=== PATIENT | male | born 1985 | race Caucasian/White ===

== ENCOUNTER 2017-12-19 11:37 | Inpatient (IN) | payer SELFPAY ==
[~2017-12-19] VITALS: Ht 175.3 cm; Wt 86.2 kg
[~2017-12-19 11:37] MED LIST: DEXAMETHASONE SOD PHOS 4 MG/ML VIAL IV ONE; KETOROLAC TROMETHAMINE 30 MG/ML (IVP) VIAL IV PUSH ONE; LACTATED RINGER'S 1000 ML INJ 1,000 ML IV ONE; LIDOCAINE HCL 1% PF 5 ML SYRINGE OTHER ONE; ONDANSETRON HCL 4 MG/2 ML VIAL IV PUSH ONE; PROPOFOL 200 MG/20 ML AMP IV ONE
[2017-12-19 11:42] VITALS: BP 147/80; PULSE 100; RESP 18; TEMP 98.8; O2SAT 96
[2017-12-19 11:54] VITALS: BP 136/85; PULSE 79; RESP 12; O2SAT 95
[2017-12-19] MEDS ORDERED: VANCOMYCIN INJ 1,000 MG in SODIUM CHLOR 0.9% 250 ML INJ 250 ML IV ONE (12:15)
[2017-12-19] MEDS ORDERED: KETOROLAC TROMETHAMINE 30 MG/ML (IVP) VIAL IV PUSH ONE (12:15)
--- NOTE | 2017-12-19 12:21 | PD ---
HPI Chief Complaint: Skin Problem Time Seen by Provider: 11:47 Travel History International Travel<30 days: No Contact w/Intl Traveler<30days: No Traveled to known affect area: No History of Present Illness HPI 32-year-old male that presents to the ED for evaluation of left hand swelling that he has had for 6 days. Per patient he started about 6 days ago. He has significant history of IV drug abuse. He uses every day and he has lost around 1:00 this morning. Injects heroin and Dilaudid. He denies that this is related to his IV drug abuse. He denies injecting in this area. Per patient he believes this is secondary to getting his hand caught by a palm tree. Per patient he was hoping he will get better but it did not. He has not seen anybody for this. He does have a history of abscesses and infections on his hand in the past. He has a history of IV drug abuse per medical records. His pain currently is 10 out of 10. Denies any fevers chills or sweats. Most of the swelling is to most of the left hand between the webspace between the first and second digit and some of it does go to the third digit. Patient is able to move the fingers but has a lot of pain with full flexion. PFSH Past Medical History Asthma: No Blood Disorders: No Anxiety: No Depression: No Heart Rhythm Problems: No Cancer: No Cardiovascular Problems: No High Cholesterol: No Chemotherapy: No Chest Pain: No Congestive Heart Failure: No COPD: No Diabetes: Yes Patient Takes Glucophage: No Diminished Hearing: No Endocrine: No Gastrointestinal Disorders: No Genitourinary: No Hepatitis: Yes (HEP C) Hypertension: No Immune Disorder: No Implanted Vascular Access Dvce: No Musculoskeletal: No Neurologic: No Psychiatric: No Reproductive: No Respiratory: No Radiation Therapy: No Sickle Cell Disease: No Sleep Apnea: No Thyroid Disease: No ?: Not Past Surgical History AICD: No Arteriovenous Shunt: No Ear Surgery: No Endocrine Surgery: No Eye Surgery: No Genitourinary Surgery: No Gynecologic Surgery: No Insulin Pump: No Joint Replacement: No Oral Surgery: No Pacemaker: No Other Surgery: Yes (I and D of left foot, left hand hx surgery) Social History Alcohol Use: Yes (Rarely) Tobacco Use: Yes (PPD) Substance Use: Yes (DILAUDID) Allergies-Medications (Allergen,Severity, Reaction): Coded Allergies: penicillin G (Unverified Allergy, Severe, Hives, 06/29/17) Reported Meds & Prescriptions Reported Meds & Active Scripts Active No Active Prescriptions or Reported Medications Review of Systems Except as stated in HPI: all other systems reviewed are Neg Physical Exam Narrative GENERAL: SKIN: Warm and dry. HEAD: Atraumatic. Normocephalic. EYES: Pupils equal and round. No scleral icterus. No injection or drainage. ENT: No nasal bleeding or discharge. Mucous membranes pink and moist. Tongue is midline. No uvula deviation. NECK: Trachea midline. No JVD. CARDIOVASCULAR: Regular rate and rhythm. No murmurs, S3, S4. RESPIRATORY: No accessory muscle use. Clear to auscultation. Breath sounds equal bilaterally. GASTROINTESTINAL: Abdomen soft, non-tender, nondistended. Hepatic and splenic margins not palpable. MUSCULOSKELETAL: Extremities without clubbing, cyanosis, or edema. No obvious deformities. Full range of motion of the upper and lower extremities bilaterally. 2+ pulses bilaterally. Patient has soft tissue swelling and erythema as well as what appears to be an area of induration of about 5 cm in diameter on the webspace between the first and second digits and some of it appears to be spreading to the third digit. Very tender to touch. Appears to be more dorsal aspect on the palmar. Patient appears to have an old scar in this area. Good capillary refill. Sensations intact bilaterally. NEUROLOGICAL: Awake and alert. No obvious cranial nerve deficits. Motor grossly within normal limits. Five out of 5 muscle strength in the arms and legs. Normal speech. PSYCHIATRIC: Appropriate mood and affect; insight and judgment normal. Data Data Last Documented VS Vital Signs Date Time Temp Pulse Resp B/P (MAP) Pulse Ox O2 Delivery O2 Flow Rate FiO2 12/19/17 11:54 79 12 136/85 (102) 95 Room Air 12/19/17 11:42 98.8 Orders Orders Complete Blood Count With Diff (12/19/17 12:06) Basic Metabolic Panel (Bmp) (12/19/17 12:06) Prothrombin Time / Inr (Pt) (12/19/17 12:06) Act Partial Throm Time (Ptt) (12/19/17 12:06) Blood Culture (12/19/17 12:06) C-Reactive Protein (Crp) (12/19/17 12:06) Wound Culture And Gram Stain (12/19/17 12:06) Iv Access Insert/Monitor (12/19/17 12:06) Vancomycin Inj (Vancomycin Inj) (12/19/17 12:15) Ketorolac Inj (Toradol Inj) (12/19/17 12:15) Hand, Complete ([id number]) (12/19/17 ) Vascular Access Team Consult/P PRN (12/19/17 12:22) Vascular Poc Ultrasound (12/19/17 ) Us Arm Soft Tissue (12/19/17 ) Admit Order (Ed Use Only) (12/19/17 13:54) Labs Laboratory Tests Test 12/19/17 12:27 White Blood Count 9.5 TH/MM3 Red Blood Count 4.51 MIL/MM3 Hemoglobin 13.0 GM/DL Hematocrit 37.6 % Mean Corpuscular Volume 83.3 FL Mean Corpuscular Hemoglobin 28.8 PG Mean Corpuscular Hemoglobin Concent 34.6 % Red Cell Distribution Width 12.6 % Platelet Count 250 TH/MM3 Mean Platelet Volume 7.8 FL Neutrophils (%) (Auto) 80.4 % Lymphocytes (%) (Auto) 10.1 % Monocytes (%) (Auto) 6.0 % Eosinophils (%) (Auto) 2.5 % Basophils (%) (Auto) 1.0 % Neutrophils # (Auto) 7.7 TH/MM3 Lymphocytes # (Auto) 1.0 TH/MM3 Monocytes # (Auto) 0.6 TH/MM3 Eosinophils # (Auto) 0.2 TH/MM3 Basophils # (Auto) 0.1 TH/MM3 CBC Comment DIFF FINAL Differential Comment Prothrombin Time 10.5 SEC Prothromb Time International Ratio 1.0 RATIO Activated Partial Thromboplast Time 26.6 SEC Blood Urea Nitrogen 7 MG/DL Creatinine 0.78 MG/DL Random Glucose 343 MG/DL Calcium Level 8.5 MG/DL Sodium Level 135 MEQ/L Potassium Level 3.6 MEQ/L Chloride Level 100 MEQ/L Carbon Dioxide Level 30.5 MEQ/L Anion Gap 5 MEQ/L Estimat Glomerular Filtration Rate 115 ML/MIN C-Reactive Protein 6.09 MG/DL MDM Medical Decision Making Medical Screen Exam Complete: Yes Emergency Medical Condition: Yes Medical Record Reviewed: Yes Interpretation(s) CBC & BMP Diagram 12/19/17 12:27 Calcium Level 8.5 Last Impressions Hand X-Ray 12/19/17 0000 Signed Impressions: Service Date/Time: Tuesday, December 19, 2017 12:49 - CONCLUSION: Soft tissue swelling otherwise negative Yonatan Rivera MD FACR CRP elevated Differential Diagnosis Abscess versus cellulitis versus IVDA versus MRSA Narrative Course 32-year-old male that presents to the ED for evaluation of left hand possible infection. Patient was properly examined and was found to have signs and symptoms consistent with appears to be cellulitis with possible abscess deep on the left hand. I had my attending Dr. Sims evaluated the patient himself who recommends that we have hand surgeon involved and IV antibiotics and admission. Patient was told this and agrees with admission. Labs and imaging order. he was started on vancomycin. Labs and imaging showed soft tissue infection and elevated CRP as well as sugars. My attending spoke with Dr. Leon over the phone. Please refer to his note. My attending spoke with Dr. Barnard for admission. Please refer to his note. Patient was told of need of admission and agrees with plan. Patient was admitted for IV antibiotics and possible surgical treatment of what appears to be a possible hand abscess from IV drug abuse. Diagnosis Primary Impression: Cellulitis of hand, left Additional Impression: IVDU (intravenous drug user) Admitting Information Admitting Physician Requests: Admit Scripts No Active Prescriptions or Reported Meds Mike Robin December 19, 2017 12:21
[2017-12-19 12:48] LABS: AUTOMATED NEUTROPHIL # 7.7 TH/MM3 (1.8-7.7); BASOPHIL # 0.1 TH/MM3 (0-0.2); EOSINOPHIL # 0.2 TH/MM3 (0-0.4); EOSINOPHIL % 2.5 % (0.0-4.0); HEMATOCRIT 37.6 % (39.0-51.0); LYMPH % 10.1 % (9.0-44.0); MEAN CELL VOLUME 83.3 FL (80.0-100.0); MEAN CORPUSCULAR HEMOGLOBIN 28.8 PG (27.0-34.0); MEAN CORPUSCULAR HGB CONC 34.6 % (32.0-36.0); MEAN PLATELET VOLUME 7.8 FL (7.0-11.0); MONOCYTE # 0.6 TH/MM3 (0-0.9); NEUT % 80.4 % (16.0-70.0); PLATELET COUNT 250 TH/MM3 (150-450); RED BLOOD COUNT 4.51 MIL/MM3 (4.50-5.90); RED CELL DISTRIBUTION WIDTH 12.6 % (11.6-17.2); WHITE BLOOD COUNT 9.5 TH/MM3 (4.0-11.0)
[2017-12-19 12:57] LABS: PROTHROMBIN TIME - PATIENT 10.5 SEC (9.8-11.6)
[2017-12-19 13:06] LABS: BICARBONATE 30.5 MEQ/L (21.0-32.0); C-REACTIVE PROTEIN 6.09 MG/DL (0.00-0.30); CALCIUM 8.5 MG/DL (8.5-10.1); CREATININE 0.78 MG/DL (0.60-1.30)
--- NOTE | 2017-12-19 13:26 | RADRPT ---
EXAM DATE/TIME: 12/19/2017 12:49 [facility] COMPARISON: HAND LEFT COMPLETE ([id number]), July 13, 2014, 17:21. INDICATIONS : Left hand pain and swelling stuck by a palm fron. MEDICAL HISTORY : None. SURGICAL HISTORY : None. ENCOUNTER: Initial ACUITY: 1 day PAIN SCORE: 9/10 LOCATION: Left Hand. FINDINGS: Soft tissue swelling thenar eminence. No foreign body. No fracture. Anatomic alignment. CONCLUSION: Soft tissue swelling otherwise negative Yonatan Rivera MD FACR on December 19, 2017 at 13:19 Board Certified Radiologist. This report was verified electronically.
[2017-12-19] MEDS ORDERED: GLUCAGON 1 MG/ML VIAL OTHER PRN (14:00)
[2017-12-19] MEDS ORDERED: SENNOSIDES 8.6 MG TAB PO PRN (14:00)
[2017-12-19] MEDS ORDERED: MAGNESIUM HYDROXIDE SUSP 30 ML CUP PO PRN (14:00)
[2017-12-19] MEDS ORDERED: NALOXONE HCL 0.4 MG/ML AMP IV PUSH PRN (14:00)
[2017-12-19] MEDS ORDERED: ONDANSETRON HCL 4 MG/2 ML VIAL IVP PRN (14:00)
[2017-12-19] MEDS ORDERED: SODIUM CHLORIDE 0.9% FLUSH 10 ML FLUSH IV FLUSH PRN (14:00)
[2017-12-19] MEDS ORDERED: ACETAMINOPHEN 325 MG TAB PO PRN (14:00)
[2017-12-19] MEDS ORDERED: LACTULOSE SYRUP 20 GM/30 ML CUP PO PRN (14:00)
[2017-12-19] MEDS ORDERED: DEXTROSE 50% IN WATER 50 ML VIAL(D50) IV PUSH PRN (14:00)
[2017-12-19] MEDS ORDERED: BISACODYL 10 MG SUPP RECTAL PRN (14:00)
--- NOTE | 2017-12-19 14:40 | HHI.HP ---
HPI Service [facility] Primary Care Physician No Primary Care Physician Admission Diagnosis Left hand cellulitis. Diagnoses: Chief Complaint: Left hand pain Travel History International Travel<30 Days: No Contact w/Intl Traveler <30 Da: No Traveled to Known Affected Are: No History of Present Illness 32-year-old male ongoing IV drug user and untreated diabetes presented to the hospital with complaint of left hand swelling, redness, and pain. Patient reports that he normally does not inject on his hand. He states he suffered an injury from a palm tree about a week ago, he was poked. Since then he has developed worsening redness, pain, and swelling. Hand surgery was consulted from the emergency room and planning for I&D today. He denies any fevers. Regarding diabetes, patient reports he has not been taking any medications due to lack of insurance. He states he could not tolerate metformin due to GI side effects. He states he was on insulin about 4 years ago when he was incarcerated. Review of Systems Constitutional: DENIES: Fever, Chills Respiratory: DENIES: Cough, Shortness of breath Cardiovascular: DENIES: Chest pain, Palpitations Except as stated in HPI: all other systems reviewed are Neg Past Family Social History Past Medical History IV drug user Untreated type II diabetes Past Surgical History Leg I&D Previous hand I&D Reported Medications Reported Meds & Active Scripts Active No Active Prescriptions or Reported Medications Allergies: Coded Allergies: penicillin G (Unverified Allergy, Severe, Hives, 06/29/17) Family History Reviewed and is noncontributory. 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 Patient admits to smoking 1 pack of cigarettes per day. Admits to daily IV Dilaudid use. Denies alcohol. Physical Exam Vital Signs Vital Signs Date Time Temp Pulse Resp B/P (MAP) Pulse Ox O2 Delivery O2 Flow Rate FiO2 12/19/17 11:54 79 12 136/85 (102) 95 Room Air 12/19/17 11:42 98.8 100 18 147/80 (102) 96 Physical Exam GENERAL: This is a well-nourished, well-developed patient, in no apparent distress. SKIN: Left dorsal hand is erythematous with edema. CARDIOVASCULAR: Normal rate and regular rhythm without murmurs, gallops, or rubs. RESPIRATORY: Good respiratory efforts. Breath sounds equal and clear to auscultation bilaterally. GASTROINTESTINAL: Abdomen soft, non-tender, non-distended. Normal active bowel sounds MUSCULOSKELETAL: Findings as noted under skin exam. He can move the fingers freely with some discomfort. Neurovascularly intact at the fingers. NEURO: Alert & Oriented x4 to person, place, time, situation. Moves all ext x4 PSYCH: Appropriate mood and affect. Laboratory Laboratory Tests Test 12/19/17 12:27 White Blood Count 9.5 Red Blood Count 4.51 Hemoglobin 13.0 Hematocrit 37.6 Mean Corpuscular Volume 83.3 Mean Corpuscular Hemoglobin 28.8 Mean Corpuscular Hemoglobin Concent 34.6 Red Cell Distribution Width 12.6 Platelet Count 250 Mean Platelet Volume 7.8 Neutrophils (%) (Auto) 80.4 Lymphocytes (%) (Auto) 10.1 Monocytes (%) (Auto) 6.0 Eosinophils (%) (Auto) 2.5 Basophils (%) (Auto) 1.0 Neutrophils # (Auto) 7.7 Lymphocytes # (Auto) 1.0 Monocytes # (Auto) 0.6 Eosinophils # (Auto) 0.2 Basophils # (Auto) 0.1 CBC Comment DIFF FINAL Differential Comment Prothrombin Time 10.5 Prothromb Time International Ratio 1.0 Activated Partial Thromboplast Time 26.6 Blood Urea Nitrogen 7 Creatinine 0.78 Random Glucose 343 Calcium Level 8.5 Sodium Level 135 Potassium Level 3.6 Chloride Level 100 Carbon Dioxide Level 30.5 Anion Gap 5 Estimat Glomerular Filtration Rate 115 C-Reactive Protein 6.09 Date/Time Source Procedure Growth Status 12/19/17 12:27 Blood Peripheral Aerobic Blood Culture Pending Received 12/19/17 12:27 Blood Peripheral Anaerobic Blood Culture Pending Received Result Diagram: 12/19/17 1227 12/19/17 1227 Imaging Last Impressions Hand X-Ray 12/19/17 0000 Signed Impressions: Service Date/Time: Tuesday, December 19, 2017 12:49 - CONCLUSION: Soft tissue swelling otherwise negative Yonatan Rivera MD FACR Capallysoni VTE Risk Assessment Caprini VTE Risk Assessment: No/Low Risk (score <= 1) Caprini Risk Assessment Model Point Value = 1 Point Value = 2 Point Value = 3 Point Value = 5 Age 41-60 Minor surgery BMI > 25 kg/m2 Swollen legs Varicose veins or History of unexplained or recurrent spontaneous Oral contraceptives or hormone replacement Sepsis (< 1 month) Serious lung disease, including pneumonia (< 1 month) Abnormal pulmonary function Acute myocardial infarction Congestive heart failure (< 1 month) History of inflammatory bowel disease Medical patient at bed rest Age 61-74 Arthroscopic surgery Major open surgery (> 45 min) Laparoscopic surgery (> 45 min) Malignancy Confined to bed (> 72 hours) Immobilizing plaster cast Central venous access Age >= 75 History of VTE Family history of VTE Factor V Leiden Prothrombin [id number] Lupus anticoagulant Anticardiolipin antibodies Elevated serum homocysteine Heparin-induced thrombocytopenia Other congenital or acquired thrombophilia Stroke (< 1 month) Elective arthroplasty Hip, pelvis, or leg fracture Acute spinal cord injury (< 1 month) Prophylaxis Regimen Total Risk Factor Score Risk Level Prophylaxis Regimen 0-1 Low Early ambulation 2 Moderate Order ONE of the following: *Sequential Compression Device (SCD) *Heparin 5000 units SQ BID 3-4 Higher Order ONE of the following medications: *Heparin 5000 units SQ TID *Enoxaparin/Lovenox 40 mg SQ daily (WT < 150 kg, CrCl > 30 mL/min) *Enoxaparin/Lovenox 30 mg SQ daily (WT < 150 kg, CrCl > 10-29 mL/min) *Enoxaparin/Lovenox 30 mg SQ BID (WT < 150 kg, CrCl > 30 mL/min) AND/OR *Sequential Compression Device (SCD) 5 or more Highest Order ONE of the following medications: *Heparin 5000 units SQ TID (Preferred with Epidurals) *Enoxaparin/Lovenox 40 mg SQ daily (WT < 150 kg, CrCl > 30 mL/min) *Enoxaparin/Lovenox 30 mg SQ daily (WT < 150 kg, CrCl > 10-29 mL/min) *Enoxaparin/Lovenox 30 mg SQ BID (WT < 150 kg, CrCl > 30 mL/min) AND *Sequential Compression Device (SCD) Assessment and Plan Problem List: (1) Cellulitis of hand, left ICD Code: L03.114 - Cellulitis of left upper limb Status: Acute Plan: With probable abscess. US soft tissue pending. Hand surgery aware any splinting for possible I&D later today. Patient is an IV drug user. 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 Continue vancomycin IV. Follow blood cultures. Pain control with Percocet and Toradol IV as needed. (2) Diabetes ICD Code: E11.9 - Type 2 diabetes mellitus without complications Status: Chronic Plan: Untreated. Patient reports this is due to lack of insurance. He used to be on insulin about 4 years ago. Start Levemir 10 units nightly and sliding scale insulin with Accu-Cheks. Check hemoglobin A1c Case management consult to assist patient (3) IVDU (intravenous drug user) ICD Code: F19.90 - Other psychoactive substance use, unspecified, uncomplicated Plan: The patient was extensively counseled. He seems to understand the need to quit but he does not have a plan currently. Patient was made aware that we will avoid IV narcotics during his hospitalization. Discussed Condition With Dr. Sims Physician Certification 2 Midnight Certification Type: Admission for Inpatient Services Order for Inpatient Services The services are ordered in accordance with Medicare regulations or non- Medicare payer requirements, as applicable. In the case of services not specified as inpatient-only, they are appropriately provided as inpatient services in accordance with the 2-midnight benchmark. Estimated LOS (days): 3 days is the estimated time the patient will need to remain in the hospital, assuming treatment plan goals are met and no additional complications. Post-Hospital Plan: Home Problem Qualifiers (1) Diabetes: Jacinto Barnard MD December 19, 2017 14:40
--- NOTE | 2017-12-19 15:19 | RADRPT ---
EXAM DATE/TIME: 12/19/2017 14:19 CORRECTION Corrected on: December 19, 2017; [facility] COMPARISON: HAND LEFT COMPLETE ([id number]), December 19, 2017, 12:49. INDICATIONS : Left arm abscess. MEDICAL HISTORY : Hepatitis C. Diabetes. Panic disorder. Substance use. SURGICAL HISTORY : I&D of left foot. Left hand surgery. ENCOUNTER: Initial ACUITY: 1 week PAIN SCORE: 10/10 LOCATION: Left arm. AREA EVALUATED: Left hand between the FINDINGS: There is a soft tissue abscess left hand that involves both the deep and superficial tissues of the t henar eminence. Complex material is present. No foreign bodies evident. CONCLUSION: Deep and superficial abscess of the thenar eminence. Yonatan Rivera MD FACR on December 19, 2017 at 15:07 Board Certified Radiologist. This report was verified electronically. Yonatan Rivera MD FACR on December 19, 2017 at 16:31 Board Certified Radiologist. This report was verified electronically.
[2017-12-19] MEDS ORDERED: Vancomycin Consult Pharmacy 1 EA OTHER SCH (16:00)
[2017-12-19 16:21] VITALS: BP 123/67; PULSE 76; RESP 19; O2SAT 97
[2017-12-19] MEDS: oxyCODONE/ACETAMINOPHEN 5 MG/325 MG TAB PO PRN ×2 (16:25→23:32)
[2017-12-19] MEDS: INSULIN ASPART SUPPLEMENTAL SCALE SQ SCH ×2 (17:00→23:32)
[2017-12-19 17:55] VITALS: BP 146/69; PULSE 71; RESP 19; TEMP 98.2; O2SAT 97
--- NOTE | 2017-12-19 19:09 | MB ---
cc: Carlton Leon MD, Srikanth MD DATE: 12/19/2017 REASON FOR CONSULTATION: Left hand abscess. HISTORY OF PRESENT ILLNESS: The patient is a 32-year-old right hand dominant male who presented to the ED with complaints of pain and swelling involving the left hand of 3-4 days duration. 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 He complains of pain, swelling and redness involving the left hand. Pain is almost constant in nature. Denies any tingling, numbness. Denies any fever. The patient gives a history of diabetes and he is not on any treatment because of insurance issues. PAST MEDICAL HISTORY: Significant for diabetes and IV drug abuse. PAST SURGICAL HISTORY: Significant for incision and drainage of hand and leg abscess. PHYSICAL EXAMINATION: GENERAL: The patient is alert, oriented x 3. EXTREMITIES: Examination of left hand reveals swelling and redness involving the first webspace. There is tense swelling over the first webspace, which is tender to palpation. Fluctuation could not be elicited. There is a prominent vein with needle pretty over the first webspace corresponding to the swelling and redness. Exquisite tenderness noted over the region. The thenar muscle region appears to be soft and supple. He does have tenderness on the volar aspect of the first webspace. Range of motion of the thumb is limited and painful. Swelling of the surrounding dorsal aspect of the hand noted. He has full flexion at the PIP joint. Flexion of the MP joints are limited and painful. No signs of flexor tenosynovitis noted clinically. Wrist range of motion ____ flexion and extension is painful. LABORATORY DATA: His lab work was reviewed. He has a 9.5 white count with a shift of 80%. The patient had x-rays of the left hand which show soft tissue swelling. IMAGING STUDIES: The patient had an ultrasound of the left hand which shows a complex collection over the first webspace with abscess formation. ASSESSMENT: A 32-year-old male with left hand abscess. PLAN: Will be to admit the patient for IV antibiotics, limb elevation. We will take him emergently for incision and drainage of left hand abscess. The patient has been explained the risks and benefits of the procedure and he is consented for the same. Carlton Leon MD SE/Reena , 04:49 PM , 05:09 PM
[2017-12-19] MEDS ORDERED: NEOMYCIN/POLYMYXIN 1 ML G.U. IRRIGANT ONE (19:31)
[2017-12-19] MEDS ORDERED: BUPIVACAINE HCL PF 0.5% 30 ML VIAL ONE (19:33)
[2017-12-19] MEDS ORDERED: LIDOCAINE HCL 2% PF 10 ML VIAL ONE (19:33)
[2017-12-19] MEDS ORDERED: HYDROmorphone HCL PF 2 MG/ML VIAL ONE (19:34)
[2017-12-19] MEDS ORDERED: KETAMINE HCL 50 MG/5 ML SYRINGE ONE (19:34)
[2017-12-19] MEDS ORDERED: MIDAZOLAM HCL 2 MG/2 ML VIAL ONE (19:35)
[2017-12-19] MEDS ORDERED: KETOROLAC TROMETHAMINE 30 MG/ML (IVP) VIAL IV PUSH PRN (20:00)
--- NOTE | 2017-12-19 20:43 | PD.OP ---
Operative Report Preoperative Diagnosis: (1) Abscess of left hand Postoperative Diagnosis: (1) Abscess of left hand Procedure: incision and drainage of left hand abscess Anesthesia: general Surgeon: Carlton Leon Graphic Artist(s): charly Operation and Findings: deep and superficial abscess over the first web space left hand Carlton Leon MD December 19, 2017 20:43
[2017-12-19] MEDS ORDERED: DO NOT ADM ANY ANTICOAGULANT DRUGS PRN (21:00)
--- NOTE | 2017-12-19 21:44 | MP ---
cc: Carlton Leon MD DATE OF OPERATION: 12/19/2017 DATE OF PROCEDURE: 12/19/2017 PREOPERATIVE DIAGNOSIS: Abscess, left hand. POSTOPERATIVE DIAGNOSIS: Abscess, left hand. PROCEDURE PERFORMED: Incision and drainage of abscess, left hand. SURGEON: Carlton Leon MD ANESTHESIA: General. ESTIMATED BLOOD LOSS: Minimal. TOURNIQUET TIME: 11 minutes at 250 mmHg. SPECIMENS: Sent for culture and sensitivity. DISPOSITION: To PACU stable. INDICATIONS FOR PROCEDURE: The patient is a 32-year-old right hand dominant male with history of diabetes and IV drug abuse, presented with complaints of pain, swelling involving the left hand for the past several days. On examination, he had swelling, redness, induration, fluctuation over the first webspace. He also had ultrasound which showed complex collection in the deep and superficial region, involving the first webspace. The patient was consented for incision and drainage of left hand abscess. The patient was explained the risks and benefits of the procedure. The patient was brought to the operating room. Under general anesthesia, the left upper extremity was sterilely prepped and draped. Incision site was marked with an oblique fashion over the first webspace measuring about 3 cm. After limb elevation, tourniquet is inflated to 250 mmHg. Incision was then made over the proposed incision site. So after dissection was carried out exposing the subcutaneous location, there was a big pocket of collection with purulent material over the region. About 3-4 mL of berenice purulent material was drained from the region. The cavity was extending to the first webspace over the adductor muscle region. Pockets were broken with blunt dissection. Material was sent for culture and sensitivity. No other pockets were noted. After draining all the pockets, tourniquet was deflated. Total tourniquet time was 11 minutes. Good distal circulation after release of the tourniquet. Bleeding points were cauterized with bipolar cautery. Thorough wash was given using normal saline mixed with hydrogen peroxide and normal saline mixed with irrigant. About a liter of solution was used. After ensuring hemostasis, packing of the wound was carried out using 1/4 inch iodoform packing material. The skin was loosely approximated with 5-0 nylon in a horizontal mattress interrupted fashion. Bulky hand dressing was applied, which was held in place by Sof-Rol and bias hand wrap. The patient was recovered and sent to recovery in stable condition. The plan will be to keep the limb elevated. Continue with IV antibiotics and followup cultures. Carlton Leon MD SE/MERE/deborah , 08:47 PM , 09:19 PM
[2017-12-19 21:48] LABS: HEMOGLOBIN A1C 10.9 % (4.3-6.0)
[2017-12-19] MEDS ORDERED: VANCOMYCIN INJ 1,000 MG in SODIUM CHLOR 0.9% 250 ML INJ 250 ML IV SCH (22:00)
[2017-12-19] MEDS ORDERED: VANCOMYCIN INJ 1,500 MG in SODIUM CHLORID 0.9% 500 ML INJ 500 ML IV SCH (22:00)
[2017-12-19] MEDS: SODIUM CHLORIDE 0.9% FLUSH 10 ML FLUSH IV FLUSH SCH (23:32)
[2017-12-20] VITALS: BP 106/52; PULSE 71; RESP 18; TEMP 98.2; O2SAT 95
[2017-12-20 04:00] VITALS: BP 107/67; PULSE 66; RESP 18; TEMP 98; O2SAT 96
[2017-12-20] MEDS: oxyCODONE/ACETAMINOPHEN 5 MG/325 MG TAB PO PRN ×2 (04:45→09:21)
[2017-12-20 08:00] VITALS: BP 129/73; PULSE 62; RESP 17; TEMP 98.1; O2SAT 99
[2017-12-20] MEDS: INSULIN ASPART SUPPLEMENTAL SCALE SQ SCH (09:21)
[2017-12-20] MEDS: SODIUM CHLORIDE 0.9% FLUSH 10 ML FLUSH IV FLUSH SCH (09:22)
[2017-12-21] MEDS ORDERED: PHARMACY ORDERED LAB ONE (09:45)
== END 2017-12-20 09:56 | disposition left against medical advice (07) | DRG 603 ==
LOC: HOR 11:37 → NEDA 13:56 → N07B 16:46
PROVIDERS: ADMIT Internal Medicine; ATTEND Internal Medicine
PROC: 0J9K0ZX Drainage of Left Hand Subcutaneous Tissue and Fascia, Open Approach, Diagnostic (ICD-10-PCS; principal; 2017-12-19 19:50)
DX: L02.512 Cutaneous abscess of left hand (principal); L03.114 Cellulitis of left upper limb; E11.9 Type 2 diabetes mellitus without complications; Z91.120 Patient's intentional underdosing of medication regimen due to financial hardship; F19.90 Other psychoactive substance use, unspecified, uncomplicated; F17.210 Nicotine dependence, cigarettes, uncomplicated; Z86.14 Personal history of Methicillin resistant Staphylococcus aureus infection
CPT/HCPCS: 73130; 76882; 80048; 82948; 83036; 85025; 85610; 85730; 86140; 86403; 87015; 87040; 87070; 87102; 87116; 87205; 87206; J1100; J1170; J1815; J1885; J2250; J2405; J3370; J7040; J7050; J7120

== ENCOUNTER 2018-01-13 17:36 | Inpatient (IN) | payer SELFPAY ==
[~2018-01-13] VITALS: Ht 175.3 cm; Wt 71.6 kg
[2018-01-13 07:41] VITALS: PULSE 82
[2018-01-13 17:39] VITALS: BP 146/85; PULSE 114; RESP 16; TEMP 98.8; O2SAT 95
[2018-01-13] MEDS ORDERED: MORPHINE SULFATE 4 MG/ML INJ IV PUSH ONE (18:45)
[2018-01-13] MEDS ORDERED: VANCOMYCIN INJ 1,250 MG in SODIUM CHLOR 0.9% 250 ML INJ 250 ML IV ONE (18:45)
[2018-01-13 18:46] VITALS: BP 146/81; PULSE 89; RESP 18; O2SAT 98
--- NOTE | 2018-01-13 19:13 | PD ---
HPI Chief Complaint: Skin Problem Time Seen by Provider: 18:32 Travel History International Travel<30 days: No Contact w/Intl Traveler<30days: No Traveled to known affect area: No History of Present Illness HPI Patient is a 32 year old male, with history of IVDA, who comes in complaining of pain to his left arm. He has had multiple episodes of cellulitis and abscesses in the past. He says these have been here for a few weeks and getting worse. He denies fever or chills. He last used earlier in the morning. He says he has not injected in the areas he has abscesses. Severity is mild to moderate. PFSH Past Medical History Arthritis: No Asthma: No Blood Disorders: No Anxiety: No Depression: No Heart Rhythm Problems: No Cancer: No Cardiovascular Problems: No High Cholesterol: No Chemotherapy: No Chest Pain: No Congestive Heart Failure: No COPD: No Cerebrovascular Accident: No Diabetes: Yes Patient Takes Glucophage: Yes (7 months ago) Diminished Hearing: No Endocrine: No Gastrointestinal Disorders: No Genitourinary: No Headaches: Yes Hepatitis: Yes (HEP C) Hypertension: No Immune Disorder: No Implanted Vascular Access Dvce: No Musculoskeletal: No Neurologic: Yes Psychiatric: No Reproductive: No Respiratory: No Migraines: No Radiation Therapy: No Seizures: No Sickle Cell Disease: No Sleep Apnea: No Thyroid Disease: No Past Surgical History Abdominal Surgery: No AICD: No Arteriovenous Shunt: No Cardiac Surgery: No Ear Surgery: No Endocrine Surgery: No Eye Surgery: No Genitourinary Surgery: No Gynecologic Surgery: No Insulin Pump: No Joint Replacement: No Oral Surgery: No Pacemaker: No Thoracic Surgery: No Other Surgery: Yes (I and D of left foot, left hand hx surgery) Social History Alcohol Use: No Tobacco Use: Yes (PPD) Substance Use: Yes (Dilaudid & Heroin & weed) Allergies-Medications (Allergen,Severity, Reaction): Coded Allergies: penicillin G (Verified Allergy, Severe, Hives, 01/13/18) Reported Meds & Prescriptions Reported Meds & Active Scripts Active Review of Systems Except as stated in HPI: all other systems reviewed are Neg General / Constitutional: No: Fever, Chills HENT: No: Headaches, Lightheadedness Cardiovascular: No: Chest Pain or Discomfort Respiratory: No: Shortness of Breath Gastrointestinal: No: Nausea, Vomiting Musculoskeletal: Positive: Pain Skin: Positive Lesions Neurologic: No: Weakness, Dizziness Physical Exam Narrative GENERAL: Awake and alert, in no acute distress. SKIN: Open abscess to the left wrist, draining large amount pus. Erythema to the left arm. HEAD: Atraumatic. Normocephalic. EYES: Pupils equal and round. No scleral icterus. ENT: No nasal bleeding or discharge. Mucous membranes pink and moist. NECK: Trachea midline. No JVD. CARDIOVASCULAR: Regular rate and rhythm. No murmur appreciated. RESPIRATORY: No accessory muscle use. Clear to auscultation. Breath sounds equal bilaterally. GASTROINTESTINAL: Abdomen soft, non-tender, nondistended. MUSCULOSKELETAL: No obvious deformities. No clubbing. No cyanosis. No edema. NEUROLOGICAL: Awake and alert. No obvious cranial nerve deficits. Motor grossly within normal limits. Normal speech. PSYCHIATRIC: Appropriate mood and affect; insight and judgment normal. Data Data Last Documented VS Vital Signs Date Time Temp Pulse Resp B/P (MAP) Pulse Ox O2 Delivery O2 Flow Rate FiO2 01/13/18 18:46 89 18 146/81 (102) 98 Room Air 01/13/18 17:39 98.8 Orders Orders Iv Access Insert/Monitor (01/13/18 18:39) Complete Blood Count With Diff (01/13/18 18:39) Comprehensive Metabolic Panel (01/13/18 18:39) Blood Culture (01/13/18 18:39) Vancomycin Inj (Vancomycin Inj) (01/13/18 18:45) Morphine Inj (Morphine Inj) (01/13/18 18:45) Wound Culture And Gram Stain (01/13/18 18:49) Sodium Chlor 0.9% 1000 Ml Inj (Ns 1000 M (01/13/18 21:00) Insulin Human Regular Inj (Novolin R Inj (01/13/18 21:00) Vancomycin Consult Pharmacy (Vancomycin (01/13/18 21:00) Aztreonam Inj (Azactam Inj) (01/13/18 22:00) Lorazepam Inj (Ativan Inj) (01/13/18 21:00) Admit To Inpatient (01/13/18 ) Vital Signs (Adult) Q4H (01/13/18 20:56) Activity Oob Ad Maddie (01/13/18 20:56) Medical Doctor / Telemetry .CONTINUOUS (01/13/18 20:56) Intake + Output VELMA.QSHIFT (01/13/18 20:56) Diet 1800 Ada Cons Carb (01/14/18 Breakfast) Sodium Chlor 0.9% 1000 Ml Inj (Ns 1000 M (01/13/18 20:56) Sodium Chloride 0.9% Flush (Ns Flush) (01/13/18 21:00) Sodium Chloride 0.9% Flush (Ns Flush) (01/13/18 21:00) Metoclopramide Inj (Reglan Inj) (01/13/18 21:00) Comprehensive Metabolic Panel (01/14/18 06:00) Complete Blood Count With Diff (01/14/18 06:00) Case Management Consult (01/13/18 20:56) Scd Bilateral/Knee High VELMA.BID (01/13/18 20:56) Jose Bilateral/Knee High VELMA.QSHIFT (01/13/18 21:02) Acetaminophen (Tylenol) (01/13/18 21:00) Oxycodone (Roxicodone) (01/13/18 21:00) Oxycodone (Roxicodone) (01/13/18 21:00) Docusate Sodium-Senna (Macrina-Colace) (01/13/18 21:00) Magnesium Hydroxide Liq (Milk Of Magnesi (01/13/18 21:00) Sennosides (Senokot) (01/13/18 21:00) Bisacodyl Supp (Dulcolax Supp) (01/13/18 21:00) Lactulose Liq (Lactulose Liq) (01/13/18 21:00) Inpatient Certification (01/13/18 ) Bedside Glucose VELMA.CSUGAR (01/13/18 20:56) Blood Glucose Goal (Criteria) (01/13/18 20:56) Hypoglycemia 70 Mg/Dl Or < (01/13/18 20:56) Notify Dr: Other (01/13/18 20:56) Dextrose 50% In Yina (Vial) Inj (D50w (Vi (01/13/18 21:00) Glucagon Inj (Glucagon Inj) (01/13/18 21:00) Insulin Aspart Supplemtl Scale (Novolog (01/13/18 21:00) Admit Order (Ed Use Only) (01/13/18 21:04) Labs Laboratory Tests Test 01/13/18 19:00 01/13/18 19:15 White Blood Count 13.0 TH/MM3 Red Blood Count 5.26 MIL/MM3 Hemoglobin 14.4 GM/DL Hematocrit 44.2 % Mean Corpuscular Volume 84.0 FL Mean Corpuscular Hemoglobin 27.4 PG Mean Corpuscular Hemoglobin Concent 32.6 % Red Cell Distribution Width 12.8 % Platelet Count 323 TH/MM3 Mean Platelet Volume 9.1 FL Neutrophils (%) (Auto) 89.6 % Lymphocytes (%) (Auto) 4.9 % Monocytes (%) (Auto) 4.1 % Eosinophils (%) (Auto) 0.5 % Basophils (%) (Auto) 0.9 % Neutrophils # (Auto) 11.7 TH/MM3 Lymphocytes # (Auto) 0.6 TH/MM3 Monocytes # (Auto) 0.5 TH/MM3 Eosinophils # (Auto) 0.1 TH/MM3 Basophils # (Auto) 0.1 TH/MM3 CBC Comment DIFF FINAL Differential Comment Blood Urea Nitrogen 16 MG/DL Creatinine 1.19 MG/DL Random Glucose 601 MG/DL Total Protein 9.4 GM/DL Albumin 3.3 GM/DL Calcium Level 9.7 MG/DL Alkaline Phosphatase 127 U/L Aspartate Amino Transf (AST/SGOT) 51 U/L Alanine Aminotransferase (ALT/SGPT) 47 U/L Total Bilirubin 0.5 MG/DL Sodium Level 122 MEQ/L Potassium Level 4.9 MEQ/L Chloride Level 86 MEQ/L Carbon Dioxide Level 26.1 MEQ/L Anion Gap 10 MEQ/L Estimat Glomerular Filtration Rate 71 ML/MIN [facility] Medical Decision Making Medical Screen Exam Complete: Yes Emergency Medical Condition: Yes Medical Record Reviewed: Yes Differential Diagnosis cellulitis vs abscess vs insect bite Narrative Course Patient is a 32 year old male who comes in complaining of pain to his left arm. Exam shows a draining abscess to the left wrist. Wound swab sent. IV established, labs sent. Given Vancomycin. Given pain medicine. Signed out to Dr. Abarca to follow up testing and disposition the patient. Scripts Insulin Detemir Inj (Levemir Inj) 1,000 unit/ 10 ML Vial 20 UNITS SQ Q12HR for Blood Sugar Management, #1000 INJECTION Do not mix with any other Insulin. Prov: Kilo Farah MD 01/15/18 Clindamycin (Clindamycin) 300 Mg Cap 300 MG PO TID for Infection, #21 CAP 0 Refills Prov: Kilo Farah MD 01/15/18 Sulfamethoxazole-Trimethoprim (Bactrim DS) 800-160 Mg Tab 1 TAB PO BID for Infection, #20 TAB 0 Refills Prov: Kilo Farah MD 01/15/18 Sandra Hummel MD Jan 13, 2018 19:13
[2018-01-13 20:02] LABS: AUTOMATED NEUTROPHIL # 11.7 TH/MM3 (1.8-7.7); BASOPHIL # 0.1 TH/MM3 (0-0.2); BASOPHIL % 0.9 % (0.0-2.0); EOSINOPHIL # 0.1 TH/MM3 (0-0.4); EOSINOPHIL % 0.5 % (0.0-4.0); HEMATOCRIT 44.2 % (39.0-51.0); HEMOGLOBIN 14.4 GM/DL (13.0-17.0); LYMPH % 4.9 % (9.0-44.0); LYMPHOCYTE # 0.6 TH/MM3 (1.0-4.8); MEAN CORPUSCULAR HEMOGLOBIN 27.4 PG (27.0-34.0); MEAN CORPUSCULAR HGB CONC 32.6 % (32.0-36.0); MEAN PLATELET VOLUME 9.1 FL (7.0-11.0); MONO % 4.1 % (0.0-8.0); MONOCYTE # 0.5 TH/MM3 (0-0.9); NEUT % 89.6 % (16.0-70.0); PLATELET COUNT 323 TH/MM3 (150-450); RED BLOOD COUNT 5.26 MIL/MM3 (4.50-5.90); RED CELL DISTRIBUTION WIDTH 12.8 % (11.6-17.2)
[2018-01-13 20:41] LABS: ALBUMIN 3.3 GM/DL (3.4-5.0); ALKALINE PHOSPHATASE 127 U/L (45-117); ALT (GPT) 47 U/L (12-78); AST (GOT) 51 U/L (15-37); BICARBONATE 26.1 MEQ/L (21.0-32.0); BLOOD UREA NITROGEN 16 MG/DL (7-18); CALCIUM 9.7 MG/DL (8.5-10.1); CHLORIDE 86 MEQ/L (98-107); CREATININE 1.19 MG/DL (0.60-1.30); GLOMERULAR FILTRATION RATE 71 ML/MIN (>89); TOTAL BILIRUBIN ADULT 0.5 MG/DL (0.2-1.0); TOTAL PROTEIN 9.4 GM/DL (6.4-8.2)
[2018-01-13 20:46] LABS: GLUCOSE,RANDOM 601 MG/DL (74-106); SODIUM (NA) 122 MEQ/L (136-145)
[2018-01-13] MEDS ORDERED: SENNOSIDES 8.6 MG TAB PO PRN (21:00)
[2018-01-13] MEDS ORDERED: MAGNESIUM HYDROXIDE SUSP 30 ML CUP PO PRN (21:00)
[2018-01-13] MEDS ORDERED: METOCLOPRAMIDE HCL 10 MG/2 ML VIAL IV PUSH PRN (21:00)
[2018-01-13] MEDS ORDERED: Vancomycin Consult Pharmacy 1 EA OTHER SCH (21:00)
[2018-01-13] MEDS ORDERED: BISACODYL 10 MG SUPP RECTAL PRN (21:00)
[2018-01-13] MEDS ORDERED: GLUCAGON 1 MG/ML VIAL OTHER PRN (21:00)
[2018-01-13] MEDS: SODIUM CHLORIDE 0.9% FLUSH 10 ML FLUSH IV FLUSH SCH (21:00)
[2018-01-13] MEDS ORDERED: SODIUM CHLOR 0.9% 1000 ML INJ 1,000 ML IV ONE (21:00)
[2018-01-13] MEDS ORDERED: ACETAMINOPHEN 325 MG TAB PO PRN (21:00)
[2018-01-13] MEDS ORDERED: SODIUM CHLORIDE 0.9% FLUSH 10 ML FLUSH IV FLUSH PRN (21:00)
[2018-01-13] MEDS ORDERED: DEXTROSE 50% IN WATER 50 ML VIAL(D50) IV PUSH PRN (21:00)
[2018-01-13] MEDS ORDERED: LACTULOSE SYRUP 20 GM/30 ML CUP PO PRN (21:00)
[2018-01-13] MEDS ORDERED: INSULIN ASPART SUPPLEMENTAL SCALE SQ SCH (21:00)
[2018-01-13] MEDS ORDERED: INSULIN HUMAN REGULAR 1,000 UNITS/10 ML VIAL IV PUSH ONE (21:00)
--- NOTE | 2018-01-13 21:03 | HHI.HP ---
HPI Service [facility] Primary Care Physician No Primary Care Physician Admission Diagnosis Diagnoses: (1) Abscess of left hand Diagnosis: Principal (2) IVDU (intravenous drug user) Diagnosis: Principal (3) Hyponatremia Diagnosis: Principal (4) DM (diabetes mellitus) Diagnosis: Principal Travel History International Travel<30 Days: No Contact w/Intl Traveler <30 Da: No Traveled to Known Affected Are: No History of Present Illness This is a 32-year-old male with a PMH of DM, Tobacco Abuse and IVDU w/ Dilaudid/ Heroin who presented to the ER w/ complaints of left arm pain and swelling. Recent admit 12/19/17 for similar presentation, s/p I&D Left Hand Abscess by Dr. Leon and treated w/ IV Abx. Returns w/ new abscess at different site on left arm/wrist. Denies fever or chills. Reports pain is constant, severe, 10/ 10, non-radiating. On arrival, BP 146/85, HR 114, O2 sat 95% on RA, Afebrile. WBC 13. Na 122. BS 601. S/p I&D in ER in addition to Vanc. Review of Systems Except as stated in HPI: all other systems reviewed are Neg ROS: 14 point review of systems otherwise negative. Past Family Social History Past Medical History PMH: DM, Tobacco Abuse and IVDU w/ Dilaudid/Heroin Past Surgical History PAST SURGICAL HISTORY: Left Hand I&D Allergies: Coded Allergies: penicillin G (Verified Allergy, Severe, Hives, 01/13/18) Family History PAST FAMILY HISTORY: Reviewed. No h/o DM or CAD Social History PAST SOCIAL HISTORY: Negative for alcohol. Smokes 1ppd. IVDU w/ Heroin and Dilaudid. Physical Exam Vital Signs Vital Signs Date Time Temp Pulse Resp B/P (MAP) Pulse Ox O2 Delivery O2 Flow Rate FiO2 01/13/18 18:46 89 18 146/81 (102) 98 Room Air 01/13/18 17:39 98.8 114 16 146/85 (105) 95 Physical Exam PE: GENERAL: Young white male in no acute distress. HEENT: PERRLA, EOMI. No scleral icterus or conjunctival pallor. No lid lag or facial droop. CARDIOVASCULAR: Regular rate and rhythm. No obvious murmurs to auscultation. No chest tenderness to palpation. RESPIRATORY: No obvious rhonchi or wheezing. Clear to auscultation. Breath sounds equal bilaterally. GASTROINTESTINAL: Abdomen soft, non-tender, nondistended. BS normal. MUSCULOSKELETAL: Extremities without clubbing, cyanosis, or edema. No obvious deformities. Left wrist/arm swelling/erythema, s/p I&D. NEUROLOGICAL: Awake, alert and oriented x4. No focal neurologic deficits. Moving both upper and lower extremities spontaneously. Laboratory Laboratory Tests Test 01/13/18 19:00 01/13/18 19:15 White Blood Count 13.0 Red Blood Count 5.26 Hemoglobin 14.4 Hematocrit 44.2 Mean Corpuscular Volume 84.0 Mean Corpuscular Hemoglobin 27.4 Mean Corpuscular Hemoglobin Concent 32.6 Red Cell Distribution Width 12.8 Platelet Count 323 Mean Platelet Volume 9.1 Neutrophils (%) (Auto) 89.6 Lymphocytes (%) (Auto) 4.9 Monocytes (%) (Auto) 4.1 Eosinophils (%) (Auto) 0.5 Basophils (%) (Auto) 0.9 Neutrophils # (Auto) 11.7 Lymphocytes # (Auto) 0.6 Monocytes # (Auto) 0.5 Eosinophils # (Auto) 0.1 Basophils # (Auto) 0.1 CBC Comment DIFF FINAL Differential Comment Blood Urea Nitrogen 16 Creatinine 1.19 Random Glucose 601 Total Protein 9.4 Albumin 3.3 Calcium Level 9.7 Alkaline Phosphatase 127 Aspartate Amino Transf (AST/SGOT) 51 Alanine Aminotransferase (ALT/SGPT) 47 Total Bilirubin 0.5 Sodium Level 122 Potassium Level 4.9 Chloride Level 86 Carbon Dioxide Level 26.1 Anion Gap 10 Estimat Glomerular Filtration Rate 71 Date/Time Source Procedure Growth Status 01/13/18 19:15 Blood Peripheral Aerobic Blood Culture Pending Received 01/13/18 19:15 Blood Peripheral Anaerobic Blood Culture Pending Received Result Diagram: 01/13/18 19001/13/181914 Caprini VTE Risk Assessment Caprini VTE Risk Assessment: No/Low Risk (score <= 1) Caprini Risk Assessment Model Point Value = 1 Point Value = 2 Point Value = 3 Point Value = 5 Age 41-60 Minor surgery BMI > 25 kg/m2 Swollen legs Varicose veins or History of unexplained or recurrent spontaneous Oral contraceptives or hormone replacement Sepsis (< 1 month) Serious lung disease, including pneumonia (< 1 month) Abnormal pulmonary function Acute myocardial infarction Congestive heart failure (< 1 month) History of inflammatory bowel disease Medical patient at bed rest Age 61-74 Arthroscopic surgery Major open surgery (> 45 min) Laparoscopic surgery (> 45 min) Malignancy Confined to bed (> 72 hours) Immobilizing plaster cast Central venous access Age >= 75 History of VTE Family history of VTE Factor V Leiden Prothrombin [id number] Lupus anticoagulant Anticardiolipin antibodies Elevated serum homocysteine Heparin-induced thrombocytopenia Other congenital or acquired thrombophilia Stroke (< 1 month) Elective arthroplasty Hip, pelvis, or leg fracture Acute spinal cord injury (< 1 month) Prophylaxis Regimen Total Risk Factor Score Risk Level Prophylaxis Regimen 0-1 Low Early ambulation 2 Moderate Order ONE of the following: *Sequential Compression Device (SCD) *Heparin 5000 units SQ BID 3-4 Higher Order ONE of the following medications: *Heparin 5000 units SQ TID *Enoxaparin/Lovenox 40 mg SQ daily (WT < 150 kg, CrCl > 30 mL/min) *Enoxaparin/Lovenox 30 mg SQ daily (WT < 150 kg, CrCl > 10-29 mL/min) *Enoxaparin/Lovenox 30 mg SQ BID (WT < 150 kg, CrCl > 30 mL/min) AND/OR *Sequential Compression Device (SCD) 5 or more Highest Order ONE of the following medications: *Heparin 5000 units SQ TID (Preferred with Epidurals) *Enoxaparin/Lovenox 40 mg SQ daily (WT < 150 kg, CrCl > 30 mL/min) *Enoxaparin/Lovenox 30 mg SQ daily (WT < 150 kg, CrCl > 10-29 mL/min) *Enoxaparin/Lovenox 30 mg SQ BID (WT < 150 kg, CrCl > 30 mL/min) AND *Sequential Compression Device (SCD) Assessment and Plan Problem List: (1) Abscess of left hand ICD Code: L02.512 - Cutaneous abscess of left hand (2) IVDU (intravenous drug user) ICD Code: F19.90 - Other psychoactive substance use, unspecified, uncomplicated (3) Hyponatremia ICD Code: E87.1 - Hypo-osmolality and hyponatremia Status: Acute (4) DM (diabetes mellitus) ICD Code: E11.9 - Type 2 diabetes mellitus without complications Assessment and Plan A/P: 1. Left Hand Abscess: recent admit for same 12/19/17 s/p I&D by Dr. Leon, now w/ new abscess at different site on left arm, s/p I&D in ER. Cultures pending, will follow. S/p Vanc in ER, continue w/ IV Abx. 2. IVDU: Pt relays desire to quit. Ativan prn for withdrawal. 3. Hyponatremia: Na 122, likely due to hyperglycemia, IVF for hydration, repeat labs. 4. DM: Uncontrolled, non-compliant. Hgb A1c 10.9 on 12/19/17. Sliding scale w / Accu-Cheks, start Levemir 5u bid 5. DVT Prophylaxis: SCD/Teds 6. Social work for d/c planning as needed. 7. Case discussed w/ ER physician at length, labs/records/imaging reviewed by me. Physician Certification 2 Midnight Certification Type: Admission for Inpatient Services Order for Inpatient Services The services are ordered in accordance with Medicare regulations or non- Medicare payer requirements, as applicable. In the case of services not specified as inpatient-only, they are appropriately provided as inpatient services in accordance with the 2-midnight benchmark. Estimated LOS (days): 2 days is the estimated time the patient will need to remain in the hospital, assuming treatment plan goals are met and no additional complications. Post-Hospital Plan: Not yet determined Marjan Kaur MD Jan 13, 2018 21:03
--- NOTE | 2018-01-13 21:23 | PD ---
Physical Exam Date Seen by Provider: Jan 13, 2018 Time Seen by Provider: 19:00 Narrative The patient was signed out to me by Dr. Sandra Hummel at change of shift. Please see her H&P for further details. We are awaiting blood work. Data Data Last Documented VS Vital Signs Date Time Temp Pulse Resp B/P (MAP) Pulse Ox O2 Delivery O2 Flow Rate FiO2 01/13/18 18:46 89 18 146/81 (102) 98 Room Air 01/13/18 17:39 98.8 Orders Orders Iv Access Insert/Monitor (01/13/18 18:39) Complete Blood Count With Diff (01/13/18 18:39) Comprehensive Metabolic Panel (01/13/18 18:39) Blood Culture (01/13/18 18:39) Vancomycin Inj (Vancomycin Inj) (01/13/18 18:45) Morphine Inj (Morphine Inj) (01/13/18 18:45) Wound Culture And Gram Stain (01/13/18 18:49) Sodium Chlor 0.9% 1000 Ml Inj (Ns 1000 M (01/13/18 21:00) Insulin Human Regular Inj (Novolin R Inj (01/13/18 21:00) Vancomycin Consult Pharmacy (Vancomycin (01/13/18 21:00) Aztreonam Inj (Azactam Inj) (01/13/18 21:00) Lorazepam Inj (Ativan Inj) (01/13/18 21:00) Admit To Inpatient (01/13/18 ) Vital Signs (Adult) Q4H (01/13/18 20:56) Activity Oob Ad Maddie (01/13/18 20:56) Sales Marketing / Telemetry .CONTINUOUS (01/13/18 20:56) Intake + Output VELMA.QSHIFT (01/13/18 20:56) Diet 1800 Ada Cons Carb (01/14/18 Breakfast) Sodium Chlor 0.9% 1000 Ml Inj (Ns 1000 M (01/13/18 20:56) Sodium Chloride 0.9% Flush (Ns Flush) (01/13/18 21:00) Sodium Chloride 0.9% Flush (Ns Flush) (01/13/18 21:00) Metoclopramide Inj (Reglan Inj) (01/13/18 21:00) Comprehensive Metabolic Panel (01/14/18 06:00) Complete Blood Count With Diff (01/14/18 06:00) Case Management Consult (01/13/18 20:56) Scd Bilateral/Knee High VELMA.BID (01/13/18 20:56) Jose Bilateral/Knee High VELMA.QSHIFT (01/13/18 21:02) Acetaminophen (Tylenol) (01/13/18 21:00) Oxycodone (Roxicodone) (01/13/18 21:00) Oxycodone (Roxicodone) (01/13/18 21:00) Docusate Sodium-Senna (Macrina-Colace) (01/13/18 21:00) Magnesium Hydroxide Liq (Milk Of Magnesi (01/13/18 21:00) Sennosides (Senokot) (01/13/18 21:00) Bisacodyl Supp (Dulcolax Supp) (01/13/18 21:00) Lactulose Liq (Lactulose Liq) (01/13/18 21:00) Inpatient Certification (01/13/18 ) Bedside Glucose VELMA.CSUGAR (01/13/18 20:56) Blood Glucose Goal (Criteria) (01/13/18 20:56) Hypoglycemia 70 Mg/Dl Or < (01/13/18 20:56) Notify Dr: Other (01/13/18 20:56) Dextrose 50% In Yina (Vial) Inj (D50w (Vi (01/13/18 21:00) Glucagon Inj (Glucagon Inj) (01/13/18 21:00) Insulin Aspart Supplemtl Scale (Novolog (01/13/18 21:00) Admit Order (Ed Use Only) (01/13/18 21:04) Labs Laboratory Tests Test 01/13/18 19:00 01/13/18 19:15 White Blood Count 13.0 TH/MM3 Red Blood Count 5.26 MIL/MM3 Hemoglobin 14.4 GM/DL Hematocrit 44.2 % Mean Corpuscular Volume 84.0 FL Mean Corpuscular Hemoglobin 27.4 PG Mean Corpuscular Hemoglobin Concent 32.6 % Red Cell Distribution Width 12.8 % Platelet Count 323 TH/MM3 Mean Platelet Volume 9.1 FL Neutrophils (%) (Auto) 89.6 % Lymphocytes (%) (Auto) 4.9 % Monocytes (%) (Auto) 4.1 % Eosinophils (%) (Auto) 0.5 % Basophils (%) (Auto) 0.9 % Neutrophils # (Auto) 11.7 TH/MM3 Lymphocytes # (Auto) 0.6 TH/MM3 Monocytes # (Auto) 0.5 TH/MM3 Eosinophils # (Auto) 0.1 TH/MM3 Basophils # (Auto) 0.1 TH/MM3 CBC Comment DIFF FINAL Differential Comment Blood Urea Nitrogen 16 MG/DL Creatinine 1.19 MG/DL Random Glucose 601 MG/DL Total Protein 9.4 GM/DL Albumin 3.3 GM/DL Calcium Level 9.7 MG/DL Alkaline Phosphatase 127 U/L Aspartate Amino Transf (AST/SGOT) 51 U/L Alanine Aminotransferase (ALT/SGPT) 47 U/L Total Bilirubin 0.5 MG/DL Sodium Level 122 MEQ/L Potassium Level 4.9 MEQ/L Chloride Level 86 MEQ/L Carbon Dioxide Level 26.1 MEQ/L Anion Gap 10 MEQ/L Estimat Glomerular Filtration Rate 71 ML/MIN [facility] Medical Record Reviewed: Yes Supervised Visit with LAXMI: No Narrative Course 32-year-old male presents with recurrent left upper extremity infection. Patient had purulent discharge noted in an abscess in his left arm with associated cellulitis. Patient's white count is 13,000. Sodium is 122. Glucose is 601. Patient's been given 1 L of IV bolus of normal saline. He is also been given 10 units of IV regular insulin. He previously been given vancomycin by Dr. Hummel. He will be admitted to the hospital. The case was discussed with Dr. Richards, [facility], who agrees to the admission. Diagnosis Primary Impression: Abscess of left hand Additional Impressions: Cellulitis, leg Hyperglycemia Hyponatremia Admitting Information Admitting Physician Requests: Admit Scripts No Active Prescriptions or Reported Meds Edwar Abarca MD Jan 13, 2018 21:23
[2018-01-13] MEDS: DOCUSATE SODIUM 50 MG/SENNA 8.6 MG TAB PO SCH (21:44)
[2018-01-13] MEDS: SODIUM CHLOR 0.9% 1000 ML INJ 1,000 ML IV SCH (22:08)
[2018-01-13 22:12] VITALS: BP 132/76; PULSE 86; RESP 18; TEMP 98.4; O2SAT 99
[2018-01-13 22:31] VITALS: PULSE 90
[2018-01-13] MEDS: AZTREONAM INJ 1,000 MG in SODIUM CHLORIDE 0.9% INJ 100 ML IV SCH (22:31)
[2018-01-14] VITALS (11 sets, daily range): BP systolic 124–136; BP diastolic 74–86; PULSE 80–87; RESP 17–20; TEMP 97.9–99.5; O2SAT 95–100
[2018-01-14] MEDS: AZTREONAM INJ 1,000 MG in SODIUM CHLORIDE 0.9% INJ 100 ML IV SCH ×3 (06:00→21:47)
[2018-01-14] MEDS: SODIUM CHLOR 0.9% 1000 ML INJ 1,000 ML IV SCH ×2 (06:56→15:55)
[2018-01-14] MEDS ORDERED: VANCOMYCIN INJ 1,250 MG in SODIUM CHLOR 0.9% 250 ML INJ 250 ML IV ONE ×2 (08:00→11:00)
[2018-01-14] MEDS: SODIUM CHLORIDE 0.9% FLUSH 10 ML FLUSH IV FLUSH SCH ×2 (08:31→21:41)
[2018-01-14] MEDS: DOCUSATE SODIUM 50 MG/SENNA 8.6 MG TAB PO SCH ×2 (08:31→21:42)
[2018-01-14] MEDS ORDERED: INSULIN DETEMIR 100 UNITS/ML VIAL SQ SCH (09:00)
--- NOTE | 2018-01-14 10:08 | HHI.PR ---
Subjective Remarks Follow-up left arm abscess/IVDU/diabetes type 2 January 14, 2018-patient seen and examined, complaining of left arm pain and requesting more narcotics. Objective Vitals Vital Signs Date Time Temp Pulse Resp B/P (MAP) Pulse Ox O2 Delivery O2 Flow Rate FiO2 01/14/18 08:00 99.5 80 20 124/74 (91) 100 01/14/18 07:41 82 01/14/18 04:00 83 01/14/18 00:00 81 01/13/18 22:31 90 01/13/18 22:31 16 01/13/18 22:12 98.4 86 18 132/76 (94) 99 01/13/18 22:06 01/13/18 18:46 89 18 146/81 (102) 98 Room Air 01/13/18 17:39 98.8 114 16 146/85 (105) 95 Result Diagram: 01/13/18189901/13/181914 Objective Remarks GENERAL: NAD SKIN: Warm and dry. HEAD: Normocephalic. EYES: No scleral icterus. No injection or drainage. NECK: Supple, trachea midline. No JVD or lymphadenopathy. CARDIOVASCULAR: Regular rate and rhythm without murmurs, gallops, or rubs. RESPIRATORY: Breath sounds equal bilaterally. No accessory muscle use. GASTROINTESTINAL: Abdomen soft, non-tender, nondistended. MUSCULOSKELETAL: No cyanosis, or edema. LUE swelling with induration, TTP BACK: Nontender without obvious deformity. No CVA tenderness. A/P Problem List: (1) Abscess of left hand ICD Code: L02.512 - Cutaneous abscess of left hand (2) IVDU (intravenous drug user) ICD Code: F19.90 - Other psychoactive substance use, unspecified, uncomplicated (3) Hyponatremia ICD Code: E87.1 - Hypo-osmolality and hyponatremia Status: Acute (4) DM (diabetes mellitus) ICD Code: E11.9 - Type 2 diabetes mellitus without complications Assessment and Plan 32-year-old man with 1. Left Hand Abscess: recent admit for same 12/19/17 s/p I&D by Dr. Leon, now w/ new abscess at different site on left arm, s/p I&D in ER. Cultures pending. S/p Vanc in ER, continue w/ IV Abx. 2. IVDU: Ativan prn for withdrawal. 3. Hyponatremia: Na 122, likely due to hyperglycemia, IVF for hydration, repeat labs in AM. 4. DM: Uncontrolled, non-compliant. Hgb A1c 10.9 on 12/19/17. Sliding scale w / Accu-Cheks, Increase Levemir to 20u bid, will give NovoLog 15 units 1 now 5. DVT Prophylaxis: FARZANA/TedKilo Solorio MD Jan 14, 2018 10:08
[2018-01-14] MEDS ORDERED: DEXTROSE 50% IN WATER 50 ML VIAL(D50) IV PUSH PRN (10:15)
[2018-01-14] MEDS ORDERED: INSULIN ASPAR PROT 70/30 1,000 UNITS/10 ML VIAL SQ ONE (10:15)
[2018-01-14] MEDS ORDERED: GLUCAGON 1 MG/ML VIAL OTHER PRN (10:15)
[2018-01-14] MEDS: INSULIN ASPART SUPPLEMENTAL SCALE SQ SCH ×3 (13:12→22:20)
[2018-01-14 14:02] LABS: ALBUMIN 2.8 GM/DL (3.4-5.0); ALKALINE PHOSPHATASE 97 U/L (45-117); ALT (GPT) 41 U/L (12-78); AST (GOT) 30 U/L (15-37); BICARBONATE 26.2 MEQ/L (21.0-32.0); BLOOD UREA NITROGEN 13 MG/DL (7-18); CALCIUM 9.2 MG/DL (8.5-10.1); CHLORIDE 91 MEQ/L (98-107); CREATININE 0.83 MG/DL (0.60-1.30); GLOMERULAR FILTRATION RATE 107 ML/MIN (>89); GLUCOSE,RANDOM 403 MG/DL (74-106); SODIUM (NA) 127 MEQ/L (136-145); TOTAL BILIRUBIN ADULT 0.5 MG/DL (0.2-1.0); TOTAL PROTEIN 8.3 GM/DL (6.4-8.2)
[2018-01-14] MEDS: LORazepam 2 MG/ML VIAL IV PUSH PRN ×3 (14:28→21:41)
[2018-01-14 20:00] LABS: AUTOMATED NEUTROPHIL # 5.9 TH/MM3 (1.8-7.7); BASOPHIL % 0.4 % (0.0-2.0); EOSINOPHIL # 0.1 TH/MM3 (0-0.4); EOSINOPHIL % 1.8 % (0.0-4.0); HEMATOCRIT 36.3 % (39.0-51.0); HEMOGLOBIN 12.9 GM/DL (13.0-17.0); LYMPH % 13.3 % (9.0-44.0); MEAN CELL VOLUME 81.2 FL (80.0-100.0); MEAN CORPUSCULAR HEMOGLOBIN 28.8 PG (27.0-34.0); MEAN CORPUSCULAR HGB CONC 35.5 % (32.0-36.0); MEAN PLATELET VOLUME 8.7 FL (7.0-11.0); MONO % 8.3 % (0.0-8.0); MONOCYTE # 0.6 TH/MM3 (0-0.9); NEUT % 76.2 % (16.0-70.0); PLATELET COUNT 256 TH/MM3 (150-450); RED BLOOD COUNT 4.47 MIL/MM3 (4.50-5.90); RED CELL DISTRIBUTION WIDTH 12.9 % (11.6-17.2); WHITE BLOOD COUNT 7.7 TH/MM3 (4.0-11.0)
[2018-01-14] MEDS: INSULIN DETEMIR 100 UNITS/ML VIAL SQ SCH (21:44)
[2018-01-15 00:44] VITALS: BP 117/65; PULSE 81; RESP 18; TEMP 99; O2SAT 97
[2018-01-15] MEDS: SODIUM CHLOR 0.9% 1000 ML INJ 1,000 ML IV SCH ×2 (00:54→08:30)
[2018-01-15] MEDS: LORazepam 2 MG/ML VIAL IV PUSH PRN ×3 (00:56→08:34)
[2018-01-15] MEDS ORDERED: VANCOMYCIN INJ 1,250 MG in SODIUM CHLOR 0.9% 250 ML INJ 250 ML IV SCH (02:00)
[2018-01-15 03:35] VITALS: PULSE 80
[2018-01-15 04:02] VITALS: BP 109/58; PULSE 75; RESP 18; TEMP 97.6; O2SAT 98
[2018-01-15] MEDS: AZTREONAM INJ 1,000 MG in SODIUM CHLORIDE 0.9% INJ 100 ML IV SCH (04:06)
[2018-01-15 08:00] VITALS: BP 169/89; PULSE 73; RESP 20; TEMP 98.1; O2SAT 96
[2018-01-15] MEDS: DOCUSATE SODIUM 50 MG/SENNA 8.6 MG TAB PO SCH (08:29)
[2018-01-15] MEDS: INSULIN DETEMIR 100 UNITS/ML VIAL SQ SCH (08:30)
[2018-01-15] MEDS: SODIUM CHLORIDE 0.9% FLUSH 10 ML FLUSH IV FLUSH SCH (08:30)
[2018-01-15] MEDS: INSULIN ASPART SUPPLEMENTAL SCALE SQ SCH (09:36)
--- NOTE | 2018-01-15 10:15 | HHI.PR ---
Subjective Remarks Follow-up left arm abscess/IVDU/diabetes type 2 January 14, 2018-patient seen and examined, complaining of left arm pain and requesting more narcotics. January 15, 2018-patient seen and examined, requesting narcotics to be adjusted otherwise will sign the AMA. One positive blood culture out of 4. Patient currently afebrile. Leukocytosis resolved Objective Vitals Vital Signs Date Time Temp Pulse Resp B/P (MAP) Pulse Ox O2 Delivery O2 Flow Rate FiO2 01/15/18 08:00 98.1 73 20 169/89 (115) 96 01/15/18 04:02 97.6 75 18 109/58 (75) 98 01/15/18 04:02 Room Air 01/15/18 03:35 80 01/15/18 00:44 99.0 81 18 117/65 (82) 97 01/14/18 23:43 84 01/14/18 19:46 81 01/14/18 19:35 98.7 83 18 130/84 (99) 97 01/14/18 19:35 Room Air 01/14/18 17:00 87 01/14/18 16:08 98.2 83 17 136/86 (103) 96 01/14/18 12:08 97.9 84 17 129/77 (94) 95 01/14/18 12:00 84 I/O 01/14/18 01/14/18 01/14/18 01/15/18 01/15/18 01/15/18 06:59 14:59 22:59 06:59 14:59 22:59 Intake Total 720 ml Output Total 800 ml Balance 720 ml -800 ml Intake Oral 720 ml Output Urine Total 800 ml # Voids 2 # Bowel Movements 0 Result Diagram: 01/14/18 1907 01/14/18 1305 Objective Remarks GENERAL: NAD SKIN: Warm and dry. HEAD: Normocephalic. EYES: No scleral icterus. No injection or drainage. NECK: Supple, trachea midline. No JVD or lymphadenopathy. CARDIOVASCULAR: Regular rate and rhythm without murmurs, gallops, or rubs. RESPIRATORY: Breath sounds equal bilaterally. No accessory muscle use. GASTROINTESTINAL: Abdomen soft, non-tender, nondistended. MUSCULOSKELETAL: No cyanosis, or edema. LUE swelling with induration, TTP BACK: Nontender without obvious deformity. No CVA tenderness. A/P Problem List: (1) Abscess of left hand ICD Code: L02.512 - Cutaneous abscess of left hand (2) IVDU (intravenous drug user) ICD Code: F19.90 - Other psychoactive substance use, unspecified, uncomplicated (3) Hyponatremia ICD Code: E87.1 - Hypo-osmolality and hyponatremia Status: Acute (4) DM (diabetes mellitus) ICD Code: E11.9 - Type 2 diabetes mellitus without complications Assessment and Plan 32-year-old man with 1. Bacteremia:+ 1#4 BC ;We will repeat blood culture, continue Azactam and vancomycin, consult infectious disease specialist 2. Left Hand Abscess: recent admit for same 12/19/17 s/p I&D by Dr. Leon, now w/ new abscess at different site on left arm, s/p I&D in ER. Cultures pending. S/p Vanc in ER, continue w/ IV Abx. 3. IVDU: Ativan prn for withdrawal. 4. Hyponatremia: Na 122, likely due to hyperglycemia, IVF for hydration, repeat labs in AM. 5. DM: Uncontrolled, non-compliant. Hgb A1c 10.9 on 12/19/17. Sliding scale w / Accu-Cheks, currently on Levemir 20u bid 6. DVT Prophylaxis: FARZANA/Kilo Cunha MD Jan 15, 2018 10:15
[2018-01-15] MEDS ORDERED: CLIN300C5 PO (10:21)
[2018-01-15] MEDS ORDERED: BACT800T5 PO (10:21)
[2018-01-15] MEDS ORDERED: LEVEMIR SQ (10:21)
--- NOTE | 2018-01-15 10:22 | PD.AMA ---
Against Medical Advice Note Discharge Disposition: Against Medical Advice AMA Statement Patient Celestino Infante has decided to leave the hospital against medical advice. This patient has the capacity to refuse care and understands the risks of leaving, including permanent disability and/or , and has had an opportunity to ask questions about his condition. The patient has been informed that he may return for care at any time, and follow up has been arranged/ advised. Kilo Farah MD Jan 15, 2018 10:22
[2018-01-15] MEDS ORDERED: PHARMACY ORDERED LAB ONE (13:45)
== END 2018-01-15 10:27 | disposition left against medical advice (07) | DRG 603 ==
LOC: NEPE 17:36 → NEDA 21:06 → NEPHCDU 22:03 → N04A 01-14 09:40
PROVIDERS: ADMIT Hospitalist; ATTEND Hospitalist
DX: L02.512 Cutaneous abscess of left hand (principal); E11.65 Type 2 diabetes mellitus with hyperglycemia; E87.1 Hypo-osmolality and hyponatremia; F17.210 Nicotine dependence, cigarettes, uncomplicated; F19.10 Other psychoactive substance abuse, uncomplicated; Z91.19 Patient's noncompliance with other medical treatment and regimen
CPT/HCPCS: 76937; 80053; 82948; 85025; 87040; 87070; 87205; 96365; 96366; 96375; J1815; J2060; J2270; J3370; J7030; J7050

== ENCOUNTER 2018-01-28 12:49 | Emergency (ER) | payer SELFPAY ==
[~2018-01-28] VITALS: Ht 175.3 cm; Wt 80.0 kg
[~2018-01-28 12:49] MED LIST changes: +BACT800T5 PO; +CLIN300C5 PO; -DEXAMETHASONE SOD PHOS 4 MG/ML VIAL IV ONE; -KETOROLAC TROMETHAMINE 30 MG/ML (IVP) VIAL IV PUSH ONE; -LACTATED RINGER'S 1000 ML INJ 1,000 ML IV ONE; +LEVEMIR SQ; -LIDOCAINE HCL 1% PF 5 ML SYRINGE OTHER ONE; -ONDANSETRON HCL 4 MG/2 ML VIAL IV PUSH ONE; -PROPOFOL 200 MG/20 ML AMP IV ONE
[2018-01-28 13:00] VITALS: BP 121/88; PULSE 104; RESP 16; TEMP 97.9; O2SAT 98
--- NOTE | 2018-01-28 16:04 | PD ---
HPI Chief Complaint: Skin Problem Time Seen by Provider: 16:00 Travel History International Travel<30 days: No Contact w/Intl Traveler<30days: No Traveled to known affect area: No History of Present Illness HPI 32-year-old male came to the emergency room with history right forearm abscess for past 2 weeks. It is getting worse. Patient is an IV drug abuser and did shoot in that area 2 weeks ago. Patient was slightly tachycardic in triage. No history of fever or chills. He has been complaining of pain and looks uncomfortable. [facility] Past Medical History Narrative Medical List of his past medical, surgical, social and family history reviewed from the nursing note Arthritis: No Asthma: No Autoimmune Disease: No Blood Disorders: No Anxiety: No Depression: No Heart Rhythm Problems: No Cancer: No Cardiovascular Problems: No High Cholesterol: No Chemotherapy: No Chest Pain: No Congestive Heart Failure: No COPD: No Cerebrovascular Accident: No Diabetes: Yes Diminished Hearing: No Endocrine: Yes Gastrointestinal Disorders: No Genitourinary: No Headaches: Yes Hepatitis: Yes (HEP C) Hypertension: No Immune Disorder: No Implanted Vascular Access Dvce: No Musculoskeletal: No Neurologic: No Psychiatric: No Reproductive: No Respiratory: No Migraines: No Radiation Therapy: No Seizures: No Sickle Cell Disease: No Sleep Apnea: No Thyroid Disease: No Past Surgical History Abdominal Surgery: No AICD: No Arteriovenous Shunt: No Cardiac Surgery: No Ear Surgery: No Endocrine Surgery: No Eye Surgery: No Genitourinary Surgery: No Gynecologic Surgery: No Insulin Pump: No Joint Replacement: No Oral Surgery: No Pacemaker: No Thoracic Surgery: No Other Surgery: Yes (I and D of left foot, left hand hx surgery) Social History Alcohol Use: No Tobacco Use: Yes (PPD) Substance Use: Yes (heroin (01/13/18), dilaudid (01/13/18)) Allergies-Medications (Allergen,Severity, Reaction): Coded Allergies: penicillin G (Verified Allergy, Severe, Hives, 01/28/18) Comments List of his allergies reviewed from the nursing note Reported Meds & Prescriptions Reported Meds & Active Scripts Active Levemir Inj (Insulin Detemir) 1,000 unit/ 10 ML Vial 20 Units SQ Q12HR Do not mix with any other Insulin. Narrative Medication List of his home medications reviewed from the nursing note Review of Systems Except as stated in HPI: all other systems reviewed are Neg Physical Exam Narrative GENERAL: Awake, alert, moderate distress SKIN: Focused skin assessment warm/dry. Right forearm swelling near the wrist with a large abscess that is 5 cm x 5 cm. There is a smaller abscess on the radial aspect of the wrists that is 2 x 2 centimeter. This is tender to touch. HEAD: Atraumatic. Normocephalic. EYES: Pupils equal and round. No scleral icterus. No injection or drainage. ENT: No nasal bleeding or discharge. Mucous membranes pink and moist. NECK: Trachea midline. No JVD. CARDIOVASCULAR: Regular rate and rhythm. No murmur appreciated. RESPIRATORY: No accessory muscle use. Clear to auscultation. Breath sounds equal bilaterally. GASTROINTESTINAL: Abdomen soft, non-tender, nondistended. Hepatic and splenic margins not palpable. MUSCULOSKELETAL: No obvious deformities. No clubbing. No cyanosis. No edema. NEUROLOGICAL: Awake and alert. No obvious cranial nerve deficits. Motor grossly within normal limits. Normal speech. PSYCHIATRIC: Appropriate mood and affect; insight and judgment normal. Data Data Last Documented VS Vital Signs Date Time Temp Pulse Resp B/P (MAP) Pulse Ox O2 Delivery O2 Flow Rate FiO2 01/28/18 13:00 97.9 104 16 121/88 (99) 98 Orders Orders Wound Culture And Gram Stain (01/28/18 16:06) Clindamycin Inj (Cleocin Inj) (01/28/18 16:15) Lidocaine 1% Inj (Xylocaine 1% Inj) (01/28/18 16:15) Sodium Chlor 0.9% 1000 Ml Inj (Ns 1000 M (01/28/18 17:00) Sodium Chlor 0.9% 1000 Ml Inj (Ns 1000 M (01/28/18 17:00) Insulin Human Regular Inj (Novolin R Inj (01/28/18 17:00) Ibuprofen (Motrin) (01/28/18 17:00) Vancomycin Inj (Vancomycin Inj) (01/28/18 17:00) [facility] Medical Decision Making Medical Screen Exam Complete: Yes Emergency Medical Condition: Yes Medical Record Reviewed: Yes Differential Diagnosis IV drug abuse, abscess Narrative Course 4:21 PM awaiting for blood test result. The abscess needs to be I&D. Please refer to my procedure note. 5:09 PM patient wanted to leave and did not want anymore pokes to get IV and blood or antibiotic. He was in full capacity to make decisions for himself. He left AGAINST MEDICAL ADVICE. Procedures Procedure Narrative Incision and drainage: The area was cleaned with Betadine 3. 4 mL of 1% lidocaine was infiltrated to achieve local anesthesia. Horizontal incision was made and immediately purulent drainage started to extrude. Forceps was introduced to break loculations and a lot of purulent material was drained out. The wound was packed. Clean dressing was applied by the nurse. EKG Prior to Arrival: No Disposition: 07 AGAINST MEDICAL ADVICE Condition: Serious Alee Petersen MD Jan 28, 2018 16:04
[2018-01-28] MEDS ORDERED: CLINDAMYCIN INJ 900 MG in SODIUM CHLORIDE 0.9% INJ 100 ML IV ONE (16:15)
[2018-01-28] MEDS ORDERED: LIDOCAINE HCL 1% 30 ML VIAL INFIL ONE (16:15)
[2018-01-28] MEDS ORDERED: INSULIN HUMAN REGULAR 1,000 UNITS/10 ML VIAL IV PUSH ONE (17:00)
[2018-01-28] MEDS ORDERED: VANCOMYCIN INJ 1,000 MG in SODIUM CHLOR 0.9% 250 ML INJ 250 ML IV ONE (17:00)
[2018-01-28] MEDS ORDERED: IBUPROFEN 800 MG TAB PO ONE (17:00)
[2018-01-28] MEDS ORDERED: SODIUM CHLOR 0.9% 1000 ML INJ 1,000 ML IV ONE ×2 (17:00)
== END 2018-01-28 19:43 | disposition home or self-care (01) ==
LOC: NEPD 12:49
DX: L02.413 Cutaneous abscess of right upper limb (principal); B96.89 Other specified bacterial agents as the cause of diseases classified elsewhere; R00.0 Tachycardia, unspecified; E11.9 Type 2 diabetes mellitus without complications; B19.20 Unspecified viral hepatitis C without hepatic coma; F17.210 Nicotine dependence, cigarettes, uncomplicated; F11.10 Opioid abuse, uncomplicated; Z88.0 Allergy status to penicillin
CPT/HCPCS: 10061; 87070; 87077; 87186

== ENCOUNTER 2018-02-05 09:58 | Inpatient (IN) ==
[2018-02-10] MEDS ORDERED: Ketorolac Inj 30 MG/ML (IVP) Vial IV.PUSH PRN (00:01)
[2018-02-10] MEDS ORDERED: Bisacodyl 10 MG Supp RECTAL PRN (00:01)
[2018-02-10] MEDS ORDERED: Naloxone Inj 0.4 MG/ML Vial IV.PUSH PRN ×2 (00:01)
[2018-02-10] MEDS ORDERED: Vancomycin Consult Pharmacy 1 EACH OTHER SCH (00:01)
[2018-02-10] MEDS ORDERED: Dextrose 50% in Water 50 ML Vial IV.PUSH PRN (00:01)
[2018-02-10] MEDS ORDERED: Sodium Chlor 0.9% Inj 250 ML ONE (00:27)
[2018-02-10] MEDS ORDERED: Ketorolac Inj 30 MG/ML (IVP) Vial ONE (00:49)
[2018-02-10] MEDS: Vancomycin Inj 1,000 MG in Sodium Chlor 0.9% Inj 250 ML IV.SIG SCH ×2 (01:00→10:27)
[2018-02-10] MEDS ORDERED: Sod Chloride 0.9% Inj 1,000 ML IV.CONT SCH (01:00)
[2018-02-10] MEDS ORDERED: Aztreonam Inj 2 GM in Sodium Chloride 0.9% Inj 100 ML IV.SIG SCH (02:00)
[2018-02-10] MEDS ORDERED: oxyCODONE/Acetaminophen 10/325 Tablet ONE (02:04)
[2018-02-10] MEDS: oxyCODONE/Acetaminophen 10/325 Tablet PO PRN ×3 (02:06→10:26)
[2018-02-10] MEDS ORDERED: Insulin NovoLOG Aspart Correctional Sugar Inj SQ SCH (08:00)
[2018-02-10] MEDS ORDERED: Lactobacillus Acidophilus/L. Spores Tablet PO SCH (09:00)
[2018-02-10] MEDS ORDERED: Senna/Docusate Sodium 8.6/50 MG Tablet PO SCH (09:00)
[2018-02-10] MEDS ORDERED: Methadone 10 MG Tablet PO SCH (09:00)
--- NOTE | 2018-02-10 10:23 | P.DS ---
DS: Providers Date of admission: 02/05/18 09:59 Primary care physician: No Primary Care Physician DS: Medications - Discharge Medications Prescriptions: cephalexin [Keflex] 500 mg PO TID #30 cap insulin NPH isoph U-100 human 20 unit SUB-Q DIRECTED #1 vial Lactobacillus acidophilus 100 mg PO TID #30 cap methadone 70 mg PO DAILY #28 tab sulfamethoxazole-trimethoprim [Bactrim DS] 1 tab PO BID #20 tab DS: Summary Hospital Course: Mr. Infante is a 32-year-old male. He was admitted secondary to 3 abscesses from IV drug abuse. He had 2 abscesses in his bilateral wrists and one abscess in his left upper arm. The largest of these abscesses were left arm. Surgery was consulted but prior to procedure the patient had spontaneous rupture of the abscess of his left bicep. He has responded well to vancomycin, aztreonam, and Flagyl as antibiotics. Blood cultures were monitored for 3 days and wound culture was monitored but no resulting positive findings. Patient also has controlled diabetes and this was adjusted and managed currently she is stabilized with NPH insulin. Was managed with methadone. Patient is discharged to resume care of methadone clinic. At this point he is medically stable and cleared for discharge to home. - Time Spent with Patient Total time spent providing and/or coordinating discharge services: Less than 30 minutes Exam Vital signs: Vital Signs 02/10/18 00:00 02/10/18 00:15 02/10/18 05:13 Temperature 98.3 F 98.0 F Pulse Rate 63 60 59 L Respiratory Rate 18 18 Blood Pressure 140/82 126/75 Pulse Oximetry 97 97 Intake & Output 02/09/18 02/10/18 02/10/18 18:59 06:59 18:59 Intake Total 342 / 342 Balance 342 / 342 Weight 78.3 kg 79.1 kg Intake: Oral 342 / 342 Other: # Voids 6 # Bowel Movements 0 Results Labs on day of discharge: Labs from last 24 hours 02/10/18 02/09/18 02/09/18 08:37 08:30 06:55 WBC RBC Hgb Hct MCV MCH MCHC RDW Plt Count MPV Neut % (Auto) Lymph % (Auto) [place] % (Auto) Eos % (Auto) Baso % (Auto) Neut # (Auto) Lymph # (Auto) [place] # (Auto) Eos # (Auto) Baso # (Auto) CBC Comment Sodium Potassium Chloride Carbon Dioxide Anion Gap BUN Creatinine 0.75 Estimated GFR 121 POC Glucose 230 H Random Glucose Calcium Total Bilirubin AST ALT Alkaline Phosphatase Total Protein Albumin Vancomycin Trough 18.5 H 02/08/18 02/08/18 02/07/18 14:00 03:55 06:25 WBC RBC Hgb Hct MCV MCH MCHC RDW Plt Count MPV Neut % (Auto) Lymph % (Auto) [place] % (Auto) Eos % (Auto) Baso % (Auto) Neut # (Auto) Lymph # (Auto) [place] # (Auto) Eos # (Auto) Baso # (Auto) CBC Comment Sodium Potassium Chloride Carbon Dioxide Anion Gap BUN Creatinine 0.62 Estimated GFR 150 POC Glucose Random Glucose Calcium Total Bilirubin AST ALT Alkaline Phosphatase Total Protein Albumin Vancomycin Trough 12.3 H 9.9 02/07/18 02/06/18 02/06/18 06:25 20:35 19:05 WBC 5.9 RBC 4.03 L Hgb 10.8 L D Hct 32.9 L MCV 81.5 MCH 26.7 L MCHC 32.8 RDW 13.7 Plt Count 205 MPV 8.3 Neut % (Auto) 68.3 Lymph % (Auto) 20.0 [place] % (Auto) 7.9 Eos % (Auto) 3.0 Baso % (Auto) 0.8 Neut # (Auto) 4.0 Lymph # (Auto) 1.2 [place] # (Auto) 0.5 Eos # (Auto) 0.2 Baso # (Auto) 0.1 CBC Comment DIFF FINAL Sodium 134 L Potassium 4.4 Chloride 99 Carbon Dioxide 25.7 Anion Gap 9 BUN 11 Creatinine 0.85 Estimated GFR 104 POC Glucose Random Glucose 499 H* 416 H Calcium 7.9 L D Total Bilirubin 0.2 AST 54 H ALT 60 Alkaline Phosphatase 110 Total Protein 6.7 D Albumin 2.3 L D Vancomycin Trough 6.6 02/06/18 02/06/18 19:05 19:05 WBC RBC Hgb Hct MCV MCH MCHC RDW Plt Count MPV Neut % (Auto) Lymph % (Auto) [place] % (Auto) Eos % (Auto) Baso % (Auto) Neut # (Auto) Lymph # (Auto) [place] # (Auto) Eos # (Auto) Baso # (Auto) CBC Comment Sodium Potassium Chloride Carbon Dioxide Anion Gap BUN Creatinine Estimated GFR POC Glucose Random Glucose Cancelled Calcium Total Bilirubin AST ALT Alkaline Phosphatase Total Protein Albumin Vancomycin Trough Cancelled Discharge Plan - Discharge Disposition Patient Disposition: Discharge Home - Discharge Condition Condition: Stable - Discharge Order Discharge Orders: Discharge Order (Routine); Ordered 02/10/18 Ordered By: Arturo Peacock - Discharge Details Anticipated Discharge Date/Time: 02/10/18 10:24 - Physicians Team Primary Care Provider: Primary Care Josette Dooley Attending Provider: Arturo Peacock Other Providers: Gen Bahena MD - Rxs /Orders / Referrals /Forms Prescriptions: New cephalexin [Keflex] 500 mg Capsule 500 mg PO TID Qty: 30 RF: 0 insulin NPH isoph U-100 human 100 unit/mL Suspension 20 unit SUB-Q DIRECTED Qty: 1 RF: 3 Lactobacillus acidophilus Capsule 100 mg PO TID Qty: 30 RF: 0 methadone 10 mg Tablet 70 mg PO DAILY Qty: 28 RF: 0 sulfamethoxazole-trimethoprim [Bactrim DS] 800-160 mg Tablet 1 tab PO BID Qty: 20 RF: 0 Referrals: Primary Care Josette Dooley [Primary Care Provider] - See Instructions
[2018-02-10] MEDS ORDERED: Enoxaparin Inj 40 MG/0.4 ML Syringe SQ SCH (11:00)
== END 2018-02-10 14:11 | disposition home or self-care (01) ==
LOC: N04 09:59
PROVIDERS: ADMIT Hospitalist; ATTEND Hospitalist

== ENCOUNTER 2018-02-24 00:05 | Inpatient (IN) ==
--- NOTE | 2018-02-24 04:32 | ED ---
HPI General Stated complaint: Swelling in the arm Time Seen by Provider: 02/24/18 03:39 Source: patient History of Present Illness HPI narrative: Patient has multiple abscesses from an acting heroin into his hand and leg and other forearm he was recently here on vancomycin he was admitted surgically debrided hand and now his back a week later patient is complaining of pressure burning redness to his hand and to his distal right saphenous vein area he denies shooting drugs into his saphenous vein but it looks as if it is a missed injection into the saphenous area. Related Data Previous Rx's Medication Instructions Recorded Lactobacillus acidophilus 100 mg PO TID #30 cap 02/10/18 cephalexin [Keflex] 500 mg PO TID #30 cap 02/10/18 insulin NPH isoph U-100 human 20 unit SUB-Q DIRECTED #1 vial 02/10/18 methadone 70 mg PO DAILY #28 tab 02/10/18 sulfamethoxazole-trimethoprim 1 tab PO BID #20 tab 02/10/18 [Bactrim DS] Allergies Allergy/AdvReac Type Severity Reaction Status Date / Time penicillin G Allergy Severe Hives Verified 02/24/18 00:44 [facility] Medical History Medical History Diabetes (Acute) Surgical History Surgical History History of orthopedic surgery (Acute) Social History Social History Substance History: No History of Abuse Smoking Status: Current every day smoker Tobacco Type: Cigarettes How Often Do You Have a Drink Containing Alcohol: Never Recent Travel in [facility] within the Last 8 Weeks: No Recent Out of Country Travel within the Last 8 Weeks: No Immunization History Tetanus Immunization: <5 Years Exam Narrative Exam Narrative: GENERAL: Patient has an abscess to his left hand and a abscess to the saphenous vein area of his right foot and he has a beginning abscess on the right radial aspect of the vein . SKIN: abscess in neck and HEAD: Atraumatic. Normocephalic. EYES: Pupils equal and round. No scleral icterus. No injection or drainage. ENT: No nasal bleeding or discharge. Mucous membranes pink and moist. NECK: Trachea midline. No JVD. CARDIOVASCULAR: Regular rate and rhythm. No murmur appreciated. RESPIRATORY: No accessory muscle use. Clear to auscultation. Breath sounds equal bilaterally. GASTROINTESTINAL: Abdomen soft, non-tender, nondistended. Hepatic and splenic margins not palpable. MUSCULOSKELETAL: No obvious deformities. No clubbing. No cyanosis. No edema. NEUROLOGICAL: Awake and alert. No obvious cranial nerve deficits. Motor grossly within normal limits. Normal speech. PSYCHIATRIC: Appropriate mood and affect; insight and judgment normal. Course Initial Documented Vital Signs Temperature 99.2 F 02/24/18 00:40 Pulse Rate 86 02/24/18 00:40 Respiratory Rate 18 02/24/18 00:40 Blood Pressure 134/80 02/24/18 00:40 Pulse Oximetry 100 02/24/18 00:40 Last Documented Vital Signs Temperature 98.4 F 02/24/18 09:04 Pulse Rate 75 02/24/18 09:04 Respiratory Rate 12 02/24/18 09:04 Blood Pressure 115/76 02/24/18 09:04 Pulse Oximetry 98 02/24/18 09:04 Sign Out Sign Out Data: Patient Sign Out occurred on 02/24/18 at 07:29. Patient's care was discussed, and care was transferred from Jp Acevedo to Alena Fields DO. Sign Out Comment: pt has abscess in need of surgical debridement need Vascular access team and [facility] and admit Last updated by Jp Acevedo at 02/24/18 07:29 Post-Handoff Eval: Patient signed out to me by Dr. Acevedo; 32yM with history of IVDA and recurrent skin abscesses, recently admitted for IV antibiotics and I&D, returns today with tactile fevers/ chills and new lesions to dorsum of left hand, right ankle/ dorsum of foot. Patient had IV placed by vascular access team and given vancomycin, labs only remarkable for hyperglycemia. This patient will require continued antibiotics and surgical drainage, case discussed with Dr[facility] Damon of [facility]. Patient understands and agrees with plan. Medical Decision Making Medical Records Medical records reviewed: Yes I reviewed the patient's medical records. Lab Data Lab results reviewed: Yes I reviewed the patient's lab results. Result diagrams: 02/24/18 08:33 02/24/18 04:40 Lab Results 02/24/18 02/24/18 Range/Units 04:40 08:33 WBC 9.2 (4.0-11.0) th/mm3 RBC 4.57 (4.50-5.90) mil/mm3 Hgb 12.7 L (13.0-17.0) gm/dL Hct 36.6 L (39.0-51.0) % MCV 80.1 (80.0-100.0) fL MCH 27.9 (27.0-34.0) pg MCHC 34.8 (32.0-36.0) % RDW 14.3 (11.6-17.2) % Plt Count 229 (150-450) th/mm3 MPV 8.6 (7.0-11.0) fL Neut % (Auto) 68.5 (16.0-70.0) % Lymph % (Auto) 17.9 (9.0-44.0) % [place] % (Auto) 9.0 H (0.0-8.0) % Eos % (Auto) 3.6 (0.0-4.0) % Baso % (Auto) 1.0 (0.0-2.0) % Neut # (Auto) 6.3 (1.8-7.7) th/mm3 Lymph # (Auto) 1.6 (1.0-4.8) th/mm3 [place] # (Auto) 0.8 (0.0-0.9) th/mm3 Eos # (Auto) 0.3 (0.0-0.4) th/mm3 Baso # (Auto) 0.1 (0.0-0.2) th/mm3 WBC Differential . Differential Comment Auto diff final Sodium 132 L (136-145) meq/L Potassium 4.7 (3.5-5.1) meq/L Chloride 96 L (98-107) meq/L Carbon Dioxide 26.9 (21.0-32.0) meq/L Anion Gap 9 (5-15) meq/L BUN 14 (7-18) mg/dL Creatinine 0.81 (0.60-1.30) mg/dL Estimated GFR Greater than 89 (>89) mL/min Random Glucose 352 H (74-106) mg/dL Calcium 9.1 (8.5-10.1) mg/dL Total Bilirubin 0.5 (0.2-1.0) mg/dL AST 32 (15-37) U/L ALT 36 (12-78) U/L Alkaline Phosphatase 93 (45-117) U/L Total Protein 8.6 H (6.4-8.2) g/dL Albumin 3.2 L (3.4-5.0) g/dL Discharge Plan Discharge Disposition Patient Disposition: 30 Still Patient Discharge Condition Condition: Stable Discharge Details Diagnosis: Abscess of multiple sites, History of intravenous drug abuse, Acute hyperglycemia Physicians Team ED Provider: Alena Fields Primary Care Provider: Primary Josette Oconnor Attending Provider: Nathan Damon Discharge Interventions Interventions: Vital Signs Last Done: 02/24/18 09:04 Status ED Status: Admitted Observation Patient
[2018-02-24 05:13] LABS: Alkaline Phosphatase 93 U/L (45-117); Total Protein 8.6 g/dL (6.4-8.2)
[2018-02-24 05:19] LABS: Alanine Aminotransferase 36 U/L (12-78); Albumin 3.2 g/dL (3.4-5.0); Anion Gap 9 meq/L (5-15); Aspartate Aminotransferase 32 U/L (15-37); Blood Urea Nitrogen 14 mg/dL (7-18); Calcium 9.1 mg/dL (8.5-10.1); Carbon Dioxide 26.9 meq/L (21.0-32.0); Chloride 96 meq/L (98-107); Glomerular Filtration Rate Greater Than 89 mL/min (>89); Glucose,Random 352 mg/dL (74-106); Potassium 4.7 meq/L (3.5-5.1); Sodium 132 meq/L (136-145)
[2018-02-24] MEDS ORDERED: Vancomycin Inj 1 GM/200 ML PIGGYBACK IV.SIG ONE (07:29)
[2018-02-24] MEDS ORDERED: Vancomycin Inj 1,000 MG in Sodium Chlor 0.9% Inj 250 ML IV.SIG ONE (07:45)
[2018-02-24 08:54] LABS: Baso # (Auto) 0.1 th/mm3 (0.0-0.2); Eos # (Auto) 0.3 th/mm3 (0.0-0.4); Eos % (Auto) 3.6 % (0.0-4.0); Hematocrit 36.6 % (39.0-51.0); Hemoglobin 12.7 gm/dL (13.0-17.0); Lymph # (Auto) 1.6 th/mm3 (1.0-4.8); Lymph % (Auto) 17.9 % (9.0-44.0); Mean Corpuscular HGB Conc 34.8 % (32.0-36.0); Mean Corpuscular Hemoglobin 27.9 pg (27.0-34.0); Mean Corpuscular Volume 80.1 fL (80.0-100.0); Mean Platelet Volume 8.6 fL (7.0-11.0); Mono # (Auto) 0.8 th/mm3 (0.0-0.9); Neut # (Auto) 6.3 th/mm3 (1.8-7.7); Neut % (Auto) 68.5 % (16.0-70.0); Platelet Count 229 th/mm3 (150-450); Red Blood Count 4.57 mil/mm3 (4.50-5.90); Red Cell Distribution Width 14.3 % (11.6-17.2); White Blood Count 9.2 th/mm3 (4.0-11.0)
[2018-02-24] MEDS ORDERED: Bisacodyl 10 MG Supp RECTAL PRN (10:54)
[2018-02-24] MEDS ORDERED: Vancomycin Consult Pharmacy 1 EACH OTHER SCH (10:54)
[2018-02-24] MEDS ORDERED: Dextrose 50% in Water 50 ML Vial IV.PUSH PRN (10:57)
[2018-02-24] MEDS: Insulin NovoLOG Aspart Correctional Sugar Inj SQ SCH ×2 (12:05→16:11)
[2018-02-24] MEDS: Sod Chloride 0.9% Inj 1,000 ML IV.CONT SCH (13:08)
[2018-02-24] MEDS: Vancomycin Inj 1,000 MG in Sodium Chlor 0.9% Inj 250 ML IV.SIG SCH (16:11)
[2018-02-24] MEDS: Methadone 10 MG Tablet PO SCH (16:38)
--- NOTE | 2018-02-24 16:38 | P.HP ---
<Vida Schultz - Last Filed: 02/24/18 16:39> History of Present Illness Primary Care Physician: No Primary Care Physician Chief Complaint: abscesses History of Present Illness: 32-year-old male with history of diabetes, hepatitis C, IVDU with heroin, tobacco use, recent admission 02/05-02/10 for multiple abscesses, presents to the ED with recurrent abscesses on the left hand and right ankle. The patient admits to injecting into the left hand 8 days ago. He denies injecting into his legs. He reports a 45 day history of left dorsal hand swelling, erythema, and constant severe throbbing pain. He reports a 3 day history of right medial ankle swelling, erythema, and constant sharp shooting pains. He denies any recent drainage from his wounds. Denies fevers or chills. He reports difficulty walking secondary to the right ankle abscess. He reports nausea and decreased appetite, but no vomiting. He also ran out of his methadone. He was a heroin abuser up until he quit 8 days ago. On his prior hospitalization, the physician started him on methadone for the first time and he has been taking 40 mg daily over the past week. He believes the methadone is helping him. He has an appointment scheduled with [facility] on Monday 02/26. He is requesting his methadone be restarted. Otherwise, patient has no other medical complaints including no headache, cough, chest pain, shortness of breath , or abdominal pain. Review of Systems All other systems reviewed negative except as stated in HPI PMFSH - History History Provided By: Patient - Medical History Medical History: Medical History (Last Updated 02/24/18 @ 16:18 by Vida Schultz) Abscess (Acute) IVDU (intravenous drug user) (Acute) Heroin abuse (Acute) Hepatitis C (Acute) Diabetes (Acute) Hand abscess - Surgical History Surgical History: Surgical History (Last Updated 02/24/18 @ 16:15 by Vida Schultz) History of orthopedic surgery (Acute) - Family History Family History: Family History (Last Updated 02/24/18 @ 16:23 by Vida Schultz) Mother Aneurysm Heart attack Stroke - Tobacco History Second Hand Smoke Exposure: Yes Tobacco Use In Past 30 Days: Yes Smoking Status: Current every day smoker (1 PPD [id number]) Tobacco Type: Cigarettes - Alcohol History How Often Do You Have a Drink Containing Alcohol: Never - Substance Use History Substance History: Active Abuse (injects IV heroin) - Travel History Recent Travel in the [place] Within the Last 8 Weeks: No Recent Travel Out of the Country Within the Last 8 Weeks: No - Immunization History Tetanus Immunization: <5 Years Medications and Allergies Allergies Allergy/AdvReac Type Severity Reaction Status Date / Time penicillin G Allergy Severe Hives Verified 02/24/18 00:44 Active Medications: Active Medications Al Hydroxide/Mg Hydroxide (Milk Of Magnesia Liq) 30 ml PO Q12H PRN PRN Reason: Mild Constipation Bisacodyl (Dulcolax Supp) 10 mg RECTAL DAILY PRN PRN Reason: SEVERE CONSITIPATION Dextrose (D50w Vial) 50 ml IV.PUSH UNSCH PRN PRN Reason: PER HYPOGLYCEMIA PROTOCOL Glucagon (Glucagon Inj) 1 mg OTHER UNSCH PRN PRN Reason: for Hypoglycemia Protocol Pharmacy Profile Note (Vancomycin Consult Pharmacy) 0 mls @ 0 mls/hr OTHER UNSCH [facility] Sodium Chloride (Ns Inj) 1,000 mls @ 100 mls/hr IV.CONT .Q10H [facility] Last Admin: 02/24/18 13:08 Dose: 100 mls/hr Vancomycin HCl 1,000 mg/ (Sodium Chloride) 250 mls @ 250 mls/hr IV.SIG Q8H [facility] Insulin Aspart (Novolog Insulin Suppl Scale Inj) 0 unit SQ ACHS [facility]; Protocol Last Admin: 02/24/18 12:05 Dose: Not Given Lactulose (Lactulose Liq) 30 ml PO DAILY PRN PRN Reason: SEVERE CONSITIPATION Methadone HCl (Dolophine) 60 mg PO DAILY [facility] Miscellaneous Information ([facility] Ordered Lab Info) 0 each OTHER ONCE ONE Stop: 02/25/18 08:46 Senna/Docusate Sodium (Macrina-Colace) 1 tab PO BID [facility] Sennosides (Senokot) 17.2 mg PO Q12H PRN PRN Reason: Moderate Constipation Temazepam (Restoril) 15 mg PO HS PRN PRN Reason: INSOMNIA Exam Vital signs: Vital Signs 02/24/18 00:40 02/24/18 09:04 02/24/18 12:36 Temperature 99.2 F 98.4 F Pulse Rate 86 75 Respiratory Rate 18 12 15 Blood Pressure 134/80 115/76 Pulse Oximetry 100 98 02/24/18 12:45 02/24/18 15:09 Temperature 99.1 F Pulse Rate 77 Respiratory Rate 16 12 Blood Pressure 107/67 Pulse Oximetry 96 Intake & Output 02/23/18 02/24/18 02/24/18 18:59 06:59 18:59 Intake Total 250 / 250 Balance 250 / 250 Weight 77 kg Intake: IV 250 / 250 Vancomycin Inj 1,000 MG In NS 250 / 250 Inj 250 ML @ 200 mls/hr IV.SIG ONCE ONE Rx#:[id number] Narrative: GENERAL: Well-nourished, well-developed young male patient in NAD. SKIN: Warm and dry. Left dorsal hand with erythema, edema, fluctuance, no active drainage, consistent with abscess. Right medial ankle with large area of erythema/edema and fluctuance, no active drainage, consistent with abscess. HEAD: Normocephalic. Atraumatic. EYES: Pupils equal and round. No scleral icterus. No injection or drainage. ENT: No nasal bleeding or discharge. Mucous membranes pink and moist. Very poor dentition. NECK: Supple. Trachea midline. CARDIOVASCULAR: Regular rate and rhythm. No murmur appreciated. RESPIRATORY: No accessory muscle use. Clear to auscultation. Breath sounds equal bilaterally. GASTROINTESTINAL: Abdomen soft, non-tender, nondistended. Normoactive bowel sounds x4. MUSCULOSKELETAL: No obvious deformities. Extremities without clubbing, cyanosis , or edema. NEUROLOGICAL: Awake and alert. No obvious cranial nerve deficits. Motor grossly within normal limits. Normal speech. PSYCHIATRIC: Appropriate mood and affect; insight and judgment normal. Results - Labs CBC & Chem 7: 02/24/18 08:33 02/24/18 04:40 Labs: Laboratory Results - last 24 hr 02/24/18 02/24/18 02/24/18 04:40 08:33 11:46 WBC 9.2 RBC 4.57 Hgb 12.7 L Hct 36.6 L MCV 80.1 MCH 27.9 MCHC 34.8 RDW 14.3 Plt Count 229 MPV 8.6 Neut % (Auto) 68.5 Lymph % (Auto) 17.9 [place] % (Auto) 9.0 H Eos % (Auto) 3.6 Baso % (Auto) 1.0 Neut # (Auto) 6.3 Lymph # (Auto) 1.6 [place] # (Auto) 0.8 Eos # (Auto) 0.3 Baso # (Auto) 0.1 WBC Differential . Differential Comment Auto diff final Sodium 132 L Potassium 4.7 Chloride 96 L Carbon Dioxide 26.9 Anion Gap 9 BUN 14 Creatinine 0.81 Estimated GFR Greater than 89 POC Glucose 295 H Random Glucose 352 H Calcium 9.1 Total Bilirubin 0.5 AST 32 ALT 36 Alkaline Phosphatase 93 Total Protein 8.6 H Albumin 3.2 L 02/24/18 02/24/18 13:16 13:41 WBC RBC Hgb Hct MCV MCH MCHC RDW Plt Count MPV Neut % (Auto) Lymph % (Auto) [place] % (Auto) Eos % (Auto) Baso % (Auto) Neut # (Auto) Lymph # (Auto) [place] # (Auto) Eos # (Auto) Baso # (Auto) WBC Differential Differential Comment Sodium Potassium Chloride Carbon Dioxide Anion Gap BUN Creatinine Estimated GFR POC Glucose 62 L 95 Random Glucose Calcium Total Bilirubin AST ALT Alkaline Phosphatase Total Protein Albumin Caprini VTE Risk Assessment Caprini VTE Risk Assessment: No/Low Risk (score <= 1) Caprini Risk Assessment Model: Point Value = 1 Point Value = 2 Point Value = 3 Point Value = 5 Age 41-60 Minor surgery BMI > 25 kg/m2 Swollen legs Varicose veins or History of unexplained or recurrent spontaneous Oral contraceptives or hormone replacement Sepsis (< 1 month) Serious lung disease, including pneumonia (< 1 month) Abnormal pulmonary function Acute myocardial infarction Congestive heart failure (< 1 month) History of inflammatory bowel disease Medical patient at bed rest Age 61-74 Arthroscopic surgery Major open surgery (> 45 min) Laparoscopic surgery (> 45 min) Malignancy Confined to bed (> 72 hours) Immobilizing plaster cast Central venous access Age >= 75 History of VTE Family history of VTE Factor V Leiden Prothrombin [id number] Lupus anticoagulant Anticardiolipin antibodies Elevated serum homocysteine Heparin-induced thrombocytopenia Other congenital or acquired thrombophilia Stroke (< 1 month) Elective arthroplasty Hip, pelvis, or leg fracture Acute spinal cord injury (< 1 month) Prophylaxis Regimen: Total Risk Factor Score Risk Level Prophylaxis Regimen 0-1 Low Early ambulation 2 Moderate Order ONE of the following: *Sequential Compression Device (SCD) *Heparin 5000 units SQ BID 3-4 Higher Order ONE of the following medications: *Heparin 5000 units SQ TID *Enoxaparin/Lovenox 40 mg SQ daily (WT < 150 kg, CrCl > 30 mL/min) *Enoxaparin/Lovenox 30 mg SQ daily (WT < 150 kg, CrCl > 10-29 mL/min) *Enoxaparin/Lovenox 30 mg SQ BID (WT < 150 kg, CrCl > 30 mL/min) AND/OR *Sequential Compression Device (SCD) 5 or more Highest Order ONE of the following medications: *Heparin 5000 units SQ TID (Preferred with Epidurals) *Enoxaparin/Lovenox 40 mg SQ daily (WT < 150 kg, CrCl > 30 mL/min) *Enoxaparin/Lovenox 30 mg SQ daily (WT < 150 kg, CrCl > 10-29 mL/min) *Enoxaparin/Lovenox 30 mg SQ BID (WT < 150 kg, CrCl > 30 mL/min) AND *Sequential Compression Device (SCD) Assessment and Plan - Plan 32-year-old male with history of diabetes, hepatitis C, IVDU with heroin, tobacco use, recent admission 02/05-02/10 for multiple abscesses, presents to the ED with recurrent abscesses on the left hand and right ankle. Left Hand and Right Ankle Abscess: admits to injecting into the left hand, denies injection into the legs. Afebrile, no leukocytosis. -Check MRIs of the Left hand and Right ankle -Start on antibiotics with IV Vanco, pharmacy consulted -Consult podiatry and hand surgery -Restart methadone for pain control -Give IVF hydration -Blood cultures collected -Check ESR -Monitor for improvement Diabetes Mellitus with Hyperglycemia: uncontrolled. BG 352 upon arrival. Suspect secondary to noncompliance. -S/p IV Regular Insulin x10u and IVF bolus in the ED -Continue on long acting insulin with Levemir 18u sq hs -Monitor Accu-checks and cover with SSI -Diabetic diet IVDU/Heroin Abuse: last injected 8 days ago. Recently started on methadone on prior admission. -continue on methadone 60mg daily -patient reportedly has appt with [facility] on Sunday -extensively counseled on cessation Hepatitis C: chronic -outpatient follow up Tobacco Use: chronic -counseled on cessation -nicotine patch DVT Prophylaxis: avoid chemoprophylaxis with likely upcoming procedures Code Status: Full Code Discussed Condition With: Patient, RN, Dr. Damon <Nathan Damon - Last Filed: 02/24/18 16:41> History of Present Illness Primary Care Physician: No Primary Care Physician Inpatient Certification: I certify that the inpatient services were ordered in accordance with Medicare regulations governing the order. This includes certification that hospital inpatient services are reasonable and necessary and in the case of services not specified as inpatient-only under 42 CFR 419.22(n), that they are appropriately provided as inpatient services in accordance to with the 2-midnight benchmark under 43 CFR 412.3(e) [facility] - Medical History Medical History: Medical History (Last Updated 02/24/18 @ 16:18 by Vida Schultz) Abscess (Acute) IVDU (intravenous drug user) (Acute) Heroin abuse (Acute) Hepatitis C (Acute) Diabetes (Acute) Hand abscess - Surgical History Surgical History: Surgical History (Last Updated 02/24/18 @ 16:15 by Vida Schultz) History of orthopedic surgery (Acute) - Family History Family History: Family History (Last Updated 02/24/18 @ 16:23 by Vida Schultz) Mother Aneurysm Heart attack Stroke Medications and Allergies Active Medications: Active Medications Al Hydroxide/Mg Hydroxide (Milk Of Magnesia Liq) 30 ml PO Q12H PRN PRN Reason: Mild Constipation Bisacodyl (Dulcolax Supp) 10 mg RECTAL DAILY PRN PRN Reason: SEVERE CONSITIPATION Dextrose (D50w Vial) 50 ml IV.PUSH UNSCH PRN PRN Reason: PER HYPOGLYCEMIA PROTOCOL Glucagon (Glucagon Inj) 1 mg OTHER UNSCH PRN PRN Reason: for Hypoglycemia Protocol Pharmacy Profile Note (Vancomycin Consult Pharmacy) 0 mls @ 0 mls/hr OTHER UNSCH [facility] Sodium Chloride (Ns Inj) 1,000 mls @ 100 mls/hr IV.CONT .Q10H [facility] Last Admin: 02/24/18 13:08 Dose: 100 mls/hr Vancomycin HCl 1,000 mg/ (Sodium Chloride) 250 mls @ 250 mls/hr IV.SIG Q8H [facility] Last Admin: 02/24/18 16:11 Dose: 250 mls/hr Insulin Aspart (Novolog Insulin Suppl Scale Inj) 0 unit SQ ACHS [facility]; Protocol Last Admin: 02/24/18 16:11 Dose: 12 unit Insulin Detemir (Levemir Inj) 18 unit SQ HS [facility] Lactulose (Lactulose Liq) 30 ml PO DAILY PRN PRN Reason: SEVERE CONSITIPATION Methadone HCl (Dolophine) 60 mg PO DAILY [facility] Miscellaneous Information ([facility] Ordered Lab Info) 0 each OTHER ONCE ONE Stop: 02/25/18 08:46 Senna/Docusate Sodium (Macrina-Colace) 1 tab PO BID [facility] Sennosides (Senokot) 17.2 mg PO Q12H PRN PRN Reason: Moderate Constipation Temazepam (Restoril) 15 mg PO HS PRN PRN Reason: INSOMNIA Exam Vital signs: Vital Signs 02/24/18 00:40 02/24/18 09:04 02/24/18 12:36 Temperature 99.2 F 98.4 F Pulse Rate 86 75 Respiratory Rate 18 12 15 Blood Pressure 134/80 115/76 Pulse Oximetry 100 98 02/24/18 12:45 02/24/18 15:09 02/24/18 16:00 Temperature 99.1 F 98.1 F Pulse Rate 77 73 Respiratory Rate 16 12 18 Blood Pressure 107/67 119/69 Pulse Oximetry 96 98 Intake & Output 02/23/18 02/24/18 02/24/18 18:59 06:59 18:59 Intake Total 250 / 250 Balance 250 / 250 Weight 77 kg Intake: IV 250 / 250 Vancomycin Inj 1,000 MG In NS 250 / 250 Inj 250 ML @ 200 mls/hr IV.SIG ONCE ONE Rx#:[id number] Results - Labs CBC & Chem 7: 02/24/18 08:33 02/24/18 04:40 Labs: Laboratory Results - last 24 hr 02/24/18 02/24/18 02/24/18 04:40 08:33 11:46 WBC 9.2 RBC 4.57 Hgb 12.7 L Hct 36.6 L MCV 80.1 MCH 27.9 MCHC 34.8 RDW 14.3 Plt Count 229 MPV 8.6 Neut % (Auto) 68.5 Lymph % (Auto) 17.9 [place] % (Auto) 9.0 H Eos % (Auto) 3.6 Baso % (Auto) 1.0 Neut # (Auto) 6.3 Lymph # (Auto) 1.6 [place] # (Auto) 0.8 Eos # (Auto) 0.3 Baso # (Auto) 0.1 WBC Differential . Differential Comment Auto diff final Sodium 132 L Potassium 4.7 Chloride 96 L Carbon Dioxide 26.9 Anion Gap 9 BUN 14 Creatinine 0.81 Estimated GFR Greater than 89 POC Glucose 295 H Random Glucose 352 H Calcium 9.1 Total Bilirubin 0.5 AST 32 ALT 36 Alkaline Phosphatase 93 Total Protein 8.6 H Albumin 3.2 L 02/24/18 02/24/18 02/24/18 13:16 13:41 16:05 WBC RBC Hgb Hct MCV MCH MCHC RDW Plt Count MPV Neut % (Auto) Lymph % (Auto) [place] % (Auto) Eos % (Auto) Baso % (Auto) Neut # (Auto) Lymph # (Auto) [place] # (Auto) Eos # (Auto) Baso # (Auto) WBC Differential Differential Comment Sodium Potassium Chloride Carbon Dioxide Anion Gap BUN Creatinine Estimated GFR POC Glucose 62 L 95 443 H Random Glucose Calcium Total Bilirubin AST ALT Alkaline Phosphatase Total Protein Albumin Caprini VTE Risk Assessment Caprini Risk Assessment Model: Point Value = 1 Point Value = 2 Point Value = 3 Point Value = 5 Age 41-60 Minor surgery BMI > 25 kg/m2 Swollen legs Varicose veins or History of unexplained or recurrent spontaneous Oral contraceptives or hormone replacement Sepsis (< 1 month) Serious lung disease, including pneumonia (< 1 month) Abnormal pulmonary function Acute myocardial infarction Congestive heart failure (< 1 month) History of inflammatory bowel disease Medical patient at bed rest Age 61-74 Arthroscopic surgery Major open surgery (> 45 min) Laparoscopic surgery (> 45 min) Malignancy Confined to bed (> 72 hours) Immobilizing plaster cast Central venous access Age >= 75 History of VTE Family history of VTE Factor V Leiden Prothrombin [id number] Lupus anticoagulant Anticardiolipin antibodies Elevated serum homocysteine Heparin-induced thrombocytopenia Other congenital or acquired thrombophilia Stroke (< 1 month) Elective arthroplasty Hip, pelvis, or leg fracture Acute spinal cord injury (< 1 month) Prophylaxis Regimen: Total Risk Factor Score Risk Level Prophylaxis Regimen 0-1 Low Early ambulation 2 Moderate Order ONE of the following: *Sequential Compression Device (SCD) *Heparin 5000 units SQ BID 3-4 Higher Order ONE of the following medications: *Heparin 5000 units SQ TID *Enoxaparin/Lovenox 40 mg SQ daily (WT < 150 kg, CrCl > 30 mL/min) *Enoxaparin/Lovenox 30 mg SQ daily (WT < 150 kg, CrCl > 10-29 mL/min) *Enoxaparin/Lovenox 30 mg SQ BID (WT < 150 kg, CrCl > 30 mL/min) AND/OR *Sequential Compression Device (SCD) 5 or more Highest Order ONE of the following medications: *Heparin 5000 units SQ TID (Preferred with Epidurals) *Enoxaparin/Lovenox 40 mg SQ daily (WT < 150 kg, CrCl > 30 mL/min) *Enoxaparin/Lovenox 30 mg SQ daily (WT < 150 kg, CrCl > 10-29 mL/min) *Enoxaparin/Lovenox 30 mg SQ BID (WT < 150 kg, CrCl > 30 mL/min) AND *Sequential Compression Device (SCD) Assessment and Plan - Attending Attestation The exam, history, and the medical decision-making described in the above note were completed with the assistance of the mid-level provider. I reviewed and agree with the findings presented. I attest that I had a [id number] encounter with the patient on the same day, and personally performed and documented my assessment and findings in the medical record. Patient reports severe pain in left hand in the right foot. Denies injection of the sites. Marketed inflammation of the left hand, as well as right foot on exam. Appears to have infection overlying the right foot medial malleolus. Due to possible osteomyelitis, have ordered MRI of right foot. Discussed with podiatry. Hopefully incision and drainage can be performed tomorrow. Continue on vancomycin. N.p.o. midnight.
[2018-02-24] MEDS ORDERED: Methadone 10 MG Tablet PO SCH (17:00)
[2018-02-24] MEDS ORDERED: Gadobutrol PF 10 MMOL/10 ML Vial (for RAD) IV.SIG ONE (17:45)
--- NOTE | 2018-02-24 18:09 | MR ---
EXAM DATE: 02/24/2018 5:57 PM EDT AGE/SEX: 32 years / Male INDICATIONS: Abscess. Pain, redness, and swelling to dorsal mid left hand s/p heroin injection. CLINICAL DATA: This is the patient's subsequent encounter. Patient reports that signs and symptoms h ave been present for 3 weeks and indicates a pain score of 4/10. MEDICAL/SURGICAL HISTORY: Diabetes mellitus type II. Hepatitis C. . I&D hand and arms. COMPARISON: No prior exams available for comparison. TECHNIQUE: Multiplanar, multisequence MRI examination was performed without contrast and after the i ntravenous administration of 8cc ml Gadavist (gadobutrol) contrast as a single exam dose. FINDINGS: Marrow: There is homogeneous signal in the marrow of the visualized bones of the hand. Metacarpal-Phalangeal Joints: The MCP joints are unremarkable with no evidence of erosion, effusion, or malalignment. Interphalangeal Joints: The PIP and DIP joints are unremarkable with no evidence of erosion, effusio n or malalignment. Extensor Tendons: The visualized extensor tendons are intact. Flexor Tendons: The visualized flexor tendons are intact. Soft Tissues: There is a irregular fluid collection seen in the dorsal aspect of the first interspac e between the first metacarpal and the second metacarpal. This fluid collection measures 4.3 cm in le ngth, 2 cm in transverse dimension and 2.2 cm in AP dimension. The periphery of this cystic mass enha nces. There are some mild septation seen at the periphery of this fluid collection. This fluid collec tion is within the superficial soft tissues. CONCLUSION: Cystic mass with peripheral enhancement but very likely represent an abscess given the patient's hist ory. This is in the superficial dorsal soft tissues between the first and second metacarpals. The bon y structures are intact. Electronically signed by: Dwain Messina MD 02/24/2018 6:07 PM EDT
--- NOTE | 2018-02-24 18:12 | MR ---
EXAM DATE: 02/24/2018 5:58 PM EDT AGE/SEX: 32 years / Male INDICATIONS: Abscess. Pain, redness and swelling right anterior-medial ankle s/p heroin injection. CLINICAL DATA: This is the patient's subsequent encounter. Patient reports that signs and symptoms h ave been present for 3 weeks and indicates a pain score of 4/10. MEDICAL/SURGICAL HISTORY: Diabetes mellitus type II. Hepatitis C. . I&D hands and arms. COMPARISON: No prior exams available for comparison. TECHNIQUE: Multiplanar, multisequence MRI examination was performed with contrast and after the intr avenous administration of 8cc ml Gadavist (gadobutrol) contrast as a single exam dose. FINDINGS: Bones: The osseous structures are in normal alignment. No evidence of fracture or bony edema. Joint Spaces: No joint effusion or loose bodies are seen. The articular cartilage is intact. Tendons: The posteromedial tendons (tibialis posterior, flexor digitorum and flexor hallucis longus) are intact. The peroneal tendons are intact. The anterior tendons (tibialis anterior, extensor pedro lucis longus and extensor digitorum) are intact. The Achilles tendon is intact. Ligaments: The lateral and medial ligament complexes are intact. Other: The plantar aponeurosis is grossly unremarkable. The structures in the tarsal tunnel are int act. Soft Tissues: There is a lobulated septated fluid collection seen in the anterior medial superficial soft tissues adjacent to the distal tibia measuring 2.4 cm in height, 2.2 cm in AP dimension and 1.5 cm in transverse dimension. This does demonstrate enhancement at the periphery and throughout multip le septations within the fluid collection. There is edema within the medial subcutaneous fat. Post Contrast: There are no abnormal areas of enhancement in the marrow, muscle or soft tissues on i mages obtained after intravenous administration of gadolinium. CONCLUSION: 2.4 cm lobulated septated fluid collection in the anterior medial superficial soft tissues consistent with abscess given the patient's history. This is surrounded by edema within the subcutaneous fat. T he bony structures are intact. Electronically signed by: Dwain Messina MD 02/24/2018 6:10 PM EDT
--- NOTE | 2018-02-24 21:01 | P.PNOP ---
Physical Exam Vital signs: Vital Signs 02/24/18 00:40 02/24/18 09:04 02/24/18 12:36 Temperature 99.2 F 98.4 F Pulse Rate 86 75 Respiratory Rate 18 12 15 Blood Pressure 134/80 115/76 Pulse Oximetry 100 98 02/24/18 12:45 02/24/18 15:09 02/24/18 16:00 Temperature 99.1 F 98.1 F Pulse Rate 77 73 Respiratory Rate 16 12 18 Blood Pressure 107/67 119/69 Pulse Oximetry 96 98 Intake & Output 02/24/18 02/24/18 02/25/18 06:59 18:59 06:59 Intake Total 500 / 500 Balance 500 / 500 Weight 77 kg Intake: IV 500 / 500 Vancomycin Inj 1,000 MG In NS 500 / 500 Inj 250 ML @ 250 mls/hr IV.SIG Q8H [facility] Rx#:[id number] Results - Labs CBC & Chem 7: 02/24/18 08:33 02/24/18 04:40 Laboratory Results - last 24 hr 02/24/18 02/24/18 02/24/18 04:40 08:33 08:33 WBC 9.2 RBC 4.57 Hgb 12.7 L Hct 36.6 L MCV 80.1 MCH 27.9 MCHC 34.8 RDW 14.3 Plt Count 229 MPV 8.6 Neut % (Auto) 68.5 Lymph % (Auto) 17.9 [place] % (Auto) 9.0 H Eos % (Auto) 3.6 Baso % (Auto) 1.0 Neut # (Auto) 6.3 Lymph # (Auto) 1.6 [place] # (Auto) 0.8 Eos # (Auto) 0.3 Baso # (Auto) 0.1 WBC Differential . Differential Comment Auto diff final ESR 76 H Sodium 132 L Potassium 4.7 Chloride 96 L Carbon Dioxide 26.9 Anion Gap 9 BUN 14 Creatinine 0.81 Estimated GFR Greater than 89 POC Glucose Random Glucose 352 H Calcium 9.1 Total Bilirubin 0.5 AST 32 ALT 36 Alkaline Phosphatase 93 Total Protein 8.6 H Albumin 3.2 L 02/24/18 02/24/18 02/24/18 11:46 13:16 13:41 WBC RBC Hgb Hct MCV MCH MCHC RDW Plt Count MPV Neut % (Auto) Lymph % (Auto) [place] % (Auto) Eos % (Auto) Baso % (Auto) Neut # (Auto) Lymph # (Auto) [place] # (Auto) Eos # (Auto) Baso # (Auto) WBC Differential Differential Comment ESR Sodium Potassium Chloride Carbon Dioxide Anion Gap BUN Creatinine Estimated GFR POC Glucose 295 H 62 L 95 Random Glucose Calcium Total Bilirubin AST ALT Alkaline Phosphatase Total Protein Albumin 02/24/18 02/24/18 16:05 20:55 WBC RBC Hgb Hct MCV MCH MCHC RDW Plt Count MPV Neut % (Auto) Lymph % (Auto) [place] % (Auto) Eos % (Auto) Baso % (Auto) Neut # (Auto) Lymph # (Auto) [place] # (Auto) Eos # (Auto) Baso # (Auto) WBC Differential Differential Comment ESR Sodium Potassium Chloride Carbon Dioxide Anion Gap BUN Creatinine Estimated GFR POC Glucose 443 H 66 L Random Glucose Calcium Total Bilirubin AST ALT Alkaline Phosphatase Total Protein Albumin - Imaging Impressions Ankle MRI 02/24/18 00:00 CONCLUSION: 2.4 cm lobulated septated fluid collection in the anterior medial superficial soft tissues consistent with abscess given the patient's history. This is surrounded by edema within the subcutaneous fat. The bony structures are intact. Hand MRI 02/24/18 00:00 CONCLUSION: Cystic mass with peripheral enhancement but very likely represent an abscess given the patient's history. This is in the superficial dorsal soft tissues between the first and second metacarpals. The bony structures are intact. Assessment and Plan - Assessment and Plan 32yM pmhx IVDU with abscess L hand -Please see dictated consult note -Please keep patient npo 02/25 for I&D L hand afternoon on 02/25 even if patient has I&D foot earlier in day. Thank you
--- NOTE | 2018-02-24 21:16 | XR ---
EXAM DATE: 02/24/2018 8:59 PM EDT AGE/SEX: 32 years / Male INDICATIONS: Wound with swelling between first and second metacarpals. No known injury. CLINICAL DATA: This is the patient's initial encounter. Patient reports that signs and symptoms have been present for 4 - 6 days and indicates a pain score of 8/10. MEDICAL/SURGICAL HISTORY: . Diabetes mellitus type II. Hepatitis C. . I&D hands and arms. [place] [facility] [place][id number][place] 12/19/2017. . FINDINGS: No fracture is seen. No foreign body is seen. The bones and joints are normally aligned. There is pos sible swelling of the thenar eminence. CONCLUSION: Soft tissue swelling. Electronically signed by: Dwain Messina MD 02/24/2018 9:15 PM EDT
--- NOTE | 2018-02-25 01:45 | P.CONPOD ---
History of Present Illness Service: Podiatric Surgery Consult date: 02/25/18 Requesting Physician: Nathan Damon Reason for Consult: Right ankle abscess Primary Care Provider: No Primary Care Physician Family Provider: No Primary Care Physician Chief Complaint: abscesses History of Present Illness: 32-year-old male with history of diabetes, hepatitis C, IVDU with heroin, tobacco use, recent admission 02/05-02/10 for multiple abscesses, presents to the ED with recurrent abscesses on the left hand and right ankle. The patient admits to injecting into the left hand 8 days ago. He denies injecting into his legs. He reports a 45 day history of left dorsal hand swelling, erythema, and constant severe throbbing pain. He reports a 3 day history of right medial ankle swelling, erythema, and constant sharp shooting pains. He denies any recent drainage from his wounds. Denies fevers or chills. He reports difficulty walking secondary to the right ankle abscess. He reports nausea and decreased appetite, but no vomiting. He also ran out of his methadone. He was a heroin abuser up until he quit 8 days ago. On his prior hospitalization, the physician started him on methadone for the first time and he has been taking 40 mg daily over the past week. He believes the methadone is helping him. He has an appointment scheduled with [facility] on Monday 02/26. He is requesting his methadone be restarted. Otherwise, patient has no other medical complaints including no headache, cough, chest pain, shortness of breath , or abdominal pain.- Per Admit team PMFSH - History History Provided By: Patient - Medical History Medical History: Medical History (Last Updated 02/24/18 @ 16:18 by Vida Schultz) Abscess (Acute) IVDU (intravenous drug user) (Acute) Heroin abuse (Acute) Hepatitis C (Acute) Diabetes (Acute) Hand abscess - Surgical History Surgical History: Surgical History (Last Updated 02/24/18 @ 16:15 by Vida Schultz) History of orthopedic surgery (Acute) - Family History Family History: Family History (Last Updated 02/24/18 @ 16:23 by Vida Schultz) Mother Aneurysm Heart attack Stroke - Tobacco History Second Hand Smoke Exposure: Yes Tobacco Use In Past 30 Days: Yes Smoking Status: Current every day smoker (1 PPD b8yxgar) Tobacco Type: Cigarettes - Alcohol History How Often Do You Have a Drink Containing Alcohol: Never - Substance Use History Substance History: Active Abuse (injects IV heroin) - Travel History Recent Travel in the [place] Within the Last 8 Weeks: No Recent Travel Out of the Country Within the Last 8 Weeks: No - Immunization History Tetanus Immunization: <5 Years Medications and Allergies Active Medications: Active Medications Al Hydroxide/Mg Hydroxide (Milk Of Magnesia Liq) 30 ml PO Q12H PRN PRN Reason: Mild Constipation Bisacodyl (Dulcolax Supp) 10 mg RECTAL DAILY PRN PRN Reason: SEVERE CONSITIPATION Dextrose (D50w Vial) 50 ml IV.PUSH UNSCH PRN PRN Reason: PER HYPOGLYCEMIA PROTOCOL Glucagon (Glucagon Inj) 1 mg OTHER UNSCH PRN PRN Reason: for Hypoglycemia Protocol Pharmacy Profile Note (Vancomycin Consult Pharmacy) 0 mls @ 0 mls/hr OTHER UNSCH [facility] Sodium Chloride (Ns Inj) 1,000 mls @ 100 mls/hr IV.CONT .Q10H [facility] Last Admin: 02/24/18 13:08 Dose: 100 mls/hr Vancomycin HCl 1,000 mg/ (Sodium Chloride) 250 mls @ 250 mls/hr IV.SIG Q8H [facility] Last Infusion: 02/24/18 17:11 Dose: Infused Cefepime HCl 2,000 mg/ Sodium (Chloride) 100 mls @ 200 mls/hr IV.SIG Q8H [facility] Last Admin: 02/24/18 20:42 Dose: 200 mls/hr Metronidazole/Sodium Chloride (Flagyl 500 Mg Inj) 100 mls @ 100 mls/hr IV.SIG Q6H [facility] Insulin Aspart (Novolog Insulin Suppl Scale Inj) 0 unit SQ ACHS [facility]; Protocol Last Admin: 02/24/18 16:11 Dose: 12 unit Insulin Detemir (Levemir Inj) 18 unit SQ HS [facility] Lactulose (Lactulose Liq) 30 ml PO DAILY PRN PRN Reason: SEVERE CONSITIPATION Methadone HCl (Dolophine) 60 mg PO DAILY [facility] Last Admin: 02/24/18 16:38 Dose: 60 mg Miscellaneous Information ([facility] Ordered Lab Info) 0 each OTHER ONCE ONE Stop: 02/25/18 08:46 Senna/Docusate Sodium (Macrina-Colace) 1 tab PO BID [facility] Sennosides (Senokot) 17.2 mg PO Q12H PRN PRN Reason: Moderate Constipation Temazepam (Restoril) 15 mg PO HS PRN PRN Reason: INSOMNIA Allergies Allergy/AdvReac Type Severity Reaction Status Date / Time penicillin G Allergy Severe Hives Verified 02/24/18 00:44 Physical Exam Vital signs: Vital Signs 02/24/18 09:04 02/24/18 12:36 02/24/18 12:45 Temperature 98.4 F 99.1 F Pulse Rate 75 77 Respiratory Rate 12 15 16 Blood Pressure 115/76 107/67 Pulse Oximetry 98 96 02/24/18 15:09 02/24/18 16:00 02/24/18 20:00 Temperature 98.1 F 98.1 F Pulse Rate 73 70 Respiratory Rate 12 18 18 Blood Pressure 119/69 106/63 Pulse Oximetry 98 99 02/25/18 00:00 Temperature 98 F Pulse Rate 70 Respiratory Rate 20 Blood Pressure 111/70 Pulse Oximetry 100 Intake & Output 02/24/18 02/24/18 02/25/18 06:59 18:59 06:59 Intake Total 500 / 500 Balance 500 / 500 Weight 77 kg Intake: IV 500 / 500 Vancomycin Inj 1,000 MG In NS 500 / 500 Inj 250 ML @ 250 mls/hr IV.SIG Q8H [facility] Rx#:[id number] - Constitutional no acute distress - Neurological Alert and oriented x3 - Routine Extremities Exam Present: joint swelling - Detailed Lower Extremity Exam Lower leg: Right wound, Right erythema (Right ankle with swelling redness and fluctuance no signs of gangrene pain with ROM redness anterior medial ankle with approx 5cm circumference) Results - Labs CBC & Chem 7: 02/24/18 08:33 02/24/18 04:40 Laboratory Results - last 24 hr 02/24/18 02/24/18 02/24/18 04:40 08:33 08:33 WBC 9.2 RBC 4.57 Hgb 12.7 L Hct 36.6 L MCV 80.1 MCH 27.9 MCHC 34.8 RDW 14.3 Plt Count 229 MPV 8.6 Neut % (Auto) 68.5 Lymph % (Auto) 17.9 [place] % (Auto) 9.0 H Eos % (Auto) 3.6 Baso % (Auto) 1.0 Neut # (Auto) 6.3 Lymph # (Auto) 1.6 [place] # (Auto) 0.8 Eos # (Auto) 0.3 Baso # (Auto) 0.1 WBC Differential . Differential Comment Auto diff final ESR 76 H Sodium 132 L Potassium 4.7 Chloride 96 L Carbon Dioxide 26.9 Anion Gap 9 BUN 14 Creatinine 0.81 Estimated GFR Greater than 89 POC Glucose Random Glucose 352 H Calcium 9.1 Total Bilirubin 0.5 AST 32 ALT 36 Alkaline Phosphatase 93 Total Protein 8.6 H Albumin 3.2 L 02/24/18 02/24/18 02/24/18 11:46 13:16 13:41 WBC RBC Hgb Hct MCV MCH MCHC RDW Plt Count MPV Neut % (Auto) Lymph % (Auto) [place] % (Auto) Eos % (Auto) Baso % (Auto) Neut # (Auto) Lymph # (Auto) [place] # (Auto) Eos # (Auto) Baso # (Auto) WBC Differential Differential Comment ESR Sodium Potassium Chloride Carbon Dioxide Anion Gap BUN Creatinine Estimated GFR POC Glucose 295 H 62 L 95 Random Glucose Calcium Total Bilirubin AST ALT Alkaline Phosphatase Total Protein Albumin 02/24/18 02/24/18 02/24/18 16:05 20:55 22:00 WBC RBC Hgb Hct MCV MCH MCHC RDW Plt Count MPV Neut % (Auto) Lymph % (Auto) [place] % (Auto) Eos % (Auto) Baso % (Auto) Neut # (Auto) Lymph # (Auto) [place] # (Auto) Eos # (Auto) Baso # (Auto) WBC Differential Differential Comment ESR Sodium Potassium Chloride Carbon Dioxide Anion Gap BUN Creatinine Estimated GFR POC Glucose 443 H 66 L 109 Random Glucose Calcium Total Bilirubin AST ALT Alkaline Phosphatase Total Protein Albumin - Imaging Impressions Ankle MRI 02/24/18 00:00 CONCLUSION: 2.4 cm lobulated septated fluid collection in the anterior medial superficial soft tissues consistent with abscess given the patient's history. This is surrounded by edema within the subcutaneous fat. The bony structures are intact. Hand MRI 02/24/18 00:00 CONCLUSION: Cystic mass with peripheral enhancement but very likely represent an abscess given the patient's history. This is in the superficial dorsal soft tissues between the first and second metacarpals. The bony structures are intact. Hand X-Ray 02/24/18 00:00 CONCLUSION: Soft tissue swelling. Assessment and Plan - Assessment (1) Abscess of tendon sheath, right ankle and foot Code(s): M65.071 - Abscess of tendon sheath, right ankle and foot Status: Acute - Plan NPO after clear liquid breakfast, plan for right ankle incision drainage in later afternoon likely in coordination with Hand. Reviewed risks and benefits, patient agreeable to surgery. Continue ABX
[2018-02-25] MEDS: Vancomycin Inj 1,000 MG in Sodium Chlor 0.9% Inj 250 ML IV.SIG SCH ×2 (03:24→08:58)
[2018-02-25] MEDS: Sod Chloride 0.9% Inj 1,000 ML IV.CONT SCH ×3 (03:28→23:24)
[2018-02-25] MEDS: Senna/Docusate Sodium 8.6/50 MG Tablet PO SCH ×3 (04:16→23:26)
[2018-02-25] MEDS: Insulin NovoLOG Aspart Correctional Sugar Inj SQ SCH ×5 (04:16→21:32)
[2018-02-25] MEDS: Insulin Detemir Inj 1,000 UNIT/10 ML Vial SQ SCH ×2 (04:16→23:25)
[2018-02-25] MEDS: Methadone 10 MG Tablet PO SCH (08:42)
[2018-02-25] MEDS ORDERED: Pharmacy Ordered Lab Info OTHER ONE (08:45)
[2018-02-25 09:55] LABS: Anion Gap 8 meq/L (5-15); Blood Urea Nitrogen 9 mg/dL (7-18); Calcium 6.2 mg/dL (8.5-10.1); Carbon Dioxide 19.6 meq/L (21.0-32.0); Chloride 118 meq/L (98-107); Glomerular Filtration Rate Greater Than 89 mL/min (>89); Glucose,Random 120 mg/dL (74-106); Sodium 146 meq/L (136-145)
[2018-02-25 10:45] LABS: Potassium 2.9 meq/L (3.5-5.1)
[2018-02-25 10:59] LABS: Total Protein 4.9 g/dL (6.4-8.2)
--- NOTE | 2018-02-25 11:51 | P.PNIM ---
Subjective Interval history: Patient says he is feeling all right, with the exception of continued pain in left hand, right ankle. Left hand abscess has spontaneously ruptured overnight. Denies any chest pain, shortness of breath, nausea, vomiting. Sleeping, wakes up for exam, says that methadone is working, however asked for something for breakthrough pain Physical Exam Vital signs: Vital Signs 02/24/18 12:36 02/24/18 12:45 02/24/18 15:09 Temperature 99.1 F Pulse Rate 77 Respiratory Rate 15 16 12 Blood Pressure 107/67 Pulse Oximetry 96 02/24/18 16:00 02/24/18 20:00 02/25/18 00:00 Temperature 98.1 F 98.1 F 98 F Pulse Rate 73 70 70 Respiratory Rate 18 18 20 Blood Pressure 119/69 106/63 111/70 Pulse Oximetry 98 99 100 02/25/18 04:00 02/25/18 07:16 02/25/18 10:33 Temperature 98.2 F 99.0 F Pulse Rate 66 77 Respiratory Rate 20 16 18 Blood Pressure 112/72 99/54 L Pulse Oximetry 99 97 02/25/18 11:05 Temperature 98.6 F Pulse Rate 63 Respiratory Rate 16 Blood Pressure 92/51 L Pulse Oximetry 99 Intake & Output 02/24/18 02/25/18 02/25/18 18:59 06:59 18:59 Intake Total 500 / 500 1550 / 1550 Balance 500 / 500 1550 / 1550 Intake: IV 500 / 500 1550 / 1550 NS Inj 1,000 ML @ 100 mls/hr IV 1000 / 1000 .CONT .Q10H [facility] Rx#:[id number] Maxipime Inj 2,000 MG In NS Inj 100 / 100 100 ML @ 200 mls/hr IV.SIG Q8H [facility] Rx#:[id number] Vancomycin Inj 1,000 MG In NS 500 / 500 250 / 250 Inj 250 ML @ 250 mls/hr IV.SIG Q8H [facility] Rx#:[id number] Flagyl 500 MG Inj 100 ML @ 100 200 / 200 mls/hr IV.SIG Q6H [facility] Rx#: [id number] Narrative: GENERAL: Patient sleeping, wakes up for exam. SKIN: Warm and dry. HEAD: Normocephalic. EYES: No scleral icterus. No injection or drainage. NECK: Supple, trachea midline. No JVD. CARDIOVASCULAR: Regular rate and rhythm without murmurs, gallops, or rubs. RESPIRATORY: Breath sounds equal bilaterally. No accessory muscle use. GASTROINTESTINAL: Abdomen soft, non-tender, nondistended. MUSCULOSKELETAL: No cyanosis, or edema. Left hand dressed. Peripheral perfusion intact. Right foot with medial abscess unchanged from yesterday. BACK: Nontender without obvious deformity. No CVA tenderness. Results - Labs CBC & Chem 7: 02/24/18 08:33 02/25/18 09:00 Laboratory Results - last 24 hr 02/24/18 02/24/18 02/24/18 08:33 11:46 13:16 ESR 76 H Sodium Potassium Chloride Carbon Dioxide Anion Gap BUN Creatinine Estimated GFR POC Glucose 295 H 62 L Random Glucose Calcium Prot Corrected Calcium Total Protein Vancomycin Trough 02/24/18 02/24/18 02/24/18 13:41 16:05 20:55 ESR Sodium Potassium Chloride Carbon Dioxide Anion Gap BUN Creatinine Estimated GFR POC Glucose 95 443 H 66 L Random Glucose Calcium Prot Corrected Calcium Total Protein Vancomycin Trough 02/24/18 02/25/18 02/25/18 22:00 08:45 09:00 ESR Sodium Potassium Chloride Carbon Dioxide Anion Gap BUN Creatinine Estimated GFR POC Glucose 109 196 H Random Glucose Calcium Prot Corrected Calcium Total Protein Vancomycin Trough 3.8 L 02/25/18 09:00 ESR Sodium 146 H D Potassium 2.9 L* D Chloride 118 H D Carbon Dioxide 19.6 L Anion Gap 8 BUN 9 Creatinine 0.36 L Estimated GFR Greater than 89 POC Glucose Random Glucose 120 H D Calcium 6.2 L* D Prot Corrected Calcium 7.2 L* Total Protein 4.9 L D Vancomycin Trough Microbiology 02/24/18 04:40 Blood - Peripheral Aerobic Blood Culture - Preliminary No growth in 1 day 02/24/18 04:40 Blood - Peripheral Anaerobic Blood Culture - Preliminary No growth in 1 day 02/24/18 04:30 Blood - Peripheral Aerobic Blood Culture - Preliminary No growth in 1 day 02/24/18 04:30 Blood - Peripheral Anaerobic Blood Culture - Preliminary No growth in 1 day - Imaging Impressions Ankle MRI 02/24/18 00:00 CONCLUSION: 2.4 cm lobulated septated fluid collection in the anterior medial superficial soft tissues consistent with abscess given the patient's history. This is surrounded by edema within the subcutaneous fat. The bony structures are intact. Hand MRI 02/24/18 00:00 CONCLUSION: Cystic mass with peripheral enhancement but very likely represent an abscess given the patient's history. This is in the superficial dorsal soft tissues between the first and second metacarpals. The bony structures are intact. Hand X-Ray 02/24/18 00:00 CONCLUSION: Soft tissue swelling. Assessment and Plan - Plan 32-year-old male with history of diabetes, hepatitis C, IVDU with heroin, tobacco use, recent admission 02/05-02/10 for multiple abscesses, presents to the ED with recurrent abscesses on the left hand and right ankle. //Left Hand and Right Ankle Abscess: admits to injecting into the left hand, denies injection into the legs. Afebrile, no leukocytosis. -Check MRIs of the Left hand and Right ankle -Start on antibiotics with IV Vanco, pharmacy consulted -Consult podiatry and hand surgery -Restart methadone for pain control -Give IVF hydration -Blood cultures collected -Check ESR -Monitor for improvement = Continue vancomycin for MRSA coverage, antipseudomonal and anaerobic coverage. Pending podiatry and had surgery. Appreciate assistance. //Lab error -With obvious lab error, with hypernatremia, hypokalemia, hyperchloremia, low creatinine. Expect this was drawn from arm while normal saline was running. = Repeat labs. //Diabetes Mellitus with Hyperglycemia: uncontrolled. BG 352 upon arrival. Suspect secondary to noncompliance. -S/p IV Regular Insulin x10u and IVF bolus in the ED -Continue on long acting insulin with Levemir 18u sq hs -Monitor Accu-checks and cover with SSI -Diabetic diet //IVDU/Heroin Abuse: last injected 8 days ago. Recently started on methadone on prior admission. -continue on methadone 60mg daily -patient reportedly has appt with [facility] on Sunday -extensively counseled on cessation //Hepatitis C: chronic -outpatient follow up //Tobacco Use: chronic -counseled on cessation -nicotine patch DVT Prophylaxis: avoid chemoprophylaxis with likely upcoming procedures - Attending Attestation testing pending.
[2018-02-25] MEDS ORDERED: Ketorolac Inj 30 MG/ML (IVP) Vial IV.PUSH ONE (12:00)
[2018-02-25] MEDS ORDERED: Lidocaine PF 1% Inj 5 ML Syringe INFILTRATN ONE (12:00)
[2018-02-25 13:03] LABS: Anion Gap 10 meq/L (5-15); Blood Urea Nitrogen 9 mg/dL (7-18); Chloride 113 meq/L (98-107); Glomerular Filtration Rate Greater Than 89 mL/min (>89); Glucose,Random 139 mg/dL (74-106); Potassium 3.5 meq/L (3.5-5.1); Sodium 143 meq/L (136-145)
[2018-02-25 13:41] LABS: Total Protein 5.6 g/dL (6.4-8.2)
[2018-02-25] MEDS ORDERED: HYDROmorphone PF Inj 2 MG/ML Vial ONE (16:23)
[2018-02-25] MEDS ORDERED: Bupivacaine PF 0.5% Inj 30 ML Vial ONE ×2 (17:03)
[2018-02-25] MEDS ORDERED: Lidocaine 2% Inj 50 ML Vial ONE (17:03)
--- NOTE | 2018-02-25 18:36 | P.BOP ---
- Preoperative Diagnosis (1) Abscess of tendon sheath, right ankle and foot - Postoperative Diagnosis (1) Abscess of tendon sheath, right ankle and foot Date of procedure: 02/25/18 Procedure: Right ankle incision drainage wound exploration Anesthesia: GETA Surgeon: Jose Gan DPM Estimated blood loss (mL): 10 (mL) Tourniquet time (min): 20 (250 right mid calf) Pathology: other (deep cx right ankle) Condition: stable Disposition: PACU
--- NOTE | 2018-02-25 18:56 | MP ---
cc: Jose Law DPM DATE OF OPERATION: 02/25/2018 PREOPERATIVE DIAGNOSIS: Right ankle abscess. POSTOPERATIVE DIAGNOSIS: Right ankle abscess. PROCEDURE PERFORMED: Incision, drainage, debridement, right ankle. This was done in conjunction with the hand surgeon of a left upper extremity abscess. ANESTHESIA: General. I did not inject any local. PACKING: Placed within the wound. ESTIMATED BLOOD LOSS: For my procedure was 10 mL. TOURNIQUET TIME: Approximately 20 minutes at a setting at 250 mmHg of the patient's right ankle. COMPLICATIONS: None. SPECIMENS: A deep culture taken and sent for pathological analysis. DISPOSITION: Return to floor, monitor wound and culture. JUSTIFICATION OF PROCEDURE: This is a 32-year-old male with history of IV drug abuse, with multiple abscesses. MRI confirmed. The patient was educated on risks and benefits of surgery including, but not limited to, need for more surgery at a later date, further sepsis, bone infection, chronic pain of the area. No guarantees were given or implied regarding the outcome. This was done in conjunction with the hand on-call surgeon, Dr. Gottlieb. PROCEDURE IN DETAIL: Under mild sedation, the patient was brought in the operating room, placed on the operating table in supine position. Following induction of general anesthesia, the left upper extremity and right lower extremity were then scrubbed, prepped and draped in the usual aseptic fashion. My focus was the right lower extremity. The foot was elevated and exsanguinated and the previously placed mid-calf tourniquet was inflated to 250 mmHg. An incision was made over the medial malleolus. Sharp and blunt dissection was carried down. The greater saphenous vein was identified. Sharp and blunt dissection was carried down just to the deep fascia. There was no obvious bone involvement. It appeared to probe along the anterior tibialis tendon. There was purulent material. The wound was cultured. The wound was then flushed with 3 liters normal saline. It was then packed open utilizing nylon. Upon releasing the tourniquet, there was a prompt hyperemic response to all digits. Minimal bleeding at the surgery site. A bulky bandage applied. The patient then transferred OR to PACU with all vital signs stable. Continue to followup wound check within 1-2 days. Pending culture and sensitivity, there may be a recommendation for IV antibiotics versus outpatient oral antibiotics. SHAWN Ribeiro , 06:40 PM , 06:55 PM
[2018-02-25] MEDS ORDERED: fentaNYL Citrate Inj 100 MCG/2 ML Ampul ONE (19:03)
[2018-02-25] MEDS ORDERED: *Meperidine Inj 25 MG/ML Vial PERIprocedural Use ONLY ONE (19:14)
[2018-02-25] MEDS ORDERED: *morphine SULFATE 10 MG/ML PERIprocedure ONLY ONE (19:14)
--- NOTE | 2018-02-25 19:21 | MB ---
cc: Holli Gottlieb MD DATE: 02/25/2018 DATE OF SERVICE: 02/25/2018 PREOPERATIVE DIAGNOSIS: Abscess, left hand. HISTORY OF PRESENT ILLNESS: Celestino Infante is a 32-year-old right hand dominant male with past medical history significant for diabetes, hepatitis C, IV drug use with multiple prior admissions for abscesses. The patient states that he injected heroin into the left hand and right ankle. He reports pain in the left hand. Denies any paresthesias. He states that the abscess did open overnight with purulent drainage. PAST MEDICAL HISTORY: 1. Hepatitis C. 2. Diabetes. SOCIAL HISTORY: The patient reports tobacco, alcohol, and drug use, injects IV heroin. PHYSICAL EXAMINATION: GENERAL: The patient is alert and oriented. EXTREMITIES: Exam of the left hand shows erythema and swelling over the left first webspace with purulent drainage. Sensation intact in the median, ulnar and radial distribution. 2+ radial pulse. Compartments are soft and compressible. LABORATORY DATA: White count 9.2. ESR 76. CRP pending. Glucose ranging from 300-443. IMAGING: X-rays show no significant changes. MRI shows a large abscess in the first webspace between the thumb and index finger in the palmar bursa. ASSESSMENT AND PLAN: A 32-year-old right-hand dominant male with an abscess in the first webspace. The patient would like to proceed with surgical intervention including incision and drainage and will also need IV antibiotics. This will be coordinated with Podiatry to drain the abscess over his foot. Holli Gottlieb MD [facility] , 06:55 PM , 07:19 PM MTDYadira
--- NOTE | 2018-02-25 19:24 | MP ---
cc: Holli Gottlieb MD DATE OF OPERATION: 02/25/2018 PREOPERATIVE DIAGNOSIS: Abscess, left hand. POSTOPERATIVE DIAGNOSIS: Abscess, left hand. PROCEDURE PERFORMED: Incision and drainage deep abscess, left hand, involving the palmar bursa. SURGEON: Holli Gottlieb MD ANESTHESIA: General and local. TOURNIQUET TIME: 7 minutes at 200 mmHg. SPECIMEN: Culture. COMPLICATIONS: None. INDICATIONS FOR PROCEDURE: Celestino Infante is a 32-year-old male with approximately a 5-day history of an abscess in the left hand after injecting IV heroin. He has had multiple prior admissions for abscesses and elected to proceed with surgical intervention. Risks were explained, which include but are not limited to wound complications, infection, sepsis, , stiffness, pain, paresthesias, need for additional surgeries and elected to proceed. DESCRIPTION OF PROCEDURE: The patient was identified in the preoperative holding and the correct extremity was marked. The patient was taken to the operating room where anesthesia was induced. The left upper extremity was prepped and draped in normal sterile fashion. There was a draining sinus over the dorsum of the hand, which was opened. Culture was sent. The area was irrigated and debrided with antibiotic saline and rongeurs. The wound was loosely closed with chromic and packing was placed. Approximately 5 mL of 2% lidocaine with no epinephrine was for local anesthesia. The patient was placed into a soft dressing. He will remain admitted for IV antibiotics. Followup as needed. Holli Gottlieb MD SE/BERNARD , 06:57 PM , 07:22 PM [facility]
[2018-02-25] MEDS: Vancomycin Inj 1,250 MG in Sodium Chlor 0.9% Inj 250 ML IV.SIG SCH (19:50)
[2018-02-25] MEDS: Temazepam 15 MG Capsule PO PRN (23:26)
[2018-02-26] MEDS: Vancomycin Inj 1,250 MG in Sodium Chlor 0.9% Inj 250 ML IV.SIG SCH ×3 (02:27→18:32)
[2018-02-26] MEDS: Insulin NovoLOG Aspart Correctional Sugar Inj SQ SCH ×4 (07:12→21:17)
--- NOTE | 2018-02-26 08:48 | P.PNIM ---
Subjective Interval history: Patient says he is feeling all right. Reports pain controlled. Was not taking methadone for a week prior to admission. Patient agrees with Tylenol, however is not received Tylenol yet per his report. denies chest pain shortness of breath. Denies nausea vomiting Physical Exam Vital signs: Vital Signs 02/25/18 10:33 02/25/18 11:05 02/25/18 18:54 Temperature 98.6 F 97.3 F L Pulse Rate 63 54 L Respiratory Rate 18 16 28 H Blood Pressure 92/51 L 142/78 H Pulse Oximetry 99 100 02/25/18 19:00 02/25/18 19:15 02/25/18 19:30 Temperature Pulse Rate 50 L 47 L 42 L Respiratory Rate 20 15 10 L Blood Pressure 146/88 H 148/92 H 139/80 Pulse Oximetry 100 100 99 02/25/18 19:45 02/25/18 20:00 02/26/18 00:00 Temperature 97.5 F L 98.7 F Pulse Rate 44 L 66 67 Respiratory Rate 13 16 17 Blood Pressure 131/87 129/78 103/56 L Pulse Oximetry 98 99 97 02/26/18 04:00 02/26/18 08:00 Temperature 98.7 F 96.8 F L Pulse Rate 69 52 L Respiratory Rate 17 20 Blood Pressure 114/58 L 109/72 Pulse Oximetry 99 98 Intake & Output 02/25/18 02/26/18 02/26/18 18:59 06:59 18:59 Intake Total 1850 / 1850 1962.5 / 1962.5 Output Total 10 / 10 Balance 1840 / 1840 1962.5 / 1962.5 Intake: IV 1450 / 1450 1662.5 / 1662.5 NS Inj 1,000 ML @ 100 mls/hr IV 1000 / 1000 1000 / 1000 .CONT .Q10H [facility] Rx#:[id number] Maxipime Inj 2,000 MG In NS Inj 100 / 100 200 / 200 100 ML @ 200 mls/hr IV.SIG Q8H [facility] Rx#:[id number] Vancomycin Inj 1,000 MG In NS 250 / 250 Inj 250 ML @ 250 mls/hr IV.SIG Q8H [facility] Rx#:[id number] Vancomycin Inj 1,250 MG In NS 262.5 / 262.5 Inj 250 ML @ 250 mls/hr IV.SIG Q8H [facility] Rx#:[id number] Flagyl 500 MG Inj 100 ML @ 100 100 / 100 200 / 200 mls/hr IV.SIG Q6H [facility] Rx#: [id number] Anesthesia Amount 400 / 400 300 / 300 Output: Estimated Blood Loss Narrative: GENERAL: Patient sleeping, wakes up for exam. Alert and oriented 3 SKIN: Warm and dry. HEAD: Normocephalic. EYES: No scleral icterus. No injection or drainage. NECK: Supple, trachea midline. No JVD. CARDIOVASCULAR: Regular rate and rhythm without murmurs, gallops, or rubs. RESPIRATORY: Breath sounds equal bilaterally. No accessory muscle use. GASTROINTESTINAL: Abdomen soft, non-tender, nondistended. MUSCULOSKELETAL: No cyanosis, or edema. Left hand dressed. Peripheral perfusion intact. Right foot dressed. BACK: Nontender without obvious deformity. No CVA tenderness. Results - Labs CBC & Chem 7: 02/24/18 08:33 02/25/18 12:13 Laboratory Results - last 24 hr 02/25/18 02/25/18 02/25/18 08:45 09:00 09:00 Sodium 146 H D Potassium 2.9 L* D Chloride 118 H D Carbon Dioxide 19.6 L Anion Gap 8 BUN 9 Creatinine 0.36 L Estimated GFR Greater than 89 POC Glucose 196 H Random Glucose 120 H D Calcium 6.2 L* D Prot Corrected Calcium 7.2 L* Total Protein 4.9 L D Vancomycin Trough 3.8 L 02/25/18 02/25/18 02/25/18 12:09 12:13 15:47 Sodium 143 Potassium 3.5 Chloride 113 H Carbon Dioxide 20.0 L Anion Gap 10 BUN 9 Creatinine 0.49 L Estimated GFR Greater than 89 POC Glucose 196 H 192 H Random Glucose 139 H Calcium 7.0 L* D Prot Corrected Calcium 7.8 L Total Protein 5.6 L D Vancomycin Trough 02/26/18 02/26/18 02/26/18 04:26 04:31 07:01 Sodium Potassium Chloride Carbon Dioxide Anion Gap BUN Creatinine Estimated GFR POC Glucose Greater than 600 H* Greater than 600 H* 488 H* Random Glucose Calcium Prot Corrected Calcium Total Protein Vancomycin Trough Microbiology 02/24/18 04:40 Blood - Peripheral Aerobic Blood Culture - Preliminary No growth in 1 day 02/24/18 04:40 Blood - Peripheral Anaerobic Blood Culture - Preliminary No growth in 1 day 02/24/18 04:30 Blood - Peripheral Aerobic Blood Culture - Preliminary No growth in 1 day 02/24/18 04:30 Blood - Peripheral Anaerobic Blood Culture - Preliminary No growth in 1 day Assessment and Plan - Plan 32-year-old male with history of diabetes, hepatitis C, IVDU with heroin, tobacco use, recent admission 02/05-02/10 for multiple abscesses, presents to the ED with recurrent abscesses on the left hand and right ankle. //Left Hand and Right Ankle Abscess: admits to injecting into the left hand, denies injection into the legs. Afebrile, no leukocytosis. -Check MRIs of the Left hand and Right ankle -Start on antibiotics with IV Vanco, pharmacy consulted -Consult podiatry and hand surgery -Restart methadone for pain control -Give IVF hydration -Blood cultures collected -Check ESR -Monitor for improvement = Continue vancomycin for MRSA coverage, antipseudomonal and anaerobic coverage. Pending podiatry and had surgery. Appreciate assistance. = Continue broad-spectrum antibiotics. Follow-up wound cultures. //Diabetes Mellitus with Hyperglycemia: uncontrolled. BG 352 upon arrival. Suspect secondary to noncompliance. -S/p IV Regular Insulin x10u and IVF bolus in the ED -Continue on long acting insulin with Levemir 18u sq hs -Monitor Accu-checks and cover with SSI -Diabetic diet = 02/26. Hyperglycemia with blood sugars up to 600 last night, 488 this morning. Likely secondary to having been restarted on regular diet instead of diabetic after surgery. Will continue insulin regimen and continue to monitor. //IVDU/Heroin Abuse: last injected 8 days prior to admission. Recently started on methadone on prior admission. -continue on methadone 60mg daily -patient reportedly has appt with [facility] on Sunday -extensively counseled on cessation //Hepatitis C: chronic -outpatient follow up //Tobacco Use: chronic -counseled on cessation -nicotine patch DVT Prophylaxis: avoid chemoprophylaxis with likely upcoming procedures Discharge Planning: Pending results of wound cultures. High risk of limb threatening infection if we send patient home without waiting for antibiotic sensitivities. Hopefully can go home on by mouth antibiotics
[2018-02-26] MEDS: Methadone 10 MG Tablet PO SCH (08:53)
[2018-02-26] MEDS: Senna/Docusate Sodium 8.6/50 MG Tablet PO SCH ×2 (08:54→21:18)
[2018-02-26] MEDS ORDERED: Sod Chloride 0.9% Inj 1,000 ML IV.SIG ONE (11:00)
[2018-02-26 11:06] LABS: Baso % (Auto) 0.2 % (0.0-2.0); Eos % (Auto) 0.2 % (0.0-4.0); Hematocrit 35.2 % (39.0-51.0); Hemoglobin 11.9 gm/dL (13.0-17.0); Lymph # (Auto) 1.3 th/mm3 (1.0-4.8); Lymph % (Auto) 11.5 % (9.0-44.0); Mean Corpuscular HGB Conc 33.9 % (32.0-36.0); Mean Corpuscular Hemoglobin 27.1 pg (27.0-34.0); Mean Corpuscular Volume 79.8 fL (80.0-100.0); Mean Platelet Volume 8.4 fL (7.0-11.0); Mono # (Auto) 0.8 th/mm3 (0.0-0.9); Mono % (Auto) 7.6 % (0.0-8.0); Neut # (Auto) 8.9 th/mm3 (1.8-7.7); Neut % (Auto) 80.5 % (16.0-70.0); Platelet Count 268 th/mm3 (150-450); Red Blood Count 4.41 mil/mm3 (4.50-5.90)
[2018-02-26] MEDS: Acetaminophen 325 MG Tablet PO PRN (12:21)
[2018-02-26] MEDS: Sod Chloride 0.9% Inj 1,000 ML IV.CONT SCH (14:40)
[2018-02-26] MEDS ORDERED: Pharmacy Ordered Lab Info OTHER ONE (16:45)
--- NOTE | 2018-02-26 17:58 | P.PNPOD ---
Subjective Interval history: Complaining of severe pain left hand and right ankle Physical Exam Vital signs: Vital Signs 02/25/18 18:54 02/25/18 19:00 02/25/18 19:15 Temperature 97.3 F L Pulse Rate 54 L 50 L 47 L Respiratory Rate 28 H 20 15 Blood Pressure 142/78 H 146/88 H 148/92 H Pulse Oximetry 100 100 100 02/25/18 19:30 02/25/18 19:45 02/25/18 20:00 Temperature 97.5 F L 98.7 F Pulse Rate 42 L 44 L 66 Respiratory Rate 10 L 13 16 Blood Pressure 139/80 131/87 129/78 Pulse Oximetry 99 98 99 02/26/18 00:00 02/26/18 04:00 02/26/18 08:00 Temperature 98.7 F 96.8 F L Pulse Rate 67 69 52 L Respiratory Rate 17 17 20 Blood Pressure 103/56 L 114/58 L 109/72 Pulse Oximetry 97 99 98 02/26/18 12:00 02/26/18 16:00 Temperature 97.7 F 96.1 F L Pulse Rate 63 52 L Respiratory Rate 20 16 Blood Pressure 108/71 124/70 Pulse Oximetry 97 96 Intake & Output 02/25/18 02/26/18 02/26/18 18:59 06:59 18:59 Intake Total 1850 / 1850 2225.0 / 2225.0 3215.5 / 3215.5 Output Total 1250 / 1250 Balance 1840 / 1840 2225.0 / 2225.0 1965.5 / 1965.5 Intake: IV 1450 / 1450 1925.0 / 1925.0 2262.5 / 2262.5 NS Inj 1,000 ML @ 100 mls/hr IV 1000 / 1000 1000 / 1000 700 / 700 .CONT .Q10H [facility] Rx#:[id number] Maxipime Inj 2,000 MG In NS Inj 100 / 100 200 / 200 100 / 100 100 ML @ 200 mls/hr IV.SIG Q8H [facility] Rx#:[id number] NS Inj 1,000 ML @ Wide Open IV. 1000 / 1000 SIG BOLUS ONE Rx#:[id number] Vancomycin Inj 1,000 MG In NS 250 / 250 Inj 250 ML @ 250 mls/hr IV.SIG Q8H [facility] Rx#:[id number] Vancomycin Inj 1,250 MG In NS 525.0 / 525.0 262.5 / 262.5 Inj 250 ML @ 250 mls/hr IV.SIG Q8H [facility] Rx#:[id number] Flagyl 500 MG Inj 100 ML @ 100 100 / 100 200 / 200 200 / 200 mls/hr IV.SIG Q6H [facility] Rx#: [id number] Oral 953 / 953 Anesthesia Amount 400 / 400 300 / 300 Output: Urine 1250 / 1250 Estimated Blood Loss Other: Date of Last Bowel Movement 02/25/18 Narrative: Right ankle decreased redness and swelling packing intact with moderate drainage NVS intact Medications and Allergies Active Medications: Active Medications Acetaminophen (Tylenol) 650 mg PO Q4HR PRN PRN Reason: PAIN SCALE 5-10 Last Admin: 02/26/18 12:21 Dose: 650 mg Al Hydroxide/Mg Hydroxide (Milk Of Magnesia Liq) 30 ml PO Q12H PRN PRN Reason: Mild Constipation Bisacodyl (Dulcolax Supp) 10 mg RECTAL DAILY PRN PRN Reason: SEVERE CONSITIPATION Dextrose (D50w Vial) 50 ml IV.PUSH UNSCH PRN PRN Reason: PER HYPOGLYCEMIA PROTOCOL Glucagon (Glucagon Inj) 1 mg OTHER UNSCH PRN PRN Reason: for Hypoglycemia Protocol Pharmacy Profile Note (Vancomycin Consult Pharmacy) 0 mls @ 0 mls/hr OTHER UNSCH [facility] Sodium Chloride (Ns Inj) 1,000 mls @ 100 mls/hr IV.CONT .Q10H [facility] Last Admin: 02/26/18 14:40 Dose: 100 mls/hr Cefepime HCl 2,000 mg/ Sodium (Chloride) 100 mls @ 200 mls/hr IV.SIG Q8H [facility] Last Infusion: 02/26/18 13:17 Dose: Infused Metronidazole/Sodium Chloride (Flagyl 500 Mg Inj) 100 mls @ 100 mls/hr IV.SIG Q6H [facility] Last Infusion: 02/26/18 16:23 Dose: Infused Vancomycin HCl 1,250 mg/ (Sodium Chloride) 262.5 mls @ 250 mls/hr IV.SIG Q8H [facility] Last Infusion: 02/26/18 11:40 Dose: Infused Insulin Aspart (Novolog Insulin Suppl Scale Inj) 0 unit SQ ACHS [facility]; Protocol Last Admin: 02/26/18 13:51 Dose: 2 unit Insulin Detemir (Levemir Inj) 18 unit SQ HS [facility] Last Admin: 02/25/18 23:25 Dose: 18 unit Lactulose (Lactulose Liq) 30 ml PO DAILY PRN PRN Reason: SEVERE CONSITIPATION Methadone HCl (Dolophine) 60 mg PO DAILY [facility] Last Admin: 02/26/18 08:53 Dose: 60 mg Miscellaneous Information ([facility] [place] [place] Nursing Information) 1 each OTHER UNSCH PRN PRN Reason: SEE LABEL COMMENTS Stop: 02/26/18 18:53 Senna/Docusate Sodium (Macrina-Colace) 1 tab PO BID [facility] Last Admin: 02/26/18 08:54 Dose: 1 tab Sennosides (Senokot) 17.2 mg PO Q12H PRN PRN Reason: Moderate Constipation Temazepam (Restoril) 15 mg PO HS PRN PRN Reason: INSOMNIA Last Admin: 02/25/18 23:26 Dose: 15 mg Allergies Allergy/AdvReac Type Severity Reaction Status Date / Time penicillin G Allergy Severe Hives Verified 02/24/18 00:44 Results - Labs CBC & Chem 7: 02/26/18 10:30 02/25/18 12:13 Laboratory Results - last 24 hr 02/26/18 02/26/18 02/26/18 04:26 04:31 06:49 WBC RBC Hgb Hct MCV MCH MCHC RDW Plt Count MPV Neut % (Auto) Lymph % (Auto) [place] % (Auto) Eos % (Auto) Baso % (Auto) Neut # (Auto) Lymph # (Auto) [place] # (Auto) Eos # (Auto) Baso # (Auto) WBC Differential Differential Comment POC Glucose Greater than 600 H* Greater than 600 H* Hemoglobin A1c 11.0 H Albumin Vitamin D 25-Hydroxy 02/26/18 02/26/18 02/26/18 07:01 10:30 10:30 WBC 11.0 RBC 4.41 L Hgb 11.9 L Hct 35.2 L MCV 79.8 L MCH 27.1 MCHC 33.9 RDW 14.0 Plt Count 268 MPV 8.4 Neut % (Auto) 80.5 H Lymph % (Auto) 11.5 [place] % (Auto) 7.6 Eos % (Auto) 0.2 Baso % (Auto) 0.2 Neut # (Auto) 8.9 H Lymph # (Auto) 1.3 [place] # (Auto) 0.8 Eos # (Auto) 0.0 Baso # (Auto) 0.0 WBC Differential . Differential Comment Auto diff final POC Glucose 488 H* Hemoglobin A1c Albumin 2.7 L Vitamin D 25-Hydroxy 02/26/18 02/26/18 10:30 12:18 WBC RBC Hgb Hct MCV MCH MCHC RDW Plt Count MPV Neut % (Auto) Lymph % (Auto) [place] % (Auto) Eos % (Auto) Baso % (Auto) Neut # (Auto) Lymph # (Auto) [place] # (Auto) Eos # (Auto) Baso # (Auto) WBC Differential Differential Comment POC Glucose 191 H Hemoglobin A1c Albumin Vitamin D 25-Hydroxy 21.1 L Microbiology 02/25/18 18:19 Wound - Hand Gram Stain - Final 02/25/18 18:19 Wound - Hand Wound Culture - Preliminary 02/25/18 18:19 Wound - Ankle Gram Stain - Final 02/25/18 18:19 Wound - Ankle Wound Culture - Preliminary S. aureus MRSA 02/24/18 04:40 Blood - Peripheral Aerobic Blood Culture - Preliminary No growth in 2 days 02/24/18 04:40 Blood - Peripheral Anaerobic Blood Culture - Preliminary No growth in 2 days 02/24/18 04:30 Blood - Peripheral Aerobic Blood Culture - Preliminary No growth in 2 days 02/24/18 04:30 Blood - Peripheral Anaerobic Blood Culture - Preliminary No growth in 2 days 02/25/18 18:19 Wound - Ankle Fungal Smear - Final No fungal elements seen 02/25/18 18:19 Wound - Hand Fungal Smear - Final No fungal elements seen Assessment and Plan - Assessment (1) Abscess of tendon sheath, right ankle and foot Code(s): M65.071 - Abscess of tendon sheath, right ankle and foot Status: Acute - Plan Coontinue IV ABX, will removed packing tomorrow and reassess wound
[2018-02-26 19:24] LABS: Amphetamine Screen,Urine Neg (Neg); Barbiturate Screen,Urine Neg (Neg); Cannabinoid Screen,Urine Neg (Neg); Cocaine Screen,Urine Neg (Neg)
[2018-02-26 19:29] LABS: Opiate Screen,Urine Neg (Neg)
[2018-02-26] MEDS: Temazepam 15 MG Capsule PO PRN (21:17)
[2018-02-26] MEDS: Insulin Detemir Inj 1,000 UNIT/10 ML Vial SQ SCH (21:18)
[2018-02-27] MEDS: Vancomycin Inj 1,250 MG in Sodium Chlor 0.9% Inj 250 ML IV.SIG SCH ×3 (01:29→20:19)
[2018-02-27] MEDS: Sod Chloride 0.9% Inj 1,000 ML IV.CONT SCH ×3 (01:29→18:02)
[2018-02-27] MEDS: Acetaminophen 325 MG Tablet PO PRN (01:30)
[2018-02-27] MEDS: Senna/Docusate Sodium 8.6/50 MG Tablet PO SCH ×2 (08:28→21:51)
[2018-02-27] MEDS: Methadone 10 MG Tablet PO SCH ×2 (08:28→16:24)
--- NOTE | 2018-02-27 08:48 | P.PNPOD ---
Subjective Interval history: Pain remains no events overnight Physical Exam Vital signs: Vital Signs 02/26/18 12:00 02/26/18 16:00 02/26/18 20:50 Temperature 97.7 F 96.1 F L 97.8 F Pulse Rate 63 52 L 57 L Respiratory Rate 20 16 17 Blood Pressure 108/71 124/70 114/74 Pulse Oximetry 97 96 02/26/18 23:36 02/27/18 04:00 02/27/18 07:17 Temperature 96.7 F L 98.3 F 97.6 F Pulse Rate 60 57 L 57 L Respiratory Rate 18 16 16 Blood Pressure 102/67 107/74 120/74 Pulse Oximetry 99 99 98 Intake & Output 02/26/18 02/27/18 02/27/18 18:59 06:59 18:59 Intake Total 3215.5 / 3215.5 1562.5 / 1562.5 Output Total 1250 / 1250 Balance 1965.5 / 1965.5 1562.5 / 1562.5 Intake: IV 2262.5 / 2262.5 1562.5 / 1562.5 NS Inj 1,000 ML @ 100 mls/hr IV 700 / 700 1000 / 1000 .CONT .Q10H [facility] Rx#:[id number] Maxipime Inj 2,000 MG In NS Inj 100 / 100 100 / 100 100 ML @ 200 mls/hr IV.SIG Q8H [facility] Rx#:[id number] NS Inj 1,000 ML @ Wide Open IV. 1000 / 1000 SIG BOLUS ONE Rx#:[id number] Vancomycin Inj 1,250 MG In NS 262.5 / 262.5 262.5 / 262.5 Inj 250 ML @ 250 mls/hr IV.SIG Q8H [facility] Rx#:[id number] Flagyl 500 MG Inj 100 ML @ 100 200 / 200 200 / 200 mls/hr IV.SIG Q6H [facility] Rx#: [id number] Oral 953 / 953 Output: Urine 1250 / 1250 Other: Date of Last Bowel Movement 02/25/18 02/25/18 Narrative: Right medial ankle incision and drainage site with loose retention sutures intact , .upon removing packing there is no active bleeding drainage or purulent material significant reduction in erythema tenderness noted good range of motion of ankle pedal pulses palpable sensation intact Medications and Allergies Active Medications: Active Medications Acetaminophen (Tylenol) 650 mg PO Q4HR PRN PRN Reason: PAIN SCALE 5-10 Last Admin: 02/27/18 01:30 Dose: 650 mg Al Hydroxide/Mg Hydroxide (Milk Of Magnesia Liq) 30 ml PO Q12H PRN PRN Reason: Mild Constipation Bisacodyl (Dulcolax Supp) 10 mg RECTAL DAILY PRN PRN Reason: SEVERE CONSITIPATION Dextrose (D50w Vial) 50 ml IV.PUSH UNSCH PRN PRN Reason: PER HYPOGLYCEMIA PROTOCOL Glucagon (Glucagon Inj) 1 mg OTHER UNSCH PRN PRN Reason: for Hypoglycemia Protocol Pharmacy Profile Note (Vancomycin Consult Pharmacy) 0 mls @ 0 mls/hr OTHER UNSCH [facility] Sodium Chloride (Ns Inj) 1,000 mls @ 100 mls/hr IV.CONT .Q10H [facility] Last Admin: 02/27/18 02:34 Dose: 100 mls/hr Cefepime HCl 2,000 mg/ Sodium (Chloride) 100 mls @ 200 mls/hr IV.SIG Q8H [facility] Last Admin: 02/27/18 04:03 Dose: 200 mls/hr Metronidazole/Sodium Chloride (Flagyl 500 Mg Inj) 100 mls @ 100 mls/hr IV.SIG Q6H [facility] Last Admin: 02/27/18 08:29 Dose: 100 mls/hr Vancomycin HCl 1,250 mg/ (Sodium Chloride) 262.5 mls @ 250 mls/hr IV.SIG Q8H [facility] Last Admin: 02/27/18 01:29 Dose: 250 mls/hr Insulin Aspart (Novolog Insulin Suppl Scale Inj) 0 unit SQ ACHS [facility]; Protocol Last Admin: 02/26/18 21:17 Dose: 7 unit Insulin Detemir (Levemir Inj) 18 unit SQ HS [facility] Last Admin: 02/26/18 21:18 Dose: 18 unit Lactulose (Lactulose Liq) 30 ml PO DAILY PRN PRN Reason: SEVERE CONSITIPATION Methadone HCl (Dolophine) 60 mg PO DAILY [facility] Last Admin: 02/27/18 08:28 Dose: 60 mg Miscellaneous Information ([facility] [place] [facility] Ordered Lab Info) 0 each OTHER ONCE ONE Stop: 02/27/18 16:46 Senna/Docusate Sodium (Macrina-Colace) 1 tab PO BID [facility] Last Admin: 02/27/18 08:28 Dose: 1 tab Sennosides (Senokot) 17.2 mg PO Q12H PRN PRN Reason: Moderate Constipation Temazepam (Restoril) 15 mg PO HS PRN PRN Reason: INSOMNIA Last Admin: 02/26/18 21:17 Dose: 15 mg Allergies Allergy/AdvReac Type Severity Reaction Status Date / Time penicillin G Allergy Severe Hives Verified 02/24/18 00:44 Results - Labs CBC & Chem 7: 02/26/18 10:30 02/25/18 12:13 Laboratory Results - last 24 hr 02/26/18 02/26/18 02/26/18 06:49 10:30 10:30 WBC 11.0 RBC 4.41 L Hgb 11.9 L Hct 35.2 L MCV 79.8 L MCH 27.1 MCHC 33.9 RDW 14.0 Plt Count 268 MPV 8.4 Neut % (Auto) 80.5 H Lymph % (Auto) 11.5 [place] % (Auto) 7.6 Eos % (Auto) 0.2 Baso % (Auto) 0.2 Neut # (Auto) 8.9 H Lymph # (Auto) 1.3 [place] # (Auto) 0.8 Eos # (Auto) 0.0 Baso # (Auto) 0.0 WBC Differential . Differential Comment Auto diff final POC Glucose Hemoglobin A1c 11.0 H Albumin 2.7 L Vitamin D 25-Hydroxy Vancomycin Trough Urine Opiates Screen Ur Barbiturates Screen Ur Amphetamines Screen U Benzodiazepines Scrn Urine Cocaine Screen U Cannabinoids Screen 02/26/18 02/26/18 02/26/18 10:30 12:18 18:28 WBC RBC Hgb Hct MCV MCH MCHC RDW Plt Count MPV Neut % (Auto) Lymph % (Auto) [place] % (Auto) Eos % (Auto) Baso % (Auto) Neut # (Auto) Lymph # (Auto) [place] # (Auto) Eos # (Auto) Baso # (Auto) WBC Differential Differential Comment POC Glucose 191 H Hemoglobin A1c Albumin Vitamin D 25-Hydroxy 21.1 L Vancomycin Trough 11.5 H Urine Opiates Screen Ur Barbiturates Screen Ur Amphetamines Screen U Benzodiazepines Scrn Urine Cocaine Screen U Cannabinoids Screen 02/26/18 02/26/18 02/26/18 18:30 18:41 20:46 WBC RBC Hgb Hct MCV MCH MCHC RDW Plt Count MPV Neut % (Auto) Lymph % (Auto) [place] % (Auto) Eos % (Auto) Baso % (Auto) Neut # (Auto) Lymph # (Auto) [place] # (Auto) Eos # (Auto) Baso # (Auto) WBC Differential Differential Comment POC Glucose 373 H 293 H Hemoglobin A1c Albumin Vitamin D 25-Hydroxy Vancomycin Trough Urine Opiates Screen Neg Ur Barbiturates Screen Neg Ur Amphetamines Screen Neg U Benzodiazepines Scrn Neg Urine Cocaine Screen Neg U Cannabinoids Screen Neg 02/27/18 02/27/18 02:33 08:19 WBC RBC Hgb Hct MCV MCH MCHC RDW Plt Count MPV Neut % (Auto) Lymph % (Auto) [place] % (Auto) Eos % (Auto) Baso % (Auto) Neut # (Auto) Lymph # (Auto) [place] # (Auto) Eos # (Auto) Baso # (Auto) WBC Differential Differential Comment POC Glucose 90 78 Hemoglobin A1c Albumin Vitamin D 25-Hydroxy Vancomycin Trough Urine Opiates Screen Ur Barbiturates Screen Ur Amphetamines Screen U Benzodiazepines Scrn Urine Cocaine Screen U Cannabinoids Screen Microbiology 02/25/18 18:19 Wound - Hand Gram Stain - Final 02/25/18 18:19 Wound - Hand Wound Culture - Preliminary 02/25/18 18:19 Wound - Ankle Gram Stain - Final 02/25/18 18:19 Wound - Ankle Wound Culture - Preliminary S. aureus MRSA 02/24/18 04:40 Blood - Peripheral Aerobic Blood Culture - Preliminary No growth in 2 days 02/24/18 04:40 Blood - Peripheral Anaerobic Blood Culture - Preliminary No growth in 2 days 02/24/18 04:30 Blood - Peripheral Aerobic Blood Culture - Preliminary No growth in 2 days 02/24/18 04:30 Blood - Peripheral Anaerobic Blood Culture - Preliminary No growth in 2 days 02/25/18 18:19 Wound - Ankle Fungal Smear - Final No fungal elements seen 02/25/18 18:19 Wound - Hand Fungal Smear - Final No fungal elements seen Assessment and Plan - Assessment (1) Abscess of tendon sheath, right ankle and foot Code(s): M65.071 - Abscess of tendon sheath, right ankle and foot Status: Acute - Plan Packing removed, wound care per nursing continue IV antibiotics until redness and pain has subsided. No further plans for surgical intervention at this point please reconsult as needed.
--- NOTE | 2018-02-27 09:51 | P.PNIM ---
Subjective Interval history: Reports that pain is not controlled. Would like to get a prescription for as needed p.o. narcotic. Denies any chest pain or shortness of breath. Denies nausea vomiting. Physical Exam Vital signs: Vital Signs 02/26/18 12:00 02/26/18 16:00 02/26/18 20:50 Temperature 97.7 F 96.1 F L 97.8 F Pulse Rate 63 52 L 57 L Respiratory Rate 20 16 17 Blood Pressure 108/71 124/70 114/74 Pulse Oximetry 97 96 02/26/18 23:36 02/27/18 04:00 02/27/18 07:17 Temperature 96.7 F L 98.3 F 97.6 F Pulse Rate 60 57 L 57 L Respiratory Rate 18 16 16 Blood Pressure 102/67 107/74 120/74 Pulse Oximetry 99 99 98 Intake & Output 02/26/18 02/27/18 02/27/18 18:59 06:59 18:59 Intake Total 3215.5 / 3215.5 1562.5 / 1562.5 Output Total 1250 / 1250 Balance 1965.5 / 1965.5 1562.5 / 1562.5 Intake: IV 2262.5 / 2262.5 1562.5 / 1562.5 NS Inj 1,000 ML @ 100 mls/hr IV 700 / 700 1000 / 1000 .CONT .Q10H EDIE Rx#:[id number] Maxipime Inj 2,000 MG In NS Inj 100 / 100 100 / 100 100 ML @ 200 mls/hr IV.SIG Q8H EDIE Rx#:[id number] NS Inj 1,000 ML @ Wide Open IV. 1000 / 1000 SIG BOLUS ONE Rx#:[id number] Vancomycin Inj 1,250 MG In NS 262.5 / 262.5 262.5 / 262.5 Inj 250 ML @ 250 mls/hr IV.SIG Q8H EDIE Rx#:[id number] Flagyl 500 MG Inj 100 ML @ 100 200 / 200 200 / 200 mls/hr IV.SIG Q6H EDIE Rx#: [id number] Oral 953 / 953 Output: Urine 1250 / 1250 Other: Date of Last Bowel Movement 02/25/18 02/25/18 Results - Labs CBC & Chem 7: 02/26/18 10:30 02/25/18 12:13 Laboratory Results - last 24 hr 02/26/18 02/26/18 02/26/18 06:49 10:30 10:30 WBC 11.0 RBC 4.41 L Hgb 11.9 L Hct 35.2 L MCV 79.8 L MCH 27.1 MCHC 33.9 RDW 14.0 Plt Count 268 MPV 8.4 Neut % (Auto) 80.5 H Lymph % (Auto) 11.5 [place] % (Auto) 7.6 Eos % (Auto) 0.2 Baso % (Auto) 0.2 Neut # (Auto) 8.9 H Lymph # (Auto) 1.3 [place] # (Auto) 0.8 Eos # (Auto) 0.0 Baso # (Auto) 0.0 WBC Differential . Differential Comment Auto diff final POC Glucose Hemoglobin A1c 11.0 H Albumin 2.7 L Vitamin D 25-Hydroxy Vancomycin Trough Urine Opiates Screen Ur Barbiturates Screen Ur Amphetamines Screen U Benzodiazepines Scrn Urine Cocaine Screen U Cannabinoids Screen 02/26/18 02/26/18 02/26/18 10:30 12:18 18:28 WBC RBC Hgb Hct MCV MCH MCHC RDW Plt Count MPV Neut % (Auto) Lymph % (Auto) [place] % (Auto) Eos % (Auto) Baso % (Auto) Neut # (Auto) Lymph # (Auto) [place] # (Auto) Eos # (Auto) Baso # (Auto) WBC Differential Differential Comment POC Glucose 191 H Hemoglobin A1c Albumin Vitamin D 25-Hydroxy 21.1 L Vancomycin Trough 11.5 H Urine Opiates Screen Ur Barbiturates Screen Ur Amphetamines Screen U Benzodiazepines Scrn Urine Cocaine Screen U Cannabinoids Screen 02/26/18 02/26/18 02/26/18 18:30 18:41 20:46 WBC RBC Hgb Hct MCV MCH MCHC RDW Plt Count MPV Neut % (Auto) Lymph % (Auto) [place] % (Auto) Eos % (Auto) Baso % (Auto) Neut # (Auto) Lymph # (Auto) [place] # (Auto) Eos # (Auto) Baso # (Auto) WBC Differential Differential Comment POC Glucose 373 H 293 H Hemoglobin A1c Albumin Vitamin D 25-Hydroxy Vancomycin Trough Urine Opiates Screen Neg Ur Barbiturates Screen Neg Ur Amphetamines Screen Neg U Benzodiazepines Scrn Neg Urine Cocaine Screen Neg U Cannabinoids Screen Neg 02/27/18 02/27/18 02:33 08:19 WBC RBC Hgb Hct MCV MCH MCHC RDW Plt Count MPV Neut % (Auto) Lymph % (Auto) [place] % (Auto) Eos % (Auto) Baso % (Auto) Neut # (Auto) Lymph # (Auto) [place] # (Auto) Eos # (Auto) Baso # (Auto) WBC Differential Differential Comment POC Glucose 90 78 Hemoglobin A1c Albumin Vitamin D 25-Hydroxy Vancomycin Trough Urine Opiates Screen Ur Barbiturates Screen Ur Amphetamines Screen U Benzodiazepines Scrn Urine Cocaine Screen U Cannabinoids Screen Microbiology 02/25/18 18:19 Wound - Hand Gram Stain - Final 02/25/18 18:19 Wound - Hand Wound Culture - Preliminary 02/25/18 18:19 Wound - Ankle Gram Stain - Final 02/25/18 18:19 Wound - Ankle Wound Culture - Preliminary S. aureus MRSA 02/24/18 04:40 Blood - Peripheral Aerobic Blood Culture - Preliminary No growth in 2 days 02/24/18 04:40 Blood - Peripheral Anaerobic Blood Culture - Preliminary No growth in 2 days 02/24/18 04:30 Blood - Peripheral Aerobic Blood Culture - Preliminary No growth in 2 days 02/24/18 04:30 Blood - Peripheral Anaerobic Blood Culture - Preliminary No growth in 2 days 02/25/18 18:19 Wound - Ankle Fungal Smear - Final No fungal elements seen 02/25/18 18:19 Wound - Hand Fungal Smear - Final No fungal elements seen Assessment and Plan - Plan 32-year-old male with history of diabetes, hepatitis C, IVDU with heroin, tobacco use, recent admission 02/05-02/10 for multiple abscesses, presents to the ED with recurrent abscesses on the left hand and right ankle. //Left Hand and Right Ankle Abscess: admits to injecting into the left hand, denies injection into the legs. Afebrile, no leukocytosis. -Check MRIs of the Left hand and Right ankle -Start on antibiotics with IV Vanco, pharmacy consulted -Consult podiatry and hand surgery -Restart methadone for pain control -Give IVF hydration -Blood cultures collected -Check ESR -Monitor for improvement = Continue vancomycin for MRSA coverage, antipseudomonal and anaerobic coverage. Pending podiatry and had surgery. Appreciate assistance. = Continue broad-spectrum antibiotics. Follow-up wound cultures. = MRSA positive. We will decrease methadone to 50 mg daily, and add as needed [place]. //Diabetes Mellitus with Hyperglycemia: uncontrolled. BG 352 upon arrival. Suspect secondary to noncompliance. -S/p IV Regular Insulin x10u and IVF bolus in the ED -Continue on long acting insulin with Levemir 18u sq hs -Monitor Accu-checks and cover with SSI -Diabetic diet = 02/26. Hyperglycemia with blood sugars up to 600 last night, 488 this morning. Likely secondary to having been restarted on regular diet instead of diabetic after surgery. Will continue insulin regimen and continue to monitor. = 02/27. A1c above 11. Very poor control. Blood sugars improved. Continue diabetic diet and sliding scale. //IVDU/Heroin Abuse: last injected 8 days prior to admission. Recently started on methadone on prior admission. -continue on methadone 60mg daily -patient reportedly has appt with [facility] on Sunday -extensively counseled on cessation = We will switch to methadone 50 mg daily. Patient will need a follow-up with methadone clinic the day after discharge. //Hepatitis C: chronic -outpatient follow up //Tobacco Use: chronic -counseled on cessation -nicotine patch DVT Prophylaxis: avoid chemoprophylaxis with likely upcoming procedures Discharge Planning: Pending results of wound cultures. High risk of limb threatening infection if we send patient home without waiting for antibiotic sensitivities. Hopefully can go home on by mouth antibiotics
[2018-02-27] MEDS: Insulin NovoLOG Aspart Correctional Sugar Inj SQ SCH ×4 (10:50→21:50)
[2018-02-27] MEDS ORDERED: Pharmacy Ordered Lab Info OTHER ONE (16:45)
[2018-02-27 21:18] LABS: Calcium 8.7 mg/dL (8.5-10.1); Carbon Dioxide 28.8 meq/L (21.0-32.0); Potassium 4.5 meq/L (3.5-5.1)
--- NOTE | 2018-02-27 21:26 | P.PNOP ---
Physical Exam Vital signs: Vital Signs 02/26/18 23:36 02/27/18 04:00 02/27/18 07:17 Temperature 96.7 F L 98.3 F 97.6 F Pulse Rate 60 57 L 57 L Respiratory Rate 18 16 16 Blood Pressure 102/67 107/74 120/74 Pulse Oximetry 99 99 98 02/27/18 12:00 02/27/18 15:59 02/27/18 20:00 Temperature 98.1 F 97.7 F 98.4 F Pulse Rate 54 L 52 L 53 L Respiratory Rate 14 16 17 Blood Pressure 135/77 136/78 143/70 H Pulse Oximetry 98 95 97 Intake & Output 02/27/18 02/27/18 02/28/18 06:59 18:59 06:59 Intake Total 1925.0 / 1925.0 1250 / 1250 Balance 1925.0 / 1925.0 1250 / 1250 Intake: IV 1925.0 / 1925.0 1250 / 1250 NS Inj 1,000 ML @ 100 mls/hr IV 1000 / 1000 900 / 900 .CONT .Q10H EDIE Rx#:[id number] Maxipime Inj 2,000 MG In NS Inj 200 / 200 100 ML @ 200 mls/hr IV.SIG Q8H EDIE Rx#:[id number] Vancomycin Inj 1,250 MG In NS 525.0 / 525.0 250 / 250 Inj 250 ML @ 250 mls/hr IV.SIG Q8H EDIE Rx#:[id number] Flagyl 500 MG Inj 100 ML @ 100 200 / 200 100 / 100 mls/hr IV.SIG Q6H EDIE Rx#: [id number] Other: Date of Last Bowel Movement 02/25/18 Results - Labs CBC & Chem 7: 02/26/18 10:30 02/27/18 20:20 Laboratory Results - last 24 hr 02/27/18 02/27/18 02/27/18 02:33 08:19 12:00 Sodium Potassium Chloride Carbon Dioxide Anion Gap BUN Creatinine Estimated GFR POC Glucose 90 78 196 H Random Glucose Calcium Vancomycin Trough 02/27/18 02/27/18 02/27/18 18:37 20:20 20:20 Sodium 137 Potassium 4.5 Chloride 101 Carbon Dioxide 28.8 Anion Gap 7 BUN 13 Creatinine 1.00 Estimated GFR 87 L POC Glucose 371 H Random Glucose 412 H Calcium 8.7 Vancomycin Trough 16.8 H Microbiology 02/25/18 18:19 Wound - Ankle Gram Stain - Final 02/25/18 18:19 Wound - Ankle Wound Culture - Final S. aureus MRSA 02/25/18 18:19 Wound - Hand Gram Stain - Final 02/25/18 18:19 Wound - Hand Wound Culture - Final S. aureus MRSA 02/25/18 18:19 Wound - Ankle Acid Fast Bacilli Smear - Final No acid fast bacilli seen 02/25/18 18:19 Wound - Hand Acid Fast Bacilli Smear - Final No acid fast bacilli seen 02/24/18 04:40 Blood - Peripheral Aerobic Blood Culture - Preliminary No growth in 3 days 02/24/18 04:40 Blood - Peripheral Anaerobic Blood Culture - Preliminary No growth in 3 days 02/24/18 04:30 Blood - Peripheral Aerobic Blood Culture - Preliminary No growth in 3 days 02/24/18 04:30 Blood - Peripheral Anaerobic Blood Culture - Preliminary No growth in 3 days Assessment and Plan - Assessment and Plan 32yM pmhx IVDU s/p I&D abscess L hand -Appreciate ID recs, continue Ab -Patient cleared for discharge by hand surgery once Ab determined -Patient may followup in wound center for dressing changes and packing may be removed prior to discharge -Patient to followup in office in 2 weeks for wound check
[2018-02-27] MEDS: Temazepam 15 MG Capsule PO PRN (21:48)
[2018-02-27] MEDS: Insulin Detemir Inj 1,000 UNIT/10 ML Vial SQ SCH (21:50)
[2018-02-27 22:41] LABS: Baso % (Auto) 0.8 % (0.0-2.0); Eos # (Auto) 0.2 th/mm3 (0.0-0.4); Eos % (Auto) 3.4 % (0.0-4.0); Hematocrit 34.2 % (39.0-51.0); Hemoglobin 11.2 gm/dL (13.0-17.0); Lymph # (Auto) 1.7 th/mm3 (1.0-4.8); Mean Corpuscular HGB Conc 32.6 % (32.0-36.0); Mean Corpuscular Hemoglobin 27.1 pg (27.0-34.0); Mean Platelet Volume 8.8 fL (7.0-11.0); Mono # (Auto) 0.4 th/mm3 (0.0-0.9); Mono % (Auto) 6.9 % (0.0-8.0); Neut # (Auto) 3.5 th/mm3 (1.8-7.7); Neut % (Auto) 59.9 % (16.0-70.0); Platelet Count 158 th/mm3 (150-450); Red Blood Count 4.12 mil/mm3 (4.50-5.90); Red Cell Distribution Width 14.2 % (11.6-17.2); White Blood Count 5.9 th/mm3 (4.0-11.0)
[2018-02-27 23:15] LABS: Platelet Estimate Normal (Normal); Platelet Morphology Normal (Normal)
[2018-02-28] MEDS: Vancomycin Inj 1,250 MG in Sodium Chlor 0.9% Inj 250 ML IV.SIG SCH (00:38)
[2018-02-28] MEDS: Sod Chloride 0.9% Inj 1,000 ML IV.CONT SCH ×3 (00:40→17:44)
[2018-02-28] MEDS: Methadone 10 MG Tablet PO SCH (09:09)
[2018-02-28] MEDS: Senna/Docusate Sodium 8.6/50 MG Tablet PO SCH ×2 (09:12→22:28)
[2018-02-28] MEDS: Insulin NovoLOG Aspart Correctional Sugar Inj SQ SCH ×4 (09:55→22:27)
[2018-02-28] MEDS: Vancomycin Inj 1,000 MG in Sodium Chlor 0.9% Inj 250 ML IV.SIG SCH ×2 (10:22→17:43)
--- NOTE | 2018-02-28 14:19 | P.PNIM ---
Subjective Interval history: Patient says he is feeling well. Reports pain is controlled. Denies any chest pain or shortness of breath. Denies nausea vomiting. Denies constipation. Physical Exam Vital signs: Vital Signs 02/27/18 15:59 02/27/18 20:00 02/28/18 00:00 Temperature 97.7 F 98.4 F 97.6 F Pulse Rate 52 L 53 L 56 L Respiratory Rate 16 17 21 Blood Pressure 136/78 143/70 H 136/79 Pulse Oximetry 95 97 99 02/28/18 04:00 02/28/18 07:39 02/28/18 12:00 Temperature 97.8 F 97.7 F 98.0 F Pulse Rate 51 L 46 L 62 Respiratory Rate 20 14 16 Blood Pressure 112/67 122/73 106/66 Pulse Oximetry 97 98 98 Intake & Output 02/27/18 02/28/18 02/28/18 18:59 06:59 18:59 Intake Total 1450 / 1450 1662.5 / 1662.5 100 / 100 Output Total 600 / 600 Balance 1450 / 1450 1662.5 / 1662.5 -500 / -500 Intake: IV 1450 / 1450 1662.5 / 1662.5 100 / 100 NS Inj 1,000 ML @ 100 mls/hr IV 900 / 900 1000 / 1000 .CONT .Q10H EDIE Rx#:[id number] Maxipime Inj 2,000 MG In NS Inj 100 / 100 200 / 200 100 ML @ 200 mls/hr IV.SIG Q8H EDIE Rx#:[id number] Vancomycin Inj 1,250 MG In NS 250 / 250 262.5 / 262.5 Inj 250 ML @ 250 mls/hr IV.SIG Q8H EDIE Rx#:[id number] Flagyl 500 MG Inj 100 ML @ 100 200 / 200 200 / 200 100 / 100 mls/hr IV.SIG Q6H EDIE Rx#: [id number] Output: Urine 600 / 600 Other: Date of Last Bowel Movement 02/25/18 Narrative: GENERAL: Patient sleeping, wakes up for exam. Alert and oriented 3. No change on exam. SKIN: Warm and dry. HEAD: Normocephalic. EYES: No scleral icterus. No injection or drainage. NECK: Supple, trachea midline. No JVD. CARDIOVASCULAR: Regular rate and rhythm without murmurs, gallops, or rubs. RESPIRATORY: Breath sounds equal bilaterally. No accessory muscle use. GASTROINTESTINAL: Abdomen soft, non-tender, nondistended. MUSCULOSKELETAL: No cyanosis, or edema. Left hand dressed. Peripheral perfusion intact. Right foot dressed. BACK: Nontender without obvious deformity. No CVA tenderness. Results - Labs CBC & Chem 7: 02/27/18 21:30 02/27/18 20:20 Laboratory Results - last 24 hr 02/27/18 02/27/18 02/27/18 18:37 20:20 20:20 WBC RBC Hgb Hct MCV MCH MCHC RDW Plt Count MPV Prelim Diff (Auto) Neut % (Auto) Lymph % (Auto) [place] % (Auto) Eos % (Auto) Baso % (Auto) Neut # (Auto) Lymph # (Auto) [place] # (Auto) Eos # (Auto) Baso # (Auto) WBC Differential Diff Scan Differential Comment Platelet Estimate Platelet Morphology Sodium 137 Potassium 4.5 Chloride 101 Carbon Dioxide 28.8 Anion Gap 7 BUN 13 Creatinine 1.00 Estimated GFR 87 L POC Glucose 371 H Random Glucose 412 H Calcium 8.7 Vancomycin Trough 16.8 H 02/27/18 02/27/18 02/28/18 21:23 21:30 03:41 WBC 5.9 RBC 4.12 L Hgb 11.2 L Hct 34.2 L MCV 83.0 MCH 27.1 MCHC 32.6 RDW 14.2 Plt Count 158 D MPV 8.8 Prelim Diff (Auto) Slide review pending Neut % (Auto) 59.9 Lymph % (Auto) 29.0 [place] % (Auto) 6.9 Eos % (Auto) 3.4 Baso % (Auto) 0.8 Neut # (Auto) 3.5 Lymph # (Auto) 1.7 [place] # (Auto) 0.4 Eos # (Auto) 0.2 Baso # (Auto) 0.0 WBC Differential . Diff Scan Auto diff confirmed Differential Comment . Platelet Estimate Normal Platelet Morphology Normal Sodium Potassium Chloride Carbon Dioxide Anion Gap BUN Creatinine Estimated GFR POC Glucose 333 H 200 H Random Glucose Calcium Vancomycin Trough 02/28/18 02/28/18 09:06 12:09 WBC RBC Hgb Hct MCV MCH MCHC RDW Plt Count MPV Prelim Diff (Auto) Neut % (Auto) Lymph % (Auto) [place] % (Auto) Eos % (Auto) Baso % (Auto) Neut # (Auto) Lymph # (Auto) [place] # (Auto) Eos # (Auto) Baso # (Auto) WBC Differential Diff Scan Differential Comment Platelet Estimate Platelet Morphology Sodium Potassium Chloride Carbon Dioxide Anion Gap BUN Creatinine Estimated GFR POC Glucose 137 H 173 H Random Glucose Calcium Vancomycin Trough Microbiology 02/24/18 04:40 Blood - Peripheral Aerobic Blood Culture - Preliminary No growth in 4 days 02/24/18 04:40 Blood - Peripheral Anaerobic Blood Culture - Preliminary No growth in 4 days 02/24/18 04:30 Blood - Peripheral Aerobic Blood Culture - Preliminary No growth in 4 days 02/24/18 04:30 Blood - Peripheral Anaerobic Blood Culture - Preliminary No growth in 4 days 02/25/18 18:19 Wound - Ankle Gram Stain - Final 02/25/18 18:19 Wound - Ankle Wound Culture - Final S. aureus MRSA 02/25/18 18:19 Wound - Hand Gram Stain - Final 02/25/18 18:19 Wound - Hand Wound Culture - Final S. aureus MRSA 02/25/18 18:19 Wound - Ankle Acid Fast Bacilli Smear - Final No acid fast bacilli seen 02/25/18 18:19 Wound - Hand Acid Fast Bacilli Smear - Final No acid fast bacilli seen Assessment and Plan - Plan 32-year-old male with history of diabetes, hepatitis C, IVDU with heroin, tobacco use, recent admission 02/05-02/10 for multiple abscesses, presents to the ED with recurrent abscesses on the left hand and right ankle. //Left Hand and Right Ankle Abscess: admits to injecting into the left hand, denies injection into the legs. Afebrile, no leukocytosis. -Check MRIs of the Left hand and Right ankle -Start on antibiotics with IV Vanco, pharmacy consulted -Consult podiatry and hand surgery -Restart methadone for pain control -Give IVF hydration -Blood cultures collected -Check ESR -Monitor for improvement = Continue vancomycin for MRSA coverage, antipseudomonal and anaerobic coverage. Pending podiatry and had surgery. Appreciate assistance. = Continue broad-spectrum antibiotics. Follow-up wound cultures. = MRSA positive. We will decrease methadone to 50 mg daily, and add as needed [place]. = 02/28. MRSA sensitivities have returned. Discussed with Dr. Law, who would like to continue IV antibiotics until redness has resolved, likely 2 more days. Appreciate podiatry assistance. //Diabetes Mellitus with Hyperglycemia: uncontrolled. BG 352 upon arrival. Suspect secondary to noncompliance. -S/p IV Regular Insulin x10u and IVF bolus in the ED -Continue on long acting insulin with Levemir 18u sq hs -Monitor Accu-checks and cover with SSI -Diabetic diet = 02/26. Hyperglycemia with blood sugars up to 600 last night, 488 this morning. Likely secondary to having been restarted on regular diet instead of diabetic after surgery. Will continue insulin regimen and continue to monitor. = 02/27. A1c above 11. Very poor control. Blood sugars improved. Continue diabetic diet and sliding scale. //IVDU/Heroin Abuse: last injected 8 days prior to admission. Recently started on methadone on prior admission. -continue on methadone 60mg daily -patient reportedly has appt with [facility] on Sunday -extensively counseled on cessation = We will switch to methadone 50 mg daily. Patient will need a follow-up with methadone clinic the day after discharge. = 02/28. Continue current regimen. //Hepatitis C: chronic -outpatient follow up //Tobacco Use: chronic -counseled on cessation -nicotine patch DVT Prophylaxis: avoid chemoprophylaxis with likely upcoming procedures Discharge Planning: Pending results of wound cultures. High risk of limb threatening infection if we send patient home without waiting for antibiotic sensitivities. Hopefully can go home on by mouth antibiotics = 02/28. Discussed with Dr. Law. Dr. Law would like to wait for erythema to resolve prior to discharge on p.o. antibiotics. Likely 2 more days.
[2018-02-28] MEDS: Temazepam 15 MG Capsule PO PRN (22:19)
[2018-02-28] MEDS: Insulin Detemir Inj 1,000 UNIT/10 ML Vial SQ SCH (22:33)
[2018-03-01] MEDS: Vancomycin Inj 1,000 MG in Sodium Chlor 0.9% Inj 250 ML IV.SIG SCH ×2 (02:26→15:15)
[2018-03-01] MEDS: Sod Chloride 0.9% Inj 1,000 ML IV.CONT SCH (02:31)
[2018-03-01 08:29] VITALS: RESP 19
[2018-03-01] MEDS ORDERED: Pharmacy Ordered Lab Info OTHER ONE (08:45)
[2018-03-01] MEDS: Methadone 10 MG Tablet PO SCH (09:04)
[2018-03-01] MEDS: Senna/Docusate Sodium 8.6/50 MG Tablet PO SCH (09:05)
[2018-03-01] MEDS: Insulin NovoLOG Aspart Correctional Sugar Inj SQ SCH (09:05)
[2018-03-01 12:31] LABS: Glomerular Filtration Rate Greater Than 89 mL/min (>89)
[2018-03-01 13:32] VITALS: BP 143/94; PULSE 53; TEMP 97.9; O2SAT 97
[2018-03-01] MEDS ORDERED: metroNIDAZOLE 500 MG Tablet PO SCH (14:00)
--- NOTE | 2018-03-01 14:18 | P.DS ---
Date of admission: 02/26/18 17:02 Primary care physician: No Primary Care Physician Brief History from admission: HPI from the admitting physician: 32-year-old male with history of diabetes, hepatitis C, IVDU with heroin, tobacco use, recent admission 02/05-02/10 for multiple abscesses, presents to the ED with recurrent abscesses on the left hand and right ankle. The patient admits to injecting into the left hand 8 days ago. He denies injecting into his legs. He reports a 45 day history of left dorsal hand swelling, erythema, and constant severe throbbing pain. He reports a 3 day history of right medial ankle swelling, erythema, and constant sharp shooting pains. He denies any recent drainage from his wounds. Denies fevers or chills. He reports difficulty walking secondary to the right ankle abscess. He reports nausea and decreased appetite, but no vomiting. He also ran out of his methadone. He was a heroin abuser up until he quit 8 days ago. On his prior hospitalization, the physician started him on methadone for the first time and he has been taking 40 mg daily over the past week. He believes the methadone is helping him. He has an appointment scheduled with [facility] on Monday 02/26. He is requesting his methadone be restarted. Otherwise, patient has no other medical complaints including no headache, cough, chest pain, shortness of breath , or abdominal pain. Update on the day of discharge 03/01/18. Patient reports he is feeling okay. He is requesting a couple days of methadone to allow him time to get back to the methadone clinic. DS: Diagnosis - Discharge Diagnosis (1) History of intravenous drug abuse Status: Acute (2) Abscess of tendon sheath, right ankle and foot Status: Acute (3) Abscess Status: Acute DS: Medications - Discharge Medications Prescriptions: methadone 70 mg PO DAILY #28 tab sulfamethoxazole-trimethoprim [Bactrim DS] 1 tab PO BID #28 tab DS: Summary Hospital Course: 32-year-old male with history of diabetes, hepatitis C, IVDU with heroin, tobacco use, recent admission 02/05-02/10 for multiple abscesses, presents to the ED with recurrent abscesses on the left hand and right ankle. Patient underwent incision and drainage of the left hand and right ankle abscess. Wound culture from both side grew MRSA sensitive to Bactrim. He was empirically treated with vancomycin. Discussed the case with podiatry, Dr. Gan on the day of discharge. Diabetes Mellitus with Hyperglycemia: uncontrolled. BG 352 upon arrival. Suspect secondary to noncompliance. -Continue on insulin -Diabetic diet. hemoglobin A1c above 11. Very poor control. Blood sugars improved. Continue diabetic diet and sliding scale. IVDU/Heroin Abuse: last injected 8 days prior to admission. Recently started on methadone on prior admission. -continue on methadone -patient given 4 days supply until he returns to the clinic. -extensively counseled on cessation Hepatitis C: chronic -outpatient follow up advised Tobacco Use: chronic -counseled on cessation -nicotine patch - Time Spent with Patient Total time spent providing and/or coordinating discharge services: - Quality: VTE Deep Vein Thrombosis/Pulmonary Embolism Present on Admission: No Exam Vital signs: Vital Signs 02/28/18 16:00 02/28/18 20:00 03/01/18 00:00 Temperature 98.0 F 97.9 F 97.9 F Pulse Rate 45 L 57 L 51 L Respiratory Rate 14 16 16 Blood Pressure 132/77 127/75 148/78 H Pulse Oximetry 98 98 98 03/01/18 02:51 03/01/18 08:00 03/01/18 12:00 Temperature 98.3 F 97.9 F Pulse Rate 50 L 53 L Respiratory Rate 18 19 19 Blood Pressure 151/85 H 143/94 H Pulse Oximetry 99 97 Intake & Output 02/28/18 03/01/18 03/01/18 18:59 06:59 18:59 Intake Total 1350 / 1350 2100 / 2100 Output Total 600 / 600 Balance 750 / 750 2099 / 2100 Intake: IV 1350 / 1350 2099 / 2100 NS Inj 1,000 ML @ 100 mls/hr IV 1000 / 1000 1000 / 1000 .CONT .Q10H EDIE Rx#:[id number] Maxipime Inj 2,000 MG In NS Inj 300 / 300 100 ML @ 200 mls/hr IV.SIG Q8H EDIE Rx#:[id number] Vancomycin Inj 1,000 MG In NS 250 / 250 500 / 500 Inj 250 ML @ 250 mls/hr IV.SIG Q8H EDIE Rx#:[id number] Flagyl 500 MG Inj 100 ML @ 100 100 / 100 300 / 300 mls/hr IV.SIG Q6H EDIE Rx#: [id number] Output: Urine 600 / 600 Other: # Voids 1 Narrative: GENERAL: This is a well-nourished, well-developed patient, in no apparent distress. CARDIOVASCULAR: Normal rate and regular rhythm without murmurs, gallops, or rubs. MUSCULOSKELETAL: Right ankle wound appear intact. Sutures intact. No surrounding erythema. Range of motion of the left fingers intact. Results Procedures completed during hospitalization: Incision and drainage of left hand abscess Incision and drainage of right ankle abscess Labs on day of discharge: Labs from last 24 hours 03/01/18 03/01/18 03/01/18 11:55 08:13 03:59 Creatinine 0.74 Estimated GFR Greater than 89 POC Glucose 229 H 353 H 02/28/18 02/28/18 22:22 17:39 Creatinine Estimated GFR POC Glucose 186 H 254 H - Impressions ITS Impressions Ankle MRI 02/24/18 00:00 CONCLUSION: 2.4 cm lobulated septated fluid collection in the anterior medial superficial soft tissues consistent with abscess given the patient's history. This is surrounded by edema within the subcutaneous fat. The bony structures are intact. Hand MRI 02/24/18 00:00 CONCLUSION: Cystic mass with peripheral enhancement but very likely represent an abscess given the patient's history. This is in the superficial dorsal soft tissues between the first and second metacarpals. The bony structures are intact. Hand X-Ray 02/24/18 00:00 CONCLUSION: Soft tissue swelling. Discharge Plan - Discharge Disposition Patient Disposition: 01 Discharge Home - Discharge Condition Condition: Stable - Discharge Order Discharge Orders: Discharge Order (Routine); Ordered 03/01/18 Ordered By: Jacinto Barnard Hand Surgery Clear for Discharge (Routine); Ordered 02/25/18 Ordered By: Holli Gottlieb - Physicians Team Primary Care Provider: Primary Care Physici,Josette Attending Provider: Jacinto Barnard Other Providers: Jose Gan DPM ; Holli Gottlieb MD
== END 2018-03-01 16:12 | disposition home or self-care (01) ==
LOC: NEDA 00:05 → NEPC 00:05 → NEPFCDU 12:36 → N07 02-28 19:15
PROVIDERS: ADMIT Family Medicine; ATTEND Family Medicine
DX: F17.210 Nicotine dependence, cigarettes, uncomplicated; Z91.14 Patient's other noncompliance with medication regimen; Z82.49 Family history of ischemic heart disease and other diseases of the circulatory system; Z88.0 Allergy status to penicillin; B19.20 Unspecified viral hepatitis C without hepatic coma; L02.11 Cutaneous abscess of neck; F11.10 Opioid abuse, uncomplicated; M79.89 Other specified soft tissue disorders; L02.512 Cutaneous abscess of left hand; E11.65 Type 2 diabetes mellitus with hyperglycemia; F19.10 Other psychoactive substance abuse, uncomplicated; M65.071 Abscess of tendon sheath, right ankle and foot; Z82.3 Family history of stroke; B95.62 Methicillin resistant Staphylococcus aureus infection as the cause of diseases classified elsewhere; B18.2 Chronic viral hepatitis C

== ENCOUNTER 2018-05-07 22:35 | Inpatient (IN) ==
[2018-05-07 23:52] LABS: Baso % (Auto) 0.3 % (0.0-2.0); Eos # (Auto) 0.1 th/mm3 (0.0-0.4); Eos % (Auto) 1.1 % (0.0-4.0); Hematocrit 38.8 % (39.0-51.0); Lymph # (Auto) 0.9 th/mm3 (1.0-4.8); Lymph % (Auto) 8.2 % (9.0-44.0); Mean Corpuscular HGB Conc 33.6 % (32.0-36.0); Mean Corpuscular Hemoglobin 28.1 pg (27.0-34.0); Mean Corpuscular Volume 83.6 fL (80.0-100.0); Mean Platelet Volume 7.8 fL (7.0-11.0); Mono # (Auto) 0.8 th/mm3 (0.0-0.9); Mono % (Auto) 7.9 % (0.0-8.0); Neut # (Auto) 8.7 th/mm3 (1.8-7.7); Neut % (Auto) 82.5 % (16.0-70.0); Platelet Count 170 th/mm3 (150-450); Red Blood Count 4.63 mil/mm3 (4.50-5.90); Red Cell Distribution Width 14.3 % (11.6-17.2); White Blood Count 10.6 th/mm3 (4.0-11.0)
[2018-05-08 00:09] LABS: Anion Gap 11 meq/L (5-15)
--- NOTE | 2018-05-08 00:14 | ED ---
HPI General Chief complaint: Skin/Abscess/Foreign Body Stated complaint: L & R arms red & swollen Time Seen by Provider: 05/07/18 23:28 Source: patient Mode of arrival: ambulatory Limitations: no limitations History of Present Illness HPI narrative: The patient is a 32 year old male who presents to the [facility] emergency department with a history of picking beba berries without a glove 7-8 days ago and acquired scratches to his arms and hands. 2-3 days ago he developed swelling and pain to the left hand and now it also involves the right arm. He began today to have fevers, n/v, and headaches. He has vomiting x4. He denies having any diarrhea. He has shortness of breath for the last 2 days when the pain "became unbearable". He has been using heroin for pain. He last used heroin this AM. On review of systems otherwise, the patient denies having any cough, congestion, neck pain, chest pain, abdominal pain, diarrhea, urinary symptoms, or neurologic symptoms. Related Data Previous Rx's Medication Instructions Recorded insulin NPH isoph U-100 human 20 unit SUB-Q DIRECTED #1 vial 02/10/18 methadone 70 mg PO DAILY #28 tab 03/01/18 Allergies Allergy/AdvReac Type Severity Reaction Status Date / Time penicillin G Allergy Severe Hives Verified 05/07/18 22:55 Review of Systems ROS: all other systems reviewed are negative (except that mentioned in the HPI.) [facility], [facility] Medical History Medical History Abscess (Acute) IVDU (intravenous drug user) (Acute) Heroin abuse (Acute) Hepatitis C (Acute) Diabetes (Acute) Hand abscess (Acute) MRSA infection (Acute) Surgical History Surgical History History of orthopedic surgery (Acute) Family History Family History Mother Aneurysm Heart attack Stroke Social History Social History Substance History: Active Abuse Second Hand Smoke Exposure: Yes Smoking Status: Heavy tobacco smoker Tobacco Type: Cigarettes Packs Per Day: 1 Cigarettes Per Day: 20.0 How Often Do You Have a Drink Containing Alcohol: Never Recent Travel in [facility] within the Last 8 Weeks: No Recent Out of Country Travel within the Last 8 Weeks: No Substance Abuse Detail Heroin: Substance Use Status: Active Route Used Substance Abuse: Intravenously Reason for Use: Calm Down Immunization History Tetanus Immunization: >5 Years Hx Influenza Vaccine This Season: No Exam Const General: cooperative, well developed and acute distress (Related to bilateral upper extremity pain) mild Nutritional Appearance: well nourished Orientation: alert, awake and oriented x3 HENMT Head: normocephalic and atraumatic Nose: no nasal discharge and no epistaxis Mouth: moist mucous membranes Throat: posterior oropharynx normal and uvula midline Eyes Sclera: normal sclerae Pupils: PERRL Neck Neck: no meningeal signs, trachea midline and no JVD Resp Effort & Inspection: no use of accessory muscles Auscultation: clear to auscultation bilaterally Cardio Rate: tachycardic (Sinus tachycardia in the low 100s. No pulse deficits to the extremities on simultaneous auscultation and palpation of his radial artery.) Rhythm: regular rhythm Heart Sounds: no gallops, no murmurs and no rubs GI Inspection: non-distended Palpation: soft, no hepatosplenomegaly and nontender Auscultation: normal bowel sounds Back/Spine/Pelvis Back: no CVA tenderness Cervical Spine: No cervical spinal tenderness Thoracic/Lumbar Spine: No thoracic spinal tenderness and No lumbar spinal tenderness Skin General: dry skin (warm) and other (See abnormalities under extremity exam) Neuro General: alert and awake Cranial Nerves: other Speech: speech normal Motor: no movement abnormalities noted Extrem General: no clubbing, no cyanosis, edema (Bilateral upper extremities. No lower extremity edema.) Laterality: bilaterally and other (On examination of the right upper extremity the patient is noted to have erythema to the forearm and surrounding the elbow most prominent along the ulnar side of the elbow with an area of pointing and fluctuance noted. There is axillary lymphadenopathy noted in the right axilla. On examination of the left arm the patient is noted to have swelling and erythema with fluctuance between the first and second digit along the dorsum of the hand. Patient's compartments are soft. The patient has intact sensation over all fingertips. The patient has less than 3- second capillary refill.) Psych Mood: irritable mood Affect: irritable affect Judgment: poor Procedures Abscess I/D Site: upper extremity Side (if applicable): right Anesthetic used: lidocaine 1% Technique: incised with #11 blade Amount of fluid expressed (mL): 15 Irrigation: Yes Packing used?: none and plain Complications: pain Course Consultations Consultation #1: The patient's case including history, pertinent physical examination findings, and laboratory studies were discussed with Dr. Damon. It was agreed that the patient would be admitted to the hospitalist service. Initial Documented Vital Signs Temperature 101.3 F H 05/07/18 22:55 Pulse Rate 101 H 05/07/18 22:55 Respiratory Rate 16 05/07/18 22:55 Blood Pressure 160/92 H 05/07/18 22:55 Pulse Oximetry 98 05/07/18 22:55 Last Documented Vital Signs Temperature 98.2 F 05/08/18 05:01 Pulse Rate 81 05/08/18 05:01 Respiratory Rate 12 05/08/18 04:01 Blood Pressure 127/60 05/08/18 05:01 Pulse Oximetry 98 05/08/18 05:01 Critical Care Time Critical Care Time: Yes Total Critical Care Time: 35 Attestation: Aggregate critical care time was 35 minutes. Time to perform other separately billable procedures was not included in the critical care time. My time did not include minutes spent treating any other patients simultaneously or on activities that did not directly contribute to the patient's treatment. The services I provided to this patient were to treat and/or prevent clinically significant deterioration that could result in: Cardiovascular collapse from sepsis, versus fluid overload with respiratory failure from crystalloid resuscitation. I provided critical care services requiring my management, as noted below: Chart data review, documentation time, medication orders and management, vital sign assessments/reviewing monitor data, ordering and reviewing lab tests, ordering and interpreting/reviewing x-rays and diagnostic studies, care of the patient and discussion of the patient with the admitting physicians. Medical Decision Making MDM Narrative Medical decision making narrative: During the course of the patient's emergency department visit, the patient's history, examination, and differential diagnosis were reviewed with the patient. The patient was placed on a cardiac nurse with oximetry and frequent blood pressure monitoring. The patient had IV access obtained and blood work sent for analysis. A diagnostic evaluation was started regarding the patient's multiple areas of abscess formation. The patient was initially provided normal saline 1 L IV fluid bolus, Azactam 2 g IV, Flagyl 500 IV, vancomycin 1 g IV given his penicillin allergy. The patient's blood sugar came back in the 500s with a normal beta hydroxybutyrate, therefore the patient was given regular insulin 10 units subcutaneously x1. The patient was provided a second liter of normal saline IV fluids. Suzette daily, the nurse practitioner was consulted for incision and drainage. A wound culture was sent. Patient's diagnostic studies are remarkable for a normal white count of 10.6, normal hemoglobin at 13, platelets 170 with 82.5 neutrophils, sedimentation rate is elevated at 69, PT PTT within normal limits, chemistries remarkable for sodium of 131, chloride 92, GFR 68, glucose 596 with a normal anion gap, no acidosis and a normal beta hydroxybutyrate. The patient was given regular insulin subcutaneously to lower his blood sugar. The patient was given a second liter of normal saline IV fluids. The patient C-reactive protein is 14.8 , cardiac enzymes within normal limits, lipase 51. A chest xray showed no acute cardiopulmonary disease. The patient's results were discussed with the patient, including the plan of care. I explained that further testing and/ or monitoring is indicated based on the patient's history, examination, and/ or laboratory findings. Therefore, I recommended admission for additional evaluation. The patient expressed understanding and was agreeable with this plan. The patient was admitted to the hospital in guarded condition and sent to a bed under the care of the [facility] service. Medical Screen Exam Complete: Yes Emergency Medical Condition: Yes Differential Diagnosis Differential Diagnosis: Abscess, versus cellulitis, versus sepsis, versus compartment syndrome, versus septic joint Medical Records Medical records reviewed: Yes I reviewed the patient's medical records. Lab Data Lab results reviewed: Yes I reviewed the patient's lab results. Result diagrams: 05/07/18 23:45 05/07/18 23:45 Lab Results 05/07/18 05/07/18 05/07/18 Range/Units 23:45 23:45 23:45 WBC 10.6 (4.0-11.0) th/mm3 RBC 4.63 (4.50-5.90) mil/mm3 Hgb 13.0 (13.0-17.0) gm/dL Hct 38.8 L (39.0-51.0) % MCV 83.6 (80.0-100.0) fL MCH 28.1 (27.0-34.0) pg MCHC 33.6 (32.0-36.0) % RDW 14.3 (11.6-17.2) % Plt Count 170 (150-450) th/mm3 MPV 7.8 (7.0-11.0) fL Neut % (Auto) 82.5 H (16.0-70.0) % Lymph % (Auto) 8.2 L (9.0-44.0) % Glascock % (Auto) 7.9 (0.0-8.0) % Eos % (Auto) 1.1 (0.0-4.0) % Baso % (Auto) 0.3 (0.0-2.0) % Neut # (Auto) 8.7 H (1.8-7.7) th/mm3 Lymph # (Auto) 0.9 L (1.0-4.8) th/mm3 Glascock # (Auto) 0.8 (0.0-0.9) th/mm3 Eos # (Auto) 0.1 (0.0-0.4) th/mm3 Baso # (Auto) 0.0 (0.0-0.2) th/mm3 WBC Differential . Differential Comment Auto diff final ESR (0-15) mm/hr PT 10.0 (9.8-11.6) sec INR 1.0 Ratio APTT 29.0 (24.3-30.1) sec Sodium 131 L (136-145) meq/L Potassium 4.3 (3.5-5.1) meq/L Chloride 92 L (98-107) meq/L Carbon Dioxide 28.0 (21.0-32.0) meq/L Anion Gap 11 (5-15) meq/L BUN 14 (7-18) mg/dL Creatinine 1.23 (0.60-1.30) mg/dL Estimated GFR 68 L (>89) mL/min POC Glucose (68-110) mg/dl Random Glucose 596 H* (74-106) mg/dL Lactic Acid (0.4-2.0) mmol/L Calcium 8.6 (8.5-10.1) mg/dL Magnesium 1.9 (1.5-2.5) mg/dL Total Bilirubin 0.5 (0.2-1.0) mg/dL AST 22 (15-37) U/L ALT 54 (12-78) U/L Alkaline Phosphatase 93 (45-117) U/L Total Creatine Kinase 50 (39-308) U/L Troponin I Less than 0.02 L (0.02-0.05) ng/mL C-Reactive Protein 14.80 H (0.00-0.30) mg/dL Total Protein 8.4 H (6.4-8.2) g/dL Albumin 3.4 (3.4-5.0) g/dL Lipase 51 L (73-393) U/L Beta-Hydroxybutyric Acd (0.00-0.39) mmol/L 05/07/18 05/07/18 05/07/18 Range/Units 23:45 23:45 23:45 WBC (4.0-11.0) th/mm3 RBC (4.50-5.90) mil/mm3 Hgb (13.0-17.0) gm/dL Hct (39.0-51.0) % MCV (80.0-100.0) fL MCH (27.0-34.0) pg MCHC (32.0-36.0) % RDW (11.6-17.2) % Plt Count (150-450) th/mm3 MPV (7.0-11.0) fL Neut % (Auto) (16.0-70.0) % Lymph % (Auto) (9.0-44.0) % Glascock % (Auto) (0.0-8.0) % Eos % (Auto) (0.0-4.0) % Baso % (Auto) (0.0-2.0) % Neut # (Auto) (1.8-7.7) th/mm3 Lymph # (Auto) (1.0-4.8) th/mm3 Glascock # (Auto) (0.0-0.9) th/mm3 Eos # (Auto) (0.0-0.4) th/mm3 Baso # (Auto) (0.0-0.2) th/mm3 WBC Differential Differential Comment ESR 69 H (0-15) mm/hr PT (9.8-11.6) sec INR Ratio APTT (24.3-30.1) sec Sodium (136-145) meq/L Potassium (3.5-5.1) meq/L Chloride (98-107) meq/L Carbon Dioxide (21.0-32.0) meq/L Anion Gap (5-15) meq/L BUN (7-18) mg/dL Creatinine (0.60-1.30) mg/dL Estimated GFR (>89) mL/min POC Glucose (68-110) mg/dl Random Glucose (74-106) mg/dL Lactic Acid 1.8 (0.4-2.0) mmol/L Calcium (8.5-10.1) mg/dL Magnesium (1.5-2.5) mg/dL Total Bilirubin (0.2-1.0) mg/dL AST (15-37) U/L ALT (12-78) U/L Alkaline Phosphatase (45-117) U/L Total Creatine Kinase (39-308) U/L Troponin I (0.02-0.05) ng/mL C-Reactive Protein (0.00-0.30) mg/dL Total Protein (6.4-8.2) g/dL Albumin (3.4-5.0) g/dL Lipase (73-393) U/L Beta-Hydroxybutyric Acd 0.15 (0.00-0.39) mmol/L 05/08/18 Range/Units 07:59 WBC (4.0-11.0) th/mm3 RBC (4.50-5.90) mil/mm3 Hgb (13.0-17.0) gm/dL Hct (39.0-51.0) % MCV (80.0-100.0) fL MCH (27.0-34.0) pg MCHC (32.0-36.0) % RDW (11.6-17.2) % Plt Count (150-450) th/mm3 MPV (7.0-11.0) fL Neut % (Auto) (16.0-70.0) % Lymph % (Auto) (9.0-44.0) % Glascock % (Auto) (0.0-8.0) % Eos % (Auto) (0.0-4.0) % Baso % (Auto) (0.0-2.0) % Neut # (Auto) (1.8-7.7) th/mm3 Lymph # (Auto) (1.0-4.8) th/mm3 Glascock # (Auto) (0.0-0.9) th/mm3 Eos # (Auto) (0.0-0.4) th/mm3 Baso # (Auto) (0.0-0.2) th/mm3 WBC Differential Differential Comment ESR (0-15) mm/hr PT (9.8-11.6) sec INR Ratio APTT (24.3-30.1) sec Sodium (136-145) meq/L Potassium (3.5-5.1) meq/L Chloride (98-107) meq/L Carbon Dioxide (21.0-32.0) meq/L Anion Gap (5-15) meq/L BUN (7-18) mg/dL Creatinine (0.60-1.30) mg/dL Estimated GFR (>89) mL/min POC Glucose 151 H (68-110) mg/dl Random Glucose (74-106) mg/dL Lactic Acid (0.4-2.0) mmol/L Calcium (8.5-10.1) mg/dL Magnesium (1.5-2.5) mg/dL Total Bilirubin (0.2-1.0) mg/dL AST (15-37) U/L ALT (12-78) U/L Alkaline Phosphatase (45-117) U/L Total Creatine Kinase (39-308) U/L Troponin I (0.02-0.05) ng/mL C-Reactive Protein (0.00-0.30) mg/dL Total Protein (6.4-8.2) g/dL Albumin (3.4-5.0) g/dL Lipase (73-393) U/L Beta-Hydroxybutyric Acd (0.00-0.39) mmol/L Imaging Data Radiologist's impression: Chest X-Ray 05/07/18 23:29 CONCLUSION: No acute cardiopulmonary disease identified. Discharge Plan Discharge Disposition Patient Disposition: 30 Still Patient Discharge Details Diagnosis: Cellulitis, IVDU (intravenous drug user), Abscess Physicians Team ED Provider: Fe Mckeon Primary Care Provider: Primary Care Soumya,Josette Attending Provider: Susie Shah Other Providers: Adelia Dotson ; Al Kay ; Rodolfo Mcdaniels Status ED Status: Left Department Discharge Information Discharge Date/Time: 05/08/18 04:31
[2018-05-08 00:15] LABS: Alanine Aminotransferase 54 U/L (12-78); Albumin 3.4 g/dL (3.4-5.0); Alkaline Phosphatase 93 U/L (45-117); Aspartate Aminotransferase 22 U/L (15-37); Blood Urea Nitrogen 14 mg/dL (7-18); Calcium 8.6 mg/dL (8.5-10.1); Chloride 92 meq/L (98-107); Glomerular Filtration Rate 68 mL/min (>89); Lipase 51 U/L (73-393); Magnesium 1.9 mg/dL (1.5-2.5); Potassium 4.3 meq/L (3.5-5.1); Sodium 131 meq/L (136-145); Total Protein 8.4 g/dL (6.4-8.2)
--- NOTE | 2018-05-08 00:15 | XR ---
EXAM DATE: 05/08/2018 11:29 PM EDT AGE/SEX: 32 years / Male INDICATIONS: Short of breath, swelling and pain in both arms. CLINICAL DATA: This is the patient's initial encounter. Patient reports that signs and symptoms have been present for 1 day and indicates a pain score of 0/10. MEDICAL/SURGICAL HISTORY: None. None. COMPARISON: [facility] [place], 02/05/[place]. . FINDINGS: Single AP view of the chest. The lungs are clear. Cardiomediastinal silhouette within norm al limits. No evidence of pleural effusion or pneumothorax. CONCLUSION: No acute cardiopulmonary disease identified. Electronically signed by: Von Andino MD 05/08/2018 12:14 AM EDT
[2018-05-08 00:16] LABS: Creatine Kinase 50 U/L (39-308)
[2018-05-08 00:19] LABS: Glucose,Random 596 mg/dL (74-106)
[2018-05-08] MEDS ORDERED: Ketorolac Inj 30 MG/ML (IVP) Vial IV.PUSH ONE (00:19)
[2018-05-08] MEDS ORDERED: Aztreonam Inj 2 GM in Sodium Chloride 0.9% Inj 100 ML IV.SIG STA (00:19)
[2018-05-08] MEDS ORDERED: Sod Chloride 0.9% Inj 1,000 ML IV.SIG ONE ×2 (00:19→02:16)
[2018-05-08] MEDS ORDERED: Vancomycin Inj 1,000 MG in Sodium Chlor 0.9% Inj 250 ML IV.SIG STA (00:19)
[2018-05-08] MEDS ORDERED: Vancomycin Consult Pharmacy OTHER PRN (02:48)
[2018-05-08] MEDS ORDERED: Dextrose 50% in Water 50 ML Vial IV.PUSH PRN (02:49)
[2018-05-08] MEDS ORDERED: Bisacodyl 10 MG Supp RECTAL PRN (02:50)
[2018-05-08] MEDS ORDERED: Sod Chloride 0.9% Inj 1,000 ML IV.CONT SCH (03:00)
[2018-05-08] MEDS ORDERED: Methadone 10 MG Tablet PO SCH (06:00)
--- NOTE | 2018-05-08 06:15 | P.HPIM ---
History of Present Illness Primary Care Physician: No Primary Care Physician History of Present Illness: 32-year-old male with a history of MRSA, heroin addiction, insulin-dependent diabetes mellitus who presents with a 7-day history of constant sharp nonradiating pain in right medial elbow as well as the left dorsal/medial hand. Patient reports most recent injection was about a week ago, however he says that current infection is likely secondary to saw palmetto. He also reports a one-week history of subjective fevers, chills, nausea with nonbloody vomiting. Denies any diarrhea, constipation, dysuria. Inpatient Certification: I certify that the inpatient services were ordered in accordance with Medicare regulations governing the order. This includes certification that hospital inpatient services are reasonable and necessary and in the case of services not specified as inpatient-only under 42 CFR 419.22(n), that they are appropriately provided as inpatient services in accordance to with the 2-midnight benchmark under 43 CFR 412.3(e) Estimated Total Length of Stay (Days): 5 Plans for Post Hospital Care: Home Review of Systems All other systems reviewed negative except as stated in HPI PMFSH - History History Provided By: Patient - Medical History Medical History: Medical History (Last Updated 05/08/18 @ 00:13 by Fe Mckeon MD) Abscess (Acute) IVDU (intravenous drug user) (Acute) Heroin abuse (Acute) Hepatitis C (Acute) Diabetes (Acute) Hand abscess MRSA infection - Surgical History Surgical History: Surgical History (Last Updated 02/24/18 @ 16:15 by Vida Schultz) History of orthopedic surgery (Acute) - Family History Family History: Family History (Last Updated 02/24/18 @ 16:23 by Vida Schultz) Mother Aneurysm Heart attack Stroke - Tobacco History Second Hand Smoke Exposure: Yes Tobacco Use In Past 30 Days: Yes Smoking Status: Heavy tobacco smoker Tobacco Type: Cigarettes Packs Per Day: 1 Cigarettes Per Day: 20.0 - Alcohol History How Often Do You Have a Drink Containing Alcohol: Never - Substance Use History Substance History: Active Abuse - Substance Use Type Heroin Status: Active Route Used: Intravenously Reason for Use: Feels Good - Travel History Recent Travel in the [place] Within the Last 8 Weeks: No Recent Travel Out of the Country Within the Last 8 Weeks: No - Immunization History Tetanus Immunization: >5 Years Hx Influenza Vaccine This Season: No Medications and Allergies Active Medications: Active Medications Al Hydroxide/Mg Hydroxide (Milk Of Magnesia Liq) 30 ml PO Q12H PRN PRN Reason: Mild Constipation Bisacodyl (Dulcolax Supp) 10 mg RECTAL DAILY PRN PRN Reason: SEVERE CONSITIPATION Dextrose (D50w Vial) 50 ml IV.PUSH UNSCH PRN PRN Reason: PER HYPOGLYCEMIA PROTOCOL Glucagon (Glucagon Inj) 1 mg OTHER PRN PRN PRN Reason: for Hypoglycemia Protocol Aztreonam 2 gm/ Sodium (Chloride) 100 mls @ 200 mls/hr IV.SIG Q6H EDIE Metronidazole/Sodium Chloride (Flagyl 500 Mg Inj) 100 mls @ 100 mls/hr IV.SIG Q6H EDIE Sodium Chloride (Ns Inj) 1,000 mls @ 100 mls/hr IV.CONT .Q10H EDIE Last Admin: 05/08/18 03:18 Dose: 100 mls/hr Insulin Aspart (Novolog Insulin Correctional Sugar Inj) 0 unit SQ ACHS EDIE; Protocol Insulin Detemir (Levemir Inj) 5 unit SQ BID EDIE Lactulose (Lactulose Liq) 30 ml PO DAILY PRN PRN Reason: SEVERE CONSITIPATION Pharmacy Profile Note (Vancomycin Consult Pharmacy) 1 each OTHER UNSCH PRN PRN Reason: Pharmacy to dose Sennosides (Senokot) 17.2 mg PO Q12H PRN PRN Reason: Moderate Constipation Allergies Allergy/AdvReac Type Severity Reaction Status Date / Time penicillin G Allergy Severe Hives Verified 05/07/18 22:55 Exam Vital signs: Vital Signs 05/07/18 22:55 05/07/18 23:35 05/08/18 04:01 Temperature 101.3 F H Pulse Rate 101 H 96 H 75 Respiratory Rate 16 20 12 Blood Pressure 160/92 H 143/90 H 120/63 Pulse Oximetry 98 97 100 05/08/18 05:01 Temperature 98.2 F Pulse Rate 81 Respiratory Rate Blood Pressure 127/60 Pulse Oximetry 98 Intake & Output 05/07/18 05/07/18 05/08/18 06:59 18:59 06:59 Intake Total 2650 / 2650 Balance 2650 / 2650 Weight 75.3 kg Intake: IV 2450 / 2450 Azactam Inj 2 GM In NS Inj 100 100 / 100 ML @ 200 mls/hr IV.SIG STAT STA Rx#:[id number] NS Inj 1,000 ML @ Wide Open IV. 1999 SIG BOLUS ONE Rx#:[id number] Vancomycin Inj 1,000 MG In NS 250 / 250 Inj 250 ML @ 250 mls/hr IV.SIG STAT STA Rx#:[id number] Flagyl 500 MG Inj 100 ML @ 100 100 / 100 mls/hr IV.SIG STAT STA Rx#: [id number] Other 200 / 200 Other: Other Intake Source Saline Solution # Voids 1 Date of Last Bowel Movement 05/07/18 Weight On Admission 75.296 kg Narrative: GENERAL: Patient sitting up in bed. Appears comfortable. SKIN: Warm and dry. HEAD: Normocephalic. EYES: No scleral icterus. No injection or drainage. NECK: Supple, trachea midline. No JVD or lymphadenopathy. CARDIOVASCULAR: Regular rate and rhythm without murmurs, gallops, or rubs. RESPIRATORY: Breath sounds equal bilaterally. No accessory muscle use. GASTROINTESTINAL: Abdomen soft, non-tender, nondistended. MUSCULOSKELETAL: No cyanosis, or edema. Patient with large drained abscess right medial elbow, as well as large abscess left dorsal/medial hand. BACK: Nontender without obvious deformity. No CVA tenderness. Results - Labs CBC & Chem 7: 05/07/18 23:45 05/07/18 23:45 Labs: Short CBC 05/07/18 Range/Units 23:45 WBC 10.6 (4.0-11.0) th/mm3 Hgb 13.0 (13.0-17.0) gm/dL Hct 38.8 L (39.0-51.0) % Plt Count 170 (150-450) th/mm3 BMP 05/07/18 23:45 Sodium 131 L Potassium 4.3 Chloride 92 L Carbon Dioxide 28.0 BUN 14 Creatinine 1.23 Calcium 8.6 Cardiac Enzymes 05/07/18 Range/Units 23:45 Total Creatine Kinase 50 (39-308) U/L Troponin I Less than 0.02 L (0.02-0.05) ng/mL Liver Function 05/07/18 Range/Units 23:45 Total Bilirubin 0.5 (0.2-1.0) mg/dL AST 22 (15-37) U/L ALT 54 (12-78) U/L Alkaline Phosphatase 93 (45-117) U/L Albumin 3.4 (3.4-5.0) g/dL - Imaging Impressions Chest X-Ray 05/07/18 23:29 CONCLUSION: No acute cardiopulmonary disease identified. Caprini VTE Risk Assessment Caprini VTE Risk Assessment: No/Low Risk (score <= 1) Caprini Risk Assessment Model: Point Value = 1 Point Value = 2 Point Value = 3 Point Value = 5 Age 41-60 Minor surgery BMI > 25 kg/m2 Swollen legs Varicose veins or History of unexplained or recurrent spontaneous Oral contraceptives or hormone replacement Sepsis (< 1 month) Serious lung disease, including pneumonia (< 1 month) Abnormal pulmonary function Acute myocardial infarction Congestive heart failure (< 1 month) History of inflammatory bowel disease Medical patient at bed rest Age 61-74 Arthroscopic surgery Major open surgery (> 45 min) Laparoscopic surgery (> 45 min) Malignancy Confined to bed (> 72 hours) Immobilizing plaster cast Central venous access Age >= 75 History of VTE Family history of VTE Factor V Leiden Prothrombin [id number] Lupus anticoagulant Anticardiolipin antibodies Elevated serum homocysteine Heparin-induced thrombocytopenia Other congenital or acquired thrombophilia Stroke (< 1 month) Elective arthroplasty Hip, pelvis, or leg fracture Acute spinal cord injury (< 1 month) Prophylaxis Regimen: Total Risk Factor Score Risk Level Prophylaxis Regimen 0-1 Low Early ambulation 2 Moderate Order ONE of the following: *Sequential Compression Device (SCD) *Heparin 5000 units SQ BID 3-4 Higher Order ONE of the following medications: *Heparin 5000 units SQ TID *Enoxaparin/Lovenox 40 mg SQ daily (WT < 150 kg, CrCl > 30 mL/min) *Enoxaparin/Lovenox 30 mg SQ daily (WT < 150 kg, CrCl > 10-29 mL/min) *Enoxaparin/Lovenox 30 mg SQ BID (WT < 150 kg, CrCl > 30 mL/min) AND/OR *Sequential Compression Device (SCD) 5 or more Highest Order ONE of the following medications: *Heparin 5000 units SQ TID (Preferred with Epidurals) *Enoxaparin/Lovenox 40 mg SQ daily (WT < 150 kg, CrCl > 30 mL/min) *Enoxaparin/Lovenox 30 mg SQ daily (WT < 150 kg, CrCl > 10-29 mL/min) *Enoxaparin/Lovenox 30 mg SQ BID (WT < 150 kg, CrCl > 30 mL/min) AND *Sequential Compression Device (SCD) Assessment and Plan - Plan //Severe sepsis //Suspected MRSA cellulitis/abscesses of right elbow, left hand = Fever 101.3, tachycardia of 101, ESR 69, right elbow and left hand abscess. Severe due to hyperglycemia in the 500s on admission. = Start on broad-spectrum antibiotics. Follow-up blood cultures, right elbow wound cultures. //Type 1 diabetes with hyperglycemia in the 500s on admission Likely secondary to sepsis as well as general noncompliance. Will start on IV fluids, insulin sliding scale and low-dose Levemir. //Chronic heroin addiction. Patient says that he is on methadone 70 mg daily. From my past experience with this patient, he is not on methadone, however he says he will follow-up with methadone clinic. Will start on low dose methadone. Check EKG for QTC. Discussed Condition With: Patient, nurse, ED physician. H&P: Quality - VTE Deep Vein Thrombosis/Pulmonary Embolism Present on Admission: No
--- NOTE | 2018-05-08 08:11 | P.PNOP ---
Subjective Interval history: 32-year-old male with a history of heroin IV drug use. Has developed cellulitis and abscess over the medial portion of the right elbow. He has pain to palpation of elbow with movement of elbow. He also has a wound to the left hand just proximal to the webspace between the thumb and the index finger on the dorsum of the hand with drainage. Physical Exam Vital signs: Vital Signs 05/07/18 22:55 05/07/18 23:35 05/08/18 04:01 Temperature 101.3 F H Pulse Rate 101 H 96 H 75 Respiratory Rate 16 20 12 Blood Pressure 160/92 H 143/90 H 120/63 Pulse Oximetry 98 97 100 05/08/18 05:01 Temperature 98.2 F Pulse Rate 81 Respiratory Rate Blood Pressure 127/60 Pulse Oximetry 98 Intake & Output 05/07/18 05/08/18 05/08/18 18:59 06:59 18:59 Intake Total 2650 / 2650 Balance 2650 / 2650 Weight 75.3 kg Intake: IV 2450 / 2450 Azactam Inj 2 GM In NS Inj 100 100 / 100 ML @ 200 mls/hr IV.SIG STAT STA Rx#:[id number] NS Inj 1,000 ML @ Wide Open IV. 1999 SIG BOLUS ONE Rx#:[id number] Vancomycin Inj 1,000 MG In NS 250 / 250 Inj 250 ML @ 250 mls/hr IV.SIG STAT STA Rx#:[id number] Flagyl 500 MG Inj 100 ML @ 100 100 / 100 mls/hr IV.SIG STAT STA Rx#: [id number] Other 200 / 200 Other: Other Intake Source Saline Solution # Voids 1 Date of Last Bowel Movement 05/07/18 Weight On Admission 75.296 kg Narrative: Bilateral lower extremities: Full range of motion neurovascularly intact Right upper extremity: No pain with movement of shoulder. He has tenderness over the biceps and triceps and swelling and erythema medially over the elbow. He has pain with any movement of elbow. He has tenderness on the lateral side of the elbow as well. Pain down the forearm. He has intact sensation of the radial ulnar median nerve distributions with good capillary refills. He has pain with extension and flexion of fingers over the extensor and flexor muscles. Left upper extremity: Full range of motion of shoulder and elbow. He has a wound over the dorsum of the left hand. The wound is proximal to the webspace between the thumb and the index finger. It is draining. He has swelling surrounding this wound. He has intact sensation over the radial ulnar median nerve distributions. Results - Labs CBC & Chem 7: 05/07/18 23:45 05/07/18 23:45 Laboratory Results - last 24 hr 05/07/18 05/07/18 05/07/18 23:45 23:45 23:45 WBC 10.6 RBC 4.63 Hgb 13.0 Hct 38.8 L MCV 83.6 MCH 28.1 MCHC 33.6 RDW 14.3 Plt Count 170 MPV 7.8 Neut % (Auto) 82.5 H Lymph % (Auto) 8.2 L [place] % (Auto) 7.9 Eos % (Auto) 1.1 Baso % (Auto) 0.3 Neut # (Auto) 8.7 H Lymph # (Auto) 0.9 L [place] # (Auto) 0.8 Eos # (Auto) 0.1 Baso # (Auto) 0.0 WBC Differential . Differential Comment Auto diff final ESR PT 10.0 INR 1.0 APTT 29.0 Sodium 131 L Potassium 4.3 Chloride 92 L Carbon Dioxide 28.0 Anion Gap 11 BUN 14 Creatinine 1.23 Estimated GFR 68 L Random Glucose 596 H* Lactic Acid Calcium 8.6 Magnesium 1.9 Total Bilirubin 0.5 AST 22 ALT 54 Alkaline Phosphatase 93 Total Creatine Kinase 50 Troponin I Less than 0.02 L C-Reactive Protein 14.80 H Total Protein 8.4 H Albumin 3.4 Lipase 51 L Beta-Hydroxybutyric Acd 05/07/18 05/07/18 05/07/18 23:45 23:45 23:45 WBC RBC Hgb Hct MCV MCH MCHC RDW Plt Count MPV Neut % (Auto) Lymph % (Auto) [place] % (Auto) Eos % (Auto) Baso % (Auto) Neut # (Auto) Lymph # (Auto) [place] # (Auto) Eos # (Auto) Baso # (Auto) WBC Differential Differential Comment ESR 69 H PT INR APTT Sodium Potassium Chloride Carbon Dioxide Anion Gap BUN Creatinine Estimated GFR Random Glucose Lactic Acid 1.8 Calcium Magnesium Total Bilirubin AST ALT Alkaline Phosphatase Total Creatine Kinase Troponin I C-Reactive Protein Total Protein Albumin Lipase Beta-Hydroxybutyric Acd 0.15 - Imaging Impressions Chest X-Ray 05/07/18 23:29 CONCLUSION: No acute cardiopulmonary disease identified. Assessment and Plan - Assessment and Plan Consulted for abscess to the right elbow. Cellulitis and probable septic joint of the right elbow. Remain n.p.o. We will plan on irrigation debridement of the right elbow and arm Sign consents Hold antibiotics until cultures are performed this morning
[2018-05-08] MEDS: Aztreonam Inj 2 GM in Sodium Chloride 0.9% Inj 100 ML IV.SIG SCH ×2 (08:20→21:54)
[2018-05-08] MEDS: Insulin NovoLOG Aspart Correctional Sugar Inj SQ SCH ×4 (08:21→22:00)
[2018-05-08] MEDS: Insulin Detemir Inj 1,000 UNIT/10 ML Vial SQ SCH ×2 (08:26→22:03)
[2018-05-08] MEDS ORDERED: Lidocaine PF 1% Inj 5 ML Syringe OTHER ONE (10:00)
[2018-05-08] MEDS ORDERED: Methadone 10 MG Tablet PO ONE (10:30)
[2018-05-08] MEDS: Vancomycin Inj 750 MG in Sodium Chlor 0.9% Inj 250 ML IV.SIG SCH ×2 (10:37→17:13)
--- NOTE | 2018-05-08 10:50 | P.CONOP ---
[facility] Orthopedics Consult Note - [facility] Consult date: 05/08/18 Chief complaint: Cellulitis with Abscesses involving Bilateral Arms Narrative: Celestino is a 32-year-old male. He has a history of previous MRSA infection. He also has diabetes and a history of heroin addiction. He presents with approximately 1 week history of right elbow pain. He also has left hand pain. Hand surgery has been consulted for his hand. He also has a history of methadone use. He has been developing withdrawal symptoms recently. He has not been going to the methadone clinic but has been buying drugs. He has pain with elbow motion. He also has had fevers and chills. Pain is worse with movement and is improved with rest. Review of Systems Patient denies weight loss, headache, visual changes, hearing loss, chest pain, palpitations, shortness of breath, vomiting, no urinary changes, diarrhea, bowel changes, neck pain, back pain, skin rashes, weakness of extremities, easy bleeding, enlarged lymph nodes, numbness of extremities, anxiety, or depression. He complains of right elbow pain and left hand pain. He has had fevers and chills and nausea. Patient's social history, past medical history, and family history were reviewed on chart and with patient. [facility] - History History Provided By: Patient - Medical History Medical History: Medical History (Last Reviewed 05/08/18 @ 10:47 by Porter Clancy MD) Abscess (Acute) IVDU (intravenous drug user) (Acute) Heroin abuse (Acute) Hepatitis C (Acute) Diabetes (Acute) Hand abscess MRSA infection - Surgical History Surgical History: Surgical History (Last Reviewed 05/08/18 @ 10:47 by Porter Clancy MD) History of orthopedic surgery (Acute) - Family History Family History: Family History (Last Reviewed 05/08/18 @ 10:47 by Porter Clancy MD) Mother Aneurysm Heart attack Stroke - Social History I have reviewed the patient's Social History: Yes - Tobacco History Second Hand Smoke Exposure: Yes Tobacco Use In Past 30 Days: Yes Smoking Status: Heavy tobacco smoker Tobacco Type: Cigarettes Packs Per Day: 1 Cigarettes Per Day: 20.0 - Alcohol History How Often Do You Have a Drink Containing Alcohol: Never - Substance Use History Substance History: Active Abuse - Substance Use Type Heroin Status: Active Route Used: Intravenously Reason for Use: Calm Down - Travel History Recent Travel in the [place] Within the Last 8 Weeks: No Recent Travel Out of the Country Within the Last 8 Weeks: No - Immunization History Tetanus Immunization: >5 Years Hx Influenza Vaccine This Season: No Medications and Allergies Active Medications: Active Medications Hydrocodone Bitart/Acetaminophen (Aromas 7.5/325) 1 tab PO Q3H PRN PRN Reason: Pain Scale 3-10 Al Hydroxide/Mg Hydroxide (Milk Of Magnesia Liq) 30 ml PO Q12H PRN PRN Reason: Mild Constipation Bisacodyl (Dulcolax Supp) 10 mg RECTAL DAILY PRN PRN Reason: SEVERE CONSITIPATION Dextrose (D50w Vial) 50 ml IV.PUSH UNSCH PRN PRN Reason: PER HYPOGLYCEMIA PROTOCOL Diphenhydramine HCl (Benadryl) 25 mg PO Q6H PRN PRN Reason: ITCHING Glucagon (Glucagon Inj) 1 mg OTHER PRN PRN PRN Reason: for Hypoglycemia Protocol Aztreonam 2 gm/ Sodium (Chloride) 100 mls @ 200 mls/hr IV.SIG Q6H EDIE Last Admin: 05/08/18 08:20 Dose: Not Given Metronidazole/Sodium Chloride (Flagyl 500 Mg Inj) 100 mls @ 100 mls/hr IV.SIG Q6H EDIE Last Infusion: 05/08/18 07:59 Dose: Infused Sodium Chloride (Ns Inj) 1,000 mls @ 100 mls/hr IV.CONT .Q10H EDIE Last Admin: 05/08/18 03:18 Dose: 100 mls/hr Vancomycin HCl 750 mg/ Sodium (Chloride) 257.5 mls @ 250 mls/hr IV.SIG Q8H EDIE Last Admin: 05/08/18 10:37 Dose: Not Given Lactated Ringer's (Lr 1000 Ml Inj) 1,000 mls @ 60 mls/hr IV.CONT .[id number] EDIE Insulin Aspart (Novolog Insulin Correctional Sugar Inj) 0 unit SQ ACHS EDIE; Protocol Last Admin: 05/08/18 08:21 Dose: Not Given Insulin Detemir (Levemir Inj) 5 unit SQ BID EDIE Last Admin: 05/08/18 08:26 Dose: Not Given Lactulose (Lactulose Liq) 30 ml PO DAILY PRN PRN Reason: SEVERE CONSITIPATION Methadone HCl (Dolophine) 20 mg PO DAILY [facility] Miscellaneous Information ([facility] Ordered Lab Info) 1 each OTHER ONCE ONE Stop: 05/08/18 17:46 Miscellaneous Information ([facility]-Op Orders (For Pharmacy)) 0 each OTHER STAT STA Stop: 05/08/18 10:40 Morphine Sulfate (Morphine Inj) 3 mg IV.PUSH Q3H PRN PRN Reason: BREAKTHROUGH PAIN Ondansetron HCl (Zofran Odt) 4 mg PO Q6H PRN PRN Reason: NAUSEA OR VOMITING Ondansetron HCl (Zofran Inj) 4 mg IV.PUSH Q6H PRN PRN Reason: NAUSEA OR VOMITING Pharmacy Profile Note (Vancomycin Consult Pharmacy) 1 each OTHER UNSCH PRN PRN Reason: Pharmacy to dose Senna/Docusate Sodium (Macrina-Colace) 1 tab PO BID EDIE Sennosides (Senokot) 17.2 mg PO Q12H PRN PRN Reason: Moderate Constipation Sodium Chloride (Ns Flush) 2 ml IV.FLUSH BID EDIE Sodium Chloride (Ns Flush) 2 ml IV.FLUSH PRN PRN PRN Reason: FLUSH AFTER USING IV ACCESS Allergies Allergy/AdvReac Type Severity Reaction Status Date / Time penicillin G Allergy Severe Hives Verified 05/07/18 22:55 Exam Vital signs: Vital Signs 05/07/18 22:55 05/07/18 23:35 05/08/18 04:01 Temperature 101.3 F H Pulse Rate 101 H 96 H 75 Respiratory Rate 16 20 12 Blood Pressure 160/92 H 143/90 H 120/63 Pulse Oximetry 98 97 100 05/08/18 05:01 05/08/18 09:24 Temperature 98.2 F 98.2 F Pulse Rate 81 76 Respiratory Rate 20 Blood Pressure 127/60 135/63 Pulse Oximetry 98 98 Intake & Output 05/07/18 05/08/18 05/08/18 18:59 06:59 18:59 Intake Total 2650 / 2650 700 / 700 Output Total 20 / 20 Balance 2650 / 2650 680 / 680 Weight 75.3 kg Intake: IV 2450 / 2450 100 / 100 Azactam Inj 2 GM In NS Inj 100 100 / 100 ML @ 200 mls/hr IV.SIG STAT STA Rx#:[id number] NS Inj 1,000 ML @ Wide Open IV. 1999 SIG BOLUS ONE Rx#:[id number] Vancomycin Inj 1,000 MG In NS 250 / 250 Inj 250 ML @ 250 mls/hr IV.SIG STAT STA Rx#:[id number] Flagyl 500 MG Inj 100 ML @ 100 100 / 100 100 / 100 mls/hr IV.SIG Q6H EDIE Rx#: [id number] Anesthesia Amount 600 / 600 Other 200 / 200 Output: Estimated Blood Loss 20 / 20 Other: Other Intake Source Saline Solution # Voids 1 Date of Last Bowel Movement 05/07/18 05/07/18 Weight On Admission 75.296 kg Narrative: Celestino is a 32-year-old male. He is anxious appearing. General: Awake and alert. No acute distress. Appears well-developed well- nourished Head: Normocephalic, atraumatic pupils are equal Neck: Soft, nontender, trachea midline Abdomen: Soft, nondistended Examination of right arm reveals no pain or deformity with shoulder or wrist motion. Skin is intact except for a wound over his medial elbow. He has pain with any elbow motion. He essentially refuses to move his elbow at all. He has moderate swelling of the elbow. There is erythema and drainage from the medial wound.. Radial pulse is palpable. Normal capillary refill in fingers. Sensation is intact in radial, ulnar, and median nerve distributions. No lymphadenopathy noted. Examination of left arm reveals no pain or deformity with shoulder, elbow, or wrist motion. He has swelling and erythema of his left hand. Radial pulse is palpable. Normal capillary refill in fingers. Sensation is intact in radial, ulnar, and median nerve distributions. No lymphadenopathy noted. Examination of left lower extremity reveals no pain or deformity with hip, knee , or ankle motion. Skin is intact. Sensation is intact in left foot. Dorsalis pedis pulse is palpable. Normal capillary refill and feet. Thigh and calf compartments are soft. No lymphadenopathy noted. +5 strength of ankle dorsiflexion and plantarflexion. Examination of right lower extremity reveals no pain or deformity with hip, knee , or ankle motion. Skin is intact. Sensation is intact in right foot. Dorsalis pedis pulse is palpable. Normal capillary refill and feet. Thigh and calf compartments are soft. No lymphadenopathy noted. +5 strength of ankle dorsiflexion and plantarflexion. Results - Labs Result Diagrams: 05/07/18 23:45 05/07/18 23:45 Labs: Laboratory Results - last 24 hr 05/07/18 05/07/18 05/07/18 23:45 23:45 23:45 WBC 10.6 RBC 4.63 Hgb 13.0 Hct 38.8 L MCV 83.6 MCH 28.1 MCHC 33.6 RDW 14.3 Plt Count 170 MPV 7.8 Neut % (Auto) 82.5 H Lymph % (Auto) 8.2 L [place] % (Auto) 7.9 Eos % (Auto) 1.1 Baso % (Auto) 0.3 Neut # (Auto) 8.7 H Lymph # (Auto) 0.9 L [place] # (Auto) 0.8 Eos # (Auto) 0.1 Baso # (Auto) 0.0 WBC Differential . Differential Comment Auto diff final ESR PT 10.0 INR 1.0 APTT 29.0 Sodium 131 L Potassium 4.3 Chloride 92 L Carbon Dioxide 28.0 Anion Gap 11 BUN 14 Creatinine 1.23 Estimated GFR 68 L POC Glucose Random Glucose 596 H* Lactic Acid Calcium 8.6 Magnesium 1.9 Total Bilirubin 0.5 AST 22 ALT 54 Alkaline Phosphatase 93 Total Creatine Kinase 50 Troponin I Less than 0.02 L C-Reactive Protein 14.80 H Total Protein 8.4 H Albumin 3.4 Lipase 51 L Beta-Hydroxybutyric Acd 05/07/18 05/07/18 05/07/18 23:45 23:45 23:45 WBC RBC Hgb Hct MCV MCH MCHC RDW Plt Count MPV Neut % (Auto) Lymph % (Auto) [place] % (Auto) Eos % (Auto) Baso % (Auto) Neut # (Auto) Lymph # (Auto) [place] # (Auto) Eos # (Auto) Baso # (Auto) WBC Differential Differential Comment ESR 69 H PT INR APTT Sodium Potassium Chloride Carbon Dioxide Anion Gap BUN Creatinine Estimated GFR POC Glucose Random Glucose Lactic Acid 1.8 Calcium Magnesium Total Bilirubin AST ALT Alkaline Phosphatase Total Creatine Kinase Troponin I C-Reactive Protein Total Protein Albumin Lipase Beta-Hydroxybutyric Acd 0.15 05/08/18 07:59 WBC RBC Hgb Hct MCV MCH MCHC RDW Plt Count MPV Neut % (Auto) Lymph % (Auto) [place] % (Auto) Eos % (Auto) Baso % (Auto) Neut # (Auto) Lymph # (Auto) [place] # (Auto) Eos # (Auto) Baso # (Auto) WBC Differential Differential Comment ESR PT INR APTT Sodium Potassium Chloride Carbon Dioxide Anion Gap BUN Creatinine Estimated GFR POC Glucose 151 H Random Glucose Lactic Acid Calcium Magnesium Total Bilirubin AST ALT Alkaline Phosphatase Total Creatine Kinase Troponin I C-Reactive Protein Total Protein Albumin Lipase Beta-Hydroxybutyric Acd - Diagnostic results Imaging: Impressions Chest X-Ray 05/07/18 23:29 CONCLUSION: No acute cardiopulmonary disease identified. Assessment and Plan - Assessment and Plan Celestino has a history of MRSA infections. He is diabetic and also has a IV drug use addiction. He has developed infections of his right arm and left hand. Treatment options were discussed. At this point I would recommend irrigation and debridement of his right arm abscess and right elbow. He has possible septic arthritis of his elbow. The risk and benefits of surgery discussed in depth with patient to include: Bleeding, infection, injuries to arteries nerves or blood vessels, weakness or numbness of hand, elbow stiffness, and recurrent infection. All questions were answered. I will plan on surgery today. Cellulitis and probable septic joint of the right elbow. Remain n.p.o. We will plan on irrigation debridement of the right elbow and arm Sign consents Hold antibiotics until cultures are performed this morning Occupational therapy consult Infectious disease consult for antibiotics
[2018-05-08] MEDS ORDERED: Post-op Orders (for Pharmacy) OTHER STA (10:51)
--- NOTE | 2018-05-08 10:54 | P.OP ---
- Preoperative Diagnosis (1) Abscess of bursa of right elbow (2) Right elbow pain Date of procedure: 05/08/18 Procedure: Irrigation and debridement of right arm abscess Right elbow arthrotomy with irrigation and debridement Anesthesia: [id number] Surgeon: Porter Clancy MD Laborer [employer]: BINDU Mckeon PA-C The surgical procedure was assisted by my physician laboratory assistant. My P.A. presence was necessary throughout this case for the manipulation and positioning of the surgical extremity. My P.A. was assisting me throughout the duration of this procedure. The skill set of a physician laboratory assistant was medically necessary to complete this procedure. During the surgical case the operating room surgical technologist was working at the back table and the physician laboratory assistant was directly assisting me. Operation and Findings: Celestino was seen and evaluated preoperatively. He had pain and swelling of the right elbow with obvious infection of the medial arm. Informed consent was obtained and operative site was marked. He is brought to operating room. Is given IV sedation and general anesthesia right arm was prepped with alcohol followed Hibiclens and draped in usual sterile fashion. Timeout procedure was performed. Antibiotics were held until cultures were obtained. Procedure began with irrigation and debridement of the medial arm abscess. A 2 inch incision was made directly over the abscess. Full-thickness flaps were elevated. Purulent material was identified. Fluid was obtained for cultures from the abscess. Curettes and rongeurs were used to perform excisional debridement. The wound was now thoroughly irrigated with pulsatile lavage. At this point the wound appeared to be clean. This was closed with 3-0 PDS and 3- 0 nylon. A [place] drain was placed into the wound. Next attention was turned to the right elbow arthrotomy. A 2 inch incision was made over the lateral elbow joint. Subcu tissue assist with Bovie. A capsulotomy was performed. The elbow joint was identified. Synovial fluid was obtained for cultures. The elbow joint fluid was relatively clear but did have a slight cloudy appearance. The elbow joint was now thoroughly irrigated with pulsatile lavage. This incision was closed with 3-0 PDS and marc. Sterile dressings were applied. Patient was awakened and transferred to recovery in stable condition. Antibiotics were administered after cultures were obtained.
[2018-05-08] MEDS ORDERED: fentaNYL Citrate Inj 100 MCG/2 ML Ampul ONE (10:57)
[2018-05-08] MEDS ORDERED: HYDROmorphone PF Inj 2 MG/ML Vial ONE ×3 (11:13→11:51)
[2018-05-08] MEDS ORDERED: Lidocaine 1% Inj 50 ML Vial ONE (12:30)
--- NOTE | 2018-05-08 15:52 | P.CONID ---
History of Present Illness Service: ID Consult date: 05/08/18 Requesting Physician: Nathan Damon Reason for Consult: Sepsis with widespread abscesses, history of heroin abuse Primary Care Provider: No Primary Care Physician History of Present Illness: 32 yo diabetic male who is an active IV drug user who used IV drugs about 8 days ago presented with painful, swollen RUE, pain in the R elbow, as well as L hand Hehad fever of 101.3 on presentation His blood clx are negative He underwent Irrigation and debridement of right arm abscess and Right elbow arthrotomy with irrigation and debridement on 05/08/[address] Porter Clancy Cl are P, Gstain showed GPC in clusters Blood clx are NGTD @ 1 day Pt was started on azactam, vancomnycin and flagyl Review of Systems All other systems reviewed negative except as stated in HPI PMFSH - History History Provided By: Patient - Medical History Medical History: Medical History (Last Reviewed 05/08/18 @ 15:18 by Adelia Dotson MD) Abscess (Acute) IVDU (intravenous drug user) (Acute) Heroin abuse (Acute) Hepatitis C (Acute) Diabetes (Acute) Hand abscess MRSA infection - Surgical History Surgical History: Surgical History (Last Reviewed 05/08/18 @ 15:18 by Adelia Dotson MD) History of orthopedic surgery (Acute) - Family History Family History: Family History (Last Reviewed 05/08/18 @ 15:18 by Adelia Dotson MD) Mother Aneurysm Heart attack Stroke - Social History I have reviewed the patient's Social History: Yes - Tobacco History Second Hand Smoke Exposure: Yes Tobacco Use In Past 30 Days: Yes Smoking Status: Heavy tobacco smoker Tobacco Type: Cigarettes Packs Per Day: 1 Cigarettes Per Day: 20.0 - Alcohol History How Often Do You Have a Drink Containing Alcohol: Never - Substance Use History Substance History: Active Abuse - Substance Use Type Heroin Status: Active Route Used: Intravenously Reason for Use: Calm Down - Travel History Recent Travel in the [place] Within the Last 8 Weeks: No Recent Travel Out of the Country Within the Last 8 Weeks: No - Immunization History Tetanus Immunization: >5 Years Hx Influenza Vaccine This Season: No Medications and Allergies Active Medications: Active Medications Hydrocodone Bitart/Acetaminophen ([place] 7.5/325) 1 tab PO Q3H PRN PRN Reason: Pain Scale 3-10 Last Admin: 05/08/18 15:10 Dose: 1 tab Al Hydroxide/Mg Hydroxide (Milk Of Magnesia Liq) 30 ml PO Q12H PRN PRN Reason: Mild Constipation Bisacodyl (Dulcolax Supp) 10 mg RECTAL DAILY PRN PRN Reason: SEVERE CONSITIPATION Dextrose (D50w Vial) 50 ml IV.PUSH UNSCH PRN PRN Reason: PER HYPOGLYCEMIA PROTOCOL Diphenhydramine HCl (Benadryl) 25 mg PO Q6H PRN PRN Reason: ITCHING Glucagon (Glucagon Inj) 1 mg OTHER PRN PRN PRN Reason: for Hypoglycemia Protocol Aztreonam 2 gm/ Sodium (Chloride) 100 mls @ 200 mls/hr IV.SIG Q6H [facility] Last Admin: 05/08/18 08:20 Dose: Not Given Metronidazole/Sodium Chloride (Flagyl 500 Mg Inj) 100 mls @ 100 mls/hr IV.SIG Q6H [facility] Last Infusion: 05/08/18 07:59 Dose: Infused Vancomycin HCl 750 mg/ Sodium (Chloride) 257.5 mls @ 250 mls/hr IV.SIG Q8H [facility] Last Admin: 05/08/18 10:37 Dose: Not Given Lactated Ringer's (Lr 1000 Ml Inj) 1,000 mls @ 60 mls/hr IV.CONT .[id number] [facility] Last Admin: 05/08/18 11:00 Dose: 60 mls/hr Insulin Aspart (Novolog Insulin Correctional Sugar Inj) 0 unit SQ ACHS [facility]; Protocol Last Admin: 05/08/18 15:14 Dose: Not Given Insulin Detemir (Levemir Inj) 5 unit SQ BID [facility] Last Admin: 05/08/18 08:26 Dose: Not Given Lactulose (Lactulose Liq) 30 ml PO DAILY PRN PRN Reason: SEVERE CONSITIPATION Methadone HCl (Dolophine) 20 mg PO DAILY [facility] Miscellaneous Information ([facility] Ordered Lab Info) 1 each OTHER ONCE ONE Stop: 05/08/18 17:46 Miscellaneous Information ([facility]) 0 each OTHER UNSCH PRN PRN Reason: SEE LABEL COMMENTS Stop: 05/09/18 10:50 Morphine Sulfate (Morphine Inj) 3 mg IV.PUSH Q3H PRN PRN Reason: BREAKTHROUGH PAIN Ondansetron HCl (Zofran Odt) 4 mg PO Q6H PRN PRN Reason: NAUSEA OR VOMITING Ondansetron HCl (Zofran Inj) 4 mg IV.PUSH Q6H PRN PRN Reason: NAUSEA OR VOMITING Pharmacy Profile Note (Vancomycin Consult Pharmacy) 1 each OTHER UNSCH PRN PRN Reason: Pharmacy to dose Senna/Docusate Sodium (Macrina-Colace) 1 tab PO BID [facility] Sennosides (Senokot) 17.2 mg PO Q12H PRN PRN Reason: Moderate Constipation Sodium Chloride (Ns Flush) 2 ml IV.FLUSH BID [facility] Sodium Chloride (Ns Flush) 2 ml IV.FLUSH UNSCH PRN PRN Reason: FLUSH AFTER USING IV ACCESS Allergies Allergy/AdvReac Type Severity Reaction Status Date / Time penicillin G Allergy Severe Hives Verified 05/07/18 22:55 Exam Vital signs: Vital Signs 05/07/18 22:55 05/07/18 23:35 05/08/18 04:01 Temperature 101.3 F H Pulse Rate 101 H 96 H 75 Respiratory Rate 16 20 12 Blood Pressure 160/92 H 143/90 H 120/63 Pulse Oximetry 98 97 100 05/08/18 05:01 05/08/18 09:24 05/08/18 10:51 Temperature 98.2 F 98.2 F 98.7 F Pulse Rate 81 76 72 Respiratory Rate 20 16 Blood Pressure 127/60 135/63 118/56 L Pulse Oximetry 98 98 99 05/08/18 11:00 05/08/18 11:15 05/08/18 11:30 Temperature Pulse Rate 69 70 69 Respiratory Rate 16 11 L 15 Blood Pressure 146/71 H 176/82 H 166/79 H Pulse Oximetry 100 98 97 05/08/18 11:45 05/08/18 12:00 Temperature 98.1 F Pulse Rate 69 98 H Respiratory Rate 12 18 Blood Pressure 159/75 H 173/80 H Pulse Oximetry 97 99 Intake & Output 05/07/18 05/08/18 05/08/18 18:59 06:59 18:59 Intake Total 2650 / 2650 700 / 700 Output Total 20 / 20 Balance 2650 / 2650 680 / 680 Weight 75.3 kg Intake: IV 2450 / 2450 100 / 100 Azactam Inj 2 GM In NS Inj 100 100 / 100 ML @ 200 mls/hr IV.SIG STAT [facility] Rx#:[id number] NS Inj 1,000 ML @ Wide Open IV. 1999 SIG BOLUS ONE Rx#:[id number] Vancomycin Inj 1,000 MG In NS 250 / 250 Inj 250 ML @ 250 mls/hr IV.SIG STAT [facility] Rx#:[id number] Flagyl 500 MG Inj 100 ML @ 100 100 / 100 100 / 100 mls/hr IV.SIG Q6H [facility] Rx#: [id number] Anesthesia Amount 600 / 600 Other 200 / 200 Output: Estimated Blood Loss 20 / Other: Other Intake Source Saline Solution # Voids 1 Date of Last Bowel Movement 05/07/18 05/07/18 Weight On Admission 75.296 kg - Constitutional no acute distress, average body habitus - Routine HEENT Exam Head: Present: normocephalic, atraumatic Eye: Present: EOMI, PERRL ENT: Present: mucous membranes moist, oropharynx clear - Routine Neck Exam Present: supple, full ROM - Routine Respiratory Exam Present: CTA bilaterally. Absent: accessory muscle use, decreased breath sounds , respiratory distress, rhonchi - Routine Cardiovascular Exam Present: RRR, S1, S2. Absent: murmur, gallop, rubs - Routine Abdominal Exam Present: soft, normoactive bowel sounds. Absent: tenderness, distended, organomegaly, mass - Routine Extremities Exam Present: edema (RUE). Absent: cyanosis, clubbing Comments: Status localis: RUE with post op dressing in place, + edema, erythema- prominent on foreamr, no s/o compartment sd fingers free of neurovascular deficits L hand with dressing in place, some serosang dc on - Routine Skin Exam Present: dry, warm. Absent: rash - Routine Neurological Exam Present: alert, oriented X3, CN II-XII intact, moving all extremities, vision grossly intact, hearing grossly intact, normal speech - Routine Psychiatric Exam Absent: normal affect (irritable), cooperative Results - Labs CBC & Chem 7: 05/07/18 23:45 05/07/18 23:45 Labs: Laboratory Results - last 24 hr 05/07/18 05/07/18 05/07/18 23:45 23:45 23:45 WBC 10.6 RBC 4.63 Hgb 13.0 Hct 38.8 L MCV 83.6 MCH 28.1 MCHC 33.6 RDW 14.3 Plt Count 170 MPV 7.8 Neut % (Auto) 82.5 H Lymph % (Auto) 8.2 L Metcalfe % (Auto) 7.9 Eos % (Auto) 1.1 Baso % (Auto) 0.3 Neut # (Auto) 8.7 H Lymph # (Auto) 0.9 L [place]calfe # (Auto) 0.8 Eos # (Auto) 0.1 Baso # (Auto) 0.0 WBC Differential . Differential Comment Auto diff final ESR PT 10.0 INR 1.0 APTT 29.0 Sodium 131 L Potassium 4.3 Chloride 92 L Carbon Dioxide 28.0 Anion Gap 11 BUN 14 Creatinine 1.23 Estimated GFR 68 L POC Glucose Random Glucose 596 H* Lactic Acid Calcium 8.6 Magnesium 1.9 Total Bilirubin 0.5 AST 22 ALT 54 Alkaline Phosphatase 93 Total Creatine Kinase 50 Troponin I Less than 0.02 L C-Reactive Protein 14.80 H Total Protein 8.4 H Albumin 3.4 Lipase 51 L Beta-Hydroxybutyric Acd 05/07/18 05/07/18 05/07/18 23:45 23:45 23:45 WBC RBC Hgb Hct MCV MCH MCHC RDW Plt Count MPV Neut % (Auto) Lymph % (Auto) Metcalfe % (Auto) Eos % (Auto) Baso % (Auto) Neut # (Auto) Lymph # (Auto) Metcalfe # (Auto) Eos # (Auto) Baso # (Auto) WBC Differential Differential Comment ESR 69 H PT INR APTT Sodium Potassium Chloride Carbon Dioxide Anion Gap BUN Creatinine Estimated GFR POC Glucose Random Glucose Lactic Acid 1.8 Calcium Magnesium Total Bilirubin AST ALT Alkaline Phosphatase Total Creatine Kinase Troponin I C-Reactive Protein Total Protein Albumin Lipase Beta-Hydroxybutyric Acd 0.15 05/08/18 05/08/18 07:59 11:03 WBC RBC Hgb Hct MCV MCH MCHC RDW Plt Count MPV Neut % (Auto) Lymph % (Auto) Metcalfe % (Auto) Eos % (Auto) Baso % (Auto) Neut # (Auto) Lymph # (Auto) Metcalfe # (Auto) Eos # (Auto) Baso # (Auto) WBC Differential Differential Comment ESR PT INR APTT Sodium Potassium Chloride Carbon Dioxide Anion Gap BUN Creatinine Estimated GFR POC Glucose 151 H 182 H Random Glucose Lactic Acid Calcium Magnesium Total Bilirubin AST ALT Alkaline Phosphatase Total Creatine Kinase Troponin I C-Reactive Protein Total Protein Albumin Lipase Beta-Hydroxybutyric Acd - Imaging Impressions Chest X-Ray 05/07/18 23:29 CONCLUSION: No acute cardiopulmonary disease identified. Assessment and Plan - Plan IV DU RUE abscess and septic elbow sp I+D with GPC on Gstain cont vancomycin dc azactam, flagyl if no co-infection per clx 2 D echo and if + blood clx will get DANELLE
[2018-05-08] MEDS ORDERED: Pharmacy Ordered Lab Info OTHER ONE (17:45)
--- NOTE | 2018-05-08 20:37 | P.CON ---
History of Present Illness Service: Hand surgery Consult date: 05/08/18 Primary Care Provider: No Primary Care Physician History of Present Illness: History obtained from chart and patient has patient seems unsure/poor historian. 32-year-old male with a history of MRSA, heroin addiction, insulin-dependent diabetes mellitus who presents with a 7-day history of constant sharp nonradiating pain in right medial elbow as well as the left dorsal/medial hand. Patient reports most recent injection was about a week ago, however he says that current infection is likely secondary to saw palmetto. He also reports a one-week history of subjective fevers, chills, nausea with nonbloody vomiting. Denies any diarrhea, constipation, dysuria. Except as noted in the HPI review of systems negative to presenting complaint [facility] Medication list reviewed - History History Provided By: Patient - Medical History Medical History: Medical History (Last Updated 05/08/18 @ 00:13 by Fe Mckeon MD) Abscess (Acute) IVDU (intravenous drug user) (Acute) Heroin abuse (Acute) Hepatitis C (Acute) Diabetes (Acute) Hand abscess MRSA infection - Surgical History Surgical History: Surgical History (Last Updated 02/24/18 @ 16:15 by Vida Schultz) History of orthopedic surgery (Acute) - Family History Family History: Family History (Last Updated 02/24/18 @ 16:23 by Vida Schultz) Mother Aneurysm Heart attack Stroke - Tobacco History Second Hand Smoke Exposure: Yes Tobacco Use In Past 30 Days: Yes Smoking Status: Heavy tobacco smoker Tobacco Type: Cigarettes Packs Per Day: 1 Cigarettes Per Day: 20.0 - Alcohol History How Often Do You Have a Drink Containing Alcohol: Never - Substance Use History Substance History: Active Abuse - Substance Use Type Heroin Status: Active Route Used: Intravenously Reason for Use: Feels Good - Travel History Recent Travel in the [place] Within the Last 8 Weeks: No Recent Travel Out of the Country Within the Last 8 Weeks: No - Immunization History Tetanus Immunization: >5 Years Hx Influenza Vaccine This Season: No [facility] - History History Provided By: Patient - Medical History Medical History: Medical History (Last Reviewed 05/08/18 @ 15:18 by Adelia Dotsno MD) Abscess (Acute) IVDU (intravenous drug user) (Acute) Heroin abuse (Acute) Hepatitis C (Acute) Diabetes (Acute) Hand abscess MRSA infection - Surgical History Surgical History: Surgical History (Last Reviewed 05/08/18 @ 15:18 by Adelia Dotson MD) History of orthopedic surgery (Acute) - Family History Family History: Family History (Last Reviewed 05/08/18 @ 15:18 by Adelia Dotson MD) Mother Aneurysm Heart attack Stroke - Tobacco History Second Hand Smoke Exposure: Yes Tobacco Use In Past 30 Days: Yes Smoking Status: Heavy tobacco smoker Tobacco Type: Cigarettes Packs Per Day: 1 Cigarettes Per Day: 20.0 - Alcohol History How Often Do You Have a Drink Containing Alcohol: Never - Substance Use History Substance History: Active Abuse - Substance Use Type Heroin Status: Active Route Used: Intravenously Reason for Use: Calm Down - Travel History Recent Travel in the [place] Within the Last 8 Weeks: No Recent Travel Out of the Country Within the Last 8 Weeks: No - Immunization History Tetanus Immunization: >5 Years Hx Influenza Vaccine This Season: No Medications and Allergies Active Medications: Active Medications Hydrocodone Bitart/Acetaminophen ([place] 7.5/325) 1 tab PO Q3H PRN PRN Reason: Pain Scale 3-10 Last Admin: 05/08/18 18:57 Dose: 1 tab Al Hydroxide/Mg Hydroxide (Milk Of [place]wade Liq) 30 ml PO Q12H PRN PRN Reason: Mild Constipation Bisacodyl (Dulcolax Supp) 10 mg RECTAL DAILY PRN PRN Reason: SEVERE CONSITIPATION Dextrose (D50w Vial) 50 ml IV.PUSH UNSCH PRN PRN Reason: PER HYPOGLYCEMIA PROTOCOL Diphenhydramine HCl (Benadryl) 25 mg PO Q6H PRN PRN Reason: ITCHING Glucagon (Glucagon Inj) 1 mg OTHER PRN PRN PRN Reason: for Hypoglycemia Protocol Aztreonam 2 gm/ Sodium (Chloride) 100 mls @ 200 mls/hr IV.SIG Q6H [facility] Last Admin: 05/08/18 08:20 Dose: Not Given Metronidazole/Sodium Chloride (Flagyl 500 Mg Inj) 100 mls @ 100 mls/hr IV.SIG Q6H [facility] Last Admin: 05/08/18 18:53 Dose: 100 mls/hr Vancomycin HCl 750 mg/ Sodium (Chloride) 257.5 mls @ 250 mls/hr IV.SIG Q8H [facility] Last Infusion: 05/08/18 19:09 Dose: Infused Lactated Ringer's (Lr 1000 Ml Inj) 1,000 mls @ 60 mls/hr IV.CONT .[id number] [facility] Last Admin: 05/08/18 11:00 Dose: 60 mls/hr Insulin Aspart (Novolog Insulin Correctional Sugar Inj) 0 unit SQ ACHS [facility]; Protocol Last Admin: 05/08/18 17:21 Dose: 12 unit Insulin Detemir (Levemir Inj) 5 unit SQ BID [facility] Last Admin: 05/08/18 08:26 Dose: Not Given Lactulose (Lactulose Liq) 30 ml PO DAILY PRN PRN Reason: SEVERE CONSITIPATION Methadone HCl (Dolophine) 20 mg PO DAILY [facility] Miscellaneous Information ([facility]) 0 each OTHER UNSCH PRN PRN Reason: SEE LABEL COMMENTS Stop: 05/09/18 10:50 Morphine Sulfate (Morphine Inj) 3 mg IV.PUSH Q3H PRN PRN Reason: BREAKTHROUGH PAIN Ondansetron HCl (Zofran Odt) 4 mg PO Q6H PRN PRN Reason: NAUSEA OR VOMITING Ondansetron HCl (Zofran Inj) 4 mg IV.PUSH Q6H PRN PRN Reason: NAUSEA OR VOMITING Pharmacy Profile Note (Vancomycin Consult Pharmacy) 1 each OTHER UNSCH PRN PRN Reason: Pharmacy to dose Senna/Docusate Sodium (Macrina-Colace) 1 tab PO BID [facility] Sennosides (Senokot) 17.2 mg PO Q12H PRN PRN Reason: Moderate Constipation Sodium Chloride (Ns Flush) 2 ml IV.FLUSH BID [facility] Sodium Chloride (Ns Flush) 2 ml IV.FLUSH UNSCH PRN PRN Reason: FLUSH AFTER USING IV ACCESS Allergies Allergy/AdvReac Type Severity Reaction Status Date / Time penicillin G Allergy Severe Hives Verified 05/07/18 22:55 Physical Exam Vital signs: Vital Signs 05/07/18 22:55 05/07/18 23:35 05/08/18 04:01 Temperature 101.3 F H Pulse Rate 101 H 96 H 75 Respiratory Rate 16 20 12 Blood Pressure 160/92 H 143/90 H 120/63 Pulse Oximetry 98 97 100 05/08/18 05:01 05/08/18 09:24 05/08/18 10:51 Temperature 98.2 F 98.2 F 98.7 F Pulse Rate 81 76 72 Respiratory Rate 20 16 Blood Pressure 127/60 135/63 118/56 L Pulse Oximetry 98 98 99 05/08/18 11:00 05/08/18 11:15 05/08/18 11:30 Temperature Pulse Rate 69 70 69 Respiratory Rate 16 11 L 15 Blood Pressure 146/71 H 176/82 H 166/79 H Pulse Oximetry 100 98 97 05/08/18 11:45 05/08/18 12:00 05/08/18 16:00 Temperature 98.1 F 97.4 F L Pulse Rate 69 98 H 68 Respiratory Rate 12 18 18 Blood Pressure 159/75 H 173/80 H 176/77 H Pulse Oximetry 97 99 98 Intake & Output 05/08/18 05/08/18 05/09/18 06:59 18:59 06:59 Intake Total 2650 / 2650 1500 / 1500 257.5 / 257.5 Output Total 870 / 870 Balance 2650 / 2650 630 / 630 257.5 / 257.5 Weight 75.3 kg Intake: IV 2450 / 2450 100 / 100 257.5 / 257.5 Azactam Inj 2 GM In NS Inj 100 100 / 100 ML @ 200 mls/hr IV.SIG STAT STA Rx#:[id number] NS Inj 1,000 ML @ Wide Open IV. 1999 / 1999 SIG BOLUS ONE Rx#:[id number] Vancomycin Inj 1,000 MG In NS 250 / 250 Inj 250 ML @ 250 mls/hr IV.SIG STAT STA Rx#:[id number] Vancomycin Inj 750 MG In NS Inj 257.5 / 257.5 250 ML @ 250 mls/hr IV.SIG Q8H [facility] Rx#:[id number] Flagyl 500 MG Inj 100 ML @ 100 100 / 100 100 / 100 mls/hr IV.SIG Q6H [facility] Rx#: [id number] Oral 800 / 800 Anesthesia Amount 600 / 600 Other 200 / 200 Output: Urine 850 / 850 Estimated Blood Loss / Other: Other Intake Source Saline Solution # Voids 1 Date of Last Bowel Movement 05/07/18 05/07/18 Weight On Admission 75.296 kg Narrative: No apparent anxiety moist mucous membranes PERRLA skin without rash respirations nonlabored moves all 4 extremities to command digits warm well perfused Left dorsal hand with draining sinus though there appears significant undrained purulence. Significant purulence expressible with minimal palpation of the area. Erythema extends from dorsal bases of the central digits, proximally to the dorsal wrist crease Entire area is exquisitely tender Do not appreciate volar fluctuance Assessment and Plan - Assessment (1) Abscess Code(s): L02.91 - Cutaneous abscess, unspecified Status: Acute - Plan 32-year-old male with left dorsal hand abscess Risks benefits and alternative treatments discussed All questions answered and the patient expressed understanding Patient elected to assume the risks of incision and drainage of above abscess Informed consent obtained After blocking the area with 1% lidocaine plain, the surgical site was prepped and draped in the usual sterile fashion. The abscess cavity was probed and found to be roughly 3 cm longitudinally by 2 cm transversely. A second sinus was also appreciated, from which the undrained purulence was expressible. The skin bridge was incised, and the abscess cavity bluntly probed. This allowed for excellent drainage of copious purulence. Cultures were sent. The abscess cavity was packed loosely with iodoform gauze and dressed with 4 x 4 gauze and Sandra. Procedure was well-tolerated Nursing to remove iodoform packing, soaked in warm soapy water for roughly 10 minutes, and then replace iodoform packing twice daily Antibiotics per ID Please call with questions
[2018-05-08] MEDS: Senna/Docusate Sodium 8.6/50 MG Tablet PO SCH (22:10)
[2018-05-09] MEDS ORDERED: Pharmacy Ordered Lab Info OTHER ONE ×2 (01:45→17:45)
[2018-05-09] MEDS: Aztreonam Inj 2 GM in Sodium Chloride 0.9% Inj 100 ML IV.SIG SCH ×4 (02:14→20:08)
[2018-05-09] MEDS: Vancomycin Inj 750 MG in Sodium Chlor 0.9% Inj 250 ML IV.SIG SCH ×3 (03:13→19:26)
[2018-05-09] MEDS: Insulin Detemir Inj 1,000 UNIT/10 ML Vial SQ SCH ×2 (08:59→20:07)
[2018-05-09] MEDS: Insulin NovoLOG Aspart Correctional Sugar Inj SQ SCH ×4 (08:59→20:09)
[2018-05-09] MEDS ORDERED: Methadone 10 MG Tablet PO SCH (09:00)
[2018-05-09] MEDS: Senna/Docusate Sodium 8.6/50 MG Tablet PO SCH ×2 (09:01→20:07)
--- NOTE | 2018-05-09 09:39 | P.PNOP ---
Subjective Interval history: POD 1 s/p I&D right elbow patient reports signifcant pain. reports that he cannot move his elbow and that has increased swelling. requesting more pain meds Physical Exam Vital signs: Vital Signs 05/08/18 10:51 05/08/18 11:00 05/08/18 11:15 Temperature 98.7 F Pulse Rate 72 69 70 Respiratory Rate 16 16 11 L Blood Pressure 118/56 L 146/71 H 176/82 H Pulse Oximetry 99 100 98 05/08/18 11:30 05/08/18 11:45 05/08/18 12:00 Temperature 98.1 F Pulse Rate 69 69 98 H Respiratory Rate 15 12 18 Blood Pressure 166/79 H 159/75 H 173/80 H Pulse Oximetry 97 97 99 05/08/18 16:00 05/08/18 20:00 05/09/18 00:00 Temperature 97.4 F L 98.8 F 98.4 F Pulse Rate 68 81 77 Respiratory Rate 18 21 20 Blood Pressure 176/77 H 171/78 H 145/67 H Pulse Oximetry 98 96 97 05/09/18 08:00 Temperature 97.7 F Pulse Rate 67 Respiratory Rate 18 Blood Pressure 143/68 H Pulse Oximetry 98 Intake & Output 05/08/18 05/09/18 05/09/18 18:59 06:59 18:59 Intake Total 1500 / 1500 3657.5 / 3657.5 100 / 100 Output Total 870 / 870 1600 / 1600 Balance 630 / 630 2057.5 / 2057.5 100 / 100 Weight 75.3 kg Intake: IV 100 / 100 1657.5 / 1657.5 100 / 100 LR 1000 mL Inj 1,000 ML @ 60 1000 / 1000 mls/hr IV.CONT .[id number] [facility] Rx# :[id number] Azactam Inj 2 GM In NS Inj 100 200 / 200 ML @ 200 mls/hr IV.SIG Q6H [facility] Rx#:[id number] Vancomycin Inj 750 MG In NS Inj 257.5 / 257.5 250 ML @ 250 mls/hr IV.SIG Q8H [facility] Rx#:[id number] Flagyl 500 MG Inj 100 ML @ 100 100 / 100 200 / 200 100 / 100 mls/hr IV.SIG Q6H [facility] Rx#: [id number] Oral 800 / 800 2000 / 2000 Anesthesia Amount 600 / 600 Output: Urine 850 / 850 1600 / 1600 Estimated Blood Loss Other: Date of Last Bowel Movement 05/07/18 05/07/18 Narrative: RUE: dressings clean and dry. intact. NVI. full sensation to median/ulnar nerve. able to make a fist and extend fingers completely. Results - Labs CBC & Chem 7: 05/07/18 23:45 05/07/18 23:45 Laboratory Results - last 24 hr 05/08/18 05/08/18 05/08/18 11:03 17:15 21:58 POC Glucose 182 H 490 H* 171 H 05/09/18 08:04 POC Glucose 254 H Microbiology 05/08/18 13:00 Abscess - Hand Gram Stain - Final 05/08/18 10:23 Fluid - Other Gram Stain - Final 05/08/18 10:23 Fluid - Other Gram Stain - Final 05/07/18 23:45 Blood - Peripheral Aerobic Blood Culture - Preliminary No growth in 1 day 05/07/18 23:45 Blood - Peripheral Anaerobic Blood Culture - Preliminary No growth in 1 day 05/07/18 23:40 Blood - Peripheral Aerobic Blood Culture - Preliminary No growth in 1 day 05/07/18 23:40 Blood - Peripheral Anaerobic Blood Culture - Preliminary No growth in 1 day 05/08/18 02:40 Abscess - Arm Gram Stain - Final Assessment and Plan - Assessment and Plan 1) Right Elbow Abscess s/p I&D - POD 1 -WBAT -OT for ROM -daily dressing changes POD 2 -monitor cultures -Infect Dz to tailor Abx per cultures -f/u with [facility] or SUZANNE in 2 weeks for incision check
[2018-05-09] MEDS: Morphine Inj 4 MG/ML Vial IV.PUSH PRN ×2 (10:09→22:30)
--- NOTE | 2018-05-09 11:24 | P.PN ---
Subjective Interval history: This is a pleasant 32 y/o Male with MRSA history, Heroin addiction Insulin dependent DM, who came to ER with seven days of constant sharp pain right medial elbow, as we know he has IVDU, Hepatitis C, Hand abscess history. with Diagnosis of Abscess of bursa of right elbow, status post I and D of right arm abscess, right elbow arthrotomy with irrigation and debridement. as per ID has GPC on Gram stain recommended to continue Vancomycin and stopped Azactam and Flagyl. asked for 2D echo. if Positive blood cultures will get DANELLE. Seen in his bedroom he is asking to resume his Methadone he was using 70 mg daily, I found the last script given by Doctor Camron for 28 tablets with Methadone 70 mg daily. Physical Exam Vital signs: Vital Signs 05/08/18 11:30 05/08/18 11:45 05/08/18 12:00 Temperature 98.1 F Pulse Rate 69 69 98 H Respiratory Rate 15 12 18 Blood Pressure 166/79 H 159/75 H 173/80 H Pulse Oximetry 97 97 99 05/08/18 16:00 05/08/18 20:00 05/09/18 00:00 Temperature 97.4 F L 98.8 F 98.4 F Pulse Rate 68 81 77 Respiratory Rate 18 21 20 Blood Pressure 176/77 H 171/78 H 145/67 H Pulse Oximetry 98 96 97 05/09/18 08:00 Temperature 97.7 F Pulse Rate 67 Respiratory Rate 18 Blood Pressure 143/68 H Pulse Oximetry 98 Intake & Output 05/08/18 05/09/18 05/09/18 18:59 06:59 18:59 Intake Total 1500 / 1500 3915.0 / 3915.0 100 / 100 Output Total 870 / 870 1600 / 1600 Balance 630 / 630 2315.0 / 2315.0 100 / 100 Weight 75.3 kg Intake: IV 100 / 100 1915.0 / 1915.0 100 / 100 LR 1000 mL Inj 1,000 ML @ 60 1000 / 1000 mls/hr IV.CONT .[id number] EDIE Rx# :[id number] Azactam Inj 2 GM In NS Inj 100 200 / 200 ML @ 200 mls/hr IV.SIG Q6H EDIE Rx#:[id number] Vancomycin Inj 750 MG In NS Inj 515.0 / 515.0 250 ML @ 250 mls/hr IV.SIG Q8H EDIE Rx#:[id number] Flagyl 500 MG Inj 100 ML @ 100 100 / 100 200 / 200 100 / 100 mls/hr IV.SIG Q6H EDIE Rx#: [id number] Oral 800 / 800 2000 / 2000 Anesthesia Amount 600 / 600 Output: Urine 850 / 850 1600 / 1600 Estimated Blood Loss Other: Date of Last Bowel Movement 05/07/18 05/07/18 Narrative: GENERAL: This is a well-nourished, well-developed patient, in no apparent distress. CARDIOVASCULAR: Regular rate and rhythm without murmurs, gallops, or rubs. RESPIRATORY: Clear to auscultation. Breath sounds equal bilaterally. No wheezes , rales, or rhonchi. GASTROINTESTINAL: Abdomen soft, non-tender, nondistended. Normal active bowel sounds MUSCULOSKELETAL: Extremities without clubbing, cyanosis, or edema. NEURO: Alert & Oriented x4 to person, place, time, situation. Moves all ext x4 Results - Labs CBC & Chem 7: 05/07/18 23:45 05/07/18 23:45 Laboratory Results - last 24 hr 05/08/18 05/08/18 05/09/18 17:15 21:58 08:04 POC Glucose 490 H* 171 H 254 H Microbiology 05/07/18 23:45 Blood - Peripheral Aerobic Blood Culture - Preliminary No growth in 2 days 05/07/18 23:45 Blood - Peripheral Anaerobic Blood Culture - Preliminary No growth in 2 days 05/07/18 23:40 Blood - Peripheral Aerobic Blood Culture - Preliminary No growth in 2 days 05/07/18 23:40 Blood - Peripheral Anaerobic Blood Culture - Preliminary No growth in 1 day 05/08/18 13:00 Abscess - Hand Gram Stain - Final 05/08/18 10:23 Fluid - Other Gram Stain - Final 05/08/18 10:23 Fluid - Other Gram Stain - Final 05/08/18 02:40 Abscess - Arm Gram Stain - Final - Procedures (1) Abscess of bursa of right elbow (2) Right elbow pain Date of procedure: 05/08/18 Procedure: Irrigation and debridement of right arm abscess Right elbow arthrotomy with irrigation and debridement Anesthesia: GETA Surgeon: Porter Clancy MD Assessment and Plan - Plan //Severe sepsis //Suspected MRSA cellulitis/abscesses of right elbow, left hand = Fever 101.3, tachycardia of 101, ESR 69, right elbow and left hand abscess. Severe due to hyperglycemia in the 500s on admission. = MRSA history, Heroin addiction Insulin dependent DM, who came to ER with seven days of constant sharp pain right medial elbow, as we know he has IVDU, Hepatitis C, Hand abscess history. with Diagnosis of Abscess of bursa of right elbow, status post I and D of right arm abscess , right elbow arthrotomy with irrigation and debridement. as per ID has GPC on Gram stain recommended to continue Vancomycin and stopped Azactam and Flagyl. asked for 2D echo. if Positive blood cultures will get DANELLE. //Type 1 diabetes with hyperglycemia in the 500s on admission Likely secondary to sepsis as well as general noncompliance. Will start on IV fluids, insulin sliding scale and low-dose Levemir. //Chronic heroin addiction. Patient says that he is on methadone 70 mg daily. I found a script by Doctor Lindsay for this amount of Methadone started here and he will need to resume with Methadone clinic on discharge not able to prescribe too many tablets of this medicine. DVT prophylaxis with Lovenox Code Status: full code. Discussed Condition With: patient and nurse. Discharge Planning: Once cleared by Specialists.
--- NOTE | 2018-05-09 13:00 | ECHRPT ---
Indication: SEPSIS POSS ENDOCARDITIS CONCLUSIONS Normal left ventricular size. Wall thickness is normal. The left ventricular systolic function is normal with an estimated ejection fraction in the range of 55-60%. There is trace tricuspid valve regurgitation. No evidence of valvular vegetations. The estimated pulmonary arterial pressure is 23 mmHg. BP: / HR: Rhythm: MEASUREMENTS (Male / Female) Normal Values Technical Quality: 2D ECHO LV Diastolic Diameter PLAX 5.2 cm 4.2 - 5.9 / 3.9 - 5.3 cm LV Systolic Diameter PLAX 3.2 cm IVS Diastolic Thickness 1.1 cm 0.6 - 1.0 / 0.6 - 0.9 cm LVPW Diastolic Thickness 1.3 cm 0.6 - 1.0 / 0.6 - 0.9 cm LV Relative Wall Thickness 0.5 RV Internal Dim ED PLAX 2.2 cm LVOT Diameter 2.0 cm Aortic Root Diameter 2.4 cm LV Ejection Fraction MOD 4C 55.7 % LV Ejection Fraction 4C AL 57.3 % M-MODE Aortic Root Diameter MM 2.7 cm LA Systolic Diameter MM 4.3 cm LA Ao Ratio MM 1.6 AV Cusp Separation MM 1.9 cm DOPPLER AV Peak Velocity 110.0 cm/s AV Peak Gradient 4.8 mmHg LVOT Peak Velocity 96.7 cm/s LVOT Peak Gradient 3.7 mmHg AV Area Cont Eq pk 2.8 cm Mitral E Point Velocity 104.0 cm/s Mitral A Point Velocity 80.5 cm/s Mitral E to A Ratio 1.3 TR Peak Velocity 181.0 cm/s TR Peak Gradient 13.1 mmHg Right Atrial Pressure 10.0 mmHg Pulmonary Artery Systolic Pressu 23.1 mmHg Right Ventricular Systolic Press 23.1 mmHg PV Peak Velocity 115.0 cm/s PV Peak Gradient 5.3 mmHg FINDINGS LEFT VENTRICLE Normal left ventricular size. Wall thickness is normal. The left ventricular systolic function is normal with an estimated ejection fraction in the range of 55-60%. RIGHT VENTRICLE Normal right ventricular size and systolic function. LEFT ATRIUM The left atrial size is normal. RIGHT ATRIUM The right atrial size is normal. ATRIAL SEPTUM Normal atrial septal thickness without atrial level shunting by limited color doppler interrogation. AORTA The aortic root and proximal ascending aorta are normal in size on limited imaging. MITRAL VALVE Structurally normal mitral valve. No mitral valve stenosis or regurgitation. AORTIC VALVE Trileaflet aortic valve. No aortic valve stenosis or regurgitation. TRICUSPID VALVE There is trace tricuspid valve regurgitation. The estimated pulmonary arterial pressure is 23 mmHg. PULMONARY VALVE No pulmonary valve regurgitation or stenosis. VESSELS The inferior vena cava is normal in size. PERICARDIUM No pericardial effusion. Anival Gonzalez MD, FACC (Electronically Signed) Final Date:09 May 2018 12:58
[2018-05-09] MEDS ORDERED: Methadone 10 MG Tablet PO ONE (14:05)
[2018-05-09 19:18] LABS: Baso % (Auto) 0.6 % (0.0-2.0); Eos # (Auto) 0.5 th/mm3 (0.0-0.4); Eos % (Auto) 6.6 % (0.0-4.0); Hematocrit 32.4 % (39.0-51.0); Lymph # (Auto) 1.3 th/mm3 (1.0-4.8); Lymph % (Auto) 18.3 % (9.0-44.0); Mean Corpuscular HGB Conc 33.8 % (32.0-36.0); Mean Corpuscular Hemoglobin 27.6 pg (27.0-34.0); Mean Corpuscular Volume 81.7 fL (80.0-100.0); Mean Platelet Volume 7.7 fL (7.0-11.0); Mono # (Auto) 0.7 th/mm3 (0.0-0.9); Mono % (Auto) 9.2 % (0.0-8.0); Neut # (Auto) 4.7 th/mm3 (1.8-7.7); Neut % (Auto) 65.3 % (16.0-70.0); Platelet Count 200 th/mm3 (150-450); Red Blood Count 3.97 mil/mm3 (4.50-5.90); Red Cell Distribution Width 14.2 % (11.6-17.2); White Blood Count 7.3 th/mm3 (4.0-11.0)
[2018-05-09 19:46] LABS: Alanine Aminotransferase 53 U/L (12-78); Albumin 2.5 g/dL (3.4-5.0); Alkaline Phosphatase 65 U/L (45-117); Anion Gap 5 meq/L (5-15); Aspartate Aminotransferase 39 U/L (15-37); Blood Urea Nitrogen 11 mg/dL (7-18); Calcium 8.4 mg/dL (8.5-10.1); Chloride 97 meq/L (98-107); Glomerular Filtration Rate Greater Than 89 mL/min (>89); Glucose,Random 180 mg/dL (74-106); Potassium 3.9 meq/L (3.5-5.1); Sodium 136 meq/L (136-145); Total Protein 7.1 g/dL (6.4-8.2)
[2018-05-09] MEDS: Enoxaparin Inj 40 MG/0.4 ML Syringe SQ SCH (20:06)
[2018-05-10] MEDS: Aztreonam Inj 2 GM in Sodium Chloride 0.9% Inj 100 ML IV.SIG SCH ×3 (02:46→14:26)
[2018-05-10] MEDS: Vancomycin Inj 1,000 MG in Sodium Chlor 0.9% Inj 250 ML IV.SIG SCH ×2 (03:55→12:16)
[2018-05-10] MEDS: Insulin NovoLOG Aspart Correctional Sugar Inj SQ SCH ×4 (08:48→22:03)
[2018-05-10] MEDS: Insulin Detemir Inj 1,000 UNIT/10 ML Vial SQ SCH ×2 (08:48→21:52)
[2018-05-10] MEDS: Methadone 10 MG Tablet PO SCH (08:49)
[2018-05-10] MEDS: Senna/Docusate Sodium 8.6/50 MG Tablet PO SCH ×2 (08:51→22:02)
[2018-05-10] MEDS: Morphine Inj 4 MG/ML Vial IV.PUSH PRN ×2 (14:27→22:32)
--- NOTE | 2018-05-10 14:36 | P.PN ---
Subjective Interval history: This is a pleasant 32 y/o Male with MRSA history, Heroin addiction Insulin dependent DM, who came to ER with seven days of constant sharp pain right medial elbow, as we know he has IVDU, Hepatitis C, Hand abscess history. with Diagnosis of Abscess of bursa of right elbow, status post I and D of right arm abscess, right elbow arthrotomy with irrigation and debridement. as per ID has GPC on Gram stain recommended to continue Vancomycin and stopped Azactam and Flagyl. asked for 2D echo. if Positive blood cultures will get DANELLE. Seen in his bedroom he is asking to resume his Methadone he was using 70 mg daily, I found the last script given by Doctor Camron for 28 tablets with Methadone 70 mg daily. 05/10: Seen in his bedroom, better pain control, he has no nausea, vomit or diarrhea, continue present care. wound cultures positive for Staphylococcus Aureus. Physical Exam Vital signs: Vital Signs 05/09/18 16:00 05/09/18 16:20 05/09/18 20:00 Temperature 98.2 F 97.7 F Pulse Rate 66 72 Respiratory Rate 18 7 L 17 Blood Pressure 156/74 H 165/79 H Pulse Oximetry 98 98 05/10/18 00:00 05/10/18 08:00 05/10/18 12:00 Temperature 98.5 F 97.6 F 97.8 F Pulse Rate 76 69 69 Respiratory Rate 17 18 18 Blood Pressure 166/74 H 138/62 143/72 H Pulse Oximetry 98 96 96 Intake & Output 05/09/18 05/10/18 05/10/18 18:59 06:59 18:59 Intake Total 1757.5 / 1757.5 1030 / 1030 100 / 100 Output Total 1999 / 1999 450 / 450 Balance -242.5 / -242.5 580 / 580 100 / 100 Weight 75.3 kg Intake: IV 757.5 / 757.5 550 / 550 100 / 100 Azactam Inj 2 GM In NS Inj 100 200 / 200 200 / 200 ML @ 200 mls/hr IV.SIG Q6H EDIE Rx#:[id number] Vancomycin Inj 1,000 MG In NS 250 / 250 Inj 250 ML @ 250 mls/hr IV.SIG Q8H EDIE Rx#:[id number] Vancomycin Inj 750 MG In NS Inj 257.5 / 257.5 250 ML @ 250 mls/hr IV.SIG Q8H EDIE Rx#:[id number] Flagyl 500 MG Inj 100 ML @ 100 300 / 300 100 / 100 100 / 100 mls/hr IV.SIG Q6H EDIE Rx#: [id number] Oral 1000 / 1000 480 / 480 Output: Urine 1999 / 1999 450 / 450 Other: Date of Last Bowel Movement 05/07/18 # Bowel Movements 1 Narrative: GENERAL: This is a well-nourished, well-developed patient, in no apparent distress. CARDIOVASCULAR: Regular rate and rhythm without murmurs, gallops, or rubs. RESPIRATORY: Clear to auscultation. Breath sounds equal bilaterally. No wheezes , rales, or rhonchi. GASTROINTESTINAL: Abdomen soft, non-tender, nondistended. Normal active bowel sounds MUSCULOSKELETAL: Right forearm dressed, left forearm with changes in erythema and edema left ankle with edema. NEURO: Alert & Oriented x4 to person, place, time, situation. Moves all ext x4 Results - Labs CBC & Chem 7: 05/09/18 18:40 05/09/18 18:40 Laboratory Results - last 24 hr 05/09/18 05/09/18 05/09/18 16:28 18:40 18:40 WBC 7.3 RBC 3.97 L Hgb 11.0 L D Hct 32.4 L MCV 81.7 MCH 27.6 MCHC 33.8 RDW 14.2 Plt Count 200 MPV 7.7 Neut % (Auto) 65.3 Lymph % (Auto) 18.3 [place] % (Auto) 9.2 H Eos % (Auto) 6.6 H Baso % (Auto) 0.6 Neut # (Auto) 4.7 Lymph # (Auto) 1.3 [place] # (Auto) 0.7 Eos # (Auto) 0.5 H Baso # (Auto) 0.0 WBC Differential . Differential Comment Auto diff final Sodium 136 Potassium 3.9 Chloride 97 L Carbon Dioxide 34.0 H Anion Gap 5 BUN 11 Creatinine 0.69 Estimated GFR Greater than 89 POC Glucose 240 H Random Glucose 180 H D Calcium 8.4 L Total Bilirubin 0.3 AST 39 H ALT 53 Alkaline Phosphatase 65 C-Reactive Protein 13.00 H Total Protein 7.1 D Albumin 2.5 L D Vancomycin Trough 05/09/18 05/09/18 05/10/18 18:40 19:59 07:55 WBC RBC Hgb Hct MCV MCH MCHC RDW Plt Count MPV Neut % (Auto) Lymph % (Auto) [place] % (Auto) Eos % (Auto) Baso % (Auto) Neut # (Auto) Lymph # (Auto) [place] # (Auto) Eos # (Auto) Baso # (Auto) WBC Differential Differential Comment Sodium Potassium Chloride Carbon Dioxide Anion Gap BUN Creatinine Estimated GFR POC Glucose 270 H 227 H Random Glucose Calcium Total Bilirubin AST ALT Alkaline Phosphatase C-Reactive Protein Total Protein Albumin Vancomycin Trough 7.9 05/10/18 12:07 WBC RBC Hgb Hct MCV MCH MCHC RDW Plt Count MPV Neut % (Auto) Lymph % (Auto) [place] % (Auto) Eos % (Auto) Baso % (Auto) Neut # (Auto) Lymph # (Auto) [place] # (Auto) Eos # (Auto) Baso # (Auto) WBC Differential Differential Comment Sodium Potassium Chloride Carbon Dioxide Anion Gap BUN Creatinine Estimated GFR POC Glucose 214 H Random Glucose Calcium Total Bilirubin AST ALT Alkaline Phosphatase C-Reactive Protein Total Protein Albumin Vancomycin Trough Microbiology 05/07/18 23:40 Blood - Peripheral Aerobic Blood Culture - Preliminary No growth in 3 days 05/07/18 23:40 Blood - Peripheral Anaerobic Blood Culture - Preliminary Staphylococcus aureus 05/07/18 23:45 Blood - Peripheral Aerobic Blood Culture - Preliminary No growth in 3 days 05/07/18 23:45 Blood - Peripheral Anaerobic Blood Culture - Preliminary No growth in 3 days 05/08/18 13:00 Abscess - Hand Gram Stain - Final 05/08/18 13:00 Abscess - Hand Wound Culture - Final Staphylococcus aureus 05/08/18 10:23 Fluid - Other Gram Stain - Final 05/08/18 10:23 Fluid - Other Wound Culture - Preliminary No growth in 48 hours 05/08/18 10:23 Fluid - Other Gram Stain - Final 05/08/18 10:23 Fluid - Other Wound Culture - Final Staphylococcus aureus 05/08/18 02:40 Abscess - Arm Gram Stain - Final 05/08/18 02:40 Abscess - Arm Wound Culture - Final Staphylococcus aureus 05/08/18 10:23 Fluid - Other Acid Fast Bacilli Smear - Final No acid fast bacilli seen 05/08/18 10:23 Fluid - Other Acid Fast Bacilli Smear - Final No acid fast bacilli seen 05/08/18 10:23 Fluid - Other Fungal Smear - Final No fungal elements seen 05/08/18 10:23 Other Fungal Smear - Final No fungal elements seen - Procedures (1) Abscess of bursa of right elbow (2) Right elbow pain Date of procedure: 05/08/18 Procedure: Irrigation and debridement of right arm abscess Right elbow arthrotomy with irrigation and debridement Anesthesia: FALGUNI Surgeon: Porter Clancy MD Assessment and Plan - Plan //Severe sepsis //Suspected MRSA cellulitis/abscesses of right elbow, left forearm. = Fever 101.3, tachycardia of 101, ESR 69, right elbow and left hand abscess. Severe due to hyperglycemia in the 500s on admission. = MRSA history, Heroin addiction Insulin dependent DM, who came to ER with seven days of constant sharp pain right medial elbow, as we know he has IVDU, Hepatitis C, Hand abscess history. with Diagnosis of Abscess of bursa of right elbow, status post I and D of right arm abscess , right elbow arthrotomy with irrigation and debridement. as per ID specialist recommended to continue Vancomycin, stopped Flagyl and Azactam, asked for 2D echo. if Positive blood cultures will get DANELLE. //Type 1 diabetes with hyperglycemia in the 500s on admission Likely secondary to sepsis as well as general noncompliance. continue Levemir 10 units BID and giving 5 units now. continue sliding scale and ADA diet. //Chronic heroin addiction. Patient says that he is on methadone 70 mg daily. I found a script by Doctor Lindsay for this amount of Methadone started here and he will need to resume with Methadone clinic on discharge not able to prescribe too many tablets of this medicine. DVT prophylaxis with Lovenox Code Status: Full code. Discussed Condition With: Patient and nurse Discharge Planning: Once cleared by Specialists.
[2018-05-10] MEDS ORDERED: Insulin Detemir Inj 1,000 UNIT/10 ML Vial SQ ONE (16:00)
[2018-05-10 16:59] LABS: Glomerular Filtration Rate Greater Than 89 mL/min (>89)
[2018-05-10] MEDS ORDERED: Pharmacy Ordered Lab Info OTHER ONE (19:45)
--- NOTE | 2018-05-10 19:56 | P.PNID ---
Subjective Remarks: grew MSSA from L hand and R elbow now c/o L medial foot nodule states he was injecting in this area about 1 week ago Tolerated KEflex uneventfully in the past Antibiotics: vanco azactam Allergies/Adverse Reactions: Allergies penicillin G Allergy (Severe, Verified 05/07/18 22:55) Hives Objective Vital Signs 05/09/18 20:00 05/10/18 00:00 05/10/18 08:00 Temperature 97.7 F 98.5 F 97.6 F Pulse Rate 72 76 69 Respiratory Rate 17 17 18 Blood Pressure 165/79 H 166/74 H 138/62 Pulse Oximetry 98 98 96 05/10/18 12:00 05/10/18 16:00 Temperature 97.8 F 97.5 F L Pulse Rate 69 79 Respiratory Rate 18 18 Blood Pressure 143/72 H 169/77 H Pulse Oximetry 96 97 Intake & Output 05/10/18 05/10/18 05/11/18 06:59 18:59 06:59 Intake Total 1030 / 1030 1650 / 1650 Output Total 450 / 450 Balance 580 / 580 1650 / 1650 Weight 75.3 kg Intake: IV 550 / 550 450 / 450 Azactam Inj 2 GM In NS Inj 100 200 / 200 100 / 100 ML @ 200 mls/hr IV.SIG Q6H EDIE Rx#:[id number] Vancomycin Inj 1,000 MG In NS 250 / 250 250 / 250 Inj 250 ML @ 250 mls/hr IV.SIG Q8H EDIE Rx#:[id number] Flagyl 500 MG Inj 100 ML @ 100 100 / 100 100 / 100 mls/hr IV.SIG Q6H EDIE Rx#: [id number] Oral 480 / 480 1200 / 1200 Output: Urine 450 / 450 Other: # Voids 4 05/07/18 23:40 Blood - Peripheral Aerobic Blood Culture - Preliminary No growth in 3 days 05/07/18 23:40 Blood - Peripheral Anaerobic Blood Culture - Preliminary Staphylococcus aureus 05/07/18 23:45 Blood - Peripheral Aerobic Blood Culture - Preliminary No growth in 3 days 05/07/18 23:45 Blood - Peripheral Anaerobic Blood Culture - Preliminary No growth in 3 days 05/08/18 13:00 Abscess - Hand Gram Stain - Final 05/08/18 13:00 Abscess - Hand Wound Culture - Final Staphylococcus aureus 05/08/18 10:23 Fluid - Other Gram Stain - Final 05/08/18 10:23 Fluid - Other Wound Culture - Preliminary No growth in 48 hours 05/08/18 10:23 Fluid - Other Gram Stain - Final 05/08/18 10:23 Fluid - Other Wound Culture - Final Staphylococcus aureus 05/08/18 02:40 Abscess - Arm Gram Stain - Final 05/08/18 02:40 Abscess - Arm Wound Culture - Final Staphylococcus aureus 05/08/18 10:23 Fluid - Other Acid Fast Bacilli Smear - Final No acid fast bacilli seen 05/08/18 10:23 Fluid - Other Mycobacterial Culture - Pending 05/08/18 10:23 Fluid - Other Acid Fast Bacilli Smear - Final No acid fast bacilli seen 05/08/18 10:23 Fluid - Other Mycobacterial Culture - Pending 05/08/18 10:23 Fluid - Other Fungal Smear - Final No fungal elements seen 05/08/18 10:23 Fluid - Other Fungal Culture - Pending 05/08/18 10:23 Other Fungal Smear - Final No fungal elements seen 05/08/18 10:23 Other Fungal Culture - Pending Lab - Hematology Results 05/09/18 18:40 WBC 7.3 RBC 3.97 L Hgb 11.0 L D Hct 32.4 L MCV 81.7 MCH 27.6 MCHC 33.8 RDW 14.2 Plt Count 200 MPV 7.7 Neut % (Auto) 65.3 Lymph % (Auto) 18.3 [place] % (Auto) 9.2 H Eos % (Auto) 6.6 H Baso % (Auto) 0.6 Neut # (Auto) 4.7 Lymph # (Auto) 1.3 [place] # (Auto) 0.7 Eos # (Auto) 0.5 H Baso # (Auto) 0.0 WBC Differential . Differential Comment Auto diff final Lab - Chemistry Results 05/08/18 05/09/18 05/09/18 21:58 08:04 12:10 Sodium Potassium Chloride Carbon Dioxide Anion Gap BUN Creatinine Estimated GFR POC Glucose 171 H 254 H 143 H Random Glucose Calcium Total Bilirubin AST ALT Alkaline Phosphatase C-Reactive Protein Total Protein Albumin 05/09/18 05/09/18 05/09/18 16:28 18:40 19:59 Sodium 136 Potassium 3.9 Chloride 97 L Carbon Dioxide 34.0 H Anion Gap 5 BUN 11 Creatinine 0.69 Estimated GFR Greater than 89 POC Glucose 240 H 270 H Random Glucose 180 H D Calcium 8.4 L Total Bilirubin 0.3 AST 39 H ALT 53 Alkaline Phosphatase 65 C-Reactive Protein 13.00 H Total Protein 7.1 D Albumin 2.5 L D 05/10/18 05/10/18 05/10/18 07:55 12:07 16:00 Sodium Potassium Chloride Carbon Dioxide Anion Gap BUN Creatinine 0.89 Estimated GFR Greater than 89 POC Glucose 227 H 214 H Random Glucose Calcium Total Bilirubin AST ALT Alkaline Phosphatase C-Reactive Protein Total Protein Albumin 05/10/18 16:31 Sodium Potassium Chloride Carbon Dioxide Anion Gap BUN Creatinine Estimated GFR POC Glucose 178 H Random Glucose Calcium Total Bilirubin AST ALT Alkaline Phosphatase C-Reactive Protein Total Protein Albumin Imaging: ITS Impressions Chest X-Ray 05/07/18 23:29 CONCLUSION: No acute cardiopulmonary disease identified. Physical Exam: GENERAL: NAD ambulating SKIN: Warm and dry. HEAD: Atraumatic. Normocephalic. EYES: Pupils equal and round. No scleral icterus. No injection or drainage. ENT: No nasal bleeding or discharge. Mucous membranes pink and moist. NECK: Trachea midline. No JVD. CARDIOVASCULAR: Regular rate and rhythm. RESPIRATORY: No accessory muscle use. Clear to auscultation. Breath sounds equal bilaterally. GASTROINTESTINAL: Abdomen soft, non-tender, nondistended. Hepatic and splenic margins not palpable. MUSCULOSKELETAL: Extremities without clubbing, cyanosis, L hand with dressing in [place RUE with dressing, SALONI in palce L foot with swelling and fluctuance over medial mallelous area NEUROLOGICAL: Awake and alert. No obvious cranial nerve deficits. Motor grossly within normal limits. Five out of 5 muscle strength in the arms and legs. Normal speech. PSYCHIATRIC: Appropriate mood and affect; insight and judgment normal. Assessment and Plan - Plan IV DU RUE abscess and septic elbow sp I+D, MSSA L hjand absscess sp I+D MSSA L foot abscess- new All to N, but tolerated keflex in the past Positive BC. Neg 2 D echo Multiple sites of infection. Sispect endocarditis MR foot podiatry consult dc vancomycin Start Ancef dc azactam, flagyl cards consult for DANELLE
[2018-05-10] MEDS: Enoxaparin Inj 40 MG/0.4 ML Syringe SQ SCH (21:29)
[2018-05-10] MEDS: ceFAZolin Inj 2,000 MG in Sodium Chlor 0.9% Inj 80 ML IV.SIG SCH (21:52)
[2018-05-11] MEDS: ceFAZolin Inj 2,000 MG in Sodium Chlor 0.9% Inj 80 ML IV.SIG SCH ×4 (03:08→20:01)
[2018-05-11 06:31] LABS: Glomerular Filtration Rate Greater Than 89 mL/min (>89)
[2018-05-11] MEDS ORDERED: Gadobutrol PF 7.5 MMOL/7.5 ML Vial (for RAD) IV.SIG ONE (08:14)
--- NOTE | 2018-05-11 08:42 | MR ---
EXAM DATE: 05/11/2018 12:00 AM EDT AGE/SEX: 32 years / Male INDICATIONS: Abscess. Left medial ankle redness and swelling. CLINICAL DATA: This is the patient's initial encounter. Patient reports that signs and symptoms have been present for 3 days and indicates a pain score of 4/10. MEDICAL/SURGICAL HISTORY: Diabetes mellitus type II. Hepatitis C. . Orthopedic COMPARISON: No prior exams available for comparison. TECHNIQUE: Multiplanar, multisequence MRI examination was performed without contrast and after th e intravenous administration of 7cc ml Gadavist (gadobutrol) single exam dose. FINDINGS: There is subcutaneous edema along the medial aspect of the ankle posteriorly. There is a 10 mm area o f heterogeneous increased T2 signal which demonstrates peripheral enhancement. All of the visualized bones of the foot and ankle demonstrate normal signal without edema or enhancem ent. Additionally, all of the tendons demonstrates no thickening or abnormal signal. In particular th e tendons medially adjacent to the area of inflammation demonstrate no abnormality. CONCLUSION: 1. There is subcutaneous edema along the medial aspect of the posterior ankle. Within this area of i nflammation is a rim-enhancing 10 mm collection suspicious for small abscess. 2. Bone marrow signal is normal indicating no findings of osteomyelitis and the deeper soft tissue s tructures including the adjacent tendons demonstrates no abnormality. Electronically signed by: Dwain Robles MD 05/11/2018 8:40 AM EDT
[2018-05-11] MEDS: Insulin Detemir Inj 1,000 UNIT/10 ML Vial SQ SCH ×4 (08:45→20:05)
[2018-05-11] MEDS: Insulin NovoLOG Aspart Correctional Sugar Inj SQ SCH ×5 (09:16→20:07)
[2018-05-11] MEDS: Methadone 10 MG Tablet PO SCH (09:17)
[2018-05-11] MEDS: Senna/Docusate Sodium 8.6/50 MG Tablet PO SCH ×2 (09:18→20:02)
[2018-05-11] MEDS ORDERED: Lidocaine 1% Inj 50 ML Vial INFILTRATN SCH (12:00)
--- NOTE | 2018-05-11 12:41 | MB ---
cc: Conchita Davidson DPM DATE: 05/11/2018 CHIEF COMPLAINT: Left ankle pain. HISTORY OF PRESENT ILLNESS: Mr. Infante is a 32-year-old male patient with a history of MRSA, heroin addiction, insulin-dependent diabetes, who presents with a 7-day history of severe pain in the bilateral arms and most recently in the left ankle. He has had I and D's done to the right elbow, left forearm, states that he still has pain to the left forearm, but his newest chief complaint is left ankle pain. PAST MEDICAL HISTORY: Includes multiple abscesses, hepatitis C, diabetes and MRSA history. PAST SURGICAL HISTORY: Includes multiple I and D's. FAMILY HISTORY: Noncontributory. SOCIAL HISTORY: The patient is an IV drug abuser. Admits to injecting into the left foot and ankle several times, most recently about 2-3 weeks ago. He is a pack per day smoker. Living arrangements are unknown. VITAL SIGNS: Temperature is 97.7, pulse 69, respiratory rate 17, blood pressure 144/63, pulse oximetry 97% O2 on room air. LABORATORY DATA: White count 7.3, hemoglobin 11.0, hematocrit 32.4, platelets 200. INR 1.0. Random glucose level is 273. MRI shows a small abscess on the posteromedial aspect of the left ankle. No signs of osteomyelitis. PHYSICAL EXAMINATION: The patient has palpable DP and PT pulses. Capillary refill time less than 3 seconds. Gross sensation is intact. On the medial aspect of the ankle just posterior to the medial malleolus there is an approximately 1 cm circumferential abscess just under the skin layer with surrounding erythema. Very tender to touch. ASSESSMENT AND PLAN: 1. Left ankle abscess. - Plan for bedside I and D tomorrow. - Consent and orders placed for nursing staff. - Discussed with the patient in detail. - Continue IV antibiotics. Thank you for allowing me to be involved in this patient's care. SHAWN Dc/kristel , 11:01 AM , 11:09 AM KHALIF
--- NOTE | 2018-05-11 13:08 | P.PN ---
Subjective Interval history: This is a pleasant 32 y/o Male with MRSA history, Heroin addiction Insulin dependent DM, who came to ER with seven days of constant sharp pain right medial elbow, as we know he has IVDU, Hepatitis C, Hand abscess history. with Diagnosis of Abscess of bursa of right elbow, status post I and D of right arm abscess, right elbow arthrotomy with irrigation and debridement. as per ID has GPC on Gram stain recommended to continue Vancomycin and stopped Azactam and Flagyl. asked for 2D echo. if Positive blood cultures will get DANELLE. Seen in his bedroom he is asking to resume his Methadone he was using 70 mg daily, I found the last script given by Doctor Camron for 28 tablets with Methadone 70 mg daily. 05/10: Seen in his bedroom, better pain control, he has no nausea, vomit or diarrhea, continue present care. wound cultures positive for Staphylococcus Aureus. 05/11: Seen by ID specialist multiple abscess, left foot abscess new, suspected endocarditis by ID, recommended Podiatry specialist consult Removed Vancomycin and started on Ancef, consulted Cardiology for DANELLE, Seen by Podiatry specialist has 1 cm circumferential abscess tender to touch, with diagnosis of Left ankle abscess, for I and D tomorrow. Physical Exam Vital signs: Vital Signs 05/10/18 16:00 05/10/18 20:00 05/11/18 00:00 Temperature 97.5 F L 97.6 F 97.4 F L Pulse Rate 79 73 70 Respiratory Rate 18 18 19 Blood Pressure 169/77 H 173/75 H 148/68 H Pulse Oximetry 97 98 97 05/11/18 08:00 05/11/18 12:00 Temperature 97.7 F 97.9 F Pulse Rate 69 68 Respiratory Rate 17 17 Blood Pressure 144/63 H 126/59 L Pulse Oximetry 97 95 Intake & Output 05/10/18 05/11/18 05/11/18 18:59 06:59 18:59 Intake Total 2650 / 2650 200 / 200 Output Total 400 / 400 Balance 2650 / 2650 -200 / -200 Weight 77.3 kg Intake: IV 1450 / 1450 200 / 200 Azactam Inj 2 GM In NS Inj 100 100 / 100 ML @ 200 mls/hr IV.SIG Q6H [facility] Rx#:[id number] Vancomycin Inj 1,000 MG In NS 250 / 250 Inj 250 ML @ 250 mls/hr IV.SIG Q8H [facility] Rx#:[id number] Ancef Inj 2,000 MG In NS Inj 80 200 / 200 ML @ 200 mls/hr IV.SIG Q8H [facility] Rx#:[id number] Flagyl 500 MG Inj 100 ML @ 100 100 / 100 mls/hr IV.SIG Q6H [facility] Rx#: [id number] Oral 1200 / 1200 Output: Urine 400 / 400 Other: # Voids 4 4 Date of Last Bowel Movement 05/10/18 Narrative: GENERAL: This is a well-nourished, well-developed patient, in no apparent distress. CARDIOVASCULAR: Regular rate and rhythm without murmurs, gallops, or rubs. RESPIRATORY: Clear to auscultation. Breath sounds equal bilaterally. No wheezes , rales, or rhonchi. GASTROINTESTINAL: Abdomen soft, non-tender, nondistended. Normal active bowel sounds MUSCULOSKELETAL: Right forearm dressed, left forearm with changes in erythema and edema left ankle with edema. today spontaneous drainage on left forearm. NEURO: Alert & Oriented x4 to person, place, time, situation. Moves all ext x4 Results - Labs CBC & Chem 7: 05/09/18 18:40 05/11/18 04:49 Laboratory Results - last 24 hr 05/10/18 05/10/18 05/10/18 16:00 16:31 21:50 Creatinine 0.89 Estimated GFR Greater than 89 POC Glucose 178 H 465 H* 05/11/18 05/11/18 05/11/18 03:07 04:49 07:32 Creatinine 0.78 Estimated GFR Greater than 89 POC Glucose 92 273 H 05/11/18 12:05 Creatinine Estimated GFR POC Glucose 90 Microbiology 05/07/18 23:45 Blood - Peripheral Aerobic Blood Culture - Preliminary No growth in 4 days 05/07/18 23:45 Blood - Peripheral Anaerobic Blood Culture - Preliminary No growth in 4 days 05/07/18 23:40 Blood - Peripheral Aerobic Blood Culture - Preliminary No growth in 4 days 05/07/18 23:40 Blood - Peripheral Anaerobic Blood Culture - Final Staphylococcus aureus 05/08/18 10:23 Fluid - Other Gram Stain - Final 05/08/18 10:23 Fluid - Other Wound Culture - Final No growth in 72 hours (aerobically and anaerobically ) 05/08/18 13:00 Abscess - Hand Gram Stain - Final 05/08/18 13:00 Abscess - Hand Wound Culture - Final Staphylococcus aureus 05/08/18 10:23 Fluid - Other Gram Stain - Final 05/08/18 10:23 Fluid - Other Wound Culture - Final Staphylococcus aureus 05/08/18 02:40 Abscess - Arm Gram Stain - Final 05/08/18 02:40 Abscess - Arm Wound Culture - Final Staphylococcus aureus - Imaging Impressions Foot MRI 05/11/18 00:00 CONCLUSION: 1. There is subcutaneous edema along the medial aspect of the posterior ankle. Within this area of inflammation is a rim-enhancing 10 mm collection suspicious for small abscess. 2. Bone marrow signal is normal indicating no findings of osteomyelitis and the deeper soft tissue structures including the adjacent tendons demonstrates no abnormality. - Procedures (1) Abscess of bursa of right elbow (2) Right elbow pain Date of procedure: 05/08/18 Procedure: Irrigation and debridement of right arm abscess Right elbow arthrotomy with irrigation and debridement Anesthesia: GETA Surgeon: Porter Clancy MD Assessment and Plan - Plan //Severe sepsis //Suspected MRSA cellulitis/abscesses of right elbow, left forearm. = Fever 101.3, tachycardia of 101, ESR 69, right elbow and left hand abscess. Severe due to hyperglycemia in the 500s on admission. = MRSA history, Heroin addiction Insulin dependent DM, who came to ER with seven days of constant sharp pain right medial elbow, as we know he has IVDU, Hepatitis C, Hand abscess history. with Diagnosis of Abscess of bursa of right elbow, status post I and D of right arm abscess , right elbow arthrotomy with irrigation and debridement. 05/11: Seen by ID specialist multiple abscess, left foot abscess new, suspected endocarditis by ID, recommended Podiatry specialist consult Removed Vancomycin and started on Ancef, consulted Cardiology for DANELLE, Seen by Podiatry specialist has 1 cm circumferential abscess tender to touch, with diagnosis of Left ankle abscess, for I and D tomorrow. Asked for General Surgery consult for Left forearm abscess that already started draining spontaneously. //Type 1 diabetes with hyperglycemia in the 500s on admission Likely secondary to sepsis as well as general noncompliance. continue Levemir 10 units BID and giving 5 units now. at this time blood sugar 90 follow avoid Hypoglycemia. //Chronic heroin addiction. Patient says that he is on methadone 70 mg daily. I found a script by Doctor Montoya for this amount of Methadone started here and he will need to resume with Methadone clinic on discharge not able to prescribe too many tablets of this medicine. DVT prophylaxis with Lovenox Code Status: full code. Discussed Condition With: Patient and Nurse, ETHAN. Discharge Planning: Once cleared by Specialists.
[2018-05-11] MEDS: Morphine Inj 4 MG/ML Vial IV.PUSH PRN (14:59)
[2018-05-11] MEDS: Enoxaparin Inj 40 MG/0.4 ML Syringe SQ SCH (20:06)
[2018-05-12] MEDS: ceFAZolin Inj 2,000 MG in Sodium Chlor 0.9% Inj 80 ML IV.SIG SCH ×3 (04:39→21:10)
--- NOTE | 2018-05-12 07:34 | P.CONCA ---
History of Present Illness Service: Cardiology Consult date: 05/11/18 Primary Care Provider: Josette Primary Care Physician Chief Complaint: Sepsis, rule out endocarditis History of Present Illness: The patient is a pleasant 32 year old gentleman with a past medical history of IVDA who was found to have Gram positive bacteremia from multiple infectious sources. He had drainage of an abscess from his RUE .His transthoracic echo did not reveal any evidence of vegetations. He has a normal EF with no evidence of valvular heart disease. Cardiology consulted for DANELLE. He denies any history of esophageal surgery, allergy to lidocaine or anesthetics. Review of Systems All other systems reviewed negative except as stated in HPI FOR[facility]LY [facility], [facility] - History History Provided By: Patient - Medical History Medical History: Medical History (Last Reviewed 05/09/18 @ 17:15 by Dornia Fournier) Abscess (Acute) IVDU (intravenous drug user) (Acute) Heroin abuse (Acute) Hepatitis C (Acute) Diabetes (Acute) Hand abscess MRSA infection - Surgical History Surgical History: Surgical History (Last Reviewed 05/09/18 @ 17:15 by Dorina Fournier) History of orthopedic surgery (Acute) - Family History Family History: Family History (Last Reviewed 05/09/18 @ 17:15 by Dorina Fournier) Mother Aneurysm Heart attack Stroke - Tobacco History Second Hand Smoke Exposure: Yes Tobacco Use In Past 30 Days: Yes Smoking Status: Heavy tobacco smoker Tobacco Type: Cigarettes Packs Per Day: 1 Cigarettes Per Day: 20.0 - Alcohol History How Often Do You Have a Drink Containing Alcohol: Never - Substance Use History Substance History: Active Abuse - Substance Use Type Heroin Status: Active Route Used: Intravenously Reason for Use: Calm Down - Travel History Recent Travel in the [place] Within the Last 8 Weeks: No Recent Travel Out of the Country Within the Last 8 Weeks: No - Immunization History Tetanus Immunization: >5 Years Hx Influenza Vaccine This Season: No Medications and Allergies Active Medications: Active Medications Hydrocodone Bitart/Acetaminophen ([place] 7.5/325) 1 tab PO Q3H PRN PRN Reason: Pain Scale 3-10 Last Admin: 05/12/18 04:39 Dose: 1 tab Al Hydroxide/Mg Hydroxide (Milk Of Sudarshan Licallie) 30 ml PO Q12H PRN PRN Reason: Mild Constipation Bisacodyl (Dulcolax Supp) 10 mg RECTAL DAILY PRN PRN Reason: SEVERE CONSITIPATION Clonidine HCl (Catapres) 0.1 mg PO Q6H PRN PRN Reason: SEE LABEL COMMENTS Last Admin: 05/10/18 17:01 Dose: 0.1 mg Dextrose (D50w Vial) 50 ml IV.PUSH UNSCH PRN PRN Reason: PER HYPOGLYCEMIA PROTOCOL Diphenhydramine HCl (Benadryl) 25 mg PO Q6H PRN PRN Reason: ITCHING Enoxaparin Sodium (Lovenox Inj) 40 mg SQ Q24H [facility] Last Admin: 05/11/18 20:06 Dose: 40 mg Glucagon (Glucagon Inj) 1 mg OTHER PRN PRN PRN Reason: for Hypoglycemia Protocol Cefazolin Sodium 2,000 mg/ (Sodium Chloride) 100 mls @ 200 mls/hr IV.SIG Q8H [facility] Last Infusion: 05/12/18 05:58 Dose: Infused Insulin Aspart (Novolog Insulin Correctional Sugar Inj) 0 unit SQ ACHS [facility]; Protocol Last Admin: 05/11/18 20:07 Dose: 10 unit Insulin Detemir (Levemir Inj) 10 unit SQ BID [facility] Last Admin: 05/11/18 20:05 Dose: 10 unit Lactulose (Lactulose Liq) 30 ml PO DAILY PRN PRN Reason: SEVERE CONSITIPATION Lidocaine HCl (Xylocaine 1% Inj (50 Ml)) 0 ml INFILTRATN [employer]ETING SERVICES COORDINATOR [facility] Stop: 05/12/18 11:59 Methadone HCl (Dolophine) 70 mg PO DAILY [facility] Last Admin: 05/11/18 09:17 Dose: 70 mg Morphine Sulfate (Morphine Inj) 3 mg IV.PUSH Q3H PRN PRN Reason: BREAKTHROUGH PAIN Last Admin: 05/11/18 14:59 Dose: 3 mg Ondansetron HCl (Zofran Odt) 4 mg PO Q6H PRN PRN Reason: NAUSEA OR VOMITING Ondansetron HCl (Zofran Inj) 4 mg IV.PUSH Q6H PRN PRN Reason: NAUSEA OR VOMITING Senna/Docusate Sodium (Macrina-Colace) 1 tab PO BID [facility] Last Admin: 05/11/18 20:02 Dose: 1 tab Sennosides (Senokot) 17.2 mg PO Q12H PRN PRN Reason: Moderate Constipation Sodium Chloride (Ns Flush) 2 ml IV.FLUSH BID [facility] Last Admin: 05/11/18 20:03 Dose: 2 ml Sodium Chloride (Ns Flush) 2 ml IV.FLUSH UNSCH PRN PRN Reason: FLUSH AFTER USING IV ACCESS Allergies Allergy/AdvReac Type Severity Reaction Status Date / Time penicillin G Allergy Severe Hives Verified 05/07/18 22:55 Exam Vital signs: Vital Signs 05/11/18 08:00 05/11/18 12:00 05/11/18 16:00 Temperature 97.7 F 97.9 F 97.6 F Pulse Rate 69 68 72 Respiratory Rate 17 17 17 Blood Pressure 144/63 H 126/59 L 168/75 H Pulse Oximetry 97 95 97 05/11/18 20:00 05/12/18 00:00 05/12/18 03:39 Temperature 97.9 F 97.8 F Pulse Rate 79 75 Respiratory Rate 16 17 20 Blood Pressure 156/79 H 149/72 H Pulse Oximetry 97 96 Intake & Output 05/11/18 05/12/18 05/12/18 18:59 06:59 18:59 Intake Total 3180 / 3180 200 / 200 Balance 3180 / 3180 200 / 200 Weight 77.3 kg Intake: IV 300 / 300 200 / 200 Ancef Inj 2,000 MG In NS Inj 80 100 / 100 200 / 200 ML @ 200 mls/hr IV.SIG Q8H [facility] Rx#:[id number] Oral 2880 / 2880 Other: # Voids 6 Date of Last Bowel Movement 05/11/18 # Bowel Movements 2 - Constitutional no acute distress - Routine HEENT Exam Head: Present: normocephalic Eye: Present: EOMI ENT: Present: mucous membranes moist, oropharynx clear - Routine Neck Exam Present: supple. Absent: JVD - Routine Respiratory Exam Present: CTA bilaterally - Routine Cardiovascular Exam Present: RRR, S1, S2. Absent: murmur - Routine Abdominal Exam Present: soft, normoactive bowel sounds. Absent: tenderness - Routine Extremities Exam Absent: edema - Routine Skin Exam Absent: erythema - Routine Neurological Exam Present: alert, oriented X3 - Routine Psychiatric Exam Present: normal affect Results 05/09/18 18:40 05/11/18 04:49 Comprehensive Metabolic Panel 05/10/18 05/11/18 Range/Units 16:00 04:49 Creatinine 0.89 0.78 (0.60-1.30) mg/dL Intake and Output 05/11/18 05/12/18 05/12/18 22:59 06:59 14:59 Intake Total 3080 / 3080 100 / 100 Balance 3080 / 3080 100 / 100 Intake: IV 200 / 200 100 / 100 Ancef Inj 2,000 MG In NS Inj 80 200 / 200 100 / 100 ML @ 200 mls/hr IV.SIG Q8H [facility] Rx#:[id number] Oral 2880 / 2880 Other: # Voids 6 # Bowel Movements 2 Weight 77.3 kg - Imaging and Cardiology Imaging: Impressions Foot MRI 05/11/18 00:00 CONCLUSION: 1. There is subcutaneous edema along the medial aspect of the posterior ankle. Within this area of inflammation is a rim-enhancing 10 mm collection suspicious for small abscess. 2. Bone marrow signal is normal indicating no findings of osteomyelitis and the deeper soft tissue structures including the adjacent tendons demonstrates no abnormality. Assessment and Plan - Plan MSSA bacteremia Hx of IVDA Plan: ID following, multiple sources of infection. Continue abx. TTE did not reveal any vegetations or valve disease. Will proceed with DANELLE , no contraindications. Risks, benefits, alternatives discussed. Patient consented will proceed 05/12 in the am. Thank you for allowing me to participate.
[2018-05-12] MEDS: Methadone 10 MG Tablet PO SCH (08:47)
[2018-05-12] MEDS: Insulin NovoLOG Aspart Correctional Sugar Inj SQ SCH ×4 (08:49→21:17)
[2018-05-12] MEDS: Insulin Detemir Inj 1,000 UNIT/10 ML Vial SQ SCH ×2 (08:49→21:17)
[2018-05-12] MEDS: Senna/Docusate Sodium 8.6/50 MG Tablet PO SCH ×2 (08:51→21:11)
--- NOTE | 2018-05-12 09:04 | P.PN ---
Subjective Interval history: This is a pleasant 32 y/o Male with MRSA history, Heroin addiction Insulin dependent DM, who came to ER with seven days of constant sharp pain right medial elbow, as we know he has IVDU, Hepatitis C, Hand abscess history. with Diagnosis of Abscess of bursa of right elbow, status post I and D of right arm abscess, right elbow arthrotomy with irrigation and debridement. as per ID has GPC on Gram stain recommended to continue Vancomycin and stopped Azactam and Flagyl. asked for 2D echo. if Positive blood cultures will get DANELLE. Seen in his bedroom he is asking to resume his Methadone he was using 70 mg daily, I found the last script given by Doctor Camron for 28 tablets with Methadone 70 mg daily. 05/10: Seen in his bedroom, better pain control, he has no nausea, vomit or diarrhea, continue present care. wound cultures positive for Staphylococcus Aureus. 05/11: Seen by ID specialist multiple abscess, left foot abscess new, suspected endocarditis by ID, recommended Podiatry specialist consult Removed Vancomycin and started on Ancef, consulted Cardiology for DANELLE, Seen by Podiatry specialist has 1 cm circumferential abscess tender to touch, with diagnosis of Left ankle abscess, for I and D tomorrow. 05/12: Stable in his bedroom no new issues, no nausea, vomit or diarrhea, status post beside I and D by Podiatry of his Left ankle. Discussed with Doctor Elias Guzman he already recommended for hand surgery consult he does not perform any procedure below the elbow. DANELLE performed There was no evidence of vegetations or valvular heart disease to suggest endocarditis on today's DANELLE. Physical Exam Vital signs: Vital Signs 05/11/18 12:00 05/11/18 16:00 05/11/18 20:00 Temperature 97.9 F 97.6 F 97.9 F Pulse Rate 68 72 79 Respiratory Rate 17 17 16 Blood Pressure 126/59 L 168/75 H 156/79 H Pulse Oximetry 95 97 97 05/12/18 00:00 05/12/18 03:39 05/12/18 08:00 Temperature 97.8 F 97.6 F Pulse Rate 75 69 Respiratory Rate 17 20 18 Blood Pressure 149/72 H 143/72 H Pulse Oximetry 96 96 Intake & Output 05/11/18 05/12/18 05/12/18 18:59 06:59 18:59 Intake Total 3180 / 3180 200 / 200 Balance 3180 / 3180 200 / 200 Weight 77.3 kg Intake: IV 300 / 300 200 / 200 Ancef Inj 2,000 MG In NS Inj 80 100 / 100 200 / 200 ML @ 200 mls/hr IV.SIG Q8H [facility] Rx#:[id number] Oral 2880 / 2880 Other: # Voids 6 Date of Last Bowel Movement 05/11/18 # Bowel Movements 2 Narrative: GENERAL: This is a well-nourished, well-developed patient, in no apparent distress. CARDIOVASCULAR: Regular rate and rhythm without murmurs, gallops, or rubs. RESPIRATORY: Clear to auscultation. Breath sounds equal bilaterally. No wheezes , rales, or rhonchi. GASTROINTESTINAL: Abdomen soft, non-tender, nondistended. Normal active bowel sounds MUSCULOSKELETAL: Right forearm dressed, left forearm with changes in erythema and edema left ankle with edema. today spontaneous drainage on left forearm. dressed all areas at this time. NEURO: Alert & Oriented x4 to person, place, time, situation. Moves all ext x4 Results - Labs CBC & Chem 7: 05/09/18 18:40 05/11/18 04:49 Laboratory Results - last 24 hr 05/11/18 05/11/18 05/11/18 12:05 16:55 20:05 POC Glucose 90 271 H 304 H 05/12/18 07:45 POC Glucose 314 H Microbiology 05/07/18 23:45 Blood - Peripheral Aerobic Blood Culture - Preliminary No growth in 4 days 05/07/18 23:45 Blood - Peripheral Anaerobic Blood Culture - Preliminary No growth in 4 days 05/07/18 23:40 Blood - Peripheral Aerobic Blood Culture - Preliminary No growth in 4 days 05/07/18 23:40 Blood - Peripheral Anaerobic Blood Culture - Final Staphylococcus aureus 05/08/18 10:23 Fluid - Other Gram Stain - Final 05/08/18 10:23 Fluid - Other Wound Culture - Final No growth in 72 hours (aerobically and anaerobically ) - Procedures (1) Abscess of bursa of right elbow (2) Right elbow pain Date of procedure: 05/08/18 Procedure: Irrigation and debridement of right arm abscess Right elbow arthrotomy with irrigation and debridement Anesthesia: GETA Surgeon: Porter Clancy MD --Left ankle I and D by Podiatry specialist --DANELLE performed today. Assessment and Plan - Plan //Severe sepsis //Suspected MRSA cellulitis/abscesses of right elbow, left forearm. = Fever 101.3, tachycardia of 101, ESR 69, right elbow and left hand abscess. Severe due to hyperglycemia in the 500s on admission. = MRSA history, Heroin addiction Insulin dependent DM, who came to ER with seven days of constant sharp pain right medial elbow, as we know he has IVDU, Hepatitis C, Hand abscess history. with Diagnosis of Abscess of bursa of right elbow, status post I and D of right arm abscess , right elbow arthrotomy with irrigation and debridement. 05/11: Seen by ID specialist multiple abscess, left foot abscess new, suspected endocarditis by ID, recommended Podiatry specialist consult Removed Vancomycin and started on Ancef, consulted Cardiology for DANELLE, Seen by Podiatry specialist has 1 cm circumferential abscess tender to touch, with diagnosis of Left ankle abscess, status post I and D today, status post DANELLE did not found Vegetation. asked for hand surgery for left forearm abscess. //Type 1 diabetes with hyperglycemia in the 500s on admission Likely secondary to sepsis as well as general noncompliance. continue Levemir 10 units BID and giving 5 units now. at this time blood sugar 90 follow avoid Hypoglycemia. //Chronic heroin addiction. Patient says that he is on methadone 70 mg daily. I found a script by Doctor Lindsay for this amount of Methadone started here and he will need to resume with Methadone clinic on discharge not able to prescribe too many tablets of this medicine. DVT prophylaxis with Lovenox Code Status: Full Code. Discussed Condition With: Patient and nurse in the room. Discharge Planning: Once cleared by Specialists.
--- NOTE | 2018-05-12 09:25 | P.PCN ---
Date of procedure: 05/12/18 Pre-op diagnosis: Left ankle abcess Post-op diagnosis: same Procedure: Left ankle I&D Anesthesia: local (7mL 1% lidocaine) Surgeon: Conchita Davidson Estimated blood loss (mL): 5 Pathology: other (culture swab) Condition: stable Disposition: floor
--- NOTE | 2018-05-12 09:28 | P.PNPOD ---
Subjective Interval history: Left ankle abscess improved in pain and quality. Pt scheduled for DANELLE today. Agreeable to bedside I&D today. Physical Exam Vital signs: Vital Signs 05/11/18 12:00 05/11/18 16:00 05/11/18 20:00 Temperature 97.9 F 97.6 F 97.9 F Pulse Rate 68 72 79 Respiratory Rate 17 17 16 Blood Pressure 126/59 L 168/75 H 156/79 H Pulse Oximetry 95 97 97 05/12/18 00:00 05/12/18 03:39 05/12/18 08:00 Temperature 97.8 F 97.6 F Pulse Rate 75 69 Respiratory Rate 17 20 18 Blood Pressure 149/72 H 143/72 H Pulse Oximetry 96 96 Intake & Output 05/11/18 05/12/18 05/12/18 18:59 06:59 18:59 Intake Total 3180 / 3180 200 / 200 Balance 3180 / 3180 200 / 200 Weight 77.3 kg Intake: IV 300 / 300 200 / 200 Ancef Inj 2,000 MG In NS Inj 80 100 / 100 200 / 200 ML @ 200 mls/hr IV.SIG Q8H [facility] Rx#:[id number] Oral 2880 / 2880 Other: # Voids 6 Date of Last Bowel Movement 05/11/18 # Bowel Movements 2 Narrative: Small subcutaneous fluid mass to posterior medial ankle, decreased erythema, tender to touch, no purulence on drainage Medications and Allergies Active Medications: Active Medications Hydrocodone Bitart/Acetaminophen ([place] 7.5/325) 1 tab PO Q3H PRN PRN Reason: Pain Scale 3-10 Last Admin: 05/12/18 08:48 Dose: 1 tab Al Hydroxide/Mg Hydroxide (Milk Of Magnesia Liq) 30 ml PO Q12H PRN PRN Reason: Mild Constipation Bisacodyl (Dulcolax Supp) 10 mg RECTAL DAILY PRN PRN Reason: SEVERE CONSITIPATION Clonidine HCl (Catapres) 0.1 mg PO Q6H PRN PRN Reason: SEE LABEL COMMENTS Last Admin: 05/10/18 17:01 Dose: 0.1 mg Dextrose (D50w Vial) 50 ml IV.PUSH UNSCH PRN PRN Reason: PER HYPOGLYCEMIA PROTOCOL Diphenhydramine HCl (Benadryl) 25 mg PO Q6H PRN PRN Reason: ITCHING Enoxaparin Sodium (Lovenox Inj) 40 mg SQ Q24H [facility] Last Admin: 05/11/18 20:06 Dose: 40 mg Glucagon (Glucagon Inj) 1 mg OTHER PRN PRN PRN Reason: for Hypoglycemia Protocol Cefazolin Sodium 2,000 mg/ (Sodium Chloride) 100 mls @ 200 mls/hr IV.SIG Q8H [facility] Last Infusion: 05/12/18 05:58 Dose: Infused Insulin Aspart (Novolog Insulin Correctional Sugar Inj) 0 unit SQ ACHS [facility]; Protocol Last Admin: 05/12/18 08:49 Dose: 10 unit Insulin Detemir (Levemir Inj) 10 unit SQ BID [facility] Last Admin: 05/12/18 08:49 Dose: 10 unit Lactulose (Lactulose Liq) 30 ml PO DAILY PRN PRN Reason: SEVERE CONSITIPATION Lidocaine HCl (Xylocaine 1% Inj (50 Ml)) 0 ml INFILTRATN [employer] [facility] Stop: 05/12/18 11:59 Methadone HCl (Dolophine) 70 mg PO DAILY [facility] Last Admin: 05/12/18 08:47 Dose: 70 mg Morphine Sulfate (Morphine Inj) 3 mg IV.PUSH Q3H PRN PRN Reason: BREAKTHROUGH PAIN Last Admin: 05/11/18 14:59 Dose: 3 mg Ondansetron HCl (Zofran Odt) 4 mg PO Q6H PRN PRN Reason: NAUSEA OR VOMITING Ondansetron HCl (Zofran Inj) 4 mg IV.PUSH Q6H PRN PRN Reason: NAUSEA OR VOMITING Senna/Docusate Sodium (Macrina-Colace) 1 tab PO BID [facility] Last Admin: 05/12/18 08:51 Dose: 1 tab Sennosides (Senokot) 17.2 mg PO Q12H PRN PRN Reason: Moderate Constipation Sodium Chloride (Ns Flush) 2 ml IV.FLUSH BID [facility] Last Admin: 05/12/18 08:50 Dose: 2 ml Sodium Chloride (Ns Flush) 2 ml IV.FLUSH UNSCH PRN PRN Reason: FLUSH AFTER USING IV ACCESS Allergies Allergy/AdvReac Type Severity Reaction Status Date / Time penicillin G Allergy Severe Hives Verified 05/07/18 22:55 Results - Labs CBC & Chem 7: 05/09/18 18:40 05/11/18 04:49 Laboratory Results - last 24 hr 05/11/18 05/11/18 05/11/18 12:05 16:55 20:05 POC Glucose 90 271 H 304 H 05/12/18 07:45 POC Glucose 314 H Microbiology 05/07/18 23:45 Blood - Peripheral Aerobic Blood Culture - Preliminary No growth in 4 days 05/07/18 23:45 Blood - Peripheral Anaerobic Blood Culture - Preliminary No growth in 4 days 05/07/18 23:40 Blood - Peripheral Aerobic Blood Culture - Preliminary No growth in 4 days 05/07/18 23:40 Blood - Peripheral Anaerobic Blood Culture - Final Staphylococcus aureus 05/08/18 10:23 Fluid - Other Gram Stain - Final 05/08/18 10:23 Fluid - Other Wound Culture - Final No growth in 72 hours (aerobically and anaerobically ) - Procedures (1) Abscess of bursa of right elbow (2) Right elbow pain Date of procedure: 05/08/18 Procedure: Irrigation and debridement of right arm abscess Right elbow arthrotomy with irrigation and debridement Anesthesia: [facility] Surgeon: Porter Clancy MD Assessment and Plan - Plan -s/p bedside I&D -cx pending, but likely to be negative due to abx use - to assess procedure site and place wound care orders tomorrow
--- NOTE | 2018-05-12 12:13 | P.PCNCA ---
- Cardiology Procedure Note Procedure: DANELLE Procedure Date: 05/12/18 Procedure Detail: A DANELLE was performed to evaluate for endocarditis. There was no evidence of vegetations or valvular heart disease to suggest endocarditis on today's DANELLE. Full report in synapse. Thank you for allowing me to participate. Feel free to contact me with any further questions, I will be available on a prn basis.
[2018-05-12] MEDS: Morphine Inj 4 MG/ML Vial IV.PUSH PRN (17:00)
--- NOTE | 2018-05-12 17:16 | ECHRPT ---
Indication: SEPSIS CONCLUSIONS Focused DANELLE to evaluate for Endocarditis. No evidence of endocarditis seen on today's DANELLE. Normal left ventricular function, EF 55-60%. No significant valvular heart disease. BP: / HR: 75 Rhythm: sinus Technical Quality:fair Medications Complications None Proc. Components FINDINGS LEFT VENTRICLE Normal left ventricular size and wall thickness. The left ventricular systolic function is normal wi th an estimated ejection fraction in the range of 55-65%. RIGHT VENTRICLE Normal right ventricular size and systolic function. LEFT ATRIUM The left atrial size is normal. RIGHT ATRIUM The right atrial size is normal. ATRIAL APPENDAGES No thrombus seen. ATRIAL SEPTUM Normal atrial septal thickness without atrial level shunting by limited color doppler interrogation. AORTA No evidence of plaque or root abscess seen. MITRAL VALVE Structurally normal mitral valve. No mitral valve stenosis or regurgitation. No evidence of vegetat ions seen. AORTIC VALVE Trileaflet aortic valve. No evidence of vegetations seen TRICUSPID VALVE Structurally normal tricuspid valve. No evidence of vegetations seen. VESSELS Limited views. Structurally normal appearing. No evidence of vegetations seen. PERICADIUM No pericardial effusion. Antonio Calhoun MD (Electronically Signed) Final Date:12 May 2018 17:15
[2018-05-12] MEDS: Enoxaparin Inj 40 MG/0.4 ML Syringe SQ SCH (21:11)
[2018-05-13] MEDS: ceFAZolin Inj 2,000 MG in Sodium Chlor 0.9% Inj 80 ML IV.SIG SCH ×3 (05:22→21:55)
[2018-05-13] MEDS: Insulin Detemir Inj 1,000 UNIT/10 ML Vial SQ SCH ×2 (09:14→21:55)
[2018-05-13] MEDS: Insulin NovoLOG Aspart Correctional Sugar Inj SQ SCH ×4 (09:14→21:55)
[2018-05-13] MEDS: Methadone 10 MG Tablet PO SCH (09:15)
[2018-05-13] MEDS: Senna/Docusate Sodium 8.6/50 MG Tablet PO SCH ×2 (09:18→21:56)
--- NOTE | 2018-05-13 14:13 | P.PNIM ---
Subjective Interval history: Patient complains of mild pain on the left ankle. He does not have any other complaints. Physical Exam Vital signs: Vital Signs 05/12/18 16:00 05/12/18 20:00 05/13/18 00:00 Temperature 97.8 F 97.7 F 97.8 F Pulse Rate 76 88 90 Respiratory Rate 18 18 18 Blood Pressure 142/66 H 179/90 H 190/88 H Pulse Oximetry 95 96 97 05/13/18 02:30 05/13/18 03:30 05/13/18 06:58 Temperature Pulse Rate Respiratory Rate 20 Blood Pressure 172/77 H 162/70 H Pulse Oximetry 05/13/18 08:00 05/13/18 12:00 Temperature 97.2 F L 97.4 F L Pulse Rate 71 73 Respiratory Rate 18 19 Blood Pressure 141/63 H 177/79 H Pulse Oximetry 97 97 Intake & Output 05/12/18 05/13/18 05/13/18 18:59 06:59 18:59 Intake Total 2770 / 2770 100 / 100 100 / 100 Balance 2770 / 2770 100 / 100 100 / 100 Weight 77.3 kg Intake: IV 100 / 100 100 / 100 100 / 100 Ancef Inj 2,000 MG In NS Inj 80 100 / 100 100 / 100 100 / 100 ML @ 200 mls/hr IV.SIG Q8H [facility] Rx#:[id number] Oral 2520 / 2520 0 / 0 Anesthesia Amount 150 / 150 Other: # Voids 5 5 Date of Last Bowel Movement 05/11/18 # Bowel Movements 1 Narrative: General patient in no acute distress HEENT extraocular movements are intact, clear oropharyngeal mucosa, no JVD Cardiovascular S1-S2 audible, RRR, no murmurs rubs or gallops Respiratory clear to auscultation bilaterally Abdomen soft, nontender, nondistended, normal bowel sounds Extremities left upper extremity right upper extremity in bandages near the forearms and elbows. Left ankle in a bandage. No edema. No neurological deficits. Results - Labs CBC & Chem 7: 05/09/18 18:40 05/11/18 04:49 Laboratory Results - last 24 hr 05/12/18 05/12/18 05/13/18 17:11 21:15 07:53 POC Glucose 266 H 353 H 352 H 05/13/18 12:51 POC Glucose 78 Microbiology 05/12/18 09:15 Fluid - Other Gram Stain - Final 05/12/18 09:15 Fluid - Other Wound Culture - Preliminary Staphylococcus aureus 05/07/18 23:45 Blood - Peripheral Aerobic Blood Culture - Final No growth in 5 days 05/07/18 23:45 Blood - Peripheral Anaerobic Blood Culture - Final No growth in 5 days 05/07/18 23:40 Blood - Peripheral Aerobic Blood Culture - Final No growth in 5 days 05/07/18 23:40 Blood - Peripheral Anaerobic Blood Culture - Final Staphylococcus aureus - Procedures (1) Abscess of bursa of right elbow (2) Right elbow pain Date of procedure: 05/08/18 Procedure: Irrigation and debridement of right arm abscess Right elbow arthrotomy with irrigation and debridement Anesthesia: GETA Surgeon: Porter Clancy MD --Left ankle I and D by Podiatry specialist --DANELLE performed today. Assessment and Plan - Plan Patient is a 32-year-old male with a known history of IV drug use. Patient was admitted for right upper extremity abscess and a left ankle abscess status post incision and drainage. He was also found to be febrile and blood cultures came back positive for MSSA. 1. Severe sepsis secondary to MSSA septicemia 2. Left upper extremity, right upper extremity, left foot abscesses status post incision and drainage The patient has remained afebrile overnight. Infectious disease following the patient. Recommendations are to continue IV Ancef. Repeat blood cultures are negative. DANELLE did not show any findings consistent with endocarditis. Patient was counseled on dangers of his continued IV drug use. Continue current management. 3. Insulin-dependent diabetes Continue basal insulin and a low-dose insulin sliding scale. The patient is noncompliant with his diet. Today he was found to have a Dr. Angulo in his room and bags of potato chips that he obtained from a vending machine. Patient was counseled on his diabetes and to be compliant with his diet. His diabetes insulin regimen will be adjusted as needed. 4. Chronic heroin addiction Patient is currently on methadone 70 mg daily. As per documentation this is what the patient takes at home. The patient states that he started taking methadone at a methadone clinic in [place]. I will follow-up with the methadone clinics in [place]. Upon discharge he will need to follow-up with the methadone clinic in [facility]. Lovenox for DVT prophylaxis
[2018-05-13] MEDS: Morphine Inj 4 MG/ML Vial IV.PUSH PRN ×2 (17:29→22:19)
--- NOTE | 2018-05-13 20:27 | P.PNPOD ---
Subjective Interval history: s/p Left ankle I and D DOS 05/12/18 Dr Davidson Physical Exam Vital signs: Vital Signs 05/13/18 00:00 05/13/18 02:30 05/13/18 03:30 Temperature 97.8 F Pulse Rate 90 Respiratory Rate 18 Blood Pressure 190/88 H 172/77 H 162/70 H Pulse Oximetry 97 05/13/18 06:58 05/13/18 08:00 05/13/18 12:00 Temperature 97.2 F L 97.4 F L Pulse Rate 71 73 Respiratory Rate 20 18 19 Blood Pressure 141/63 H 177/79 H Pulse Oximetry 97 97 05/13/18 16:00 Temperature 97.1 F L Pulse Rate 71 Respiratory Rate 19 Blood Pressure 151/78 H Pulse Oximetry 96 Intake & Output 05/13/18 05/13/18 05/14/18 06:59 18:59 06:59 Intake Total 100 / 100 1700 / 1700 Balance 100 / 100 1700 / 1700 Weight 77.3 kg Intake: IV 100 / 100 200 / 200 Ancef Inj 2,000 MG In NS Inj 80 100 / 100 200 / 200 ML @ 200 mls/hr IV.SIG Q8H [facility] Rx#:[id number] Oral 0 / 0 1500 / 1500 Other: # Voids 5 4 Narrative: Left ankle with no streaking, no active drainage, no purulence. Intact packing. NVS intact. Medications and Allergies Active Medications: Active Medications Hydrocodone Bitart/Acetaminophen ([place] 7.5/325) 1 tab PO Q3H PRN PRN Reason: Pain Scale 3-10 Last Admin: 05/13/18 19:45 Dose: 1 tab Al Hydroxide/Mg Hydroxide (Milk Of Magnesia Liq) 30 ml PO Q12H PRN PRN Reason: Mild Constipation Bisacodyl (Dulcolax Supp) 10 mg RECTAL DAILY PRN PRN Reason: SEVERE CONSITIPATION Clonidine HCl (Catapres) 0.1 mg PO Q6H PRN PRN Reason: SEE LABEL COMMENTS Last Admin: 05/13/18 01:09 Dose: 0.1 mg Dextrose (D50w Vial) 50 ml IV.PUSH UNSCH PRN PRN Reason: PER HYPOGLYCEMIA PROTOCOL Last Admin: 05/12/18 13:09 Dose: 50 ml Diphenhydramine HCl (Benadryl) 25 mg PO Q6H PRN PRN Reason: ITCHING Enoxaparin Sodium (Lovenox Inj) 40 mg SQ Q24H [facility] Last Admin: 05/12/18 21:11 Dose: 40 mg Glucagon (Glucagon Inj) 1 mg OTHER PRN PRN PRN Reason: for Hypoglycemia Protocol Cefazolin Sodium 2,000 mg/ (Sodium Chloride) 100 mls @ 200 mls/hr IV.SIG Q8H [facility] Last Infusion: 05/13/18 15:21 Dose: Infused Insulin Aspart (Novolog Insulin Correctional Sugar Inj) 0 unit SQ ACHS [facility]; Protocol Last Admin: 05/13/18 17:34 Dose: 12 unit Insulin Detemir (Levemir Inj) 10 unit SQ BID [facility] Last Admin: 05/13/18 09:14 Dose: 10 unit Lactulose (Lactulose Liq) 30 ml PO DAILY PRN PRN Reason: SEVERE CONSITIPATION Methadone HCl (Dolophine) 70 mg PO DAILY [facility] Last Admin: 05/13/18 09:15 Dose: 70 mg Morphine Sulfate (Morphine Inj) 3 mg IV.PUSH Q3H PRN PRN Reason: BREAKTHROUGH PAIN Last Admin: 05/13/18 17:29 Dose: 3 mg Ondansetron HCl (Zofran Odt) 4 mg PO Q6H PRN PRN Reason: NAUSEA OR VOMITING Ondansetron HCl (Zofran Inj) 4 mg IV.PUSH Q6H PRN PRN Reason: NAUSEA OR VOMITING Senna/Docusate Sodium (Macrina-Colace) 1 tab PO BID [facility] Last Admin: 05/13/18 09:18 Dose: Not Given Sennosides (Senokot) 17.2 mg PO Q12H PRN PRN Reason: Moderate Constipation Sodium Chloride (Ns Flush) 2 ml IV.FLUSH BID [facility] Last Admin: 05/13/18 09:15 Dose: 2 ml Sodium Chloride (Ns Flush) 2 ml IV.FLUSH UNSCH PRN PRN Reason: FLUSH AFTER USING IV ACCESS Allergies Allergy/AdvReac Type Severity Reaction Status Date / Time penicillin G Allergy Severe Hives Verified 05/07/18 22:55 Results - Labs CBC & Chem 7: 05/09/18 18:40 05/11/18 04:49 Laboratory Results - last 24 hr 05/12/18 05/13/18 05/13/18 21:15 07:53 12:51 POC Glucose 353 H 352 H 78 05/13/18 17:28 POC Glucose 337 H Microbiology 05/12/18 09:15 Fluid - Other Gram Stain - Final 05/12/18 09:15 Fluid - Other Wound Culture - Preliminary Staphylococcus aureus - Procedures (1) Abscess of bursa of right elbow (2) Right elbow pain Date of procedure: 05/08/18 Procedure: Irrigation and debridement of right arm abscess Right elbow arthrotomy with irrigation and debridement Anesthesia: GETA Surgeon: Porter Clancy MD --Left ankle I and D by Podiatry specialist --DANELLE performed today. Assessment and Plan - Assessment (1) Abscess Code(s): L02.91 - Cutaneous abscess, unspecified Status: Acute (2) Abscess of tendon sheath, right ankle and foot Code(s): M65.071 - Abscess of tendon sheath, right ankle and foot Status: Acute - Plan Dressing change on 05/13/18 wit packing pulled. OK to d/c per Podiatry F/U with Dr Davidson with in 1 week of d/c Dressing change qod with adaptic, 4x4 and aracelis, left ankle.
[2018-05-13] MEDS: Enoxaparin Inj 40 MG/0.4 ML Syringe SQ SCH (21:55)
[2018-05-14] MEDS: ceFAZolin Inj 2,000 MG in Sodium Chlor 0.9% Inj 80 ML IV.SIG SCH ×3 (04:14→20:16)
--- NOTE | 2018-05-14 07:24 | P.PNOP ---
Subjective Interval history: Continuing to progress well. Still has some pain in the elbow Physical Exam Vital signs: Vital Signs 05/13/18 08:00 05/13/18 12:00 05/13/18 16:00 Temperature 97.2 F L 97.4 F L 97.1 F L Pulse Rate 71 73 71 Respiratory Rate 18 19 19 Blood Pressure 141/63 H 177/79 H 151/78 H Pulse Oximetry 97 97 96 05/13/18 23:30 05/14/18 03:06 Temperature 97.8 F Pulse Rate 86 Respiratory Rate 20 Blood Pressure 193/90 H 150/68 H Pulse Oximetry 99 Intake & Output 05/13/18 05/14/18 05/14/18 18:59 06:59 18:59 Intake Total 1700 / 1700 200 / 200 Balance 1700 / 1700 200 / 200 Weight 79.4 kg Intake: IV 200 / 200 200 / 200 Ancef Inj 2,000 MG In NS Inj 80 200 / 200 200 / 200 ML @ 200 mls/hr IV.SIG Q8H [facility] Rx#:[id number] Oral 1500 / 1500 Other: # Voids 4 2 Date of Last Bowel Movement 05/13/18 Narrative: Right upper extremity: Clean dry dressing. Dressings taken down. Incisions continuing to healing well well approximated. Drain was removed. Mild swelling no erythema. Distally intact sensation elbow range of motion is from 10 degrees short of full extension to 110 degrees Results - Labs CBC & Chem 7: 05/09/18 18:40 05/11/18 04:49 Laboratory Results - last 24 hr 05/13/18 05/13/18 05/13/18 07:53 12:51 17:28 Creatinine Estimated GFR POC Glucose 352 H 78 337 H 05/13/18 05/13/18 18:38 20:06 Creatinine Cancelled Estimated GFR Cancelled POC Glucose 316 H Microbiology 05/12/18 09:15 Fluid - Other Gram Stain - Final 05/12/18 09:15 Fluid - Other Wound Culture - Preliminary Staphylococcus aureus - Procedures (1) Abscess of bursa of right elbow (2) Right elbow pain Date of procedure: 05/08/18 Procedure: Irrigation and debridement of right arm abscess Right elbow arthrotomy with irrigation and debridement Anesthesia: GETA Surgeon: Porter Clancy MD --Left ankle I and D by Podiatry specialist --DANELLE performed today. Assessment and Plan - Assessment and Plan 1) Right Elbow Abscess s/p I&D - 05/08/28 -WBAT -OT for ROM -daily dressing changes -monitor cultures -Infect Dz to tailor Abx per cultures -f/u with [facility] or [facility] in 2 weeks for incision check
[2018-05-14] MEDS: Insulin Detemir Inj 1,000 UNIT/10 ML Vial SQ SCH ×2 (09:26→20:17)
[2018-05-14] MEDS: Insulin NovoLOG Aspart Correctional Sugar Inj SQ SCH ×4 (09:33→20:18)
[2018-05-14] MEDS: Senna/Docusate Sodium 8.6/50 MG Tablet PO SCH ×2 (09:34→20:16)
[2018-05-14] MEDS: Methadone 10 MG Tablet PO SCH (09:34)
--- NOTE | 2018-05-14 12:37 | P.DS ---
Date of admission: 05/08/18 02:44 Primary care physician: No Primary Care Physician Brief History from admission: 32-year-old male with a history of MRSA, heroin addiction, insulin-dependent diabetes mellitus who presents with a 7-day history of constant sharp nonradiating pain in right medial elbow as well as the left dorsal/medial hand. Patient reports most recent injection was about a week ago, however he says that current infection is likely secondary to saw palmetto. He also reports a one-week history of subjective fevers, chills, nausea with nonbloody vomiting. Denies any diarrhea, constipation, dysuria. DS: Summary Hospital Course: Patient is a 32-year-old male with a known history of IV drug use. Patient was admitted for right upper extremity abscess and a left ankle abscess status post incision and drainage. He was also found to be febrile and blood cultures came back positive for MSSA. 1. Severe sepsis secondary to MSSA abscess of the Left upper extremity, right upper extremity, left foot status post incision and drainage The patient was admitted and started on IV antibiotics. Infectious disease was consulted to evaluate the patient. 2 sets of blood cultures were negative. Orthopedics was also consulted as well as podiatry. The patient underwent incision and drainage of the left upper extremity as well as left foot. Initially there was also concern for possible endocarditis. The patient underwent a DANELLE which did not show any findings concerning for endocarditis. 2. Insulin-dependent diabetes The patient also has a diagnosis of insulin-dependent diabetes. He is noncompliant with his medications or his diet. During the hospitalization the patient was found to be buying sodas from the vending machine and eating bags of chips. He is very noncompliant. I tried to educate the patient on diabetes however he did not want to listen. Upon discharge he will be continued on home dose of basal insulin. He can then follow-up with his primary care physician for regular monitoring his diabetes. 3. Chronic heroin addiction The patient will need to follow-up her methadone clinic in order to continue his methadone. He is a very noncompliant patient and is an active IV drug user. States that he still uses IV heroin. - Time Spent with Patient Total time spent providing and/or coordinating discharge services: Greater than 30 minutes - Quality: VTE Deep Vein Thrombosis/Pulmonary Embolism Present on Admission: No Exam Vital signs: Vital Signs 05/13/18 16:00 05/13/18 23:30 05/14/18 03:06 Temperature 97.1 F L 97.8 F Pulse Rate 71 86 Respiratory Rate 19 20 Blood Pressure 151/78 H 193/90 H 150/68 H Pulse Oximetry 96 99 05/14/18 08:00 05/14/18 12:00 Temperature 98.0 F 98.1 F Pulse Rate 72 85 Respiratory Rate 18 17 Blood Pressure 153/71 H 180/86 H Pulse Oximetry 98 97 Intake & Output 05/13/18 05/14/18 05/14/18 18:59 06:59 18:59 Intake Total 1700 / 1700 200 / 200 Balance 1700 / 1700 200 / 200 Weight 79.4 kg Intake: IV 200 / 200 200 / 200 Ancef Inj 2,000 MG In NS Inj 80 200 / 200 200 / 200 ML @ 200 mls/hr IV.SIG Q8H [facility] Rx#:[id number] Oral 1500 / 1500 Other: # Voids 4 2 Date of Last Bowel Movement 05/13/18 Narrative: General patient in no acute distress HEENT extraocular movements are intact, clear oropharyngeal mucosa, no JVD Cardiovascular S1-S2 audible, RRR, no murmurs rubs or gallops Respiratory clear to auscultation bilaterally Abdomen soft, nontender, nondistended, normal bowel sounds Extremities left upper extremity right upper extremity in bandages near the forearms and elbows. Left ankle in a bandage. No edema. No neurological deficits. Results Procedures completed during hospitalization: (1) Abscess of bursa of right elbow (2) Right elbow pain Date of procedure: 05/08/18 Procedure: Irrigation and debridement of right arm abscess Right elbow arthrotomy with irrigation and debridement Anesthesia: GETA Surgeon: Porter Clancy MD --Left ankle I and D by Podiatry specialist --DANELLE performed today. Labs on day of discharge: Labs from last 24 hours 05/14/18 05/14/18 05/13/18 12:17 08:12 20:06 Creatinine Estimated GFR POC Glucose 351 H 256 H 316 H 05/13/18 05/13/18 05/13/18 18:38 17:28 12:51 Creatinine Cancelled Estimated GFR Cancelled POC Glucose 337 H 78 - Impressions ITS Impressions Chest X-Ray 05/07/18 23:29 CONCLUSION: No acute cardiopulmonary disease identified. Foot MRI 05/11/18 00:00 CONCLUSION: 1. There is subcutaneous edema along the medial aspect of the posterior ankle. Within this area of inflammation is a rim-enhancing 10 mm collection suspicious for small abscess. 2. Bone marrow signal is normal indicating no findings of osteomyelitis and the deeper soft tissue structures including the adjacent tendons demonstrates no abnormality. Discharge Plan - Physicians Team Primary Care Provider: Primary Care Physici,Josette Attending Provider: Bill Kamara Other Providers: Adelia Dotson MD ; Al Kay MD ; Rodolfo Mcdaniels MD ; Porter Clancy MD ; Conchita Davidson DPM ; Antonio Calhoun MD ; Elias Guzman MD
[2018-05-14] MEDS: Morphine Inj 4 MG/ML Vial IV.PUSH PRN ×2 (13:33→23:02)
--- NOTE | 2018-05-14 15:09 | P.PNIM ---
Subjective Interval history: Patient complains of pain of both of his upper extremities as well as his left foot. He does not have any other complaints. Physical Exam Vital signs: Vital Signs 05/13/18 16:00 05/13/18 23:30 05/14/18 03:06 Temperature 97.1 F L 97.8 F Pulse Rate 71 86 Respiratory Rate 19 20 Blood Pressure 151/78 H 193/90 H 150/68 H Pulse Oximetry 96 99 05/14/18 08:00 05/14/18 12:00 Temperature 98.0 F 98.1 F Pulse Rate 72 85 Respiratory Rate 18 17 Blood Pressure 153/71 H 180/86 H Pulse Oximetry 98 97 Intake & Output 05/13/18 05/14/18 05/14/18 18:59 06:59 18:59 Intake Total 1700 / 1700 200 / 200 Balance 1700 / 1700 200 / 200 Weight 79.4 kg Intake: IV 200 / 200 200 / 200 Ancef Inj 2,000 MG In NS Inj 80 200 / 200 200 / 200 ML @ 200 mls/hr IV.SIG Q8H [facility] Rx#:[id number] Oral 1500 / 1500 Other: # Voids 4 2 Date of Last Bowel Movement 05/13/18 Narrative: General patient in no acute distress HEENT extraocular movements are intact, clear oropharyngeal mucosa, no JVD Cardiovascular S1-S2 audible, RRR, no murmurs rubs or gallops Respiratory clear to auscultation bilaterally Abdomen soft, nontender, nondistended, normal bowel sounds Extremities left upper extremity right upper extremity in bandages near the forearms and elbows, there appears to be a new developed abscess of the left forearm. Left ankle in a bandage. No edema. No neurological deficits. Results - Labs CBC & Chem 7: 05/09/18 18:40 05/11/18 04:49 Laboratory Results - last 24 hr 05/13/18 05/13/18 05/13/18 17:28 18:38 20:06 Creatinine Cancelled Estimated GFR Cancelled POC Glucose 337 H 316 H 05/14/18 05/14/18 08:12 12:17 Creatinine Estimated GFR POC Glucose 256 H 351 H Microbiology 05/12/18 09:15 Fluid - Other Gram Stain - Final 05/12/18 09:15 Fluid - Other Wound Culture - Final Staphylococcus aureus Assessment and Plan - Plan Patient is a 32-year-old male with a known history of IV drug use. Patient was admitted for right upper extremity abscess and a left ankle abscess status post incision and drainage. 1. Severe sepsis secondary to MSSA abscess on the left upper extremity right upper extremity and left foot status post incision and drainage Patient appears to have another abscess of his left forearm which will likely need incision and drainage. An ultrasound will be ordered to evaluate the left forearm for an abscess. The patient has remained afebrile overnight. Infectious disease following the patient. Recommendations are to continue IV Ancef. Blood cultures are negative. DANELLE did not show any findings consistent with endocarditis. Patient was counseled on dangers of his continued IV drug use. Continue current management. 3. Insulin-dependent diabetes Continue basal insulin and a low-dose insulin sliding scale. The patient is noncompliant with his diet. Yesterday he was found to have a Dr. Angulo in his room and bags of potato chips that he obtained from a vending machine. Patient was counseled on his diabetes and to be compliant with his diet. His diabetes insulin regimen will be adjusted as needed. 4. Chronic heroin addiction Patient is currently on methadone 70 mg daily. As per documentation this is what the patient takes at home. The patient states that he started taking methadone at a methadone clinic in [place]. I will follow-up with the methadone clinics in [place]. Upon discharge he will need to follow-up with the methadone clinic in [facility]. Lovenox for DVT prophylaxis
--- NOTE | 2018-05-14 16:44 | P.PNID ---
Subjective Remarks: grew MSSA from L hand and R elbow, but not from the joint fluid s/p I+D of superficial L foot abscess now c/o L forearm swelling and pain DANELLE negative for vegetations Antibiotics: ancef Allergies/Adverse Reactions: Allergies penicillin G Allergy (Severe, Verified 05/07/18 22:55) Hives Objective Vital Signs 05/13/18 23:30 05/14/18 03:06 05/14/18 08:00 Temperature 97.8 F 98.0 F Pulse Rate 86 72 Respiratory Rate 20 18 Blood Pressure 193/90 H 150/68 H 153/71 H Pulse Oximetry 99 98 05/14/18 12:00 05/14/18 16:00 Temperature 98.1 F 97.1 F L Pulse Rate 85 84 Respiratory Rate 17 17 Blood Pressure 180/86 H 174/77 H Pulse Oximetry 97 98 Intake & Output 05/13/18 05/14/18 05/14/18 18:59 06:59 18:59 Intake Total 1700 / 1700 200 / 200 100 / 100 Balance 1700 / 1700 200 / 200 100 / 100 Weight 79.4 kg Intake: IV 200 / 200 200 / 200 100 / 100 Ancef Inj 2,000 MG In NS Inj 80 200 / 200 200 / 200 100 / 100 ML @ 200 mls/hr IV.SIG Q8H [facility] Rx#:[id number] Oral 1500 / 1500 Other: # Voids 4 2 Date of Last Bowel Movement 05/13/18 05/12/18 09:15 Fluid - Other Gram Stain - Final 05/12/18 09:15 Fluid - Other Wound Culture - Final Staphylococcus aureus 05/07/18 23:45 Blood - Peripheral Aerobic Blood Culture - Final No growth in 5 days 05/07/18 23:45 Blood - Peripheral Anaerobic Blood Culture - Final No growth in 5 days 05/07/18 23:40 Blood - Peripheral Aerobic Blood Culture - Final No growth in 5 days 05/07/18 23:40 Blood - Peripheral Anaerobic Blood Culture - Final Staphylococcus aureus Lab - Chemistry Results 05/12/18 05/12/18 05/13/18 17:11 21:15 07:53 Creatinine Estimated GFR POC Glucose 266 H 353 H 352 H 05/13/18 05/13/18 05/13/18 12:51 17:28 18:38 Creatinine Cancelled Estimated GFR Cancelled POC Glucose 78 337 H 05/13/18 05/14/18 05/14/18 20:06 08:12 12:17 Creatinine Estimated GFR POC Glucose 316 H 256 H 351 H Imaging: ITS Impressions Chest X-Ray 05/07/18 23:29 CONCLUSION: No acute cardiopulmonary disease identified. Foot MRI 05/11/18 00:00 CONCLUSION: 1. There is subcutaneous edema along the medial aspect of the posterior ankle. Within this area of inflammation is a rim-enhancing 10 mm collection suspicious for small abscess. 2. Bone marrow signal is normal indicating no findings of osteomyelitis and the deeper soft tissue structures including the adjacent tendons demonstrates no abnormality. Physical Exam: GENERAL: NAD ambulating SKIN: Warm and dry. HEAD: Atraumatic. Normocephalic. EYES: Pupils equal and round. No scleral icterus. No injection or drainage. ENT: No nasal bleeding or discharge. Mucous membranes pink and moist. NECK: Trachea midline. No JVD. CARDIOVASCULAR: Regular rate and rhythm. RESPIRATORY: No accessory muscle use. Clear to auscultation. Breath sounds equal bilaterally. GASTROINTESTINAL: Abdomen soft, non-tender, nondistended. Hepatic and splenic margins not palpable. MUSCULOSKELETAL: Extremities without clubbing, cyanosis, L hand with dressing in [place L foream: area of fluctuance in froearm , very tender and erythematous, as well as palpable cords L foot with swelling and fluctuance over medial mallelous area R elbow incision dry, clean, stiticehs in, erythema over elbow (slight), tender to palpation, no fluctuance NEUROLOGICAL: Awake and alert. No obvious cranial nerve deficits. Motor grossly within normal limits. Five out of 5 muscle strength in the arms and legs. Normal speech. PSYCHIATRIC: Appropriate mood and affect; insight and judgment normal. Assessment and Plan - Plan MSSA low grade bacteremia No evidence of endocarditis seen on DANELLE IV DU RUE abscess and septic elbow sp I+D, MSSA L hjand absscess sp I+D MSSA L foot abscess- sp b/s I+D, MSSA New L foreamr abscess and sepsticv phlebitis All to PCN, but tolerated keflex in the past Positive BC. Neg 2 D echo Multiple sites of infection. Sispect endocarditis cont Ancef US L foreaem reconsult nhand surgery if drainable abscess present on US not ready for dc 2/2 new L forearm abscess dw Dr Kamara
--- NOTE | 2018-05-14 18:43 | US ---
EXAM DATE: 05/14/2018 12:00 AM EDT AGE/SEX: 32 years / Male INDICATIONS: Isolated edema on left forearm. CLINICAL DATA: This is the patient's initial encounter. Patient reports that signs and symptoms have been present for 2 days and indicates a pain score of 7/10. MEDICAL/SURGICAL HISTORY: Diabetes. Hepatitis C. MRSA. Abscess. IVDU. . Orthopedic surgery. COMPARISON: [facility] [place], [place]/07/2018. . FINDINGS: There is subcutaneous edema and swelling with hyperemia at the region of interest laterally of the mi d left forearm. Within this are 2 small complex fluid collections, one measuring 9 x 5 x 5 mm and the other 16 x 9 x 4 mm. These are each only about 5 mm beneath the skin. CONCLUSION: Cellulitis and suspected 2 small subcutaneous abscesses developing laterally of the left forearm as described. Electronically signed by: Dwain Chiu MD 05/14/2018 6:41 PM EDT
[2018-05-14] MEDS ORDERED: amLODIPine 5 MG Tablet PO ONE (20:08)
[2018-05-14] MEDS: Enoxaparin Inj 40 MG/0.4 ML Syringe SQ SCH (20:13)
[2018-05-15] MEDS ORDERED: Ibuprofen 400 MG Tablet PO ONE (00:07)
[2018-05-15] MEDS: ceFAZolin 2 GM Premix Inj 2 GM/50 ML PIGGYBACK IV.SIG SCH ×3 (04:50→20:26)
[2018-05-15 08:40] LABS: Glomerular Filtration Rate Greater Than 89 mL/min (>89)
[2018-05-15] MEDS: amLODIPine 10 MG Tablet PO SCH (08:42)
[2018-05-15] MEDS: Methadone 10 MG Tablet PO SCH (08:42)
[2018-05-15] MEDS: Insulin NovoLOG Aspart Correctional Sugar Inj SQ SCH ×4 (08:42→20:24)
[2018-05-15] MEDS: Insulin Detemir Inj 1,000 UNIT/10 ML Vial SQ SCH ×2 (08:42→20:24)
[2018-05-15] MEDS: Senna/Docusate Sodium 8.6/50 MG Tablet PO SCH ×2 (08:43→20:39)
[2018-05-15] MEDS: Morphine Inj 4 MG/ML Vial IV.PUSH PRN ×2 (12:13→20:27)
--- NOTE | 2018-05-15 20:05 | P.PNIM ---
Subjective Interval history: Patient complains of pain in his left forearm. He is requesting more pain medications. Physical Exam Vital signs: Vital Signs 05/15/18 00:00 05/15/18 08:00 05/15/18 12:00 Temperature 98.6 F 97.8 F 97.9 F Pulse Rate 78 74 80 Respiratory Rate 17 17 18 Blood Pressure 124/80 138/71 147/83 H Pulse Oximetry 99 97 96 05/15/18 16:00 05/15/18 19:50 Temperature 97.7 F 98.1 F Pulse Rate 74 83 Respiratory Rate 17 18 Blood Pressure 148/73 H 172/87 H Pulse Oximetry 98 97 Intake & Output 05/15/18 05/15/18 05/16/18 06:59 18:59 06:59 Intake Total 630 / 630 1550 / 1550 Balance 630 / 630 1550 / 1550 Weight 79.4 kg Intake: IV 150 / 150 50 / 50 Ancef 2 GM Premix Inj 2 gm In 50 / 50 50 / 50 50 ml @ 100 mls/hr IV.SIG Q8H [facility] Rx#:[id number] Ancef Inj 2,000 MG In NS Inj 80 100 / 100 ML @ 200 mls/hr IV.SIG Q8H [facility] Rx#:[id number] Oral 480 / 480 1500 / 1500 Other: # Voids 3 3 Date of Last Bowel Movement 05/15/18 # Bowel Movements 0 Narrative: General patient in no acute distress HEENT extraocular movements are intact, clear oropharyngeal mucosa, no JVD Cardiovascular S1-S2 audible, RRR, no murmurs rubs or gallops Respiratory clear to auscultation bilaterally Abdomen soft, nontender, nondistended, normal bowel sounds Extremities left upper extremity right upper extremity in bandages near the forearms and elbows, there appears to be an abscess developed on the left forearm. Left ankle in a bandage. No edema. No neurological deficits. Results - Labs CBC & Chem 7: 05/09/18 18:40 05/15/18 06:51 Laboratory Results - last 24 hr 05/14/18 05/15/18 05/15/18 20:17 06:51 07:30 Creatinine 0.94 Estimated GFR Greater than 89 POC Glucose 384 H 341 H 05/15/18 05/15/18 11:39 16:51 Creatinine Estimated GFR POC Glucose 125 H 355 H Microbiology 05/08/18 10:23 Fluid - Other Acid Fast Bacilli Smear - Final No acid fast bacilli seen 05/08/18 10:23 Fluid - Other Mycobacterial Culture - Preliminary No growth in 1 week 05/08/18 10:23 Fluid - Other Fungal Smear - Final No fungal elements seen 05/08/18 10:23 Fluid - Other Fungal Culture - Preliminary No growth in 1 week 05/08/18 10:23 Other Fungal Smear - Final No fungal elements seen 05/08/18 10:23 Other Fungal Culture - Preliminary No growth in 1 week 05/08/18 10:23 Fluid - Other Acid Fast Bacilli Smear - Final No acid fast bacilli seen 05/08/18 10:23 Fluid - Other Mycobacterial Culture - Preliminary No growth in 1 week Assessment and Plan - Plan Patient is a 32-year-old male with a known history of IV drug use. Patient was admitted for right upper extremity abscess and a left ankle abscess status post incision and drainage. 1. Severe sepsis secondary to MSSA abscess on the left upper extremity right upper extremity and left foot status post incision and drainage Patient appears to have another abscess of his left forearm which will likely need incision and drainage. An ultrasound will be ordered to evaluate the left forearm for an abscess and shows that there appears to be 2 abscesses that have developed in the patient's left forearm. The patient has remained afebrile overnight. Infectious disease following the patient. Recommendations are to continue IV Ancef. Repeat blood cultures are negative. DANELLE did not show any findings consistent with endocarditis. Patient was counseled on dangers of his continued IV drug use. Continue current management. ID following will follow up with recommendations from hand surgery regarding the left forearm abscess. There is low suspicion for endocarditis given that the patient continues to develop multiple abscesses on his extremities. 3. Insulin-dependent diabetes Continue basal insulin and a low-dose insulin sliding scale. Again the patient is noncompliant with his diet and continues to use the vending machine to purchase sodas.. Yesterday he was found to have a Dr. Angulo in his room and bags of potato chips that he obtained from a vending machine. Patient was counseled on his diabetes and to be compliant with his diet. His diabetes insulin regimen will be adjusted as needed. 4. Chronic heroin addiction Patient's methadone dose was decreased to 50 mg daily. As per our pharmacy it appears that the patient last received methadone in February 2018 and was on a dose of 10 mg daily. We will continue to taper down the patient's methadone dose. As per the patient once he leaves the hospital he is going to continue to use IV heroin which makes it difficult to discharge the patient on methadone given that he is an active IV heroin user. According to the nurses today the patient was requesting to have an another physician evaluate the patient because he wants to be on more pain medications. Lovenox for DVT prophylaxis
[2018-05-15] MEDS: Enoxaparin Inj 40 MG/0.4 ML Syringe SQ SCH (20:26)
[2018-05-16] MEDS: Morphine Inj 4 MG/ML Vial IV.PUSH PRN ×4 (01:47→23:25)
[2018-05-16] MEDS: ceFAZolin 2 GM Premix Inj 2 GM/50 ML PIGGYBACK IV.SIG SCH ×3 (04:57→20:32)
--- NOTE | 2018-05-16 08:21 | P.PNOP ---
Subjective Interval history: Progressing well. Is upset that his pain medication has been dropped to a lower dose. No new complaints concerning the elbow Physical Exam Vital signs: Vital Signs 05/15/18 12:00 05/15/18 16:00 05/15/18 19:50 Temperature 97.9 F 97.7 F 98.1 F Pulse Rate 80 74 83 Respiratory Rate 18 17 18 Blood Pressure 147/83 H 148/73 H 172/87 H Pulse Oximetry 96 98 97 05/15/18 20:00 05/16/18 00:00 Temperature 97.8 F Pulse Rate 79 Respiratory Rate 18 18 Blood Pressure 138/65 Pulse Oximetry 99 Intake & Output 05/15/18 05/16/18 05/16/18 18:59 06:59 18:59 Intake Total 1550 / 1550 100 / 100 Balance 1550 / 1550 100 / 100 Intake: IV 50 / 50 100 / 100 Ancef 2 GM Premix Inj 2 gm In 50 / 50 100 / 100 50 ml @ 100 mls/hr IV.SIG Q8H [facility] Rx#:[id number] Oral 1500 / 1500 Other: # Voids 3 3 Date of Last Bowel Movement 05/15/18 # Bowel Movements 0 Narrative: Dressings taken down revealing 2 incisions are well approximated and healing well. There is no erythema or drainage she has minimal swelling. Elbow range of motion is from 25degrees to 100 degrees. Distally he has intact sensation with good capillary refills. He is able to fully extend and flex all his fingers Results - Labs CBC & Chem 7: 05/09/18 18:40 05/15/18 06:51 Laboratory Results - last 24 hr 05/15/18 05/15/18 05/15/18 06:51 11:39 16:51 Creatinine 0.94 Estimated GFR Greater than 89 POC Glucose 125 H 355 H 05/15/18 05/16/18 20:15 07:24 Creatinine Estimated GFR POC Glucose 332 H 222 H Microbiology 05/08/18 10:23 Fluid - Other Acid Fast Bacilli Smear - Final No acid fast bacilli seen 05/08/18 10:23 Fluid - Other Mycobacterial Culture - Preliminary No growth in 1 week 05/08/18 10:23 Fluid - Other Fungal Smear - Final No fungal elements seen 05/08/18 10:23 Fluid - Other Fungal Culture - Preliminary No growth in 1 week 05/08/18 10:23 Other Fungal Smear - Final No fungal elements seen 05/08/18 10:23 Other Fungal Culture - Preliminary No growth in 1 week 05/08/18 10:23 Fluid - Other Acid Fast Bacilli Smear - Final No acid fast bacilli seen 05/08/18 10:23 Fluid - Other Mycobacterial Culture - Preliminary No growth in 1 week Assessment and Plan - Assessment and Plan 1) Right Elbow Abscess s/p I&D - 05/08/28 -WBAT -OT for ROM -daily dressing changes -monitor cultures -Infect Dz to tailor Abx per cultures -f/u with [facility] or [facility] in 2 weeks for incision check
[2018-05-16] MEDS: Methadone 10 MG Tablet PO SCH (08:37)
[2018-05-16] MEDS: amLODIPine 10 MG Tablet PO SCH (08:37)
[2018-05-16] MEDS: Insulin Detemir Inj 1,000 UNIT/10 ML Vial SQ SCH ×2 (08:38→20:32)
[2018-05-16] MEDS: Senna/Docusate Sodium 8.6/50 MG Tablet PO SCH ×2 (08:38→20:31)
[2018-05-16] MEDS: Insulin NovoLOG Aspart Correctional Sugar Inj SQ SCH ×4 (08:39→20:32)
--- NOTE | 2018-05-16 15:33 | P.PNPLA ---
Subjective Remarks: Patient is being seen for Dr. Yang. The patient with new abscess on the left forearm. Objective Vital Signs: Vital Signs - 24 hr 05/15/18 16:00 05/15/18 19:50 05/15/18 20:00 Temperature 97.7 F 98.1 F Pulse Rate 74 83 Respiratory Rate 17 18 18 Blood Pressure 148/73 H 172/87 H Pulse Oximetry 98 97 05/16/18 00:00 05/16/18 08:00 05/16/18 12:00 Temperature 97.8 F 98.3 F 98.1 F Pulse Rate 79 78 82 Respiratory Rate 18 16 17 Blood Pressure 138/65 152/80 H 172/81 H Pulse Oximetry 99 96 96 Intake & Output 05/14/18 05/15/18 05/16/18 05/17/18 06:59 06:59 06:59 06:59 Intake Total 1900 / 1900 2530 / 2530 1650 / 1650 50 / 50 Balance 1900 / 1900 2530 / 2530 1650 / 1650 50 / 50 Weight 79.4 kg 79.4 kg Laboratory Results: Laboratory Results - last 24 hr 05/15/18 05/15/18 05/16/18 16:51 20:15 07:24 POC Glucose 355 H 332 H 222 H 05/16/18 05/16/18 11:34 11:36 POC Glucose 532 H* 367 H Microbiology 05/08/18 10:23 Acid Fast Bacilli Smear - Final Fluid - Other No acid fast bacilli seen Mycobacterial Culture - Preliminary No growth in 1 week 05/08/18 10:23 Fungal Smear - Final Fluid - Other No fungal elements seen Fungal Culture - Preliminary No growth in 1 week 05/08/18 10:23 Fungal Smear - Final Other No fungal elements seen Fungal Culture - Preliminary No growth in 1 week 05/08/18 10:23 Acid Fast Bacilli Smear - Final Fluid - Other No acid fast bacilli seen Mycobacterial Culture - Preliminary No growth in 1 week Result Diagrams: 05/09/18 18:40 05/15/18 06:51 Exam Findings: The patient has a 1.5 x 1.5 mm swelling on the proximal left forearm ulnar side just distal to the elbow. It is red and tender. There is fluctuance. Assessment and Plan - Diagnosis (1) Abscess Status: Acute Code(s): L02.91 - Cutaneous abscess, unspecified - Plan Impression: The patient has a new abscess on the left forearm proximal. Plan: Patient is advised that this should be incised and drained. He understands and accepts risks and complications of the procedure and agrees. Procedure: Under local anesthesia using lidocaine 2% plain, a 1.5 cm incision is made over the abscess. It is drained. It is then copiously irrigated with saline. A dressing applied. No packing was necessary due to the size of the wound. The patient tolerated the procedure well.
--- NOTE | 2018-05-16 15:36 | P.PNADD ---
Addendum to Inpatient Note Additional information: attempeted to see the pt: again in the bathroom, curtains closed US cw with multiple abscesses Hand surgery reconsulted Gustavo Clancy: no purulence was encounted during surgery in the joint Joint fluid clx is negative Once cleared by hand surgeon anticipate switch to PO abx and d/c will see tomorrow gustavo Kamara
--- NOTE | 2018-05-16 17:28 | P.PNIM ---
Physical Exam Vital signs: Vital Signs 05/15/18 19:50 05/15/18 20:00 05/16/18 00:00 Temperature 98.1 F 97.8 F Pulse Rate 83 79 Respiratory Rate 18 18 18 Blood Pressure 172/87 H 138/65 Pulse Oximetry 97 99 05/16/18 08:00 05/16/18 12:00 05/16/18 16:00 Temperature 98.3 F 98.1 F 97.8 F Pulse Rate 78 82 94 H Respiratory Rate 16 17 16 Blood Pressure 152/80 H 172/81 H 195/101 H Pulse Oximetry 96 96 97 Intake & Output 05/15/18 05/16/18 05/16/18 18:59 06:59 18:59 Intake Total 1550 / 1550 100 / 100 890 / 890 Balance 1550 / 1550 100 / 100 890 / 890 Intake: IV 50 / 50 100 / 100 50 / 50 Ancef 2 GM Premix Inj 2 gm In 50 / 50 100 / 100 50 / 50 50 ml @ 100 mls/hr IV.SIG Q8H [facility] Rx#:[id number] Oral 1500 / 1500 840 / 840 Other: # Voids 3 4 Date of Last Bowel Movement 05/15/18 05/15/18 # Bowel Movements 0 1 Results - Labs CBC & Chem 7: 05/09/18 18:40 05/15/18 06:51 Laboratory Results - last 24 hr 05/15/18 05/16/18 05/16/18 20:15 07:24 11:34 POC Glucose 332 H 222 H 532 H* 05/16/18 05/16/18 11:36 17:05 POC Glucose 367 H 324 H Microbiology 05/08/18 10:23 Fluid - Other Acid Fast Bacilli Smear - Final No acid fast bacilli seen 05/08/18 10:23 Fluid - Other Mycobacterial Culture - Preliminary No growth in 1 week 05/08/18 10:23 Fluid - Other Fungal Smear - Final No fungal elements seen 05/08/18 10:23 Fluid - Other Fungal Culture - Preliminary No growth in 1 week 05/08/18 10:23 Other Fungal Smear - Final No fungal elements seen 05/08/18 10:23 Other Fungal Culture - Preliminary No growth in 1 week 05/08/18 10:23 Fluid - Other Acid Fast Bacilli Smear - Final No acid fast bacilli seen 05/08/18 10:23 Fluid - Other Mycobacterial Culture - Preliminary No growth in 1 week Assessment and Plan - Plan Patient is a 32-year-old male with a known history of IV drug use. Patient was admitted for right upper extremity abscess and a left ankle abscess status post incision and drainage. 1. Severe sepsis secondary to MSSA abscess on the left upper extremity right upper extremity and left foot status post incision and drainage Patient appears to have another abscess of his left forearm which will likely need incision and drainage. Hand surgery evaluated the patient and underwent incision and drainage today. It is unclear how the patient continues to have abscesses on his arms. It appears that the patient may be attempting to manipulate his veins in his arms. He will be moved closer to the front doors on the unit. No visitors will be allowed because there is a high suspicion of the patient may be attempting to use IV drugs while in house. Infectious disease following the patient. Recommendations are to continue IV Ancef. Repeat blood cultures are negative. DANELLE did not show any findings consistent with endocarditis. Continue current management. I will follow-up with infectious disease tomorrow for discharge planning now that the left forearm abscess has been drained. 3. Insulin-dependent diabetes Continue basal insulin and a low-dose insulin sliding scale. Again the patient is noncompliant with his diet and continues to use the vending machine to purchase sodas. Patient stated that he did not care about his blood sugar levels and he will continue to eat and drink whatever he wants. It is very difficult to manage the patient's diabetes as he is very noncompliant. 4. Chronic heroin addiction Patient's methadone dose was decreased to 30 mg daily. As per our pharmacy it appears that the patient last received methadone in February 2018 and was on a dose of 10 mg daily. We will continue to taper down the patient's methadone dose. As per the patient once he leaves the hospital he is going to continue to use IV heroin which makes it difficult to discharge the patient on methadone given that he is an active IV heroin user. According to the nurses yesterday the patient was requesting to have an another physician evaluate the patient because he wants to be on more pain medications. Lovenox for DVT prophylaxis
[2018-05-16] MEDS: Lisinopril 5 MG Tablet PO SCH (17:56)
[2018-05-16] MEDS: Enoxaparin Inj 40 MG/0.4 ML Syringe SQ SCH (20:32)
[2018-05-16 21:36] LABS: Baso # (Auto) 0.1 th/mm3 (0.0-0.2); Baso % (Auto) 1.2 % (0.0-2.0); Eos # (Auto) 0.5 th/mm3 (0.0-0.4); Eos % (Auto) 5.9 % (0.0-4.0); Hematocrit 37.3 % (39.0-51.0); Lymph # (Auto) 2.2 th/mm3 (1.0-4.8); Lymph % (Auto) 27.3 % (9.0-44.0); Mean Corpuscular HGB Conc 34.9 % (32.0-36.0); Mean Corpuscular Hemoglobin 28.4 pg (27.0-34.0); Mean Corpuscular Volume 81.2 fL (80.0-100.0); Mean Platelet Volume 6.9 fL (7.0-11.0); Mono # (Auto) 0.7 th/mm3 (0.0-0.9); Mono % (Auto) 8.9 % (0.0-8.0); Neut # (Auto) 4.6 th/mm3 (1.8-7.7); Neut % (Auto) 56.7 % (16.0-70.0); Platelet Count 425 th/mm3 (150-450); Red Cell Distribution Width 14.1 % (11.6-17.2); White Blood Count 8.1 th/mm3 (4.0-11.0)
[2018-05-16 22:05] LABS: Calcium 9.1 mg/dL (8.5-10.1); Magnesium 1.7 mg/dL (1.5-2.5); Potassium 4.1 meq/L (3.5-5.1)
[2018-05-17] MEDS: ceFAZolin 2 GM Premix Inj 2 GM/50 ML PIGGYBACK IV.SIG SCH ×3 (04:13→22:04)
[2018-05-17] MEDS: Insulin Detemir Inj 1,000 UNIT/10 ML Vial SQ SCH ×2 (09:20→22:06)
[2018-05-17] MEDS: Lisinopril 5 MG Tablet PO SCH (09:20)
[2018-05-17] MEDS: Methadone 10 MG Tablet PO SCH (09:20)
[2018-05-17] MEDS: Insulin NovoLOG Aspart Correctional Sugar Inj SQ SCH ×4 (09:20→22:08)
[2018-05-17] MEDS: Senna/Docusate Sodium 8.6/50 MG Tablet PO SCH ×2 (09:21→22:06)
[2018-05-17] MEDS: amLODIPine 10 MG Tablet PO SCH (09:21)
[2018-05-17] MEDS: Morphine Inj 4 MG/ML Vial IV.PUSH PRN ×2 (14:02→22:01)
--- NOTE | 2018-05-17 15:58 | P.PNIM ---
Subjective Interval history: Patient appears to be comfortable. When asked how he is feeling he states that he has pain all over. Physical Exam Vital signs: Vital Signs 05/16/18 16:00 05/16/18 20:00 05/17/18 00:20 Temperature 97.8 F 98.1 F 97.6 F Pulse Rate 94 H 82 79 Respiratory Rate 16 18 18 Blood Pressure 195/101 H 141/76 H 149/69 H Pulse Oximetry 97 96 95 05/17/18 08:00 05/17/18 12:00 Temperature 97.6 F 97.6 F Pulse Rate 68 78 Respiratory Rate 17 17 Blood Pressure 169/70 H 137/68 Pulse Oximetry 99 98 Intake & Output 05/16/18 05/17/18 05/17/18 18:59 06:59 18:59 Intake Total 890 / 890 860 / 860 50 / 50 Balance 890 / 890 860 / 860 50 / 50 Weight 79 kg Intake: IV 50 / 50 100 / 100 50 / 50 Ancef 2 GM Premix Inj 2 gm In 50 / 50 100 / 100 50 / 50 50 ml @ 100 mls/hr IV.SIG Q8H [facility] Rx#:[id number] Oral 840 / 840 760 / 760 Other: # Voids 4 3 Date of Last Bowel Movement 05/15/18 05/16/18 # Bowel Movements 1 Narrative: General patient in no acute distress HEENT extraocular movements are intact, clear oropharyngeal mucosa, no JVD Cardiovascular S1-S2 audible, RRR, no murmurs rubs or gallops Respiratory clear to auscultation bilaterally Abdomen soft, nontender, nondistended, normal bowel sounds Extremities left upper extremity right upper extremity in bandages near the forearms and elbows, left forearm abscess status post drainage bandage in place. No neurological deficits. Results - Labs CBC & Chem 7: 05/16/18 21:17 05/16/18 21:17 Laboratory Results - last 24 hr 05/16/18 05/16/18 05/16/18 17:05 20:18 21:17 WBC 8.1 RBC 4.60 Hgb 13.0 Hct 37.3 L MCV 81.2 MCH 28.4 MCHC 34.9 RDW 14.1 Plt Count 425 D MPV 6.9 L Neut % (Auto) 56.7 Lymph % (Auto) 27.3 [place] % (Auto) 8.9 H Eos % (Auto) 5.9 H Baso % (Auto) 1.2 Neut # (Auto) 4.6 Lymph # (Auto) 2.2 [place] # (Auto) 0.7 Eos # (Auto) 0.5 H Baso # (Auto) 0.1 WBC Differential . Differential Comment Auto diff final Sodium Potassium Chloride Carbon Dioxide Anion Gap BUN Creatinine Estimated GFR POC Glucose 324 H 263 H Random Glucose Calcium Magnesium 05/16/18 05/17/18 05/17/18 21:17 08:09 11:14 WBC RBC Hgb Hct MCV MCH MCHC RDW Plt Count MPV Neut % (Auto) Lymph % (Auto) [place] % (Auto) Eos % (Auto) Baso % (Auto) Neut # (Auto) Lymph # (Auto) [place] # (Auto) Eos # (Auto) Baso # (Auto) WBC Differential Differential Comment Sodium 133 L Potassium 4.1 Chloride 93 L Carbon Dioxide 32.0 Anion Gap 8 BUN 24 H Creatinine 1.07 Estimated GFR 80 L POC Glucose 160 H 201 H Random Glucose 207 H Calcium 9.1 Magnesium 1.7 Assessment and Plan - Plan Patient is a 32-year-old male with a known history of IV drug use. Patient was admitted for right upper extremity abscess and a left ankle abscess status post incision and drainage. 1. Severe sepsis secondary to MSSA abscess on the left upper extremity right upper extremity and left foot status post incision and drainage The patient had a left forearm abscess drained. Infectious disease following the patient. Recommendations are to continue IV Ancef. Repeat blood cultures are negative. DANELLE did not show any findings consistent with endocarditis. Continue current management. 3. Insulin-dependent diabetes Continue basal insulin and a low-dose insulin sliding scale. Again the patient is noncompliant with his diet and continues to use the vending machine to purchase sodas. Patient stated that he did not care about his blood sugar levels and he will continue to eat and drink whatever he wants. It is very difficult to manage the patient's diabetes as he is very noncompliant. 4. Chronic heroin addiction Patient's methadone dose was decreased to 30 mg daily. As per our pharmacy it appears that the patient last received methadone in February 2018 and was on a dose of 10 mg daily. We will continue to taper down the patient's methadone dose. As per the patient once he leaves the hospital he is going to continue to use IV heroin which makes it difficult to discharge the patient on methadone given that he is an active IV heroin user. He does not appear to be in severe pain today on my evaluation. Lovenox for DVT prophylaxis
[2018-05-17 20:15] LABS: Baso # (Auto) 0.1 th/mm3 (0.0-0.2); Eos # (Auto) 0.4 th/mm3 (0.0-0.4); Eos % (Auto) 4.3 % (0.0-4.0); Hematocrit 39.4 % (39.0-51.0); Hemoglobin 13.6 gm/dL (13.0-17.0); Lymph # (Auto) 1.6 th/mm3 (1.0-4.8); Mean Corpuscular HGB Conc 34.5 % (32.0-36.0); Mean Corpuscular Hemoglobin 28.4 pg (27.0-34.0); Mean Corpuscular Volume 82.2 fL (80.0-100.0); Mean Platelet Volume 7.1 fL (7.0-11.0); Mono # (Auto) 0.6 th/mm3 (0.0-0.9); Mono % (Auto) 6.8 % (0.0-8.0); Neut # (Auto) 5.6 th/mm3 (1.8-7.7); Neut % (Auto) 68.9 % (16.0-70.0); Platelet Count 411 th/mm3 (150-450); Red Blood Count 4.79 mil/mm3 (4.50-5.90); Red Cell Distribution Width 14.5 % (11.6-17.2); White Blood Count 8.2 th/mm3 (4.0-11.0)
[2018-05-17 20:45] LABS: Calcium 9.3 mg/dL (8.5-10.1); Carbon Dioxide 29.7 meq/L (21.0-32.0); Magnesium 1.9 mg/dL (1.5-2.5); Potassium 4.4 meq/L (3.5-5.1)
[2018-05-17] MEDS: Enoxaparin Inj 40 MG/0.4 ML Syringe SQ SCH (22:07)
[2018-05-18] MEDS: Morphine Inj 4 MG/ML Vial IV.PUSH PRN ×2 (01:01→13:35)
[2018-05-18] MEDS: ceFAZolin 2 GM Premix Inj 2 GM/50 ML PIGGYBACK IV.SIG SCH ×2 (05:19→13:42)
[2018-05-18] MEDS: Lisinopril 5 MG Tablet PO SCH (08:19)
[2018-05-18] MEDS: amLODIPine 10 MG Tablet PO SCH (08:20)
[2018-05-18] MEDS: Methadone 10 MG Tablet PO SCH (08:21)
[2018-05-18 08:38] VITALS: RESP 18
[2018-05-18] MEDS: Insulin NovoLOG Aspart Correctional Sugar Inj SQ SCH ×3 (10:21→17:36)
[2018-05-18] MEDS: Insulin Detemir Inj 1,000 UNIT/10 ML Vial SQ SCH (10:22)
[2018-05-18] MEDS: Senna/Docusate Sodium 8.6/50 MG Tablet PO SCH (10:23)
--- NOTE | 2018-05-18 12:06 | P.PNADD ---
Addendum to Inpatient Note Additional information: New L forearm abscess was drasined by Dr Zain Kamara OK to dc pt home with 10 more day of oral abx: Keflex 500 mg PO qid x 10 days
[2018-05-18 12:35] VITALS: TEMP 97.8
--- NOTE | 2018-05-18 14:07 | P.PNPOD ---
Subjective Interval history: Patient seen bedside resting comfortably. States he has severe pain to the left ankle. States he would like more pain medication. Physical Exam Vital signs: Vital Signs 05/17/18 16:00 05/17/18 20:00 05/18/18 00:09 Temperature 97.7 F 97.6 F 98.4 F Pulse Rate 82 79 72 Respiratory Rate 17 18 16 Blood Pressure 181/78 H 127/62 135/60 Pulse Oximetry 97 97 96 05/18/18 08:00 05/18/18 12:00 Temperature 97.9 F 97.8 F Pulse Rate 68 70 Respiratory Rate 18 18 Blood Pressure 146/63 H 137/59 L Pulse Oximetry 98 96 Intake & Output 05/17/18 05/18/18 05/18/18 18:59 06:59 18:59 Intake Total 2210 / 2210 860 / 860 Balance 2210 / 2210 860 / 860 Weight 79 kg Intake: IV 50 / 50 100 / 100 Ancef 2 GM Premix Inj 2 gm In 50 / 50 100 / 100 50 ml @ 100 mls/hr IV.SIG Q8H [facility] Rx#:[id number] Oral 2160 / 2160 760 / 760 Other: # Voids 4 3 Date of Last Bowel Movement 05/16/18 # Bowel Movements 1 Narrative: Mild edema noted to left ankle with no associated erythema. 1 cm stab incision noted to left medial ankle which is granular in nature. Resolving signs of local infection. Appropriate range of motion. Tenderness to palpation to medial ankle. Medications and Allergies Active Medications: Active Medications Hydrocodone Bitart/Acetaminophen ([place] 7.5/325) 1 tab PO Q3H PRN PRN Reason: Pain Scale 3-10 Last Admin: 05/18/18 11:42 Dose: 1 tab Al Hydroxide/Mg Hydroxide (Milk Of Magnesia Liq) 30 ml PO Q12H PRN PRN Reason: Mild Constipation Amlodipine Besylate (Norvasc) 10 mg PO DAILY [facility] Last Admin: 05/18/18 08:20 Dose: 10 mg Bisacodyl (Dulcolax Supp) 10 mg RECTAL DAILY PRN PRN Reason: SEVERE CONSITIPATION Clonidine HCl (Catapres) 0.1 mg PO Q6H PRN PRN Reason: SEE LABEL COMMENTS Last Admin: 05/16/18 16:07 Dose: 0.1 mg Dextrose (D50w Vial) 50 ml IV.PUSH UNSCH PRN PRN Reason: PER HYPOGLYCEMIA PROTOCOL Last Admin: 05/12/18 13:09 Dose: 50 ml Diphenhydramine HCl (Benadryl) 25 mg PO Q6H PRN PRN Reason: ITCHING Last Admin: 05/16/18 01:47 Dose: 25 mg Enoxaparin Sodium (Lovenox Inj) 40 mg SQ Q24H [facility] Last Admin: 05/17/18 22:07 Dose: Not Given Glucagon (Glucagon Inj) 1 mg OTHER PRN PRN PRN Reason: for Hypoglycemia Protocol Cefazolin Sodium/Dextrose (Ancef 2 Gm Premix Inj) 2 gm in 50 mls @ 100 mls/hr IV.SIG Q8H [facility] Last Admin: 05/18/18 13:42 Dose: 100 mls/hr Insulin Aspart (Novolog Insulin Correctional Sugar Inj) 0 unit SQ ACHS [facility]; Protocol Last Admin: 05/18/18 13:41 Dose: Not Given Insulin Detemir (Levemir Inj) 10 unit SQ BID [facility] Last Admin: 05/18/18 10:22 Dose: 10 unit Lactulose (Lactulose Liq) 30 ml PO DAILY PRN PRN Reason: SEVERE CONSITIPATION Lisinopril (Prinivil) 5 mg PO DAILY [facility] Last Admin: 05/18/18 08:19 Dose: 5 mg Methadone HCl (Dolophine) 30 mg PO Q24H [facility] Last Admin: 05/18/18 08:21 Dose: 30 mg Morphine Sulfate (Morphine Inj) 3 mg IV.PUSH Q3H PRN PRN Reason: BREAKTHROUGH PAIN Last Admin: 05/18/18 13:35 Dose: 3 mg Ondansetron HCl (Zofran Odt) 4 mg PO Q6H PRN PRN Reason: NAUSEA OR VOMITING Ondansetron HCl (Zofran Inj) 4 mg IV.PUSH Q6H PRN PRN Reason: NAUSEA OR VOMITING Senna/Docusate Sodium (Macrina-Colace) 1 tab PO BID [facility] Last Admin: 05/18/18 10:23 Dose: Not Given Sennosides (Senokot) 17.2 mg PO Q12H PRN PRN Reason: Moderate Constipation Sodium Chloride (Ns Flush) 2 ml IV.FLUSH BID [facility] Last Admin: 05/18/18 10:22 Dose: 2 ml Sodium Chloride (Ns Flush) 2 ml IV.FLUSH UNSCH PRN PRN Reason: FLUSH AFTER USING IV ACCESS Allergies Allergy/AdvReac Type Severity Reaction Status Date / Time penicillin G Allergy Severe Hives Verified 05/07/18 22:55 Results - Labs CBC & Chem 7: 05/17/18 19:57 05/17/18 19:57 Laboratory Results - last 24 hr 05/17/18 05/17/18 05/17/18 18:01 19:57 19:57 WBC 8.2 RBC 4.79 Hgb 13.6 Hct 39.4 MCV 82.2 MCH 28.4 MCHC 34.5 RDW 14.5 Plt Count 411 MPV 7.1 Neut % (Auto) 68.9 Lymph % (Auto) 19.0 [place] % (Auto) 6.8 Eos % (Auto) 4.3 H Baso % (Auto) 1.0 Neut # (Auto) 5.6 Lymph # (Auto) 1.6 [place] # (Auto) 0.6 Eos # (Auto) 0.4 Baso # (Auto) 0.1 WBC Differential . Differential Comment Auto diff final Sodium 132 L Potassium 4.4 Chloride 94 L Carbon Dioxide 29.7 Anion Gap 8 BUN 25 H Creatinine 1.06 Estimated GFR 81 L POC Glucose 246 H Random Glucose 263 H Calcium 9.3 Magnesium 1.9 05/17/18 05/18/18 05/18/18 22:01 08:17 11:06 WBC RBC Hgb Hct MCV MCH MCHC RDW Plt Count MPV Neut % (Auto) Lymph % (Auto) [place] % (Auto) Eos % (Auto) Baso % (Auto) Neut # (Auto) Lymph # (Auto) [place] # (Auto) Eos # (Auto) Baso # (Auto) WBC Differential Differential Comment Sodium Potassium Chloride Carbon Dioxide Anion Gap BUN Creatinine Estimated GFR POC Glucose 262 H 229 H 157 H Random Glucose Calcium Magnesium Assessment and Plan - Assessment (1) Abscess Code(s): L02.91 - Cutaneous abscess, unspecified Status: Acute - Plan 32-year-old male with left ankle abscess as well as upper extremity abscess secondary to IV drug use Patient examined evaluated with all questions answered Continue with local wound care Reduction in erythema and edema noted with resolving clinical signs of infection to left ankle Okay to discharge per podiatry as far as left ankle is concerned Per infectious disease notes 10 days of oral antibiotics
[2018-05-18 16:10] VITALS: BP 128/58; PULSE 67; O2SAT 97
--- NOTE | 2018-05-18 18:10 | P.DS ---
Date of admission: 05/08/18 02:44 Primary care physician: No Primary Care Physician Attending physician on discharge: Dr. Kamara Brief History from admission: Patient is a 32-year-old male with a known history of IV drug use. Patient was admitted for right upper extremity abscess and a left ankle abscess status post incision and drainage. DS: Medications - Discharge Medications Prescriptions: cephalexin 500 mg PO Q6HR #40 cap hydrocodone-acetaminophen 1 tab PO Q6H PRN #12 tab PRN Reason: Pain (Scale Score 7-10) DS: Summary Hospital Course: Patient is a 32-year-old male with a known history of IV drug use. Patient was admitted for right upper extremity abscess and a left ankle abscess status post incision and drainage. 1. Severe sepsis secondary to MSSA abscess on the left upper extremity right upper extremity and left foot status post incision and drainage The patient had positive blood cultures 1 of 2 which grew staph aureus. During the hospitalization the patient had multiple incision and drainages done due to suspected IV drug use. He was evaluated by podiatry as well as orthopedics and treated. He was started on IV antibiotics and wound cultures were collected during the procedures. Wound cultures were also positive for MSSA. Infectious disease was consulted and recommends 10 more days of p.o. antibiotics with Keflex. He will also be given 3 days of [place] for acute pain. EFORCSE was checked. DANELLE did not show any findings consistent with endocarditis. Repeat blood cultures were negative. Patient was counseled extensively on the dangers of IV drug use. Patient can follow-up with Dr. Saldaña or SUZANNE in 2 weeks for incision check of the right elbow. 3. Insulin-dependent diabetes Patient is very noncompliant with his diabetes regimen. During the hospitalization he continued to drink soda and did not want to listen to any of my instructions. He will be discharged on his home regimen of insulin. The risks of medication noncompliance including fatal complications like DKA were discussed in detail with the patient. He understands these risks and says he will be compliant with medications after discharge. 4. Chronic heroin addiction The patient will need to follow-up with a methadone clinic tomorrow a.m. The address of the methadone clinic was given to the patient and he can follow-up with him tomorrow a.m. He will be given a dose of methadone prior to his discharge today. I checked with our pharmacy department and they could confirm that the patient did have methadone prescribed to him in February 2018 at 10 mg. The address and phone number and hours of operation of the methadone clinic will be given to the patient prior to discharge. Patient will be discharged home today. [address] [facility] [id number] [phone] Hours of operation Sunday and Sunday 5:30 AM to 9:30 AM Sunday through Sunday 4:30 AM to 1:30 PM - Time Spent with Patient Total time spent providing and/or coordinating discharge services: Greater than 30 minutes - Quality: VTE Deep Vein Thrombosis/Pulmonary Embolism Present on Admission: No Exam Vital signs: Vital Signs 05/17/18 20:00 05/18/18 00:09 05/18/18 08:00 Temperature 97.6 F 98.4 F 97.9 F Pulse Rate 79 72 68 Respiratory Rate 18 16 18 Blood Pressure 127/62 135/60 146/63 H Pulse Oximetry 97 96 98 05/18/18 12:00 05/18/18 16:00 Temperature 97.8 F 97.8 F Pulse Rate 70 67 Respiratory Rate 18 18 Blood Pressure 137/59 L 128/58 L Pulse Oximetry 96 97 Intake & Output 05/17/18 05/18/18 05/18/18 18:59 06:59 18:59 Intake Total 2210 / 2210 860 / 860 50 / 50 Balance 2210 / 2210 860 / 860 50 / 50 Weight 79 kg Intake: IV 50 / 50 100 / 100 50 / 50 Ancef 2 GM Premix Inj 2 gm In 50 / 50 100 / 100 50 / 50 50 ml @ 100 mls/hr IV.SIG Q8H [facility] Rx#:[id number] Oral 2160 / 2160 760 / 760 Other: # Voids 4 3 Date of Last Bowel Movement 05/16/18 # Bowel Movements 1 Narrative: General patient in no acute distress HEENT extraocular movements are intact, clear oropharyngeal mucosa, no JVD Cardiovascular S1-S2 audible, RRR, no murmurs rubs or gallops Respiratory clear to auscultation bilaterally Abdomen soft, nontender, nondistended, normal bowel sounds Extremities left upper extremity right upper extremity in bandages near the forearms and elbows, left forearm abscess status post drainage bandage in place. Patient can move all 4 extremities, pain has improved significantly. No neurological deficits. Results Procedures completed during hospitalization: Incision and drainage DANELLE Labs on day of discharge: Labs from last 24 hours 05/18/18 05/18/18 05/18/18 16:54 11:06 08:17 WBC RBC Hgb Hct MCV MCH MCHC RDW Plt Count MPV Neut % (Auto) Lymph % (Auto) [place] % (Auto) Eos % (Auto) Baso % (Auto) Neut # (Auto) Lymph # (Auto) [place] # (Auto) Eos # (Auto) Baso # (Auto) WBC Differential Differential Comment Sodium Potassium Chloride Carbon Dioxide Anion Gap BUN Creatinine Estimated GFR POC Glucose 297 H 157 H 229 H Random Glucose Calcium Magnesium 05/17/18 05/17/18 05/17/18 22:01 19:57 19:57 WBC 8.2 RBC 4.79 Hgb 13.6 Hct 39.4 MCV 82.2 MCH 28.4 MCHC 34.5 RDW 14.5 Plt Count 411 MPV 7.1 Neut % (Auto) 68.9 Lymph % (Auto) 19.0 [place] % (Auto) 6.8 Eos % (Auto) 4.3 H Baso % (Auto) 1.0 Neut # (Auto) 5.6 Lymph # (Auto) 1.6 [place] # (Auto) 0.6 Eos # (Auto) 0.4 Baso # (Auto) 0.1 WBC Differential . Differential Comment Auto diff final Sodium 132 L Potassium 4.4 Chloride 94 L Carbon Dioxide 29.7 Anion Gap 8 BUN 25 H Creatinine 1.06 Estimated GFR 81 L POC Glucose 262 H Random Glucose 263 H Calcium 9.3 Magnesium 1.9 05/17/18 18:01 WBC RBC Hgb Hct MCV MCH MCHC RDW Plt Count MPV Neut % (Auto) Lymph % (Auto) [place] % (Auto) Eos % (Auto) Baso % (Auto) Neut # (Auto) Lymph # (Auto) [place] # (Auto) Eos # (Auto) Baso # (Auto) WBC Differential Differential Comment Sodium Potassium Chloride Carbon Dioxide Anion Gap BUN Creatinine Estimated GFR POC Glucose 246 H Random Glucose Calcium Magnesium Preliminary micro results at discharge 05/08/18 10:23 Mycobacterial Culture - Preliminary Fluid - Other No growth in 1 week 05/08/18 10:23 Fungal Culture - Preliminary Fluid - Other No growth in 1 week 05/08/18 10:23 Fungal Culture - Preliminary Other No growth in 1 week 05/08/18 10:23 Mycobacterial Culture - Preliminary Fluid - Other No growth in 1 week - Impressions ITS Impressions Chest X-Ray 05/07/18 23:29 CONCLUSION: No acute cardiopulmonary disease identified. Foot MRI 05/11/18 00:00 CONCLUSION: 1. There is subcutaneous edema along the medial aspect of the posterior ankle. Within this area of inflammation is a rim-enhancing 10 mm collection suspicious for small abscess. 2. Bone marrow signal is normal indicating no findings of osteomyelitis and the deeper soft tissue structures including the adjacent tendons demonstrates no abnormality. Upper Extremity Ultrasound 05/14/18 00:00 CONCLUSION: Cellulitis and suspected 2 small subcutaneous abscesses developing laterally of the left forearm as described. Discharge Plan - Discharge Disposition Patient Disposition: Discharge Home - Discharge Condition Condition: Good - Discharge Order Discharge Orders: Discharge Order (Routine); Ordered 05/18/18 Ordered By: Bill Kamara Hand Surgery Clear for Discharge (Routine); Ordered 05/18/18 Ordered By: Flora Pittman - Physicians Team Primary Care Provider: Primary Care Physici,Josette Attending Provider: Bill Kamara Other Providers: Adelia Dotson MD ; Al Kay MD ; Rodolfo Mcdaniels MD ; Porter Sadlaña MD ; Conchita Davidson DPM ; Antonio Clahoun MD ; Flora Pittman MD
[2018-05-18] MEDS ORDERED: Methadone 10 MG Tablet PO ONE (20:00)
== END 2018-05-18 20:39 | disposition home or self-care (01) ==
LOC: NEPE 22:35 → NEDA 05-08 02:44 → NEPFCDU 05-08 04:25 → N07 05-08 11:08
PROVIDERS: ADMIT Hospitalist; ATTEND Hospitalist
PROC: ORIFELB (2018-05-08 09:58)

== ENCOUNTER 2018-06-14 16:01 | Inpatient (IN) ==
[2018-06-14] MEDS ORDERED: Ketorolac Inj 30 MG/ML (IVP) Vial IV.PUSH ONE (20:31)
[2018-06-14] MEDS ORDERED: Lidocaine 1% Inj 50 ML Vial INFILTRATN ONE (20:35)
--- NOTE | 2018-06-14 20:39 | ED ---
HPI General Chief complaint: Skin/Abscess/Foreign Body Stated complaint: L arm skin issue and marc in R arm Time Seen by Provider: 06/14/18 20:18 Source: patient Mode of arrival: ambulatory Limitations: no limitations History of Present Illness HPI narrative: 32yo M with PMH of IVDA and IDDM here with c/o left wrist infection for 1 week. Pt injects heroin and last infection was this morning. Admits to injecting into the left hand. Does not know if he has fever. Denies any chest pain, sob, n/v, abdominal pain, focal weakness or numbness. Pt was just admitted 05/08/18 for left upper and right upper and left ankle abscess. Related Data Home Medications Medication Instructions Recorded Confirmed No Known Home Medications 06/14/18 06/14/18 Allergies Allergy/AdvReac Type Severity Reaction Status Date / Time penicillin G Allergy Severe Hives Verified 05/07/18 22:55 Review of Systems ROS: all other systems reviewed are negative [facility] Social History Social History Substance History: Active Abuse Second Hand Smoke Exposure: Yes Smoking Status: Current every day smoker Tobacco Type: Cigarettes Packs Per Day: 1 Cigarettes Per Day: 20.0 How Often Do You Have a Drink Containing Alcohol: Never Recent Travel in [facility] within the Last 8 Weeks: No Recent Out of Country Travel within the Last 8 Weeks: No Substance Abuse Detail Heroin: Substance Use Status: Active Route Used Substance Abuse: Intravenously Substance Frequency: DAILY Last Used: TODAY 06/14/18 Reason for Use: Get High Immunization History Tetanus Immunization: Unsure Exam Narrative Exam Narrative: GENERAL: [-] SKIN: Focused skin assessment warm/dry. HEAD: Atraumatic. Normocephalic. EYES: Pupils equal and round. No scleral icterus. No injection or drainage. ENT: No nasal bleeding or discharge. Mucous membranes pink and moist. NECK: Trachea midline. No JVD. CARDIOVASCULAR: Regular rate and rhythm. No murmur appreciated. RESPIRATORY: No accessory muscle use. Clear to auscultation. Breath sounds equal bilaterally. GASTROINTESTINAL: Abdomen soft, non-tender, nondistended. MUSCULOSKELETAL: LUE: +Marked edema and fluctuance in volar aspect of left wrist with streaking along left forearm. +Another erytheamatous flutuance on dorsum of left wrist. Radial pulse 2+. Sensation intact. NEUROLOGICAL: Awake and alert. No obvious cranial nerve deficits. Motor grossly within normal limits. Normal speech. PSYCHIATRIC: Appropriate mood and affect; insight and judgment normal. Procedures Abscess I/D Site: upper extremity (left lateral abscess) Side (if applicable): left Anesthetic used: lidocaine 1% (10 ml) Technique: incised with #11 blade Amount of fluid expressed (mL): 15 Irrigation: Yes Packing used?: [email or web address] Course Initial Documented Vital Signs Temperature 98 F 06/14/18 16:22 Pulse Rate 101 H 06/14/18 16:22 Respiratory Rate 18 06/14/18 16:22 Blood Pressure 131/66 06/14/18 16:22 Pulse Oximetry 96 06/14/18 16:22 Last Documented Vital Signs Temperature 98.9 F 06/15/18 00:45 Pulse Rate 91 H 06/15/18 00:45 Respiratory Rate 16 06/15/18 00:45 Blood Pressure 112/53 L 06/15/18 00:45 Pulse Oximetry 98 06/15/18 00:45 Medical Decision Making MDM Narrative Medical decision making narrative: 32yo M with active IVDA and abscess of left wrist that is almost circumferential for a week. There is marked edema volar aspect with fluctuance of wrist limiting motion. There is also another superficial abscess on dorsum of left wrist that we can drain in the ED. Superficial dorsal abscess drained in the ED. Labs reviewed, leukocytosis at 13.6. H/H normal. Glucose elevated at 340. CO2 elevated at 37.5. No increased anion gap. Pt given vancomycin and toradol. Pt will need hand consult regarding the aspect in the volar aspect of the wrist given the extend of edema and that it is over vasculature. Discussed with Dr. Kaur and accepted to her service. CT wrist ordered. Medical Screen Exam Complete: Yes Emergency Medical Condition: Yes Differential Diagnosis Differential Diagnosis: Abscess Lab Data Result diagrams: 06/14/18 22:25 06/14/18 22:25 Lab Results 06/14/18 06/14/18 06/14/18 Range/Units 22:25 22:25 22:25 WBC 13.6 H (4.0-11.0) th/mm3 RBC 4.90 (4.50-5.90) mil/mm3 Hgb 13.6 (13.0-17.0) gm/dL Hct 40.0 (39.0-51.0) % MCV 81.6 (80.0-100.0) fL MCH 27.7 (27.0-34.0) pg MCHC 34.0 (32.0-36.0) % RDW 14.5 (11.6-17.2) % Plt Count 291 (150-450) th/mm3 MPV 8.5 (7.0-11.0) fL Neut % (Auto) 82.8 H (16.0-70.0) % Lymph % (Auto) 9.6 (9.0-44.0) % [place] % (Auto) 5.2 (0.0-8.0) % Eos % (Auto) 1.8 (0.0-4.0) % Baso % (Auto) 0.6 (0.0-2.0) % Neut # (Auto) 11.3 H (1.8-7.7) th/mm3 Lymph # (Auto) 1.3 (1.0-4.8) th/mm3 [place] # (Auto) 0.7 (0.0-0.9) th/mm3 Eos # (Auto) 0.2 (0.0-0.4) th/mm3 Baso # (Auto) 0.1 (0.0-0.2) th/mm3 WBC Differential . Differential Comment Auto diff final PT 10.0 (9.8-11.6) sec INR 1.0 Ratio APTT 29.3 (23.4-31.7) sec Sodium 134 L (136-145) meq/L Potassium 4.0 (3.5-5.1) meq/L Chloride 91 L (98-107) meq/L Carbon Dioxide 37.5 H (21.0-32.0) meq/L Anion Gap 6 (5-15) meq/L BUN 10 (7-18) mg/dL Creatinine 1.09 (0.60-1.30) mg/dL Estimated GFR 78 L (>89) mL/min Random Glucose 340 H (74-106) mg/dL Lactic Acid (0.4-2.0) mmol/L Calcium 9.2 (8.5-10.1) mg/dL 06/14/18 Range/Units 22:25 WBC (4.0-11.0) th/mm3 RBC (4.50-5.90) mil/mm3 Hgb (13.0-17.0) gm/dL Hct (39.0-51.0) % MCV (80.0-100.0) fL MCH (27.0-34.0) pg MCHC (32.0-36.0) % RDW (11.6-17.2) % Plt Count (150-450) th/mm3 MPV (7.0-11.0) fL Neut % (Auto) (16.0-70.0) % Lymph % (Auto) (9.0-44.0) % [place] % (Auto) (0.0-8.0) % Eos % (Auto) (0.0-4.0) % Baso % (Auto) (0.0-2.0) % Neut # (Auto) (1.8-7.7) th/mm3 Lymph # (Auto) (1.0-4.8) th/mm3 [place] # (Auto) (0.0-0.9) th/mm3 Eos # (Auto) (0.0-0.4) th/mm3 Baso # (Auto) (0.0-0.2) th/mm3 WBC Differential Differential Comment PT (9.8-11.6) sec INR Ratio APTT (23.4-31.7) sec Sodium (136-145) meq/L Potassium (3.5-5.1) meq/L Chloride (98-107) meq/L Carbon Dioxide (21.0-32.0) meq/L Anion Gap (5-15) meq/L BUN (7-18) mg/dL Creatinine (0.60-1.30) mg/dL Estimated GFR (>89) mL/min Random Glucose (74-106) mg/dL Lactic Acid 1.2 (0.4-2.0) mmol/L Calcium (8.5-10.1) mg/dL Imaging Data Radiologist's impression: Wrist CT 06/15/18 00:00 CONCLUSION: Volar wrist abscesses Discharge Plan Discharge Disposition Patient Disposition: 30 Still Patient Discharge Details Diagnosis: Abscess of wrist Physicians Team ED Provider: Lamar Sorto Primary Care Provider: Primary Care Josette Dooley Attending Provider: Marjan Kaur Other Providers: Flora Pittman Status ED Status: Left Department Discharge Information Discharge Date/Time: 06/15/18 00:28
[2018-06-14] MEDS ORDERED: Sod Chloride 0.9% Inj 1,000 ML IV.SIG SCH (20:45)
[2018-06-14] MEDS ORDERED: Vancomycin Inj 1,000 MG in Sodium Chlor 0.9% Inj 250 ML IV.SIG ONE ×2 (21:00→23:30)
[2018-06-14] MEDS ORDERED: Vancomycin Inj 1 GM/200 ML PIGGYBACK IV.SIG SCH (21:00)
[2018-06-14 22:47] LABS: Baso # (Auto) 0.1 th/mm3 (0.0-0.2); Baso % (Auto) 0.6 % (0.0-2.0); Eos # (Auto) 0.2 th/mm3 (0.0-0.4); Eos % (Auto) 1.8 % (0.0-4.0); Hemoglobin 13.6 gm/dL (13.0-17.0); Lymph # (Auto) 1.3 th/mm3 (1.0-4.8); Lymph % (Auto) 9.6 % (9.0-44.0); Mean Corpuscular Hemoglobin 27.7 pg (27.0-34.0); Mean Corpuscular Volume 81.6 fL (80.0-100.0); Mean Platelet Volume 8.5 fL (7.0-11.0); Mono # (Auto) 0.7 th/mm3 (0.0-0.9); Mono % (Auto) 5.2 % (0.0-8.0); Neut # (Auto) 11.3 th/mm3 (1.8-7.7); Neut % (Auto) 82.8 % (16.0-70.0); Platelet Count 291 th/mm3 (150-450); Red Cell Distribution Width 14.5 % (11.6-17.2); White Blood Count 13.6 th/mm3 (4.0-11.0)
[2018-06-14 23:02] LABS: Activated Partial Thrombo Time 29.3 sec (23.4-31.7)
[2018-06-14 23:08] LABS: Calcium 9.2 mg/dL (8.5-10.1); Carbon Dioxide 37.5 meq/L (21.0-32.0)
[2018-06-14] MEDS ORDERED: Vancomycin Consult Pharmacy OTHER PRN (23:23)
[2018-06-14] MEDS ORDERED: Bisacodyl 10 MG Supp RECTAL PRN (23:24)
[2018-06-14] MEDS ORDERED: Acetaminophen 325 MG Tablet PO PRN (23:24)
[2018-06-14] MEDS ORDERED: Sodium Chloride 0.9% 2 ML Flush PRN IV.FLUSH (23:27)
--- NOTE | 2018-06-14 23:28 | P.HPIM ---
History of Present Illness Primary Care Physician: No Primary Care Physician History of Present Illness: This is a 32-year-old male with a PMH of Hepatitis C, IVDU, DM and Recurrent Abscesses from IVDU who presented to the ER w/ c/o left hand pain and swelling x1 wk. Notes worsening swelling of left wrist over the last one week. Recent admit 05/08-05/18/18 for RUE abscess and Left ankle abscess s/p I&D, Cultures + MSSA, DANELLE negative for vegetation at that time. Non-compliant w/ follow-up and medications, still has marc in place from previous admission. Denies fever/ chills. On arrival, BP 131/66, HR 101, O2 sat 96% on RA, Afebrile. WBC 13.6. INR 1.0. Chemistry essentially unremarkable. BS 340. S/p I&D of one hand abscess in ER and given Vanc. - Diagnosis (1) Abscess (2) IVDU (intravenous drug user) (3) DM (diabetes mellitus) (4) Non-compliance Review of Systems PAST FAMILY HISTORY: Reviewed. No h/o DM or CAD All other systems reviewed negative except as stated in HPI PMFSH - History History Provided By: Patient - Medical History Medical History: Medical History (Last Reviewed 06/14/18 @ 16:25 by Maria Del Carmen Danielle RN) Abscess (Acute) IVDU (intravenous drug user) (Acute) Heroin abuse (Acute) Hepatitis C (Acute) Diabetes (Acute) Hand abscess MRSA infection - Surgical History Surgical History: Surgical History (Last Reviewed 06/14/18 @ 16:25 by Maria Del Carmen Danielle RN) History of orthopedic surgery (Acute) - Family History Family History: Family History (Last Reviewed 05/09/18 @ 17:15 by Dorina Fournier) Mother Aneurysm Heart attack Stroke - Tobacco History Second Hand Smoke Exposure: Yes Tobacco Use In Past 30 Days: Yes Smoking Status: Current every day smoker Tobacco Type: Cigarettes Packs Per Day: 1 Cigarettes Per Day: 20.0 - Alcohol History How Often Do You Have a Drink Containing Alcohol: Never - Substance Use History Substance History: Active Abuse - Substance Use Type Heroin Status: Active Route Used: Intravenously Frequency: DAILY Last Used: TODAY 06/14/18 Reason for Use: Get High - Travel History Recent Travel in the [facility] Within the Last 8 Weeks: No Recent Travel Out of the Country Within the Last 8 Weeks: No - Immunization History Tetanus Immunization: Unsure Medications and Allergies Allergies Allergy/AdvReac Type Severity Reaction Status Date / Time penicillin G Allergy Severe Hives Verified 05/07/18 22:55 Home Medications Medication Instructions Recorded Confirmed Type No Known Home Medications 06/14/18 06/14/18 History Exam Vital signs: Vital Signs 06/14/18 16:22 06/14/18 20:19 Temperature 98 F 99.6 F Pulse Rate 101 H 103 H Respiratory Rate 18 18 Blood Pressure 131/66 153/89 H Pulse Oximetry 96 98 Intake & Output 06/14/18 06/14/18 06/15/18 06:59 18:59 06:59 Weight 70.307 kg Narrative: PE: GENERAL: Young white male in no acute distress, obviously intoxicated, falls asleep during exam. SKIN: Focused skin assessment warm and dry. HEENT: PERRLA, EOMI. No scleral icterus or conjunctival pallor. No lid lag or facial droop. CARDIOVASCULAR: Regular rate and rhythm. No obvious murmurs to auscultation. No chest tenderness to palpation. RESPIRATORY: No obvious rhonchi or wheezing. Clear to auscultation. Breath sounds equal bilaterally. GASTROINTESTINAL: Abdomen soft, non-tender, nondistended. BS normal. MUSCULOSKELETAL: Extremities without clubbing, cyanosis, or edema. No obvious deformities. RUE w/ marc in place from previous I&D, well-healed. Left hand w/ large abscess to volar aspect of wrist, significant erythema/edema. +left wrist abscess on dorsum s/p I&D. NEUROLOGICAL: Awake, alert and oriented x4. No focal neurologic deficits. Moving both upper and lower extremities spontaneously. PSYCHIATRIC: Appropriate mood and affect. Insight and judgment normal. Results - Labs CBC & Chem 7: 06/14/18 22:25 06/14/18 22:25 Labs: Short CBC 06/14/18 Range/Units 22:25 WBC 13.6 H (4.0-11.0) th/mm3 Hgb 13.6 (13.0-17.0) gm/dL Hct 40.0 (39.0-51.0) % Plt Count 291 (150-450) th/mm3 BMP 06/14/18 22:25 Sodium 134 L Potassium 4.0 Chloride 91 L Carbon Dioxide 37.5 H BUN 10 Creatinine 1.09 Calcium 9.2 Caprini VTE Risk Assessment Caprini VTE Risk Assessment: No/Low Risk (score <= 1) Caprini Risk Assessment Model: Point Value = 1 Point Value = 2 Point Value = 3 Point Value = 5 Age 41-60 Minor surgery BMI > 25 kg/m2 Swollen legs Varicose veins or History of unexplained or recurrent spontaneous Oral contraceptives or hormone replacement Sepsis (< 1 month) Serious lung disease, including pneumonia (< 1 month) Abnormal pulmonary function Acute myocardial infarction Congestive heart failure (< 1 month) History of inflammatory bowel disease Medical patient at bed rest Age 61-74 Arthroscopic surgery Major open surgery (> 45 min) Laparoscopic surgery (> 45 min) Malignancy Confined to bed (> 72 hours) Immobilizing plaster cast Central venous access Age >= 75 History of VTE Family history of VTE Factor V Leiden Prothrombin [id number] Lupus anticoagulant Anticardiolipin antibodies Elevated serum homocysteine Heparin-induced thrombocytopenia Other congenital or acquired thrombophilia Stroke (< 1 month) Elective arthroplasty Hip, pelvis, or leg fracture Acute spinal cord injury (< 1 month) Prophylaxis Regimen: Total Risk Factor Score Risk Level Prophylaxis Regimen 0-1 Low Early ambulation 2 Moderate Order ONE of the following: *Sequential Compression Device (SCD) *Heparin 5000 units SQ BID 3-4 Higher Order ONE of the following medications: *Heparin 5000 units SQ TID *Enoxaparin/Lovenox 40 mg SQ daily (WT < 150 kg, CrCl > 30 mL/min) *Enoxaparin/Lovenox 30 mg SQ daily (WT < 150 kg, CrCl > 10-29 mL/min) *Enoxaparin/Lovenox 30 mg SQ BID (WT < 150 kg, CrCl > 30 mL/min) AND/OR *Sequential Compression Device (SCD) 5 or more Highest Order ONE of the following medications: *Heparin 5000 units SQ TID (Preferred with Epidurals) *Enoxaparin/Lovenox 40 mg SQ daily (WT < 150 kg, CrCl > 30 mL/min) *Enoxaparin/Lovenox 30 mg SQ daily (WT < 150 kg, CrCl > 10-29 mL/min) *Enoxaparin/Lovenox 30 mg SQ BID (WT < 150 kg, CrCl > 30 mL/min) AND *Sequential Compression Device (SCD) Assessment and Plan - Assessment (1) Abscess Code(s): L02.91 - Cutaneous abscess, unspecified Status: Acute (2) IVDU (intravenous drug user) Code(s): F19.90 - Other psychoactive substance use, unspecified, uncomplicated Status: Acute (3) DM (diabetes mellitus) Code(s): E11.9 - Type 2 diabetes mellitus without complications Status: Acute (4) Non-compliance Code(s): Z91.19 - Patient's noncompliance with other medical treatment and regimen Status: Acute - Plan A/P: 1. Abscess: Left Wrist Abscess, secondary to IVDU, s/p I&D of left wrist abscess in ER, follow up cultures, +large left wrist abscess on volar aspect of wrist. CT pending, will follow. Consult Hand Surgery for further eval/ intervention. S/p Vanc, continue w/ Vanc, add Cefepime. 2. Non-Compliance: recent admit 05/08-05/18/18 for RUE and Left Ankle Abscess, s /p I&D, cultures +MSSA, non-compliant w/ follow-up/medications. 3. IVDU: w/ Heroin, ongoing, requesting Methadone for detox, however currently intoxicated, will hold off. Ativan prn for withdrawal. 4. DM: Sliding scale w/ Accu-Cheks, non-compliant w/ medications. 5. DVT Prophylaxis: SCD/Teds 6. Social work for d/c planning as needed 7. Case discussed w/ ER physician at length, labs/records/imaging reviewed by me.
[2018-06-14] MEDS ORDERED: Dextrose 50% in Water 50 ML Vial IV.PUSH PRN (23:29)
--- NOTE | 2018-06-15 00:49 | CT ---
EXAM DATE: 06/15/2018 12:19 AM EDT AGE/SEX: 32 years / Male INDICATIONS: Left wrist pain and swelling. Multiple abscesses largest being on the anterior portion. CLINICAL DATA: This is the patient's initial encounter. Patient reports that signs and symptoms have been present for 1 week and indicates a pain score of 10/10. MEDICAL/SURGICAL HISTORY: . IVDU. Hepatitis C. MRSA. Diabetes. . Left wrist surgery 3 weeks ago fo r abscesses. RADIATION DOSE: 11.61 CTDI (mGy) COMPARISON: No prior exams available for comparison. TECHNIQUE: Multiple contiguous axial images were acquired using a multirow detector CT scanner after intravenous administration of 75 ml Omnipaque 350 (iohexol) nonionic water-soluble contrast as a si ngle exam dose. . Multiplanar reconstruction was performed in the sagittal and coronal planes. Usin g automated exposure control and adjustment of the mA and/or kV according to patient size, radiation dose was kept as low as reasonably achievable to obtain optimal diagnostic quality images. DICOM for mat image data is available electronically for review and comparison. FINDINGS: There is multilocular presumed abscess on the volar aspect of the wrist. There does appear to be flui d in the flexor tendon sheath. There are no obvious destructive bony changes to specifically suggest osteomyelitis. There is an open wound involving the ulnar aspect of the wrist CONCLUSION: Volar wrist abscesses Electronically signed by: Dwain Osborn MD 06/15/2018 12:48 AM EDT
[2018-06-15] MEDS: Sod Chloride 0.9% Inj 1,000 ML IV.CONT SCH ×3 (03:30→23:46)
[2018-06-15] MEDS: Insulin NovoLOG Aspart Correctional Sugar Inj SQ SCH ×4 (07:37→22:05)
--- NOTE | 2018-06-15 10:12 | P.PN ---
Subjective Interval history: Follow-up for left wrist abscess. Patient reports significant 10/10 pain with significant edema throughout his left volar wrist and hand. Denies fevers or chills. He is requesting increased pain medications or to be started on methadone. He has not been following with any methadone clinic nor receiving methadone as outpatient. He states he has been injecting up to 2 g of heroin daily. He states he has been trying to get into detox with [facility] for over a month now, however no beds available, therefore he continues to use drugs. Physical Exam Vital signs: Vital Signs 06/14/18 16:22 06/14/18 20:19 06/15/18 00:00 Temperature 98 F 99.6 F Pulse Rate 101 H 103 H 89 Respiratory Rate 18 18 16 Blood Pressure 131/66 153/89 H 138/68 Pulse Oximetry 96 98 97 06/15/18 00:25 06/15/18 00:45 06/15/18 01:04 Temperature 98.9 F Pulse Rate 91 H Respiratory Rate 16 16 16 Blood Pressure 112/53 L Pulse Oximetry 98 06/15/18 04:00 06/15/18 07:35 Temperature 98.0 F 98.8 F Pulse Rate 86 82 Respiratory Rate 17 18 Blood Pressure 111/74 107/67 Pulse Oximetry 98 97 Intake & Output 06/14/18 06/15/18 06/15/18 18:59 06:59 18:59 Intake Total 1350 / 1350 Balance 1350 / 1350 Weight 70.307 kg 70.307 kg Intake: IV 1350 / 1350 Maxipime Inj 1,000 MG In NS Inj 100 / 100 100 ML @ 200 mls/hr IV.SIG Q12H EDIE Rx#:[id number] NS Inj 1,000 ML @ 1000 mls/hr 1000 / 1000 IV.SIG BOLUS EDIE Rx#:[id number] Vancomycin Inj 1,000 MG In NS 250 / 250 Inj 250 ML @ 250 mls/hr IV.SIG ONCE ONE Rx#:[id number] Other: Weight On Admission 70.307 kg Narrative: GENERAL: Well-nourished, well-developed young male patient in [facility]. SKIN: Warm and dry. Left volar wrist with a very large abscess with erythema/ fluctuance, TTP, no active drainage. Another left dorsal wrist abscess status post I&D. HEENT: Normocephalic. Atraumatic. Pupils equal and round. Mucous membranes pink and moist. CARDIOVASCULAR: Regular rate and rhythm. No murmur appreciated. RESPIRATORY: No accessory muscle use. Clear to auscultation. Breath sounds equal bilaterally. GASTROINTESTINAL: Abdomen soft, non-tender, nondistended. Normoactive bowel sounds x4. MUSCULOSKELETAL: No obvious deformities. Extremities without clubbing, cyanosis , or edema. NEUROLOGICAL: Awake and alert. No obvious cranial nerve deficits. Motor grossly within normal limits. Moving all extremities spontaneously. Normal speech. PSYCHIATRIC: Appropriate mood and affect; insight and judgment normal. Results - Labs CBC & Chem 7: 06/14/18 22:25 06/14/18 22:25 Laboratory Results - last 24 hr 06/14/18 06/14/18 06/14/18 22:25 22:25 22:25 WBC 13.6 H RBC 4.90 Hgb 13.6 Hct 40.0 MCV 81.6 MCH 27.7 MCHC 34.0 RDW 14.5 Plt Count 291 MPV 8.5 Neut % (Auto) 82.8 H Lymph % (Auto) 9.6 [place] % (Auto) 5.2 Eos % (Auto) 1.8 Baso % (Auto) 0.6 Neut # (Auto) 11.3 H Lymph # (Auto) 1.3 [place] # (Auto) 0.7 Eos # (Auto) 0.2 Baso # (Auto) 0.1 WBC Differential . Differential Comment Auto diff final PT 10.0 INR 1.0 APTT 29.3 Sodium 134 L Potassium 4.0 Chloride 91 L Carbon Dioxide 37.5 H Anion Gap 6 BUN 10 Creatinine 1.09 Estimated GFR 78 L Random Glucose 340 H Lactic Acid Calcium 9.2 06/14/18 22:25 WBC RBC Hgb Hct MCV MCH MCHC RDW Plt Count MPV Neut % (Auto) Lymph % (Auto) [place] % (Auto) Eos % (Auto) Baso % (Auto) Neut # (Auto) Lymph # (Auto) [place] # (Auto) Eos # (Auto) Baso # (Auto) WBC Differential Differential Comment PT INR APTT Sodium Potassium Chloride Carbon Dioxide Anion Gap BUN Creatinine Estimated GFR Random Glucose Lactic Acid 1.2 Calcium - Imaging Impressions Wrist CT 06/15/18 00:00 CONCLUSION: Volar wrist abscesses - Procedures LUE dorsal abscess s/p I&D in the ER on 06/14 Assessment and Plan - Assessment (1) Abscess Code(s): L02.91 - Cutaneous abscess, unspecified Status: Acute (2) IVDU (intravenous drug user) Code(s): F19.90 - Other psychoactive substance use, unspecified, uncomplicated Status: Acute (3) DM (diabetes mellitus) Code(s): E11.9 - Type 2 diabetes mellitus without complications Status: Acute (4) Non-compliance Code(s): Z91.19 - Patient's noncompliance with other medical treatment and regimen Status: Acute - Plan 32-year-old male with a PMH of Hepatitis C, IVDU, DM and 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 Notes worsening swelling of left wrist over the last one week. Recent admit 05/08-05/18/18 for RUE abscess and Left ankle abscess s/p I&D, Cultures + MSSA, DANELLE negative for vegetation at that time. Non-compliant w/ follow-up and medications, still has marc in place from previous admission. Left Wrist Abscess: secondary to IVDU, s/p I&D of left wrist abscess in ER, follow up cultures, +large left wrist abscess on volar aspect of wrist. -CT wrist showed multilocular presumed abscess on the volar aspect of the wrist. There does appear to be fluid in the flexor tendon sheath. There are no obvious destructive bony changes to specifically suggest osteomyelitis. There is an open wound involving the ulnar aspect of the wrist -Continue on antibiotics with IV Vanco and IV Cefepime -Blood cultures with NGTD -Pain control with oxycodone q4h prn (discussed with the patient, will not be increasing any further) -Hand surgery consulted, discussed with Dr. Pittman, plan to take the patient to the OR today -Keep NPO Non-Compliance: recent admit 05/08-05/18/18 for RUE and Left Ankle Abscess, s/p I &D, cultures +MSSA, non-compliant w/ follow-up/medications. IVDU: w/ Heroin, ongoing, requesting Methadone for detox, however does not take this as outpatient and continues to use IV heroin when not in hospital. Will hold off and refer to [facility] at discharge. Ativan prn for withdrawal. DM: non-compliant w/ medications. Sliding scale w/ Accu-Cheks. DVT Prophylaxis: SCD/Teds; avoid chemical prophylaxis with upcoming procedure Discharge Planning: Going to OR today. Further disposition to follow. Await wound cultures from I& D.
[2018-06-15] MEDS: Sodium Chloride 0.9% 2 ML Flush BID IV.FLUSH SCH ×2 (10:41→23:54)
[2018-06-15] MEDS: Senna/Docusate Sodium 8.6/50 MG Tablet PO SCH ×2 (10:41→23:55)
[2018-06-15] MEDS: Vancomycin Inj 1,000 MG in Sodium Chlor 0.9% Inj 250 ML IV.SIG SCH (14:43)
--- NOTE | 2018-06-15 14:44 | MB ---
cc: Flora Pittman MD DATE: 06/15/2018 The patient is being seen at the request of Dr. Marjan Kaur. REASON FOR CONSULTATION: Abscess of the left forearm. HISTORY OF PRESENT ILLNESS: The patient is a 32-year-old male with a history of IV drug abuse. He also has hepatitis C, diabetes, who presented to the emergency room earlier complaining of left hand pain. The patient was seen, and an abscess was drained. The patient had another abscess which was quite large and unable to be drained in the emergency room. Consultation requested for evaluation and treatment of that abscess. PAST MEDICAL HISTORY/FAMILY HISTORY: Noncontributory. REVIEW OF SYSTEMS: Negative except as noted in the history of present illness. The patient has a history of MRSA. PAST SURGICAL HISTORY: Multiple abscesses and history of orthopedic surgery. SOCIAL HISTORY: The patient smokes everyday and abuses heroin. Alcohol: Never. PHYSICAL EXAMINATION: GENERAL: The patient is lying in bed. He is sleeping. After easily waking him up, I was able to examine him. VITAL SIGNS: His temperature is 98.8, pulse of 84, respirations 18, blood pressure is 151/73, pulse oximetry on room air is 96. HEENT: His extraocular muscles are intact. His pupils are equal, round, and reactive to light. His mouth is clear. NECK: Supple without masses. LUNGS: Clear. HEART: Regular rate and rhythm. EXTREMITIES: Examination of upper extremities reveals a drained incision on the left forearm. There is also a very large abscess, which appears to be relatively superficial but is quite large. There are skin changes consistent with the abscess. It measures 5 x 3 cm in greatest dimension and is approximately 1.5 cm, bulging off the wrist. The fingers appear to be warm and well perfused. IMPRESSION: Abscess of left wrist. PLAN: Incision and drainage. The patient understands and accepts the risks and complications of the surgery. MD ARELY Mcclain/yazmin , 02:06 PM , 02:13 PM
[2018-06-15] MEDS ORDERED: Bupivacaine 0.25% Inj 50 ML MDV Vial INFILTRATN SCH (15:00)
[2018-06-15] MEDS ORDERED: Bupivacaine PF 0.25% Inj 30 ML Vial ONE (17:03)
--- NOTE | 2018-06-15 17:58 | P.BOP ---
- Preoperative Diagnosis (1) Abscess of wrist - Postoperative Diagnosis (1) Abscess of wrist Date of procedure: 06/15/18 Procedure: Incision and drainage of abscess of the left distal forearm/wrist. Anesthesia: MAC Surgeon: Flora Pittman MD Estimated blood loss (mL): 30 Tourniquet time (min): 0 Pathology: none sent Condition: stable Disposition: PACU
[2018-06-15] MEDS ORDERED: fentaNYL Citrate Inj 100 MCG/2 ML Ampul ONE (18:23)
--- NOTE | 2018-06-15 19:58 | MP ---
cc: Flora Pittman MD DATE OF OPERATION: 06/15/2018 PREOPERATIVE DIAGNOSIS: Abscess of left wrist and forearm. POSTOPERATIVE DIAGNOSIS: Abscess of left wrist and forearm. PROCEDURE PERFORMED: Incision and drainage of abscess of left wrist. ANESTHESIA: General. SURGEON: Flora Pittman MD INDICATIONS: A 32-year-old male heroin addict who injected and developed the abscess, as noted above. FINDINGS: The abscess measured 4.5 x 2 cm in greatest dimension. It was deep and went to the area around the flexor tendons. Approximately 10-12 mL of pus was removed. At the completion of the procedure, the effluent was clear and the wound was packed. OPERATIVE TIME: 20 minutes. DESCRIPTION OF PROCEDURE: The patient was seen preoperatively where the site and side were identified and marked. The patient was then taken to the operating room and placed in supine position. His identity was checked again the armband and the consent form. Site and side confirmed. Timeout called prior to beginning the procedure. The left upper extremity was prepped with Hibiclens and draped in usual sterile fashion. Initially, the antecubital fossa was checked as the patient noted that there may be a problem there. None was noted. There was a hard cord, but no fluctuance. The blister on the volar aspect of his forearm was then nicked with a 15 blade and the pus immediately came out. The remainder of the blister was incised and debrided. There was a large cavity which went down into the area surrounding the flexor tendons into the carpal tunnel. This was suctioned out. All the pus was removed. The wound was then copiously irrigated with saline. A suction catheter with a blunt tip was used to gently probe the area and break up all the loculations. There was another incision which had been made dorsally yesterday in the emergency room. This was also inspected and irrigated. Once there was no additional pus noted, the wound was copiously irrigated with saline until the effluent was clear. It was then packed with half-inch iodoform packing, both dorsally and the palm surface, and a dressing was applied using Telfa, 4 x 4's and hand wrap. Just prior to closing the wound, bupivacaine 0.5% plain was injected into all of the operated areas for postoperative pain control. The patient was then taken from the operating room to the recovery room in satisfactory condition, having tolerated the procedure well. POSTOPERATIVE INSTRUCTIONS: Include a regular diet, elevation of the arm and wound care. The packing is to be removed in the morning and wound care will be instituted. MD ARELY Mcclain/hyacinth , 06:07 PM , 06:14 PM
[2018-06-16] MEDS: Vancomycin Inj 1,000 MG in Sodium Chlor 0.9% Inj 250 ML IV.SIG SCH ×2 (01:11→13:40)
[2018-06-16] MEDS: Sod Chloride 0.9% Inj 1,000 ML IV.CONT SCH ×2 (02:10→07:44)
[2018-06-16] MEDS: Sodium Chloride 0.9% 2 ML Flush BID IV.FLUSH SCH (08:57)
[2018-06-16] MEDS ORDERED: Povidone Iodine 10% Top Soln 118 ML Bottle TOPICAL SCH (09:00)
[2018-06-16] MEDS: Senna/Docusate Sodium 8.6/50 MG Tablet PO SCH (09:00)
[2018-06-16] MEDS: Insulin NovoLOG Aspart Correctional Sugar Inj SQ SCH ×2 (09:25→13:39)
--- NOTE | 2018-06-16 09:38 | P.PN ---
Subjective Interval history: Follow up for left wrist abscess. Patient is sleeping upon my arrival. He reports continued pain throughout the left wrist. He is status post I&D in the OR last night 06/15. Denies fevers or chills. Discussed his elevated blood glucose, the patient states he is very labile and has had issues with low blood sugars when on long-acting insulin. He states he has not been on any long- acting insulin in awhile. Physical Exam Vital signs: Vital Signs 06/15/18 10:42 06/15/18 12:00 06/15/18 16:00 Temperature 98.8 F 98.8 F Pulse Rate 84 81 Respiratory Rate 16 18 16 Blood Pressure 151/73 H 148/69 H Pulse Oximetry 96 98 06/15/18 18:02 06/15/18 18:15 06/15/18 18:30 Temperature 97.2 F L 98.1 F Pulse Rate 81 79 80 Respiratory Rate 15 17 19 Blood Pressure 139/66 138/65 147/71 H Pulse Oximetry 100 100 99 06/15/18 19:26 06/16/18 00:00 06/16/18 04:00 Temperature 98.4 F 98.4 F 97.5 F L Pulse Rate 82 79 65 Respiratory Rate 18 16 17 Blood Pressure 130/64 124/62 128/63 Pulse Oximetry 95 97 98 06/16/18 07:53 Temperature 98.8 F Pulse Rate 65 Respiratory Rate 16 Blood Pressure 127/60 Pulse Oximetry 98 Intake & Output 06/15/18 06/16/18 06/16/18 19:59 06:59 18:59 Intake Total Output Total Balance Weight Intake: IV NS Inj 1,000 ML @ 100 mls/hr IV .CONT .Q10H EDIE Rx#:[id number] Maxipime Inj 1,000 MG In NS Inj 100 ML @ 200 mls/hr IV.SIG Q12H EDIE Rx#:[id number] Vancomycin Inj 1,000 MG In NS Inj 250 ML @ 250 mls/hr IV.SIG Q12H EDIE Rx#:[id number] Anesthesia Amount Output: Urine Estimated Blood Loss Narrative: GENERAL: Well-nourished, well-developed young male patient in [facility]. SKIN: Warm and dry. LUE volar wrist with abscess s/p I&D, wrapped in surgical dressing, CDI. HEENT: Normocephalic. Atraumatic. Pupils equal and round. Mucous membranes pink and moist. CARDIOVASCULAR: Regular rate and rhythm. No murmur appreciated. RESPIRATORY: No accessory muscle use. Clear to auscultation. Breath sounds equal bilaterally. GASTROINTESTINAL: Abdomen soft, non-tender, nondistended. Normoactive bowel sounds x4. MUSCULOSKELETAL: No obvious deformities. Extremities without clubbing, cyanosis , or edema. NEUROLOGICAL: Awake and alert. No obvious cranial nerve deficits. Motor grossly within normal limits. Moving all extremities spontaneously. Normal speech. PSYCHIATRIC: Appropriate mood and affect; insight and judgment normal. Results - Labs CBC & Chem 7: 06/14/18 22:25 06/14/18 22:25 Laboratory Results - last 24 hr 06/15/18 06/15/18 06/15/18 16:41 18:06 21:04 POC Glucose 355 H 318 H 434 H 06/16/18 09:04 POC Glucose 455 H* Microbiology 06/14/18 22:10 Blood - Peripheral Aerobic Blood Culture - Preliminary No growth in 1 day 06/14/18 22:10 Blood - Peripheral Anaerobic Blood Culture - Preliminary No growth in 1 day 06/14/18 22:25 Blood - Peripheral Aerobic Blood Culture - Preliminary No growth in 1 day 06/14/18 22:25 Blood - Peripheral Anaerobic Blood Culture - Preliminary No growth in 1 day - Imaging Wrist CT 06/15/18 00:00 CONCLUSION: Volar wrist abscesses - Procedures LUE dorsal abscess s/p I&D in the ER on 06/14 Assessment and Plan - Assessment (1) Abscess Code(s): L02.91 - Cutaneous abscess, unspecified Status: Acute (2) IVDU (intravenous drug user) Code(s): F19.90 - Other psychoactive substance use, unspecified, uncomplicated Status: Acute (3) DM (diabetes mellitus) Code(s): E11.9 - Type 2 diabetes mellitus without complications Status: Acute (4) Non-compliance Code(s): Z91.19 - Patient's noncompliance with other medical treatment and regimen Status: Acute - Plan 32-year-old male with a PMH of Hepatitis C, IVDU, DM and 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 Notes worsening swelling of left wrist over the last one week. Recent admit 05/08-05/18/18 for RUE abscess and Left ankle abscess s/p I&D, Cultures + MSSA, DANELLE negative for vegetation at that time. Non-compliant w/ follow-up and medications, still has marc in place from previous admission. Left Wrist Abscess: secondary to IVDU, s/p I&D of left wrist abscess in ER, follow up cultures, +large left wrist abscess on volar aspect of wrist. -CT wrist showed multilocular presumed abscess on the volar aspect of the wrist. There does appear to be fluid in the flexor tendon sheath. There are no obvious destructive bony changes to specifically suggest osteomyelitis. There is an open wound involving the ulnar aspect of the wrist -Continue on antibiotics with IV Vanco and IV Cefepime -Blood cultures with NGTD -Pain control with oxycodone q4h prn (discussed with the patient, will not be increasing any further) -Hand surgery consulted, discussed with Dr. Pittman -S/p I&D in OR on 06/[address] Pittman, does not appear to have collected wound cultures from OR -Consult ID, appreciate assistance Non-Compliance: recent admit 05/08-05/18/18 for RUE and Left Ankle Abscess, s/p I &D, cultures +MSSA, non-compliant w/ follow-up/medications. IVDU: w/ Heroin, ongoing, requesting Methadone for detox, however does not take this as outpatient and continues to use IV heroin when not in hospital. Will hold off and refer to [facility] Deleon at discharge. Ativan prn for withdrawal. DM: non-compliant w/ medications. Sliding scale w/ Accu-Cheks. Increased to medium dose SSI. DVT Prophylaxis: SCD/Teds; avoid chemical prophylaxis with procedure Discharge Planning: Will need clearance from hand surgery and recommendations from ID prior to discharge. 1345 hours: Dianelys RN informs me the patient has left AMA. This patient has the capacity to refuse care and understands the risks of leaving, including permanent disability and/or , and has had an opportunity to ask questions about his/her condition. The patient has been informed that he may return for care at any time, and follow up has been advised.
[2018-06-16] MEDS ORDERED: Pharmacy Ordered Lab Info OTHER ONE (11:45)
== END 2018-06-16 14:00 | disposition left against medical advice (07) ==
LOC: NEPD 16:01 → NEDA 23:23 → INTOOBSV 23:23 → NEDA 06-15 00:28 → NEPHCDU 06-15 00:28
PROVIDERS: ADMIT Hospitalist; ATTEND Hospitalist